=== PATIENT | female | born 1945 | race African-American/Black ===

== ENCOUNTER 2019-08-16 22:38 | Emergency (ER) | payer MEDICARE, OTHER, SELFPAY ==
--- NOTE | ~2019-08-16 | CT_ITS ---
EXAMINATION: CT brain wo con INDICATION: Head injury COMPARISON: None TECHNIQUE: Standard unenhanced head CT. The dose-length product (DLP) was 529.67 mGy-cm. The mA was a djusted according to patient size. Iterative reconstruction technique was employed. FINDINGS: There is a hematoma of the posterior scalp. There is no acute intraparenchymal hemorrhage. No evidence of acute infarction. A 1.6 x 1.3 cm hyperdense extra-axial mass is noted to the left of m idline near the vertex. There is mild periventricular and subcortical hypodensity probably related to small vessel ischemic disease. There is mild prominence of the sulci and ventricles related to cereb ral atrophy. Intracranial calcified cerebral atherosclerosis is noted. There are no extra-axial colle ctions. There is no mass effect or midline shift. The orbits and soft tissues are unremarkable. Ther e is mild mucosal thickening of the paranasal sinuses. IMPRESSION: 1. Posterior scalp hematoma without acute intracranial abnormality. 2. Age related findings. 3. Extra-axial mass near the vertex to the left of midline with imaging features consistent with a me ningioma. Reviewed, dictated and finalized at location A. DE ACCOUNT REPRESENTATIVE IMPRESSION: 1. Posterior scalp hematoma without acute intracranial abnormality. 2. Age related findings. 3. Extra-axial mass near the vertex to the left of midline with imaging feature s consistent with a meningioma.
--- NOTE | ~2019-08-16 | CT_ITS ---
EXAMINATION: CT abdomen pelvis wo con EXAM DATE: 08/17/2019 00:37 INDICATION: Right low back pain. Hematuria. Fall, right hip pain. TECHNIQUE: Spiral CT of the abdomen and pelvis was performed without contrast. Axial, coronal and sag ittal images were reviewed. The dose-length product (DLP) for this examination was 279.63 mGy-cm. T he exposure was tailored according to patient size (auto mA exposure control), and iterative reconstr uction (ASIR) was used as additional dose reduction technique. Comparison is made to prior examinatio n from 01/11/2016. FINDINGS: There is no nephrolithiasis or hydronephrosis. The uterus is not identified and has likel y been surgically resected. There is a cystic region left posterior aspect of the bladder, could be t he same cystic region seen in 2016 suspected to be left adnexal in origin, with interval decrease in size from 8.9 cm to 6.5 cm. Significant decrease in volume overall. The liver, spleen, adrenal glands and pancreas are unremarkable. Punctate cholelithiasis. Gallbladder is contracted and otherwise unr emarkable. There is no retroperitoneal or pelvic lymphadenopathy. There is moderate scattered virgil riosclerotic disease. The appendix is normal. The stomach and small bowel are unremarkable. There is expected amount of c olonic stool. No free intraperitoneal gas. The heart is normal in size. There are no pericardial or pleural effusions. Small patchy left basilar groundglass opacities appearance most consistent wi th acute infectious process, developing pneumonia. There are no osteoblastic or osteolytic lesions i dentified. Advanced disc disease L5-S1 with sclerosis, vacuum disc phenomenon. There are no acute fr actures identified. IMPRESSION: 1. Patchy left lower lobe airspace disease suspicious for developing pneumonia. 2. Left adnexal region cystic mass, more likely benign histology given decrease in size, volume comp ared to 2016. I discussed left lower lobe airspace disease with Dr. Alaniz at 08/17/2019 08:41 STATISTICAL CLERK ADVERTISING. Reviewed, dictated and finalized at location B. ISTICAL CLERK ADVERTISING IMPRESSION: 1. Patchy left lower lobe airspace disease suspicious for developing pneumonia . 2. Left adnexal region cystic mass, more likely benign histology given decreas e in size, volume compared to 2016. I discussed left lower lobe airspace disease with Dr. Alaniz at 08/17/2019 08:4 1 STATISTICAL CLERK ADVERTISING.
--- NOTE | ~2019-08-16 | XR_ITS ---
EXAMINATION: XR elbow LT 2V INDICATION: Left elbow pain TECHNIQUE: Two views of the left elbow were obtained. COMPARISON: None available FINDINGS: No fracture is identified. There is posterior soft tissue swelling. Mild osteoarthritis is noted. No joint effusion is seen. IMPRESSION: 1. No acute osseous abnormality. Reviewed, dictated and finalized at location A. CTOR INDUSTRIAL RELATIONS
--- NOTE | ~2019-08-16 | XR_ITS ---
EXAMINATION: XR lumbar spine 2-3V DATE: 08/16/2019 23:47 INDICATION: Low back pain after fall TECHNIQUE: Anteroposterior and lateral views of the lumbar spine, and cone-down lateral view of the l umbosacral junction were obtained. COMPARISON: CT, 01/11/2016 FINDINGS: No fracture is identified. There are 2 mm of chronic anterolisthesis of L4 on L5 and retrol isthesis of L5 on S1. The vertebral body heights are normal. Moderate loss of intervertebral disc spa ce height at L4-5 and L5-S1 is unchanged. There is severe facet osteoarthritis of the lower lumbar sp ine. Calcified atherosclerosis is noted. IMPRESSION: 1. Moderate lumbar spondylosis without acute findings or significant interval change. Reviewed, dictated and finalized at location A. ERMAN IMPRESSION: 1. Moderate lumbar spondylosis without acute findings or significant interval patricia bose
--- NOTE | ~2019-08-16 | CT_ITS ---
EXAMINATION: CT cervical spine wo con DATE: 08/16/2019 23:38 INDICATION: Neck pain after fall TECHNIQUE: Computed tomography (CT) of the cervical spine was performed without intravenous contrast. The dose-length product (DLP) was 176.76 mGy-cm. Automated exposure control and iterative reconstruc tion technique were employed. COMPARISON: 01/10/2016 FINDINGS: There are 2 mm of stable anterolisthesis of C4 on C5 and C7 on T1. There is 1 mm of stable retrolisthesis of C6 on C7. There is moderate loss of intervertebral disc space height at C5-6 and se ozzie loss of intervertebral disc space height at C6-7 and T1-2. Mild loss of intervertebral disc spac e height is present at C2-3 and C3-4. The vertebral body heights are normal. The odontoid is intact. There is no fracture. There is severe multilevel facet and uncovertebral joint osteoarthritis. The pr evertebral soft tissues are normal. Small degenerative osteophytes project from the anterior endplate s of multiple vertebral bodies. IMPRESSION: 1. Severe cervical spondylosis without acute findings or significant interval change. Reviewed, dictated and finalized at location A. TECH IMPRESSION: 1. Severe cervical spondylosis without acute findings or significant interval c tomasa.
--- NOTE | ~2019-08-16 | XR_ITS ---
EXAMINATION: XR hip RT 2V w AP pelvis INDICATION: Right hip pain after fall TECHNIQUE: AP view of the pelvis and two views of the right hip are obtained. COMPARISON: None available FINDINGS: Bone alignment is normal. There is no fracture. Mild bilateral hip osteoarthritis is noted. There is also mild osteitis pubis. Phleboliths are noted in the pelvis. The soft tissues are unremar kable. IMPRESSION: 1. No acute osseous abnormality. Reviewed, dictated and finalized at location A. EY STRIPPER
[2019-08-16 22:40] VITALS: BP 207/85; PULSE 91; RESP 16; TEMP 36.7; O2SAT 100
--- NOTE | 2019-08-16 23:03 | ED.HEATRA ---
HPI - Head Injury General Chief complaint: Head Injury Stated complaint: FALL Time Seen by Provider: 08/16/19 23:02 Source: patient and RN notes reviewed Mode of arrival: other Limitations: no limitations History of Present Illness HPI Narrative: Pt is a 74 y/o female who presents to the ED with c/o an occipital head injury that occurred an hour ago after a fall. Pt states that she missed the steps at home. She states that she fell backwards and hit her head posterior. She states that she tried to brace her head. Pt also reports right hip pain, left elbow pain, dark urine, hematuria, and back pain since (08/11/19), but denies syncope, vomiting, CP, neck pain, SOB, and ABD pain. Pt denies taking any anticoagulants. Pt's chief privacy officer is Dr. Waters. Complaint: head injury Onset (ago): hour(s) (1) Mechanism of Injury: fall Place: home Loss of Consciousness: no Location of injury: occipital Other Injuries: other (right hip, left elbow) Associated symptoms: other (right hip pain, left elbow pain, dark urine, hematuria, back pain since (08/11/19)) Related Data Home Medications Medication Instructions Recorded Confirmed losartan 25 mg tablet 25 mg PO DAILY 07/26/19 Allergies Allergy/AdvReac Type Severity Reaction Status Date / Time No Known Allergies Allergy Unverified 06/10/18 10:26 Review of Systems Review of Systems: All systems reviewed & are unremarkable except as noted in HPI and below Cardiovascular: Cardiovascular: Denies chest pain Respiratory: Respiratory: Denies dyspnea Gastrointestinal: Gastrointestinal: Denies abdominal pain and Denies vomiting Genitourinary: Genitourinary: Reports hematuria and Reports other (dark colored urine) Musculoskeletal: Musculoskeletal: Reports back pain and Reports other (right hip pain, left elbow pain) Neurologic: Denies syncope [facility] Past Medical History Medical History (Updated 08/17/19 @ 01:03 by Andreia Mckeon MD) Anemia Arthritis Benign reactive hypertension Cataracts, bilateral Chronic disease anemia CKD (chronic kidney disease) (Unknown) GERD (gastroesophageal reflux disease) HTN (hypertension) Hyperlipidemia PUD (peptic ulcer disease) Rectal polyp Seasonal allergies Ulcer Surgical History Surgical History (Updated 08/16/19 @ 23:14 by Charlene Mahmood) History of hysterectomy Family History Family History (Updated 07/26/19 @ 10:16 by Aundrea Saeed) Mother , 84 yrs old Dementia Sibling Brain aneurysm Other Diabetes mellitus Family history of congestive heart failure Hypertension Social History Social History (Updated 07/26/19 @ 10:12 by Aundrea Saeed) Smoking status: Former smoker Second hand tobacco smoke exposure: No Alcohol intake: current Drinks per week: 4 Substance use: never Substance use type: does not use Gender identity (if verbalized by the patient): Female Exam Const: General: no acute distress and well developed Orientation/consciousness: oriented to person, oriented to place, oriented to time and patient oriented x3 HENMT: Head: scalp tenderness (occipital) Ears: external ears normal General nose exam: Normal external nose present Eyes: General: appearance normal, both eyes and all related structures Conjunctivae: conjunctivae normal Neck: Neck: normal visual inspection and full ROM Chest: Chest palpation & inspection: normal inspection of the chest and no tenderness Resp: Effort & Inspection: normal respiratory effort Auscultation: clear to auscultation bilaterally Cardio: Rate: regular rate Rhythm: regular rhythm Back/Spine/Pelvis: Thoracic/Lumbar Spine: other (right lower back tenderness) Skin: General skin exam: normal color and turgor normal Neuro: General: oriented to person, oriented to place, oriented to time and patient oriented x3 Cognition (Neuro): normal cognition Extrem: General: normal to inspection, full ROM and no pe
[2019-08-16 23:33] LABS: Basophils Percent Auto 0.4 % (0.2-1.2); Eosinophils Absolute Auto 0.2 K/mm3 (0-0.3); Hematocrit 38.2 % (37.0-47.0); Hemoglobin 12.7 g/dL (12.0-15.0); Immature Granulocyte Percent A 1.8 % (0-0.5); Lymphocytes Absolute Auto 1.93 K/mm3 (0.9-3.2); Lymphocytes Percent Auto 34.1 % (18.3-44.2); Mean Corpuscular HGB Conc 33.2 g/dl (32-36); Mean Corpuscular Hemoglobin 29.6 pg (26-34); Mean Platelet Volume 10.1 fl (7.4-10.4); Monocytes Absolute Auto 0.5 K/mm3 (0.1-0.6); Monocytes Percent Auto 8.7 % (2.6-8.5); Platelet Count Result 187 k/mm3 (150-375); Red Blood Count 4.29 M/mm3 (4.2-5.4); Red Cell Distribution Width 12.7 % (11.5-14.5); White Blood Count 5.7 K/mm3 (4.5-10.0)
[2019-08-16 23:38] LABS: Add Urine Microscopic? YES; Appearance Urine Clear (Clear); Bacteria Urine Trace /hpf; Bilirubin Urine Negative (Negative); Blood Urine 3+ (Negative); Color Urine Straw (Yellow); Glucose Urine UA 1+ mg/dL (Negative); Ketones Urine Negative (Negative); Leukocyte Esterase Ur Negative LEU/UL (Negative); Mucus Urine Rare /lpf; Nitrate Urine Negative (Negative); Protein Urine 1+ mg/dL (Negative); RBC Urine 51-75 /hpf (0-2); Specific Grav Ur 1.009 (1.001-1.035); Squamous Epithelial Cell Urine Rare /hpf (Few); Urobilinogen Urine Negative mg/dL (<2.0); WBC Urine 0-3 /hpf
[2019-08-16 23:41] LABS: Blood Urea Nitrogen 19 mg/dL (7-17); Calcium 9.6 mg/dL (8.4-10.2); Carbon Dioxide 18 mmol/L (22-30); Chloride 87 mmol/L (98-107); Estimated CRCL calculation 26 ml/min; Estimated Glomerular Filt Rate 41; Glucose 114 mg/dL (65-105); Potassium 4.4 mmol/L (3.4-5.0); Sodium 126 mmol/L (137-145)
[2019-08-17 01:19] VITALS: BP 201/80; PULSE 88; RESP 16; O2SAT 100
== END 2019-08-17 01:20 | disposition home or self-care (01) ==
PROVIDERS: Emergency Provider Emergency Medicine; PCP Family Medicine
DX: S00.03XA Contusion of scalp, initial encounter (principal); S70.01XA Contusion of right hip, initial encounter; S50.02XA Contusion of left elbow, initial encounter; M19.90 Unspecified osteoarthritis, unspecified site; Z86.2 Personal history of diseases of the blood and blood-forming organs and certain disorders involving the immune mechanism; N18.9 Chronic kidney disease, unspecified; E78.5 Hyperlipidemia, unspecified; I12.9 Hypertensive chronic kidney disease with stage 1 through stage 4 chronic kidney disease, or unspecified chronic kidney disease; Z87.19 Personal history of other diseases of the digestive system; Z87.891 Personal history of nicotine dependence; M47.816 Spondylosis without myelopathy or radiculopathy, lumbar region; M47.812 Spondylosis without myelopathy or radiculopathy, cervical region; R93.0 Abnormal findings on diagnostic imaging of skull and head, not elsewhere classified; N94.89 Other specified conditions associated with female genital organs and menstrual cycle; R91.8 Other nonspecific abnormal finding of lung field; W10.9XXA Fall (on) (from) unspecified stairs and steps, initial encounter
CPT/HCPCS: 36415; 70450; 72100; 72125; 73070; 73502; 73521; 74176; 80048; 81001; 85025; 99284

== ENCOUNTER 2019-12-05 00:32 | Outpatient (CLI) | payer MEDICARE, OTHER, SELFPAY ==
[2019-12-05 16:41] LABS: SARS-CoV-2 RNA PCR Negative
== END 2019-12-05 00:33 | disposition home or self-care (01) ==
LOC: ANHCOVIDDT 00:32
PROVIDERS: PCP Family Medicine; Visit Provider Obstetrics & Gynecology
DX: Z01.812 Encounter for preprocedural laboratory examination (principal); Z20.828 Contact with and (suspected) exposure to other viral communicable diseases
CPT/HCPCS: 87635; 93005; C9803; U0003

== ENCOUNTER 2019-12-05 10:51 | Outpatient (CLI) | payer MEDICARE, OTHER, SELFPAY ==
--- NOTE | 2019-12-05 10:55 | ECG_ITS ---
Measurements Intervals [place] Rate: 86 P: 44 MT: 176 QRS: 46 QRSD: 90 T: 31 QT: 370 QTc: 444 Interpretive Statements SINUS RHYTHM POSSIBLE LEFT ATRIAL ENLARGEMENT POSSIBLE LEFT VENTRICULAR HYPERTROPHY MINIMAL Q WAVES- ANTEROLAT/INF LEADS ST ELEVATION IN DIFFUSE LEADS- PROBABLY EARLY REPOLARIZATION BASELINE ARTIFACT- II, III, AVR, AVL, AVF BORDERLINE ECG Electronically Signed On 12-05-2019 11:42:05 CDT by Oleksandr Hernandez D.O.
== END 2019-12-05 10:52 | disposition home or self-care (01) ==
LOC: ANHSURGERY 10:55
PROVIDERS: PCP Family Medicine; Visit Provider Obstetrics & Gynecology
DX: I10 Essential (primary) hypertension (principal); R94.31 Abnormal electrocardiogram [ECG] [EKG]
CPT/HCPCS: 93005

== ENCOUNTER 2019-12-07 02:06 | Day surgery (SDC) | payer MEDICARE, OTHER, SELFPAY ==
--- NOTE | 2019-12-06 15:31 | WPDANESEPPF ---
Anes - Initial Pre Proc Eval Procedure: Operation Date: 12/07/19 11:00 Proposed Procedures p Laparoscopic Left Ovarian Cystectomy - Christian Aguilar MD Date/Time: 12/06/19 15:31 Surgeon: Christian Aguilar MD Pre Op Diagnosis: Left Ovarian Cyst Patient Data Age: 74 Gender: F Height: Weight: Allergies Allergy/AdvReac Type Severity Reaction Status Date / Time No Known Allergies Allergy Unverified 12/01/19 16:03 Home Medications Medication Instructions Recorded Confirmed Type losartan 25 mg tablet 25 mg PO DAILY 07/26/19 12/01/19 History lanolin zcutrke-ec-n.pet-ceres 1 applic TOPICAL DAILY PRN 12/01/19 12/01/19 History [Eucerin] ECG: Date of Service: 12/05/19 Procedure(s): CA 12 lead EKG Accession Number(s): [id number] cc: ~ Measurements Intervals [place] Rate: 86 P: 44 MN: 176 QRS: 46 QRSD: 90 T: 31 QT: 370 QTc: 444 Interpretive Statements SINUS RHYTHM POSSIBLE LEFT ATRIAL ENLARGEMENT POSSIBLE LEFT VENTRICULAR HYPERTROPHY MINIMAL Q WAVES- ANTEROLAT/INF LEADS ST ELEVATION IN DIFFUSE LEADS- PROBABLY EARLY REPOLARIZATION BASELINE ARTIFACT- II, III, AVR, AVL, AVF BORDERLINE ECG Electronically Signed On 12-05-2019 11:42:05 CDT by Oleksandr Hernandez D.O. Dictated By: Oleksandr Hernandez DO 12/05/19 1127 Patient hx anesthesia problems: none Family hx anesthesia problems: none PMFSH Past Medical History Medical History (Updated 08/23/19 @ 11:53 by Dorothy Gupta MD) Alcohol abuse Anemia Arthritis Benign reactive hypertension Cataracts, bilateral Cholelithiasis Chronic disease anemia CKD (chronic kidney disease) (Unknown) GERD (gastroesophageal reflux disease) HTN (hypertension) Hyperlipidemia Ovarian cyst, left PUD (peptic ulcer disease) Rectal polyp Seasonal allergies Ulcer Surgical History Surgical History (Updated 08/16/19 @ 23:14 by Charlene Mahmood) History of hysterectomy Family History Family History (Updated 07/26/19 @ 10:16 by Aundrea Saeed) Mother , 84 yrs old Dementia Sibling Brain aneurysm Other Diabetes mellitus Family history of congestive heart failure Hypertension Social History Social History (Updated 08/23/19 @ 08:59 by Aundrea Saeed) Social History: Smoking status: Former smoker Second hand tobacco smoke exposure: No Alcohol intake: current Drinks per week: 6 Substance use: never Substance use type: does not use Gender identity (if verbalized by the patient): Female Anes - Eval Final PreProcedure Day of Procedure 12/06/19 15:31 Patient weight: normal Heart: regular rate and rhythm Lungs: clear to auscultation and normal air movement Airway: Mallampati scale class II Neurological: alert and oriented Last oral intake: >/= 8 hours ASA classification: III Emergent: no Anesthetic plan: proceed Anesthesia type and monitoring: general ETT Informed Consent: The patient's anesthetic plan and its attendant risks and benefits were discussed with the patient/family/POA. Questions were solicited and answers provided to the satisfaction of the patient/family/POA.
[2019-12-07] VITALS (8 sets, daily range): BP systolic 118–188; BP diastolic 63–86; PULSE 64–79; RESP 12–20; TEMP 36–36.3; O2SAT 98–100
[2019-12-07] MEDS: LACTATED RINGERS 1,000 ML 30 ML IV CONT ×2 (09:30→12:20)
--- NOTE | 2019-12-07 10:01 | WPDHPUPDATE1 ---
History and Physical Update Update Date/Time: 12/07/19 10:01 History and Physical has been reviewed, including an updated exam of the patient. There are NO changes in the patient's condition. Risks, benefits, and alternatives have been discussed and questions answered. Patient agrees to proceed with procedure.
--- NOTE | 2019-12-07 12:19 | P.OP_ITS ---
Procedure Note - Detailed Date of procedure: 12/07/19 Pre-op diagnosis: Left Ovarian Cyst Post-op diagnosis: other Procedure performed: Laparoscopic left ovarian cystectomy and adhesiolysis-1 hour of adhesiolysis Description of procedure: The patient was taken the operating room. She was prepped and draped in the dorsal lithotomy position after induction of general anesthesia. A 5 mm left upper quadrant incision was made in the abdominal skin with a scalpel. A 5 mm trocar was inserted the intra-abdominal cavity under direct visualization of the scope. A 5 mm left lower quadrant incision was made with the scalp on the abdominal skin and a 5 mm trocar was inserted the intra- abdominal cavity under direct visualization of the scope. A 5 mm infraumbilical incision was made with scalpel and a 5 mm trocar was inserted into the intra- abdominal cavity under direct visualization of the scope. Adhesiolysis was performed for 1 hour freeing up the ovary from the para ovarian tissue and left pelvic sidewall. The ureter was dissected out from the pelvic brim to the uterine artery. The ovary was densely adherent to the pelvic sidewall and the anterior pelvis near the bladder. Ultimately after prolonged dissection the ovary was removed through the left lateral pelvic sidewall. It was placed in an endobag was taken at the left lower quadrant trocar site. A small defect was made in the cyst and a small amount of fluid came out of the cyst before placing it in the bag. The ovaries taken of the left lower quadrant trocar site along with the bag. Interceed was placed over the dissected area to make it hemostatic. The pelvis was irrigated with copious amounts of normal saline. The pneumoperitoneum was reduced. The trocars were removed. The patient was taken recovery room stable condition. Sponge lap and needle counts were correct x2. Anesthesia: GETA Surgeon: Christian Aguilar MD Estimated blood loss (mL): 20 Drains: No Packing: No Complications: No immediate complications Condition: stable Disposition: PACU Findings: 7 cm ovarian cyst, the left ovary and adnexa were densely adherent to the left lateral pelvic sidewall and anterior pelvis and near the dome of the bladder. The remainder of the pelvis appeared normal.
--- NOTE | 2019-12-07 14:31 | SUR.PHASEII ---
1415; DR WEAVER NOTIFIED OF PT'S BP. SYSTOLIC 180'S THEN 160'S NOW BACK TO 188 SYSTOLIC. PT DID NOT TAKE HER LOSARTAN TODAY DUE TO HOLD FOR SURGERY INSTRUCTIONS. DR WEAVER STATES FOR PT TO GO HOME AND TAKE LOSARTAN TODAY. WRITTEN ON INSTRUCTIONS. PT'S DAUGHTER AND SPOUSE NOTIFIED TO TAKE LOSARTAN TODAY.
== END 2019-12-07 14:33 | disposition home or self-care (01) ==
PROVIDERS: PCP Family Medicine; Visit Provider Obstetrics & Gynecology
PROC: (CPT 49320; principal; 2019-12-07 11:00)
DX: D27.1 Benign neoplasm of left ovary (principal); N73.6 Female pelvic peritoneal adhesions (postinfective); I12.9 Hypertensive chronic kidney disease with stage 1 through stage 4 chronic kidney disease, or unspecified chronic kidney disease; N18.9 Chronic kidney disease, unspecified; E78.5 Hyperlipidemia, unspecified; K21.9 Gastro-esophageal reflux disease without esophagitis; D63.8 Anemia in other chronic diseases classified elsewhere; Z79.899 Other long term (current) drug therapy
CPT/HCPCS: 58661; 88104; 88108; 88305; 88307; J0131; J1100; J2370; J2405; J2704; J3010; J7120

== ENCOUNTER 2019-12-19 06:49 | Emergency (ER) | payer MEDICARE, OTHER, SELFPAY ==
[2019-12-19 06:56] VITALS: BP 166/90; PULSE 89; RESP 18; TEMP 36.8; O2SAT 100
--- NOTE | 2019-12-19 07:35 | ED.ALLEREA ---
HPI - Allergic Reaction General Chief complaint: Allergic Reaction Stated complaint: swollen ear, itching Time Seen by Provider: 12/19/19 07:26 History of Present Illness HPI narrative: Patient presents with weeks and months of eczema with severe irritation primarily around the right ear. She has had this for years and never seen a travel manager. She has an appointment with a travel manager for January 24. She had steroids 3 weeks ago which did not help. She continually scratches her scalp and her hands. She now has redness and swelling of the right pinna and preauricular skin, with weeping. She also complains of redness and itching underneath each breast. Also her hands have thickened skin that itches. She says the Benadryl does not help with the itching. She is retired. She knows to keep her fingernails short to avoid damage to her skin while scratching. She has no other medical concerns. Onset (ago): month(s) Exposure: unknown Symptoms: rash, itching and facial swelling Severity: moderate Treatment prior to arrival: none Related Data Home Medications Medication Instructions Recorded Confirmed losartan 25 mg tablet 25 mg PO DAILY 07/26/19 12/01/19 Eucerin 1 applic TOPICAL DAILY PRN 12/01/19 12/01/19 Allergies Allergy/AdvReac Type Severity Reaction Status Date / Time No Known Allergies Allergy Unverified 12/01/19 16:03 Review of Systems Review of Systems: Narrative: CONSTITUTIONAL: Denies fever, chills, or sweats. EYES: Denies visual changes, redness, or discharge. ENT: Denies rhinorrhea, congestion, sore throat, or otalgia. CARDIOVASCULAR: Denies chest pain, palpitations, or edema. RESPIRATORY: Denies cough or dyspnea. GASTROINTESTINAL: Denies abdominal pain, nausea, vomiting, or diarrhea. GENITOURINARY: Denies dysuria or hematuria. SKIN: She has rash and itching. MUSCULOSKELETAL: Denies back pain, joint pain, or myalgia. NEUROLOGIC: Denies headache, numbness, or weakness. PSYCHIATRIC: Denies anxiety or depression. [facility] Past Medical History Medical History Alcohol abuse Anemia Arthritis Benign reactive hypertension Cataracts, bilateral Cholelithiasis Chronic disease anemia CKD (chronic kidney disease) (Unknown) GERD (gastroesophageal reflux disease) HTN (hypertension) Hyperlipidemia Ovarian cyst, left PUD (peptic ulcer disease) Rectal polyp Seasonal allergies Ulcer Surgical History Surgical History History of hysterectomy Family History Family History (Updated 07/26/19 @ 10:16 by Aundrea Saeed) Mother , 84 yrs old Dementia Sibling Brain aneurysm Other Diabetes mellitus Family history of congestive heart failure Hypertension Social History Social History Social History: Smoking status: Former smoker Second hand tobacco smoke exposure: No Alcohol intake: current Drinks per week: 6 Substance use: never Substance use type: does not use Gender identity (if verbalized by the patient): Female Exam Narrative: Exam Narrative: GENERAL: Well-appearing, well-nourished, and in no acute distress. HEAD: Normocephalic, atraumatic. EYES: PERRLA and EOMI. ENT: Nares clear, no rhinorrhea or epistaxis. Mucous membranes moist. NECK: Supple. CHEST: Clear to auscultation. No respiratory distress. HEART: Regular rate and rhythm. No murmur heard. Normal peripheral pulses. ABDOMEN: Soft, nontender, nondistended, normal active bowel sounds. EXTREMITIES: Normal range of motion. No edema. SKIN: Warm, dry, dry thickened skin on her palms, redness beneath each breast, redness and swelling preauricular on the right, redness and swelling of the right pinna. NEURO: No focal deficits. Alert and oriented x3. PSYCH: Normal mood and affect. Course Vital Signs Vital signs: Vital Signs Temperature
[2019-12-19] MEDS: predniSONE 20 MG TABLET 60 MG PO (07:46)
== END 2019-12-19 07:50 | disposition home or self-care (01) ==
PROVIDERS: Emergency Provider Emergency Medicine; PCP Family Medicine
DX: L30.9 Dermatitis, unspecified (principal); H60.391 Other infective otitis externa, right ear; L03.211 Cellulitis of face; M19.90 Unspecified osteoarthritis, unspecified site; I13.10 Hypertensive heart and chronic kidney disease without heart failure, with stage 1 through stage 4 chronic kidney disease, or unspecified chronic kidney disease; N18.9 Chronic kidney disease, unspecified; K21.9 Gastro-esophageal reflux disease without esophagitis; E78.5 Hyperlipidemia, unspecified; Z87.11 Personal history of peptic ulcer disease; Z87.891 Personal history of nicotine dependence; H26.9 Unspecified cataract
CPT/HCPCS: 99283; J7512

== ENCOUNTER 2020-09-10 09:58 | Outpatient (CLI) | payer MEDICARE, OTHER, SELFPAY | END 2020-09-10 09:59 | disposition home or self-care (01) | LOC: ANHCOVIDVC 09:58 | PROVIDERS: PCP Family Medicine | DX: Z23 Encounter for immunization (principal) | CPT/HCPCS: 0001A; 91300 ==

== ENCOUNTER 2020-10-01 15:50 | Outpatient (CLI) | payer MEDICARE, OTHER, SELFPAY | END 2020-10-01 15:51 | disposition home or self-care (01) | LOC: ANHCOVIDVC 15:50 | PROVIDERS: PCP Family Medicine | DX: Z23 Encounter for immunization (principal) | CPT/HCPCS: 0002A; 91300 ==

== ENCOUNTER 2020-12-17 12:29 | Observation (INO) | payer MEDICARE, OTHER, SELFPAY ==
[2020-12-17] VITALS (13 sets, daily range): BP systolic 155–196; BP diastolic 62–86; PULSE 70–96; RESP 13–20; TEMP 35.9–36.6; O2SAT 99–100; BMI 26.8
--- NOTE | ~2020-12-17 | MR_ITS ---
EXAMINATION: MR brain/brain stem wo con EXAM DATE: 12/18/2020 12:31 INDICATION: Dizziness. TECHNIQUE: Magnetic resonance imaging (MRI) of the brain/brain stem obtained without contrast. Shaguftaitt al T1, axial diffusion, gradient echo (T2*), T1, T2, FLAIR sequences obtained. Correlation is made t o yesterday. FINDINGS: There are no areas of restricted diffusion to suggest acute infarction. There is no acute hemorrhage seen on the T2*, a hemosiderin sensitive sequence. No intraparenchymal brain mass lesion. There is extra-axial mass overlying the posterior aspect left frontal lobe, consistent with meningi glory, measuring 1.5 cm. There is mild to moderate periventricular and subcortical T2/FLAIR signal hyp erintensity, nonspecific but probably related to small vessel ischemic disease (microangiopathy). T here is prominence of the sulci and ventricles related to cerebral atrophy. There are no extra-axia l collections. Flow voids are seen in the cerebral arteries on the T2-weighted sequences consistent with their expected patency. The orbits are unremarkable. Soft tissue is unremarkable. IMPRESSION: 1. No acute intracranial findings. 2. Chronic age related findings. 3. Meningioma. Reviewed, dictated and finalized at location B.
--- NOTE | ~2020-12-17 | CT_ITS ---
EXAMINATION: CT brain wo con DATE: 12/17/2020 13:15 INDICATION: Dizziness. TECHNIQUE: Computed tomography (CT) of the head was performed without intravenous contrast. The dose- length product was 529.67 mGy-cm. The mA was adjusted according to patient size. Iterative reconstruc tion technique was employed. COMPARISON: CT dated 08/16/2019 FINDINGS: There is a hypodense 1.8 cm extra-axial mass at the left parietal vertex without significan t change, likely benign meningioma. Mild generalized atrophy. There are scattered mild periventricula r and subcortical white matter changes, most likely related to small vessel ischemic disease (microan giopathy). No acute intracranial hemorrhage, infarction, mass or mass effect. There is intracranial a therosclerosis. There is mild mucosal thickening of the maxillary and the ethmoid sinuses. Mastoids a re pneumatized. No depressed skull fractures. IMPRESSION: 1. No acute intracranial abnormality. 2: Stable hyperdense extra axial mass at the left parietal vertex measuring up to 1.8 cm, likely jan gn meningioma. 2: Chronic age-related findings. Reviewed, dictated and finalized at location A. IMPRESSION: 1. No acute intracranial abnormality. 2: Stable hyperdense extra axial mass at the left parietal vertex measuring up to 1.8 cm, likely benign meningioma. 2: Chronic age-related findings.
--- NOTE | ~2020-12-17 | US_ITS ---
EXAMINATION: US carotid duplex BI EXAM DATE: 12/17/2020 16:24 INDICATION: Dizziness. TECHNIQUE: Grayscale, color and pulsed Doppler images of the cervical carotid arteries were obtained . The degree of vessel stenosis is placed in one of the following categories: normal, <50% stenosis, 50-69% stenosis, >=70% stenosis but less than near-occlusion, near-occlusion, or occlusion. Note that percent stenosis relative to normal distal artery lumen diameter is indirectly measured from velocit y measurements as described by Freddy, et al. Radiology 2003; 229:340-346. There is no prior study fo r comparison. FINDINGS: RIGHT SIDE: Right common carotid artery peak systolic velocity (PSV in cm/s): 117 Right bulb/internal carotid artery peak systolic velocity (PSV in cm/s): 135 Right internal carotid artery end diastolic velocity (EDV in cm/s): 43 Right ICA/CCA peak systolic ratio: 1.15 Right external carotid artery peak systolic velocity (PSV in cm/s): 68 Right vertebral artery antegrade flow: yes There is no focal plaque identified. LEFT SIDE: Left common carotid artery peak systolic velocity (PSV in cm/s): 125 Left bulb/internal carotid artery peak systolic velocity (PSV in cm/s): 124 Left internal carotid artery end diastolic velocity (EDV in cm/s): 35 Left ICA/CCA peak systolic ratio: 1.0 Left external carotid artery peak systolic velocity (PSV in cm/s): 107 Left vertebral artery antegrade flow: yes There is no focal plaque identified. IMPRESSION: 1. Normal right internal carotid artery. 2. Normal left internal carotid artery. Reviewed, dictated and finalized at location B.
--- NOTE | 2020-12-17 12:36 | ECG_ITS ---
Measurements Intervals [place] Rate: 77 P: 54 VA: 177 QRS: 40 QRSD: 91 T: 42 QT: 390 QTc: 441 Interpretive Statements SINUS RHYTHM POSSIBLE LEFT ATRIAL ENLARGEMENT POSSIBLE LEFT VENTRICULAR HYPERTROPH MINIMAL Q WAVES- INF/LAT LEADS ST ELEVATION IN ANTEROLATERAL LEADS- PROBABLY EARLY REPOLARIZATION ABNORMALITY BASELINE ARTIFACT- II, III, AVR, AVF, V1-V6 BORDERLINE ECG Electronically Signed On 12-17-2020 12:51:10 CDT by Oleksandr Hernandez D.O.
--- NOTE | 2020-12-17 12:58 | ED.GENADULT ---
HPI - General Adult General Chief complaint: Dizziness Stated complaint: DIZZINESS, L KNEE PAIN Time Seen by Provider: 12/17/20 12:38 Related Data Home Medications Medication Instructions Recorded Confirmed Eucerin 1 applic TOPICAL DAILY PRN 12/01/19 08/31/20 cholecalciferol (vitamin D3) 25 25 mcg PO DAILY 12/23/19 08/31/20 mcg (1,000 unit) capsule clotrimazole-betamethasone 1 1 applic TOPICAL BID 02/17/20 08/31/20 %-0.05 % topical cream ferrous sulfate 325 mg (65 mg 325 mg PO .COMPLEX 02/17/20 08/31/20 iron) tablet Allergies Allergy/AdvReac Type Severity Reaction Status Date / Time No Known Allergies Allergy Verified 12/17/20 12:51 COUNT INCLUDES THE [facility] Past Medical History Medical History (Updated 09/08/20 @ 22:14 by Dorothy Gupta MD) Alcohol abuse Anemia Arthritis Benign reactive hypertension Cataracts, bilateral Cholelithiasis Chronic disease anemia CKD (chronic kidney disease) (Unknown) GERD (gastroesophageal reflux disease) HTN (hypertension) Hyperlipidemia Ovarian cyst, left PUD (peptic ulcer disease) Rectal polyp Seasonal allergies Ulcer Surgical History Surgical History History of hysterectomy Family History Family History Mother , 84 yrs old Dementia Sibling Brain aneurysm Other Diabetes mellitus Family history of congestive heart failure Hypertension Social History Social History (Updated 08/31/20 @ 09:37 by Aundrea Saeed) Social History: Smoking status: Former smoker Tobacco type: cigarettes Second hand tobacco smoke exposure: No Alcohol intake: current Drinks per week: 18 Substance use: never Substance use type: does not use Gender identity (if verbalized by the patient): Female Course Vital Signs Vital signs: Vital Signs Temperature 36.6 C 12/17/20 12:33 Pulse Rate 78 12/17/20 12:33 Respiratory Rate 18 12/17/20 12:33 Blood Pressure 157/62 H 12/17/20 12:33 Pulse Oximetry 100 12/17/20 12:33 Temperature 36.6 C 12/17/20 12:33 Pulse Rate 83 12/17/20 12:42 Respiratory Rate 19 12/17/20 12:42 Blood Pressure 179/86 H 12/17/20 12:42 Pulse Oximetry 99 12/17/20 12:42 Medical Decision Making Vital Signs Vital Signs: Vital Signs Temperature 36.6 C 12/17/20 12:33 Pulse Rate 78 12/17/20 12:33 Respiratory Rate 18 12/17/20 12:33 Blood Pressure 157/62 H 12/17/20 12:33 Pulse Oximetry 100 12/17/20 12:33 Temperature 36.6 C 12/17/20 12:33 Pulse Rate 83 12/17/20 12:42 Respiratory Rate 19 12/17/20 12:42 Blood Pressure 179/86 H 12/17/20 12:42 Pulse Oximetry 99 12/17/20 12:42 Lab Data Result diagrams: 12/17/20 12:54 12/17/20 12:54 Labs: Lab Results 12/17/20 12/17/20 12/17/20 Range/Units 12:54 12:54 12:54 WBC Pending RBC Pending Hgb Pending Hct Pending MCV Pending MCH Pending MCHC Pending RDW Pending Plt Count Pending MPV Pending Immature Gran % (Auto) Pending Neut % (Auto) Pending Lymph % (Auto) Pending Worth % (Auto) Pending Eos % (Auto) Pending Baso % (Auto) Pending Lymph # (Auto) Pending Worth # (Auto) Pending Eos # (Auto) Pending Baso # (Auto) Pending Abs Immat Gran (auto) Pending Absolute Neuts (auto) Pending Absolute Nucleated RBC Pending Nucleated RBC % Pending Sodium Pending Potassium Pending Chloride Pending Carbon Dioxide Pending Anion Gap Pending BUN Pending Creatinine Pending Estim Creat Clear Calc Pending Estimated GFR Pending Glucose Pending Calcium Pending Total Bilirubin Pending AST Pending ALT Pending Alkaline Phosphatase Pending Troponin I Total Protein Pending Albumin
[2020-12-17 13:01] LABS: Basophils Percent Auto 0.8 % (0.2-1.2); Eosinophils Absolute Auto 0.1 K/mm3 (0-0.3); Eosinophils Percent Auto 2.4 % (0-4.4); Hematocrit 36.2 % (37.0-47.0); Hemoglobin 11.7 g/dL (12.0-15.0); Immature Granulocyte Absolute 0.01 K/mm3 (0.00-0.031); Immature Granulocyte Percent A 0.3 % (0-0.5); Lymphocytes Absolute Auto 1.51 K/mm3 (0.9-3.2); Lymphocytes Percent Auto 39.8 % (18.3-44.2); Mean Corpuscular HGB Conc 32.3 g/dl (32-36); Mean Corpuscular Volume 89.6 fl (80-100); Mean Platelet Volume 11.3 fl (7.4-10.4); Monocytes Absolute Auto 0.5 K/mm3 (0.1-0.6); Monocytes Percent Auto 12.1 % (2.6-8.5); Neutrophils Absolute Auto 1.7 K/mm3 (1.3-6.7); Neutrophils Percent Auto 44.6 % (45.5-73.1); Platelet Count Result 160 k/mm3 (150-375); Red Blood Count 4.04 M/mm3 (4.2-5.4); Red Cell Distribution Width 13.2 % (11.5-14.5); White Blood Count 3.8 K/mm3 (4.5-10.0)
--- NOTE | 2020-12-17 13:04 | ED.GENADULT ---
HPI - General Adult General Chief complaint: Dizziness Stated complaint: DIZZINESS, L KNEE PAIN Time Seen by Provider: 12/17/20 12:38 Source: patient History of Present Illness HPI narrative: Patient is a 75 y/o female complaining of severe intermittent dizziness starting 6 months ago. She describes her dizziness as a room spinning sensation. There is no known alleviating or exacerbating factor. She has some blurred vision. She has no focal weakness or numbness. 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 She does not feel dizzy at this time. Her last episode of dizziness was this morning and it lasted approximately 30 minutes. Related Data Home Medications Medication Instructions Recorded Confirmed Eucerin 1 applic TOPICAL DAILY PRN 12/01/19 08/31/20 cholecalciferol (vitamin D3) 25 25 mcg PO DAILY 12/23/19 08/31/20 mcg (1,000 unit) capsule clotrimazole-betamethasone 1 1 applic TOPICAL BID 02/17/20 08/31/20 %-0.05 % topical cream ferrous sulfate 325 mg (65 mg 325 mg PO .COMPLEX 02/17/20 08/31/20 iron) tablet Allergies Allergy/AdvReac Type Severity Reaction Status Date / Time No Known Allergies Allergy Verified 12/17/20 12:51 Review of Systems Constitutional: Constitutional: Denies chills, Denies fever(s), Denies headache(s) and Denies weakness ENT: Denies headache(s) and Denies neck pain Cardiovascular: Cardiovascular: Denies chest pain and Denies dyspnea Respiratory: Respiratory: Denies cough and Denies dyspnea Gastrointestinal: Gastrointestinal: Denies abdominal pain, Denies diarrhea, Denies nausea and Denies vomiting Genitourinary: Genitourinary: Denies hematuria and Denies dysuria Musculoskeletal: Musculoskeletal: Denies back pain and Denies neck pain Neurologic: Reports dizziness, Denies headache(s), Denies focal weakness and Denies weakness [facility] Past Medical History Medical History (Updated 12/17/20 @ 14:20 by Andreia Mckeon MD) Alcohol abuse Anemia Arthritis Benign reactive hypertension Cataracts, bilateral Cholelithiasis Chronic disease anemia CKD (chronic kidney disease) (Unknown) GERD (gastroesophageal reflux disease) HTN (hypertension) Hyperlipidemia Ovarian cyst, left PUD (peptic ulcer disease) Rectal polyp Seasonal allergies Ulcer Surgical History Surgical History History of hysterectomy Family History Family History Mother , 84 yrs old Dementia Sibling Brain aneurysm Other Diabetes mellitus Family history of congestive heart failure Hypertension Social History Social History Social History: Smoking status: Former smoker Tobacco type: cigarettes Second hand tobacco smoke exposure: No Alcohol intake: current Drinks per week: 18 Substance use: never Substance use type: does not use Gender identity (if verbalized by the patient): Female Exam Const: General: no acute distress and well developed Orientation/consciousness: oriented to person, oriented to place, oriented to time and patient oriented x3 HENMT: Head: normocephalic Ears: external ears normal General nose exam: Normal external nose present Eyes: General: appearance normal, both eyes and all related structures Conjunctivae: conjunctivae normal Neck: Neck: normal visual inspection and full ROM Chest: Chest palpation & inspection: normal inspection of the chest and no tenderness Resp: Effort & Inspection: normal respiratory effort Auscultation: clear to auscultation bilaterally Cardio: Rate: regular rate Rhythm: regular rhythm GI: GI Palp: No abdominal tenderness and Yes Soft to palpation Skin: General skin exam: normal color and turgor normal Neuro: General: oriented to person, oriented to place, orient
[2020-12-17 13:19] LABS: Alanine Aminotransferase 26 U/L (4-35); Albumin Level 4.7 g/dL (3.5-5.1); Alkaline Phosphatase 73 U/L (38-126); Anion Gap 14 mmol/L (8-16); Aspartate Amino Transferase 52 U/L (14-36); Bilirubin,Total 1.1 mg/dL (0.2-1.3); Blood Urea Nitrogen 25 mg/dL (7-17); Calcium 9.5 mg/dL (8.4-10.2); Carbon Dioxide 18 mmol/L (22-30); Chloride 104 mmol/L (98-107); Estimated Glomerular Filt Rate 31; Glucose 138 mg/dL (65-105); Sodium 136 mmol/L (137-145)
[2020-12-17 13:22] LABS: Troponin I < 0.012 ng/mL (0.000-0.034)
[2020-12-17] MEDS: SODIUM CHLORIDE 0.9% IV 1,000 ML 999 ML IV CONT (13:39)
[2020-12-17 14:27] LABS: Add Urine Microscopic? YES; Appearance Urine Clear (Clear); Bacteria Urine Trace /hpf; Bilirubin Urine Negative (Negative); Blood Urine Negative (Negative); Color Urine Yellow (Yellow); Glucose Urine UA Negative (Negative); Ketones Urine Negative (Negative); Leukocyte Esterase Ur Trace LEU/UL (Negative); Mucus Urine Rare /lpf; Nitrate Urine Negative (Negative); Protein Urine Negative (Negative); RBC Urine 0-2 /hpf (0-2); Specific Grav Ur 1.016 (1.001-1.035); Squamous Epithelial Cell Urine Few /hpf (Few); Urobilinogen Urine Negative mg/dL (<2.0); WBC Urine 0-3 /hpf
--- NOTE | 2020-12-17 15:12 | ADMGEN ---
This patient, Tea Turner, was admitted to Medical Room 251-01. Patient/family oriented to hospital policies and general routines including ID bracelet, bed and alarms, visiting hours, pain management, procedures, bathroom and other care routines, personal items, smoking policy, room service/diet, and visiting hours. Information on how to activate the Rapid Response Team has been discussed. Patient/Family are encouraged to report perceived risks to care and to ask questions if they do not understand what they are told or what they should do.
--- NOTE | 2020-12-17 15:30 | PM.IMHP ---
H&P: HPI History of Present Illness Date/Time: 12/17/20 15:30 Chief Complaint: Dizziness. Narrative: This is a 75-year-old female with hypertension and daily alcohol use who presented to the emergency department earlier today via private vehicle from home accompanied by her granddaughter for evaluation of dizziness. The patient reports intermittent episodes of dizziness for quite some time, initially saying that it started 6 months ago however as we got to talking it sounds as though her symptoms started not long after she was put on carvedilol in August 2020. She has dizziness most days and her symptoms usually begin within about 30 minutes of taking her medications. It is difficult for her to qualify the dizziness and at time she tells me it feels as though she might pass out and that her vision is blurry and other times she reports feelings of the room spinning and being off balance. Her granddaughter encouraged her to come in today for evaluation due to ongoing symptoms. She has not been monitoring her blood pressures at home but and I suppose she could be having orthostatic hypotension however her blood pressures have been running quite high since arrival to the emergency department, as high as 196/86. Aside from occasional blurry vision she has no other symptoms associated with the dizziness, specifically denying focal weakness (aside from chronic right shoulder weakness which she believes is due to a rotator cuff tear), paresthesias (though she has chronic carpal tunnel in her left hand), facial droop, dysarthria, dysphagia, and palpitations. Nothing really makes the dizziness worse is however on occasion she does notice getting dizzy when looking up. Aside from the carvedilol she has not been started on any new prescription drugs however she has been using marijuana edibles occasionally to help her sleep since her of 60 years within the last couple of months. She does not believe the edibles are responsible for her sensations as she has not used them for several weeks and continues to have dizziness. Review of Systems Review of Systems: Narrative: Twelve systems were reviewed with pertinent positives and negatives as per HPI. Sometime in June she was lifting up a cooler filled with beverages and hurt her right shoulder, and she has had pain and difficulties lifting the arm past 90? since that time. She also reports numbness in her left hand that has been going on for quite some time and she was apparently diagnosed with carpal tunnel syndrome however has not had that fixed as of yet. No recent cold or flu symptoms. She denies sick contacts. No chest pain, pleuritic pain, or palpitations. She denies shortness of breath however her granddaughter thinks that she gets winded easier, though the patient blames that on having to wear a mask. No cough. She denies orthopnea, PND, and lower extremity edema. No history of venous thromboembolism. She drinks 8 to 9 beers a day and granddaughter notes that the patient had some confusion and hallucinations when hospitalized with a GI bleed in 2016. No history of alcohol withdrawal seizures. Except as documented, all other systems were reviewed and are negative. [facility] Past Medical History Medical History (Updated 12/17/20 @ 20:05 by Alexandra Chavez PA-C) Alcohol abuse Arthritis Cataracts, bilateral Cholelithiasis Chronic disease anemia Chronic kidney disease, stage 3 Patient reports recent creatinine level of 1.80. Colon polyps Gastroesophageal reflux disease Hyperlipidemia Hypertension Peptic ulcer disease Acute gastric ulcers on EGD on 01/10/2016. Seasonal allergies Upper GI bleed (01/2016) Secondary to acute gastric ulcers. Surgical History Surgical History (Updated 12/17/20 @ 19:58 by Alexandra Chavez PA-C) History of hysterectomy History of left oophorectomy Family History Family History Mother
[2020-12-17] MEDS: THIAMINE HCL 200 MG/2 ML VIAL 100 MG IV PUSH (21:16)
[2020-12-17] MEDS: amLODIPine BESYLATE 5 MG TABLET PO (21:16)
[2020-12-18] VITALS (7 sets, daily range): BP systolic 141–155; BP diastolic 67–69; PULSE 74–92; RESP 18; TEMP 36.1–36.4; O2SAT 100
--- NOTE | 2020-12-18 | ECHO_ITS ---
Patient Info Name: Tea Turner Age: 75 years : 1945 Gender: Female Ht: 59 in Wt: 134 lbs BSA: 1.61 m2 HR: 70 bpm BP: 155 / 69 mmHg Technical Quality: Fair Exam Date: 12/18/2020 2:05 PM Exam Location: [facility] Patient Status: Inpatient Admit Date: 12/17/2020 Staff Ordering Physician: Andreia Mckeon MD Histotechnologist Supervisor: Gaby Mcnally RDCS Attending Provider: Evan Lopez MD Referring Physician: Mike JOYCE; Exam Type: CA echo doppler color flow Study Info Indications R42 - Dizziness and giddiness Complete two-dimensional, color flow and Doppler transthoracic echocardiogram is performed. Summary 1. Complete two-dimensional, color flow and Doppler transthoracic echocardiogram is performed. 2. Left ventricular chamber dimension is normal. 3. Left ventricular systolic function is normal, estimated at 65-70%. 4. There is moderately increased left ventricular wall thickness. 5. The left ventricular diastolic function is grade I diastolic dysfunction. 6. E/e' 26 is elevated. 7. Left atrial chamber dimension is mildly enlarged. 8. There is mild aortic valve sclerosis. 9. There is mild to moderate aortic valve regurgitation. 10. The mitral valve has severely calcified annulus. 11. No pulmonary hypertension, estimated pulmonary arterial systolic pressure is 36 mmHg. Left Ventricle E/e' 26 is elevated. Left ventricular chamber dimension is normal. Left ventricular systolic function is normal, estimated at 65-70%. There is moderately increased left ventricular wall thickness. The left ventricular diastolic function is grade I diastolic dysfunction. Right Ventricle Right ventricular systolic function is normal and with normal TAPSE 2.0 cm. Right ventricular chamber dimension is normal. Left Atria Left atrial chamber dimension is mildly enlarged. Right Atria Right atrial chamber dimension is normal. Aortic Valve The aortic valve is trileaflet. There is mild aortic valve sclerosis. There is no aortic valve stenosis. There is mild to moderate aortic valve regurgitation. Pulmonic Valve There is no pulmonic regurgitation. Mitral Valve The mitral valve has severely calcified annulus. There is no mitral valve stenosis. There is no mitral valve regurgitation. Tricuspid Valve There is no tricuspid valve regurgitation. No pulmonary hypertension, estimated pulmonary arterial systolic pressure is 36 mmHg. Pericardium/Pleural There is no pericardial effusion. Inferior Vena Cava Normal inferior vena cava with >50% collapse upon inspiration consistent with normal right atrial pressure, 5 mmHg. Aorta The aortic root size at the sinus of Valsalva is normal. Left Ventricular Outflow Tract Name Value Normal LVOT 2D LVOT Diameter 1.9 cm LVOT Doppler LVOT Peak Gradient 6 mmHg LVOT Mean Gradient 3 mmHg LVOT VTI 24 cm LVOT VTI/AV VTI Ratio 0.8 LVOT Stroke Volume 67 ml LVOT CO 5.5 l/min
[2020-12-18 05:43] LABS: Hematocrit 33.3 % (37.0-47.0); Mean Corpuscular Volume 87.9 fl (80-100); Mean Platelet Volume 9.6 fl (7.4-10.4); Platelet Count Result 149 k/mm3 (150-375); Red Blood Count 3.79 M/mm3 (4.2-5.4); Red Cell Distribution Width 12.9 % (11.5-14.5); White Blood Count 3.4 K/mm3 (4.5-10.0)
[2020-12-18 06:19] LABS: Alanine Aminotransferase 21 U/L (4-35); Albumin Level 3.9 g/dL (3.5-5.1); Alkaline Phosphatase 68 U/L (38-126); Anion Gap 9 mmol/L (8-16); Aspartate Amino Transferase 38 U/L (14-36); Blood Urea Nitrogen 21 mg/dL (7-17); Calcium 9.3 mg/dL (8.4-10.2); Carbon Dioxide 21 mmol/L (22-30); Chloride 107 mmol/L (98-107); Estimated Glomerular Filt Rate 41; Glucose 103 mg/dL (65-105); Magnesium 1.7 mg/dL (1.6-2.3); Potassium 4.1 mmol/L (3.4-5.0); Sodium 137 mmol/L (137-145)
[2020-12-18 07:01] LABS: Folic Acid 14.3 ng/mL (2.76->20)
[2020-12-18] MEDS: THERAPEUTIC MULTIVITAMINS/MINERALS TAB (*BKC) 1 TABLET PO (09:06)
[2020-12-18] MEDS: CHOLECALCIFEROL 1,000 UNITS TABLET 1000 UNITS PO (09:06)
[2020-12-18] MEDS: THIAMINE HCL 100 MG TABLET PO (09:07)
[2020-12-18] MEDS: amLODIPine BESYLATE 5 MG TABLET PO (09:07)
[2020-12-18] MEDS: LOSARTAN POTASSIUM 25 MG TABLET PO (09:07)
[2020-12-18] MEDS: FOLIC ACID 1 MG TABLET PO (09:07)
--- NOTE | 2020-12-18 12:00 | PC.NURSE ---
To MRI via wheelchair.
--- NOTE | 2020-12-18 12:35 | PC.NURSE ---
Return from MRI via wheelchair.
--- NOTE | 2020-12-18 14:52 | PM.DS ---
DS: Admitting Diagnosis Admitting Diagnosis Admitting Diagnosis: Dizziness DS: Discharge Diagnosis Discharge Diagnosis (1) Dizziness: Code(s): R42 - Dizziness and giddiness Status: Acute (2) Hypertension: Qualifiers: Hypertension type: unspecified Qualified Code(s): I10 - Essential (primary) hypertension Code(s): I10 - Essential (primary) hypertension Status: Acute (3) Chronic kidney disease, stage 3: Code(s): N18.30 - Chronic kidney disease, stage 3 unspecified Status: Acute (4) Chronic disease anemia: Code(s): D63.8 - Anemia in other chronic diseases classified elsewhere Status: Acute (5) Alcohol abuse: Code(s): F10.10 - Alcohol abuse, uncomplicated Status: Acute DS: Summary Hospital Course Reason for hospitalization: 75yo female with CKD and HTN admitted for dizziness. Please see H&P for details. Hospital Course: The patient presented with intermittent dizziness over the past several months. Her timeline seems to correlate to when she was started on carvedilol. Head CT was unremarkable aside from a stable extra-axial mass at the left parietal vertex (probable benign meningioma) which is not likely playing a factor in her dizziness. Labs on admission showing a potassium of 5 the bicarb 18 and creatinine 1.9. White count was low at 3800. She has known CKD with baseline around 1.5. She was admitted overnight to evaluate for possible posterior vertebrobasilar insufficiency or even CVA. Carotid US normal and Brain MRI did not show anything acute. Her creatinine is 1.60 today and she does follow with Dr. Waters. Her hemoglobin was stable in the 11 range. Blood pressures was not ideally controlled and as she seems to be having issues with carvedilol, this was held. Amlodipine started. B12, Folate and TSH normal. AST slightly elevated felt related to her alcohol use. AST did trend down. Suspect her symptoms more likely related to her alcohol use. Given her history of alcohol withdrawal symptoms with a previous hospitalization, CIWA protocol was initiated. Librium was available p.r.n. Echo ordered and results pending. WBC down to 3400 on repeat. She was educated about the benefits of abstaining from alcohol use. She no longer takes marijuana. Consider alcohol vs viral etiology. [place] repeating as outpateint. She feels better. No further dizziness. She has been up ambulating t the bathroom. She feels ready for discharge. Status at Discharge Cognitive/behavioral status at discharge: Stable Time Spent with Patient Time attestation: Total time spent providing and/or coordinating discharge services:35 minutes Time spent: Greater than 30 minutes Specific discharge activities: Spoke with family with patient's permission. Discussed hospital course and follow up plan. Exam Narrative: Exam Narrative: AF 96.9 155/69 92 18 100% ra Gen - NARD Chest - CTA bilaterally, nml RR CV - RRR S1/S2; Tele showing no significnat dysrhythmias Abd - Soft, NT/ND, Positive BS Ext - No pedal edema Neuro - Alert and oriented. Nonfocal exam. Psych - Nml mood and affect Skin - Warm and dry DS: Data Data Completed and Pending Labs on day of discharge: Labs from last 24 hours 12/18/20 12/18/20 12/18/20 05:29 05:29 05:29 WBC 3.4 L RBC 3.79 L Hgb 11.0 L Hct 33.3 L MCV 87.9 MCH 29.0 MCHC 33.0 RDW 12.9 Plt Count 149 L MPV 9.6 Sodium 137 Potassium 4.1 Chloride 107 Carbon Dioxide 21 L Anion Gap 9 BUN 21 H Creatinine 1.50 H Estim Creat Clear Calc Not Reportable Estimated GFR 41 L Glucose 103 Calcium 9.3 Magnesium 1.7 Total Bilirubin 1.0 Direct Bilirubin 0.0 AST 38 H ALT 21 Alkaline Phosphatase 68 Total Protein 7.0 Albumin 3.9 Vitamin B12 424.0 Folate 14.3 TSH (Reflex) 1.870 Discharge Plan Discharge Attending physician on
--- NOTE | 2020-12-21 13:46 | PC.NURSE ---
Echo report faxed to Dr. De La Cruz, PCP.
== END 2020-12-18 16:25 | disposition home or self-care (01) ==
LOC: ANHED 14:21 → ANH2MED 14:34
PROVIDERS: Physician Assistant; Admitting Provider Internal Medicine; Emergency Provider Emergency Medicine; PCP Family Medicine; Visit Provider Internal Medicine
DX: R42 Dizziness and giddiness (principal); I12.9 Hypertensive chronic kidney disease with stage 1 through stage 4 chronic kidney disease, or unspecified chronic kidney disease; N18.30 Chronic kidney disease, stage 3 unspecified; D63.8 Anemia in other chronic diseases classified elsewhere; F10.10 Alcohol abuse, uncomplicated; Z87.891 Personal history of nicotine dependence
CPT/HCPCS: 36415; 70450; 70551; 80048; 80053; 80076; 81001; 82607; 82746; 83735; 84443; 84484; 85025; 85027; 93005; 93306; 93880; 96361; 96374; 97161; 99285; A9270; G0378; J3411; J7030

== ENCOUNTER 2021-11-17 00:07 | Emergency (ER) | payer MEDICARE, OTHER, SELFPAY ==
--- NOTE | ~2021-11-17 | CT_ITS ---
EXAMINATION: CT cervical spine wo con DATE: 11/17/2021 01:46 INDICATION: Fall. Head and neck injury TECHNIQUE: Computed tomography (CT) of the cervical spine was performed without intravenous contrast. Automated exposure control and iterative reconstruction technique were employed. Exam dose: 149.78 mGy-cm total exam DLP. COMPARISON: None FINDINGS: There is straightening of the cervical spine. C1 and C2 are normally aligned and the odontoid process is intact. No fracture or dislocation or lock ed facet or prevertebral soft tissue swelling. There is degenerative disc disease throughout the cervical spine, most dominant at C5-6 and C6-7. There is degenerative change at the apophyseal joints. Is minimal anterolisthesis at C4-5. There is u ncovertebral joint spurring particularly at C5-6 and C6-7.. IMPRESSION: Straightening, which may be due to muscle spasm; no fracture, dislocation or locked face t Cervical spondylosis Reviewed, dictated and finalized at Location [facility]. Reviewed, dictated and finalized at location A. IMPRESSION: Straightening, which may be due to muscle spasm; no fracture, disl ocation or locked facet Cervical spondylosis
--- NOTE | ~2021-11-17 | CT_ITS ---
EXAMINATION: CT brain wo con DATE: 11/17/2021 01:46 INDICATION: Patient fell and struck the back of the head TECHNIQUE: Computed tomography (CT) of the head was performed without intravenous contrast. The mA wa s adjusted according to patient size. Iterative reconstruction technique was employed. Exam dose: 60 5.33 mGy-cm total exam DLP. COMPARISON: 12/18/2020 MR brain 12/17/2020 CT brain FINDINGS: Stable meningioma in the high anterior parasagittal left frontoparietal area. No intracranial mass lesion or hemorrhage or cerebrovascular accident is evident. No midline shift or mass effect. There is nonspecific diminished attenuation of the cerebral white matter, likely due to chronic small vessel ischemic changes. Cerebral atherosclerotic calcification is noted. There is moderate cerebral and cerebellar volume loss. No subdural or epidural hematoma is evident. There is posterior parietal cephalohematoma high over the convexity; no skull fracture or intracrania l coup or contrecoup injury is identified. The orbital contents are unremarkable. Mastoid air cells and included paranasal sinuses are unremarka ble. IMPRESSION: High posterior parietal cephalohematoma; no skull fracture or acute intracranial finding Stable meningioma on the left Cerebral atherosclerosis and chronic small vessel ischemic changes of cerebral white matter No acute intracranial finding Reviewed, dictated and finalized at Location [facility]. Reviewed, dictated and finalized at location A. IMPRESSION: High posterior parietal cephalohematoma; no skull fracture or acut e intracranial finding Stable meningioma on the left Cerebral atherosclerosis and chronic small vessel ischemic changes of cerebral white matter No acute intracranial finding
[2021-11-17 00:21] VITALS: BP 188/69; PULSE 85; RESP 16; TEMP 36.4; O2SAT 100
--- NOTE | 2021-11-17 01:36 | PC.NURSE ---
Patient taken to CT when being brought to room.
[2021-11-17 03:10] VITALS: BP 160/83; PULSE 85; RESP 17; O2SAT 100
--- NOTE | 2021-11-17 03:42 | ED.HEATRA ---
HPI - Head Injury General Chief complaint: Fall Stated complaint: fall, head injury Time Seen by Provider: 11/17/21 01:31 History of Present Illness HPI Narrative: 76-year-old female had been drinking earlier, was on the back of her truck about 3 feet off the ground when she accidentally rolled off and hit the back of her head, she is endorsing some pain to the back of her head but no pain or injury anywhere else, no loss of conscious, no nausea vomiting. Related Data Home Medications Medication Instructions Recorded Confirmed Eucerin 1 applic TOPICAL DAILY PRN 12/01/19 01/08/21 cholecalciferol (vitamin D3) 25 25 mcg PO DAILY 12/23/19 01/08/21 mcg (1,000 unit) capsule ferrous sulfate 325 mg (65 mg 325 mg PO EVERY OTHER DAY 02/17/20 01/08/21 iron) tablet triamcinolone acetonide 1 applic TOPICAL BID PRN 12/17/20 01/08/21 Allergies Allergy/AdvReac Type Severity Reaction Status Date / Time No Known Allergies Allergy Verified 01/08/21 08:50 Review of Systems Review of Systems: CONST: No fever. HEENT: Head trauma NECK: No neck pain C/V: No chest pain RESP: No cough GI: No nausea BACK: No back pain M/S: No joint pain. SKIN: Bleeding cut back of head. NEURO: [No focal numbness or weakness] PSYCH: [No depression] [facility] Past Medical History Medical History Alcohol abuse Arthritis Cataracts, bilateral Cholelithiasis Chronic disease anemia Chronic kidney disease, stage 3 Patient reports recent creatinine level of 1.80. Colon polyps Gastroesophageal reflux disease Hyperlipidemia Hypertension Peptic ulcer disease Acute gastric ulcers on EGD on 01/10/2016. Seasonal allergies Upper GI bleed (01/2016) Secondary to acute gastric ulcers. Surgical History Surgical History History of hysterectomy History of left oophorectomy Family History Family History Mother , 84 yrs old Dementia Sibling Brain aneurysm Other Diabetes mellitus Family history of congestive heart failure Hypertension Social History Social History Social History: The patient is and lives alone in [place]. Her in spring 2020. She smoked a pack of cigarettes a day for about 20 years and quit 22 years ago. She drinks 1 glass of wine a night and typically 8 to 9 beers throughout the day however she tells me that she does not finish the entire bottle of beer. She uses marijuana edibles on occasion to help her sleep. Her daughter Leia Turner is her surrogate decision maker and she wishes to be a full code. Smoking status: Former smoker Tobacco type: cigarettes Second hand tobacco smoke exposure: No Alcohol intake: current Alcohol use details: Occasionally Substance use: never Substance use type: does not use Gender identity (if verbalized by the patient): Female Sexual Orientation (if Verbalized by the Patient): Straight or Heterosexual Exam Narrative: EXAMINATION OF ORGAN SYSTEMS/BODY AREAS: Constitutional: Vital signs per nursing GENERAL: Mildly intoxicated HEAD: Normal with no signs of head trauma. EYES: EOMI, conjunctiva normal ENT: Hearing grossly intact LUNGS: Nonlabored breathing. HEART: No chest tenderness ABD: [Soft], [nontender to palpation] EXT: Normal range of motion SKIN: Abrasion to back of head NEURO: Alert and oriented x 3. No gross focal sensory or strength deficits. PSYCH: Normal affect Course Course Emergency Course: 76-year-old female who was intoxicated, presents after fall with trauma to the back of her head, vital signs stable, exam shows well-appearing patient who is still somewhat intoxicated, no focal neurologic deficits, some abrasion to the back of her head. I will obtain CT head and C-spine given her age and int
== END 2021-11-17 03:58 | disposition home or self-care (01) ==
PROVIDERS: Emergency Provider Emergency Medicine; PCP Family Medicine
DX: S09.90XA Unspecified injury of head, initial encounter (principal); F10.120 Alcohol abuse with intoxication, uncomplicated; M19.90 Unspecified osteoarthritis, unspecified site; I12.9 Hypertensive chronic kidney disease with stage 1 through stage 4 chronic kidney disease, or unspecified chronic kidney disease; N18.30 Chronic kidney disease, stage 3 unspecified; D63.1 Anemia in chronic kidney disease; Z86.010 Personal history of colon polyps; Z87.11 Personal history of peptic ulcer disease; H26.9 Unspecified cataract; Z87.891 Personal history of nicotine dependence; Y90.9 Presence of alcohol in blood, level not specified; W17.89XA Other fall from one level to another, initial encounter
CPT/HCPCS: 70450; 72125; 99284

== ENCOUNTER 2022-04-02 11:05 | Outpatient (CLI) | payer MEDICARE, OTHER, SELFPAY ==
--- NOTE | ~2022-04-02 | XR_ITS ---
EXAMINATION: XR hand RT min 3V INDICATION: Numbness in the right third through fifth fingers TECHNIQUE: Three views of the right hand are obtained. COMPARISON: None available FINDINGS: Bone alignment is normal. There is no fracture. There is moderate osteoarthritis of the wri st, at the first metacarpophalangeal joint and in multiple interphalangeal joints. IMPRESSION: 1. Polyarticular osteoarthritis without acute osseous abnormality. Reviewed, dictated and finalized at location A.
--- NOTE | ~2022-04-02 | XR_ITS ---
XR shoulder RT min 2V 04/02/2022 11:37 Indication: Right shoulder pain Procedure: 4 views right shoulder Comparison: No prior studies Findings: Mild polyarticular osteoarthritis. No fracture or traumatic malalignment. No significant so ft tissue abnormality. No foreign bodies. Impression: 1: Mild polyarticular osteoarthritis. Reviewed, dictated and finalized at location B. Impression: 1: Mild polyarticular osteoarthritis.
== END 2022-04-02 11:06 | disposition home or self-care (01) ==
PROVIDERS: PCP Family Medicine; Visit Provider Physician Assistant
DX: M25.511 Pain in right shoulder (principal); M79.641 Pain in right hand; M19.041 Primary osteoarthritis, right hand; M19.011 Primary osteoarthritis, right shoulder
CPT/HCPCS: 73030; 73130

== ENCOUNTER 2022-07-09 11:00 | Outpatient (RCR) | payer MEDICARE, OTHER, SELFPAY ==
[2022-04-15 10:30] VITALS: BP_SYST 120; BP_SYST 170
--- NOTE | 2022-04-17 14:30 | PTOPEVAL1 ---
Assessment and note entered by Pratik Burrell PT Evaluation Information Assessment Status Evaluation Clinical Summary Tea is a 77 year old female coming into the clinic today with R shoulder and hand issues. She reports three different falls where she might have injured her R hand and shoulder. The R shoulder shows trouble with any overhead movement in flexion, abduction, or scaption, positive pain felt during resisted abduction and empty can test. The R hand is weaker than the L hand based on dynamometer readings and patient has trouble with the fine motor movement of the R hand. Recommend to have occupational therapy look at patient for R hand issues. Interventions Electrical stimulation, hot pack/cold pack, manual therapy, neuro Re-education, patient/caregiver education,therapeutic activities, therapeutic exercises, manual therapy, ultrasound. These treatments will address the objective and functional deficits as defined above. The patient will be advanced safely and appropriately in order for the patient to progress towards his/her prior level of function. Additional exercises will be introduced and as well as a comprehensive home exercise program upon discharge, if needed, ?to ensure carryover of functional gains achieved in the clinic. This treatment plan has been reviewed and agreement upon by the patient.
--- NOTE | 2022-05-14 14:32 | OTOPEVAL1 ---
Assessment and note entered by Rocio Marion OTR/Mo Evaluation Information Assessment Status Evaluation Diagnosis R hand weakness Subjective Information Patient presents to outpatient OT with complaint of dominant R hand weakness for the past 6 months. Patient reports had a fall about a year ago and hurt fingers of R hand. 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 Patient would like to be able to strengthen hand to complete daily and functional tasks. Per MD note there is no fracture of R UE, imaging showed OA of R hand. Reported Pain Level Pain Score 0: Self Report Assessment OT Clinical Summary Tea is a 77 year old R hand dominant female presenting to Outpatient OT with complaint of weakness and decreased coordination of R UE for the past 6 months. Patient reports difficulty gripping/grasping items such as car keys, handwriting tasks, and cooking tasks with R UE. Patient demonstrated decreased strength in R hand, decreased fine motor coordination measured through the nine hole peg test. Patient would benefit from skilled OT for UE progressive strengthening exercises, fine motor coordination tasks, HEP instruction in order to optimize functional use of R UE. Plan of Care Interventions Therapeutic Exercise,Therapeutic Activities,Self- Care/Home Management OT Services Indicated Yes These treatments will address the objective and functional deficits as defined above. The patient will be advanced safely and appropriately in order for the patient to progress towards his/her prior level of function. Additional exercises will be introduced and as well as a comprehensive home exercise program upon discharge, if needed, ?to ensure carryover of functional gains achieved in the clinic. This treatment plan has been reviewed and agreement upon by the patient.
--- NOTE | 2022-05-19 08:49 | PCPTNOTE ---
Patient called & cancelled scheduled appointment this date due to being sick.
[2022-05-20 10:04] VITALS: BP_SYST 170
--- NOTE | 2022-05-20 10:42 | PTOPDC ---
Assessment and note entered by Douglas Bourgeois, PT, DPT Evaluation Information Assessment Status Discharge Diagnosis R shoulder pain Subjective Information Pt states her shoulder is fine and she does not have any problems with it. She declines any shoulder pain, and declines any functional limitations. Reported Pain Level Pain Score 0,0: Self Report Assessment PT Clinical Summary Tea presents to therapy today for her progress report following 5 visits of therapy to treat her R shoulder pain. Today she reports no pain and no functional limitations. She demonstrates active ROM that is functional and near equal to her uninvolved side. She demonstrates good functional shoulder strength bilaterally. She has progressed well towards her physical therapy goals and would like to be discharged at this time. Pt was instructed to continue her HEP and to follow up with her referring provider if needed. Plan of Care Interventions Electrical Stimulation,Hot Pack/Cold Pack,Manual Therapy,Neuro Re-education,Patient/Caregiver Educati,Therapeutic Activities,Therapeutic Exercise,Ultrasound PT Services Indicated Yes Treatment Frequency and to be discharged Duration
--- NOTE | 2022-06-04 11:34 | PCOTNOTE ---
Patient did not show up for scheduled appointment this date. Called patient's daughter to let her know patient missed scheduled appointment and next appointment is on 06/09/2022 at 12:30.
--- NOTE | 2022-06-09 13:17 | OTOPPROG ---
Assessment and note entered by Rocio Marion OTR/Mo Evaluation Information Assessment Status Progress Diagnosis R hand weakness Subjective Information Patient presents to outpatient OT for re- evaluation with complaint of dominant R hand weakness for the past 6 months. Patient reports since beginning therapy, gripping/grasping has become easier, cooking tasks, opening jars is easier. Patient reports continues to complete HEP at home. Patient reports it is still difficult to open small items such as a safety pin. Assessment OT Clinical Summary Tea is a 77 year old R hand dominant female presenting to Outpatient OT for re-evaluation with complaint of weakness and decreased coordination of R UE for the past 6 months. Patient reports improvements gripping/grasping items such as opening jars and cooking tasks with R UE. Patient reports still has difficulty with manipulating small items. Patient demonstrated improved strength in R hand, minimally improved fine motor coordination measured through the nine hole peg test. Patient would benefit from continued skilled OT for UE progressive strengthening exercises, fine motor coordination tasks, HEP instruction in order to optimize functional use of R UE. Plan of Care Interventions Therapeutic Exercise,Therapeutic Activities,Self- Care/Home Management OT Services Indicated Yes Treatment Frequency and 1x/week for 4 weeks Duration These treatments will address the objective and functional deficits as defined above. The patient will be advanced safely and appropriately in order for the patient to progress towards his/her prior level of function. Additional exercises will be introduced and as well as a comprehensive home exercise program upon discharge, if needed, ?to ensure carryover of functional gains achieved in the clinic. This treatment plan has been reviewed and agreement upon by the patient.
--- NOTE | 2022-06-18 13:43 | PCOTNOTE ---
Patient came to scheduled appointment on this day 20 minutes early. While in the waiting room, patient tells medical secretary receptionist I am not feeling well and I think I need to go home . Patient left prior to being seen for scheduled appointment.
--- NOTE | 2022-07-09 11:41 | OTOPDC ---
Assessment and note entered by Rocio Marion OTR/Mo Evaluation Information Assessment Status Discharge Diagnosis R hand weakness Subjective Information Patient presents to outpatient OT for re- evaluation with complaint of dominant R hand weakness for the past 6 months. Patient reports R hand is better, is performing more hand writing tasks at home which is getting easier, it is easier to open bottle caps, and cooking tasks. Reported Pain Level Pain Score 0: Self Report Assessment OT Clinical Summary Tea is a 77 year old R hand dominant female presenting to Outpatient OT for re-evaluation with complaint of weakness and decreased coordination of R UE for the past 6 months. Patient reports improved gripping/grasping for daily tasks such as cooking, hand writing, opening bottles. Patient demonstrated improved gas reverser/pinch strength in R hand. Patient is to be discharged from skilled OT today with independence with HEP, patient agreeable to plan. Plan of Care OT Services Indicated No
== END 2022-07-09 16:03 | disposition home or self-care (01) ==
LOC: ANHGOSHOT 11:00
PROVIDERS: PCP Family Medicine; Visit Provider Physician Assistant
DX: M25.511 Pain in right shoulder (principal); R29.898 Other symptoms and signs involving the musculoskeletal system
CPT/HCPCS: 97110; 97112; 97140; 97161; 97165; 97530

== ENCOUNTER 2022-09-23 11:14 | Outpatient (CLI) | payer MEDICARE, OTHER, SELFPAY ==
--- NOTE | ~2022-09-23 | XR_ITS ---
Left Forearm AP and lateral views of the left forearm were performed. Clinical History: Injury Findings: No fracture or dislocation is seen. Osseous alignment in anatomic. Joint spaces are prese rved. Soft tissues are unremarkable. Impression: Unremarkable exam. Reviewed, dictated and finalized at location M. Impression: Unremarkable exam.
--- NOTE | ~2022-09-23 | XR_ITS ---
Left wrist Technique: PA and lateral views were obtained. Clinical History: Injury Findings: No acute fracture or dislocation is seen. Osseous alignment is anatomic. Joint spaces are p reserved. Soft tissues are unremarkable. Impression: Unremarkable left wrist radiographs. Reviewed, dictated and finalized at location M. Impression: Unremarkable left wrist radiographs.
--- NOTE | ~2022-09-23 | XR_ITS ---
Left elbow Technique: AP and lateral views were obtained. Clinical History: Pain Findings: No acute fracture or dislocation is seen. Osseous alignment is anatomic. Joint spaces are p reserved. There is no displacement of the fat pads, and soft tissues are unremarkable. Impression: Unremarkable radiographs. Reviewed, dictated and finalized at location . Impression: Unremarkable radiographs.
--- NOTE | ~2022-09-23 | XR_ITS ---
Left Humerus Technique: AP and lateral views were obtained. Clinical History: Injury Findings: No fracture or dislocation is seen. Osseous alignment is anatomic. Visualized joint spaces are grossly preserved. Soft tissues are unremarkable. Impression: Unremarkable examination. No fracture or dislocation. Reviewed, dictated and finalized at location . Impression: Unremarkable examination. No fracture or dislocation.
--- NOTE | ~2022-09-23 | XR_ITS ---
Left Shoulder Technique: AP and scapular Y views were obtained. Clinical History: Pain Findings: No fracture or dislocation is seen. Osseous alignment is anatomic. There is mild AC joint d egenerative change. Glenohumeral joint is intact. Soft tissues are unremarkable. Impression: Mild AC joint degenerative change. No fracture or dislocation. Reviewed, dictated and finalized at location . Impression: Mild AC joint degenerative change. No fracture or dislocation.
== END 2022-09-23 11:15 | disposition home or self-care (01) ==
PROVIDERS: PCP Family Medicine; Visit Provider Nurse Practitioner Gerontology
DX: M79.602 Pain in left arm (principal); M19.012 Primary osteoarthritis, left shoulder
CPT/HCPCS: 73030; 73060; 73070; 73090; 73100

== ENCOUNTER 2022-09-26 12:59 | Outpatient (CLI) | payer MEDICARE, OTHER, SELFPAY ==
--- NOTE | ~2022-09-26 | US_ITS ---
EXAMINATION: US venous doppler UE DATE: 09/26/2022 14:12 INDICATION: Respiratory abnormality, unspecified TECHNIQUE: Grayscale ultrasound images without and with compression and Doppler ultrasound images of the left upper extremity veins were obtained. COMPARISON: None. FINDINGS: The left internal jugular vein, subclavian vein, axillary vein, brachial veins, basilic vein, cephali c vein, radial vein, and ulnar vein are patent. IMPRESSION: 1. No evidence of deep venous thrombosis. Reviewed, dictated and finalized at location B.
== END 2022-09-26 13:00 | disposition home or self-care (01) ==
PROVIDERS: PCP Family Medicine; Visit Provider Nurse Practitioner Gerontology
DX: R06.02 Shortness of breath (principal); M79.602 Pain in left arm
CPT/HCPCS: 93971

== ENCOUNTER 2023-02-24 07:29 | Outpatient (CLI) | payer MEDICARE, OTHER, SELFPAY ==
--- NOTE | ~2023-02-24 | MR_ITS ---
EXAMINATION: MR brain/brain stem wo/w con DATE: 02/24/2023 08:21 INDICATION: Unspecified dementia, unspecified severity. Head injury one year ago. TECHNIQUE: Magnetic resonance imaging (MRI) of the brain and brainstem was performed without and with 12 mL MultiHance intravenous contrast. COMPARISON: Brain MRI 12/18/2020 FINDINGS: There is no acute ischemic infarct. There are punctate foci of old microhemorrhage in the l eft temporal and occipital lobes. There are scattered areas of nonspecific increased T2-weighted sign al intensity in the cerebral white matter. Overlying the left frontoparietal region, there is a 18 x 11 x 13 mm enhancing extra-axial mass, consistent with a meningioma. The ventricles are normal in siz e. The orbits are normal. The paranasal sinuses are clear. The mastoid air cells are normal. IMPRESSION: 1. Stable 18 mm meningioma overlying left frontoparietal region. 2. Worsened moderate nonspecific cerebral white matter disease, which likely represents chronic small vessel ischemic disease. 3. Foci of old microhemorrhage in the left temporal occipital lobes. This finding is most commonly se en with hypertension or amyloid angiopathy. Reviewed, dictated and finalized at location A. IMPRESSION: 1. Stable 18 mm meningioma overlying left frontoparietal region. 2. Worsened moderate nonspecific cerebral white matter disease, which likely re presents chronic small vessel ischemic disease. 3. Foci of old microhemorrhage in the left temporal occipital lobes. This findi ng is most commonly seen with hypertension or amyloid angiopathy.
== END 2023-02-24 07:30 | disposition home or self-care (01) ==
PROVIDERS: PCP Family Medicine; Visit Provider Physician Assistant
DX: F03.90 Unspecified dementia, unspecified severity, without behavioral disturbance, psychotic disturbance, mood disturbance, and anxiety (principal); R93.0 Abnormal findings on diagnostic imaging of skull and head, not elsewhere classified
CPT/HCPCS: 70553; A9577

== ENCOUNTER 2023-04-20 11:44 | Outpatient (CLI) | payer MEDICARE, OTHER, SELFPAY ==
[2023-04-20 12:24] LABS: Creatinine Urine 334.5 mg/dL; Total Protein Urine Random 7 mg/dL; Ur Ttl Prot Creatinine Ratio 0.02 mg/mg (0-0.20)
[2023-04-20 13:30] LABS: Albumin Level 4.5 g/dL (3.5-5.1); Anion Gap 10 mmol/L (8-16); Blood Urea Nitrogen 31 mg/dL (7-17); Calcium 9.5 mg/dL (8.4-10.2); Carbon Dioxide 24 mmol/L (22-30); Chloride 96 mmol/L (98-107); Estimated Glomerular Filt Rate 33; Glucose 105 mg/dL (65-110); Phosphorus 4.1 mg/dL (2.5-4.5); Potassium 4.8 mmol/L (3.4-5.0); Sodium 130 mmol/L (137-145)
== END 2023-04-20 11:45 | disposition home or self-care (01) ==
PROVIDERS: PCP Family Medicine; Visit Provider Internal Medicine Nephrology
DX: E87.1 Hypo-osmolality and hyponatremia (principal); I12.9 Hypertensive chronic kidney disease with stage 1 through stage 4 chronic kidney disease, or unspecified chronic kidney disease; N18.4 Chronic kidney disease, stage 4 (severe)
CPT/HCPCS: 36415; 80069; 82570; 84156

== ENCOUNTER 2023-08-07 10:02 | Outpatient (CLI) | payer MEDICARE, OTHER, SELFPAY ==
[2023-08-07 10:31] LABS: Basophils Percent Auto 0.8 % (0.2-1.2); Eosinophils Absolute Auto 0.1 K/mm3 (0-0.3); Eosinophils Percent Auto 1.8 % (0-4.4); Hematocrit 35.3 % (37.0-47.0); Hemoglobin 11.1 g/dL (12.0-15.0); Immature Granulocyte Absolute 0.01 K/mm3 (0.00-0.031); Immature Granulocyte Percent A 0.3 % (0-0.5); Mean Corpuscular HGB Conc 31.4 g/dl (32-36); Mean Corpuscular Hemoglobin 29.1 pg (26-34); Mean Corpuscular Volume 92.7 fl (80-100); Mean Platelet Volume 9.6 fl (7.4-10.4); Monocytes Absolute Auto 0.4 K/mm3 (0.1-0.6); Monocytes Percent Auto 9.5 % (2.6-8.5); Neutrophils Absolute Auto 2.3 K/mm3 (1.3-6.7); Neutrophils Percent Auto 57.6 % (45.5-73.1); Platelet Count Result 203 k/mm3 (150-375); Red Blood Count 3.81 M/mm3 (4.2-5.4); Red Cell Distribution Width 13.5 % (11.5-14.5)
[2023-08-07 10:56] LABS: Albumin Level 4.6 g/dL (3.5-5.1); Anion Gap 8 mmol/L (8-16); Blood Urea Nitrogen 32 mg/dL (7-17); Calcium 9.6 mg/dL (8.4-10.2); Carbon Dioxide 24 mmol/L (22-30); Chloride 104 mmol/L (98-107); Estimated Glomerular Filt Rate 38; Glucose 107 mg/dL (65-110); Phosphorus 3.8 mg/dL (2.5-4.5); Sodium 136 mmol/L (137-145)
[2023-08-07 11:14] LABS: Total Protein Urine Random 13 mg/dL; Ur Ttl Prot Creatinine Ratio 0.11 mg/mg (0-0.20)
[2023-08-07 11:17] LABS: Vitamin D 25 Hydroxy 75.7 ng/mL
== END 2023-08-07 10:03 | disposition home or self-care (01) ==
LOC: ANHLAB 10:10
PROVIDERS: PCP Internal Medicine Nephrology; Visit Provider Physician Assistant
DX: N25.81 Secondary hyperparathyroidism of renal origin (principal); E55.9 Vitamin D deficiency, unspecified; E87.1 Hypo-osmolality and hyponatremia; I12.9 Hypertensive chronic kidney disease with stage 1 through stage 4 chronic kidney disease, or unspecified chronic kidney disease; N18.32 Chronic kidney disease, stage 3b; F03.90 Unspecified dementia, unspecified severity, without behavioral disturbance, psychotic disturbance, mood disturbance, and anxiety
CPT/HCPCS: 36415; 80069; 82306; 82570; 83970; 84156; 84443; 85025

== ENCOUNTER 2023-12-04 10:34 | Emergency (ER) | payer MEDICARE, OTHER, SELFPAY ==
--- NOTE | ~2023-12-04 | XR_ITS ---
EXAMINATION: XR elbow RT min 3V DATE: 12/04/2023 11:32 INDICATION: Right elbow pain. Fall. TECHNIQUE: 4 views of right elbow were obtained. COMPARISON: None. FINDINGS: Bone alignment is normal. No fracture. Joint spaces are normal. There are enthesophytes at the medial and lateral humeral epicondyles. No elbow joint effusion. There is soft tissue swelling ov erlying the olecranon. IMPRESSION: 1. No fracture. Reviewed, dictated and finalized at location A. IMPRESSION: 1. No fracture.
--- NOTE | ~2023-12-04 | XR_ITS ---
EXAMINATION: XR ribs BI 3V w CXR 2V DATE: 12/04/2023 11:32 INDICATION: Chest pain. Fall. TECHNIQUE: Frontal and lateral views of the chest and 2 views of the left ribs and 2 views of the rig ht ribs were obtained. COMPARISON: Chest 2 views 01/10/2016 FINDINGS: CHEST TWO VIEWS: There is no pneumonia, pleural effusion, or pneumothorax. The heart size is normal. BILATERAL RIBS: There is no rib fracture. IMPRESSION: 1. No rib fracture. Reviewed, dictated and finalized at location A. IMPRESSION: 1. No rib fracture.
--- NOTE | ~2023-12-04 | XR_ITS ---
EXAMINATION: XR elbow LT min 3V DATE: 12/04/2023 11:32 INDICATION: Left elbow pain. Fall. TECHNIQUE: 4 views of left elbow were obtained. COMPARISON: Left elbow radiographs 09/23/2022 FINDINGS: Bone alignment is normal. No fracture. Joint spaces are normal. There are enthesophytes at the medial and lateral humeral epicondyles. No elbow joint effusion. IMPRESSION: 1. No fracture. Reviewed, dictated and finalized at location A. IMPRESSION: 1. No fracture.
[2023-12-04 10:55] VITALS: BP 147/68; PULSE 88; RESP 16; TEMP 36.4; O2SAT 100
--- NOTE | 2023-12-04 12:32 | ED.FALL ---
HPI - Fall General Chief Complaint: Fall Stated Complaint: fall rib pain Time Seen by Provider: 12/04/23 11:56 History of Present Illness HPI Narrative: 78-year-old female present to the emergency department for evaluation after having a ground level fall. Patient states that she tripped over her shoes causing her to fall to the ground. Patient did complain of left rib pain left elbow pain and dish in to worsening right elbow pain. Patient had a fall last week and injured her right elbow and then re-injured it with her fall last night. Patient denies striking head denies loss of conscious. Patient denies any neck or back pain. Patient is currently being followed waited by her primary care physician for underlying balance issues. Related Data Home Medications Medication Instructions Recorded Confirmed cholecalciferol (vitamin D3) 25 25 mcg PO DAILY 12/23/19 08/20/23 mcg (1,000 unit) capsule multivitamin (Daily Multi-Vitamin 1 tablet PO DAILY 08/21/22 08/20/23 tablet) Allergies Allergy/AdvReac Type Severity Reaction Status Date / Time No Known Allergies Allergy Verified 11/03/23 11:03 Review of Systems Review of Systems: All systems reviewed & are unremarkable except as noted in HPI and below PMFSH Past Medical History Medical History (Updated 12/04/23 @ 12:36 by Jamin Gutierrez MD) Alcohol abuse Arthritis Cataracts, bilateral Cerebrovascular disease Cholelithiasis Chronic disease anemia Chronic kidney disease, stage 3 Patient reports recent creatinine level of 1.80. Colon polyps Gastroesophageal reflux disease Hyperlipidemia Hypertension Peptic ulcer disease Acute gastric ulcers on EGD on 01/10/2016. Seasonal allergies Upper GI bleed (01/2016) Secondary to acute gastric ulcers. Surgical History Surgical History History of hysterectomy History of left oophorectomy Family History Family History Mother , 84 yrs old Dementia Sibling Brain aneurysm Other Diabetes mellitus Family history of congestive heart failure Hypertension Social History Social History Social History: The patient is and lives alone in [place]. Her in spring 2020. She smoked a pack of cigarettes a day for about 20 years and quit 22 years ago. She drinks 1 glass of wine a night and typically 8 to 9 beers throughout the day however she tells me that she does not finish the entire bottle of beer. She uses marijuana edibles on occasion to help her sleep. Her daughter Leia Turner is her surrogate decision maker and she wishes to be a full code. Smoking status: Former smoker Tobacco type: cigarettes Second hand tobacco smoke exposure: No Additional smoking assessment comments: Pt has smoked cigarettes in 25yrs. Alcohol intake: current Alcohol use details: Pt states she drink 4 bottles of beer daily. Thursday around 3. Substance use: never Substance use type: does not use Do You Feel Safe in your Home?: Yes Lack of Transportation: No Lack of Food: Never True Current Housing: I Have Housing Concerned About Future Housing: No Difficulty Paying Gas/Electric Bills: No Difficulty Paying for Meds: No Currently Unemployed: No Education: High School Diploma/GED Living arrangements: alone Occupation/Education: retired Gender identity (if verbalized by the patient): Female Sexual Orientation (if Verbalized by the Patient): Straight or Heterosexual Exam Narrative: APPEARANCE: Well appearing, no pain, no distress, well-nourished. HEAD: normocephalic, atraumatic. EYES: PERRLA/EOMI, conjunctivae clear. NOSE: Normal no drainage EARS:TMS clear with good light reflex. THROAT: Pharynx clear, no exudate. NECK: Supple. No adenopathy, no masses. RESPIRATORY: Air
== END 2023-12-04 12:44 | disposition home or self-care (01) ==
PROVIDERS: Emergency Provider Emergency Medicine; PCP Family Medicine
DX: M25.522 Pain in left elbow (principal); M25.521 Pain in right elbow; R07.81 Pleurodynia; W01.0XXA Fall on same level from slipping, tripping and stumbling without subsequent striking against object, initial encounter; Z91.81 History of falling; I12.9 Hypertensive chronic kidney disease with stage 1 through stage 4 chronic kidney disease, or unspecified chronic kidney disease; N18.30 Chronic kidney disease, stage 3 unspecified; D63.1 Anemia in chronic kidney disease; E78.5 Hyperlipidemia, unspecified; K21.9 Gastro-esophageal reflux disease without esophagitis; Z87.891 Personal history of nicotine dependence
CPT/HCPCS: 71046; 71110; 73080; 99284

== ENCOUNTER 2023-12-09 13:14 | Outpatient (CLI) | payer MEDICARE, OTHER, SELFPAY ==
[2023-12-09 14:23] LABS: Albumin Level 4.8 g/dL (3.5-5.1); Anion Gap 8 mmol/L (4-12); Blood Urea Nitrogen 28 mg/dL (7-17); Calcium 9.7 mg/dL (8.4-10.2); Carbon Dioxide 26 mmol/L (22-30); Chloride 101 mmol/L (98-107); Estimated Glomerular Filt Rate 31; Glucose 112 mg/dL (65-110); Phosphorus 3.7 mg/dL (2.5-4.5); Potassium 4.2 mmol/L (3.4-5.0); Sodium 135 mmol/L (137-145)
== END 2023-12-09 13:15 | disposition home or self-care (01) ==
PROVIDERS: PCP Family Medicine; Visit Provider Internal Medicine Nephrology
DX: E87.1 Hypo-osmolality and hyponatremia (principal); I12.9 Hypertensive chronic kidney disease with stage 1 through stage 4 chronic kidney disease, or unspecified chronic kidney disease; N18.32 Chronic kidney disease, stage 3b
CPT/HCPCS: 36415; 80069

== ENCOUNTER 2024-01-28 08:42 | Outpatient (CLI) | payer MEDICARE, OTHER, SELFPAY ==
--- NOTE | ~2024-01-28 | MR_ITS ---
EXAMINATION: MR cervical spine wo con DATE: 01/28/2024 09:38 INDICATION: Right arm pain and stiffness TECHNIQUE: Magnetic resonance imaging (MRI) of the cervical spine was performed without intravenous c ontrast. Sequences included sagittal T2-weighted FSE, sagittal T2-weighted FS FSE, sagittal T1-weight ed FSE, axial MERGE and axial T2-weighted FSE. COMPARISON: None FINDINGS: 2 mm anterolisthesis C4 on C5, 1-2 mm anterolisthesis C7 on T1 and T2 on T3. Vertebral body heights are normal. Bone marrow signal intensity is normal. Severe disc height loss at C3-C4, C5-C6, C6-C7 a nd T2-T3. Moderate disc height loss at C2-C3 and T1-T2 and mild disc height loss at the remaining cer vical and upper thoracic levels. Cord signal intensity is normal. The following disc levels are speci fically discussed: C2-C3: Disc is bulging. There is moderate bilateral uncovertebral joint osteoarthritis. There is mild left and severe right facet joint osteoarthritis. There is mild right neural foraminal stenosis. The re is mild central canal stenosis. C3-C4: Disc is bulging with annular fissure. There is severe bilateral uncovertebral joint osteoarthr itis. There is severe bilateral facet joint osteoarthritis. There is mild left and moderate right munira ral foraminal stenosis. There is mild central canal stenosis with flattening of the ventral surface o f the cord. C4-C5: Disc is bulging. There is mild bilateral uncovertebral joint osteoarthritis. There is severe b ilateral facet joint osteoarthritis. There is mild left and moderate right neural foraminal stenosis. There is mild central canal stenosis with mild flattening of the ventral surface of cord. C5-C6: Disc is mildly bulging. There is moderate left and severe right uncovertebral joint osteoarthr itis. There is moderate to severe bilateral facet joint osteoarthritis. There is mild left and modera te right neural foraminal stenosis. There is mild central canal stenosis. C6-C7: Disc is bulging. There is severe bilateral uncovertebral joint osteoarthritis. There is modera te to severe bilateral facet joint osteoarthritis. There is mild left and moderate right neural chetna inal stenosis. There is mild central canal stenosis. C7-T1: The disc does not extend beyond the more posterior T1 endplate margin. There is mild bilateral uncovertebral joint osteoarthritis. There is severe bilateral facet joint osteoarthritis. There is m ild bilateral neural foraminal stenosis. There is mild central canal stenosis. IMPRESSION: 1. Severe cervical spondylosis. Reviewed, dictated and finalized at location A.
== END 2024-01-28 08:43 | disposition home or self-care (01) ==
PROVIDERS: PCP Family Medicine; Visit Provider Psychiatry & Neurology Neurology
DX: M79.601 Pain in right arm (principal); M47.892 Other spondylosis, cervical region
CPT/HCPCS: 72141

== ENCOUNTER 2024-02-01 19:38 | Inpatient (IN) | payer MEDICARE, OTHER, SELFPAY ==
--- NOTE | ~2024-02-01 | XR_ITS ---
EXAMINATION: XR chest 1V portable DATE: 02/01/2024 20:42 INDICATION: Dizziness. Posterior head injury. TECHNIQUE: frontal view of the chest was obtained. COMPARISON: Chest radiograph dated 12/04/2023 FINDINGS: The lungs remain clear with no focal airspace opacities, pulmonary edema, pleural effusion or pneumot horax. The cardiomediastinal silhouette is normal. Visualized bones and soft tissues are unremarkable . IMPRESSION: 1. No acute cardiopulmonary disease. Reviewed, dictated and finalized at location A.
--- NOTE | ~2024-02-01 | CT_ITS ---
EXAMINATION: CT lumbar spine wo con DATE: 02/01/2024 20:57 INDICATION: Fall backwards down stairs TECHNIQUE: Computed tomography (CT) of the lumbar spine was performed without intravenous contrast. A utomated exposure control and iterative reconstruction technique were employed. The dose-length produ ct was 292.01 mGy-cm. COMPARISON: Lumbar spine radiographs dated 08/16/[address] abdomen and pelvis dated 08/17/2019 FINDINGS: Unchanged 3 mm anterolisthesis L4 on L5. Vertebral body heights are normal. No acute fracture. Chroni c Schmorl's nodes along the inferior endplates of L3 and L4. Severe disc height loss with chronic deg enerative endplate changes at L5-S1. Moderate disc height loss at L3-L4 and L4-L5. There are vertebra l soft tissues are unremarkable. The following disc levels are specifically discussed: T11-T12: There is moderate bilateral facet joint osteoarthritis. There is mild bilateral neural fora liliana stenosis. There is no central canal stenosis. T12-L1: There is mild to moderate bilateral facet joint osteoarthritis. There is no neural foraminal stenosis. There is no central canal stenosis. L1-L2: There is mild to moderate right and moderate left facet joint osteoarthritis. There is no neur al foraminal stenosis. There is no central canal stenosis. L2-L3: Disc is bulging. There is mild left and moderate right facet joint osteoarthritis. There is mi ld bilateral neural foraminal stenosis. There is mild central canal stenosis. L3-L4: Disc is bulging. There is moderate bilateral facet joint osteoarthritis. There is moderate marjorie ateral neural foraminal stenosis. There is mild central canal stenosis. L4-L5: Disc is bulging. There is severe bilateral facet joint osteoarthritis. There is moderate bilat eral neural foraminal stenosis. There is moderate central canal stenosis. L5-S1: Disc is bulging. There is moderate right and severe left facet joint osteoarthritis. There is moderate left and moderate to severe right neural foraminal stenosis. There is no central canal steno sis. IMPRESSION: 1. Moderate to severe lower lumbar predominant spondylosis. No acute osseous abnormality. Reviewed, dictated and finalized at location A. IMPRESSION: 1. Moderate to severe lower lumbar predominant spondylosis. No acute osseous ab normality.
--- NOTE | ~2024-02-01 | CT_ITS ---
EXAMINATION: CT cervical spine wo con DATE: 02/01/2024 20:13 INDICATION: Posterior head injury post fall TECHNIQUE: Computed tomography (CT) of the cervical spine was performed without intravenous contrast. Automated exposure control and iterative reconstruction technique were employed. The dose-length pro duct was 202.87 mGy-cm. COMPARISON: CT dated 11/17/2021 and MRI dated 01/28/2024 FINDINGS: No significant change in one-2 mm anterolisthesis C4 on C5 and 2 mm anterolisthesis C7 on T1. Vertebr al body heights are normal. No acute fracture. Severe osteoarthritis at the atlantoaxial articulation . No significant change in severe cervical and upper thoracic spondylosis which is described on a lev el by level basis on the recent prior MRI visualized portion of the upper lungs are clear. Cervical s oft tissues are unremarkable.. IMPRESSION: 1. Severe cervical spondylosis. No acute osseous abnormality. Reviewed, dictated and finalized at location A.
--- NOTE | ~2024-02-01 | CT_ITS ---
EXAMINATION: CT brain wo con DATE: 02/01/2024 20:08 INDICATION: Fall down stairs with head injury and occipital headache TECHNIQUE: Computed tomography (CT) of the head was performed without intravenous contrast. Sagittal and coronal reconstructions were performed. The mA was adjusted according to patient size. Iterative reconstruction technique was employed. The dose-length product was 605.33 mGy-cm. COMPARISON: head CT dated 11/17/2021 FINDINGS: Left parieto-occipital scalp hematoma and laceration. No fracture. No acute intracranial hemorrhage, acute infarction or abnormal extra axial fluid collection. There is mild scattered white matter hypoa ttenuation consistent with chronic small vessel ischemic disease. Unchanged 18 mm peripherally calci fied extra-axial hematoma along the left side of the posterior frontal sagittal sinus. Symmetric prom inence of the sulci and subarachnoid spaces overlying the convexities consistent with mild to moderat e age-appropriate diffuse cerebral volume loss. Ventricles are normal and symmetric. No mass/mass eff ect. Small amount of bubbly mucus in the dependent left sphenoid sinus. The orbits and mastoid air ce lls are normal. IMPRESSION: 1. Prominent left parieto-occipital scalp hematoma and laceration. No fracture or acute intracranial process. 2. Unchanged 18 mm left frontoparietal extra-axial meningioma 3. Age related changes including mild to moderate diffuse volume loss and mild scattered white matter hypoattenuation consistent with chronic small vessel ischemic disease. Reviewed, dictated and finalized at location A. IMPRESSION: 1. Prominent left parieto-occipital scalp hematoma and laceration. No fracture or acute intracranial process. 2. Unchanged 18 mm left frontoparietal extra-axial meningioma 3. Age related changes including mild to moderate diffuse volume loss and mild scattered white matter hypoattenuation consistent with chronic small vessel isc hemic disease.
[2024-02-01 19:37] VITALS: BP 163/88; PULSE 96; RESP 14; TEMP 36.4; O2SAT 99
[2024-02-01 19:46] VITALS: BP 167/81; PULSE 97; RESP 17; O2SAT 98
[2024-02-01 20:30] VITALS: BP 199/66; PULSE 92; RESP 18; TEMP 36.5; O2SAT 100
--- NOTE | 2024-02-01 20:30 | ECG_ITS ---
Test Date: 2024-02-01 21:01:30 Measurements Intervals [place] Rate: 80 P: 57 RI: 189 QRS: 43 QRSD: 93 T: 40 QT: 397 QTc: 458 Interpretive Statements SINUS RHYTHM POSSIBLE LEFT ATRIAL ENLARGEMENT VOLTAGE CRITERIA FOR LVH MINIMAL Q WAVS- ANTEROLAT/INF LEADS BASELINE ARTIFACT- I, II, III, AVR, AVL BORDERLINE ECG No previous ECG available for comparison Electronically Signed On 02-02-2024 06:24:36 CDT by Oleksandr Hernandez D.O.
--- NOTE | 2024-02-01 20:31 | ED.HEATRA ---
HPI - Head Injury General Chief complaint: Head Injury <ELIAS Schaefer Last Filed: 02/02/24 17:38> Stated complaint: fall backward onto concrete, head lac <ELIAS Schaefer Last Filed: 02/02/24 17:38> Time Seen by Provider: 02/01/24 19:45 <ELIAS Schaefer Last Filed: 02/02/24 17:38> History of Present Illness HPI Narrative: 78-year-old female with history of cerebrovascular disease, meningioma, hyperparathyroidism, CKD, hypertension presents to emergency department with her daughter and granddaughter at bedside for ground level fall that occurred prior to arrival. Patient arrives via EMS from home. States she was going up stairs and held onto the railing when she felt dizzy and fell backwards. She hit the back of her head on the ground but did not lose consciousness. She is reporting pain to her head in her low back And has a hematoma to the back of her head with a laceration. Bleeding is controlled. Last Tdap is up-to-date per family. She arrives in a C-collar in place by EMS. She is not anticoagulated. She denies LOC, vision changes, focal numbness or weakness, chest pain shortness breath, palpitations prior to the fall. Her daughter states that she has been having dizziness and unsteady gait recently has been evaluated by Neurology at [place]. She has been recently started on carbidopa levodopa is scheduled to see a neurosurgeon soon regarding her known meningioma. <ELIAS Schaefer Last Filed: 02/02/24 17:38> Related Data Home medications: Home Medications Medication Instructions Recorded Confirmed cholecalciferol (vitamin D3) 25 25 mcg PO DAILY 12/23/19 02/02/24 mcg (1,000 unit) capsule multivitamin (Daily Multi-Vitamin 1 tablet PO DAILY 08/21/22 02/02/24 tablet) losartan 50 mg tablet 50 mg PO DAILY 02/02/24 02/02/24 <ELIAS Schaefer Last Filed: 02/02/24 17:38> Allergies/Adverse reactions: Allergies Allergy/AdvReac Type Severity Reaction Status Date / Time No Known Allergies Allergy Verified 12/30/23 11:37 <Nesha Hassan PA-C - Last Filed: 02/02/24 17:38> Review of Systems Review of Systems: All systems reviewed & are unremarkable except as noted in HPI and below <Nesha Hassan PA-C - Last Filed: 02/02/24 17:38> [facility] Past Medical History Medical History: Medical History (Updated 02/04/24 @ 13:08 by Hue Tijerina MD) Accidental fall Alcohol abuse Arthritis Cataracts, bilateral Cerebrovascular disease Cholelithiasis Chronic disease anemia Chronic kidney disease, stage 3 Patient reports recent creatinine level of 1.80. Colon polyps Gastroesophageal reflux disease Hyperlipidemia Hypertension Peptic ulcer disease Acute gastric ulcers on EGD on 01/10/2016. Seasonal allergies Upper GI bleed (01/2016) Secondary to acute gastric ulcers. <Nesha Hassan PA-C - Last Filed: 02/02/24 17:38> Surgical History Surgical History: Surgical History History of hysterectomy History of left oophorectomy <Nesha Hassan PA-C - Last Filed: 02/02/24 17:38> Family History Family History: Family History Mother , 84 yrs old Dementia Sibling Brain aneurysm Other Diabetes mellitus Family history of congestive heart failure Hypertension <Nesha Hassan PA-C - Last Filed: 02/02/24 17:38> Social History Social History: Social History Social History: The patient is and lives alone in [place]. Her in spring 2020. She smoked a pack of cigarettes a day for about 20 years and quit 22 years ago. She drinks 1 glass of wine a night and typically 8 to 9 beers throughout the day however she tells me that she does not finish the entire bottle of beer. Sh
[2024-02-01] MEDS: ACETAMINOPHEN 325 MG TABLET 650 MG PO (20:43)
[2024-02-01] MEDS: SODIUM CHLORIDE 0.9% IV 1,000 ML 999 ML IV CONT (20:43)
[2024-02-01 20:48] LABS: Basophils Percent Auto 0.6 % (0.2-1.2); Eosinophils Percent Auto 0.8 % (0-4.4); Hematocrit 31.5 % (37.0-47.0); Hemoglobin 10.3 g/dL (12.0-15.0); Immature Granulocyte Absolute 0.04 K/mm3 (0.00-0.031); Immature Granulocyte Percent A 0.8 % (0-0.5); Lymphocytes Absolute Auto 1.34 K/mm3 (0.9-3.2); Lymphocytes Percent Auto 28.1 % (18.3-44.2); Mean Corpuscular HGB Conc 32.7 g/dl (32-36); Mean Corpuscular Hemoglobin 29.2 pg (26-34); Mean Corpuscular Volume 89.2 fl (80-100); Mean Platelet Volume 10.2 fl (7.4-10.4); Monocytes Absolute Auto 0.4 K/mm3 (0.1-0.6); Monocytes Percent Auto 8.6 % (2.6-8.5); Neutrophils Absolute Auto 2.9 K/mm3 (1.3-6.7); Neutrophils Percent Auto 61.1 % (45.5-73.1); Platelet Count Result 175 k/mm3 (150-375); Red Blood Count 3.53 M/mm3 (4.2-5.4); Red Cell Distribution Width 13.5 % (11.5-14.5); White Blood Count 4.8 K/mm3 (4.5-10.0)
[2024-02-01 21:00] LABS: Alanine Aminotransferase 15 U/L (6-35); Albumin Level 4.4 g/dL (3.5-5.1); Alkaline Phosphatase 78 U/L (38-126); Anion Gap 10 mmol/L (4-12); Aspartate Amino Transferase 39 U/L (14-36); Bilirubin,Total 0.5 mg/dL (0.2-1.3); Blood Urea Nitrogen 28 mg/dL (7-17); Calcium 9.3 mg/dL (8.4-10.2); Carbon Dioxide 22 mmol/L (22-30); Chloride 97 mmol/L (98-107); Estimated CRCL calculation 19 ml/min; Estimated Glomerular Filt Rate 38; Glucose 117 mg/dL (65-110); Potassium 4.2 mmol/L (3.4-5.0); Sodium 129 mmol/L (137-145)
[2024-02-01 21:12] LABS: Troponin I 0.014 ng/mL (0.000-0.034)
[2024-02-01 21:16] VITALS: BP 183/79; PULSE 87; RESP 16; O2SAT 100
[2024-02-01 21:17] VITALS: BP 187/89; PULSE 87; RESP 20; O2SAT 100
[2024-02-01 22:48] LABS: Appearance Urine Clear (Clear); Bilirubin Urine Negative (Negative); Blood Urine Negative (Negative); Color Urine Yellow (Yellow); Glucose Urine UA Negative (Negative); Ketones Urine Negative (Negative); Leukocyte Esterase Ur Negative LEU/UL (Negative); Nitrate Urine Negative (Negative); Protein Urine Negative (Negative); Specific Grav Ur 1.007 (1.001-1.035); Urobilinogen Urine 0.2 mg/dL (<2.0); pH Urine 5.5 (5.0-9.0)
[2024-02-01 22:53] LABS: Add Urine Microscopic? NO
--- NOTE | 2024-02-01 22:58 | PC.NURSE ---
per ELIAS schrader patient to not receive the 2nd liter bolus of NS. this rn used closed loop communication to confirm that patient was not to receive bolus. ELIAS Schrader verbalized understanding.
--- NOTE | 2024-02-01 23:36 | PM.IMHP ---
H&P: HPI History of Present Illness Date/Time: 02/01/24 23:36 Chief Complaint: fall Narrative: This is a 78-year-old female with past medical history significant for gait instability, dementia, hypertension, alcohol dependence, chronic kidney disease chronic anemia, gastroesophageal reflux disease. Patient was brought to the emergency room due to mechanical fall ground level patient denies any loss of consciousness, denies vision changes, denies focal weakness. Patient has a sporadic falls due to gait instability recently started on carbidopa levodopa is been follow-up in outpatient setting with Neurology. Patient denies any nausea, vomiting, diarrhea, fevers, chills, dizziness or lightheadedness, has been her usual state of health. Patient was found to have laceration wound to the scalp and hematoma of the scalp. Patient has been placed in observation for further evaluation management and treatment. EXAMINATION: CT brain wo con DATE: 02/01/2024 20:08 INDICATION: Fall down stairs with head injury and occipital headache TECHNIQUE: Computed tomography (CT) of the head was performed without intravenous contrast. Sagittal and coronal reconstructions were performed. The mA was adjusted according to patient size. Iterative reconstruction technique was employed. The dose-length product was 605.33 mGy-cm. COMPARISON: head CT dated 11/17/2021 FINDINGS: Left parieto-occipital scalp hematoma and laceration. No fracture. No acute intracranial hemorrhage, acute infarction or abnormal extra axial fluid collection. There is mild scattered white matter hypoattenuation consistent with chronic small vessel ischemic disease. Unchanged 18 mm peripherally calcified extra-axial hematoma along the left side of the posterior frontal sagittal sinus. Symmetric prominence of the sulci and subarachnoid spaces overlying the convexities consistent with mild to moderate age-appropriate diffuse cerebral volume loss. Ventricles are normal and symmetric. No mass/mass effect. Small amount of bubbly mucus in the dependent left sphenoid sinus. The orbits and mastoid air cells are normal. IMPRESSION: 1. Prominent left parieto-occipital scalp hematoma and laceration. No fracture or acute intracranial process. 2. Unchanged 18 mm left frontoparietal extra-axial meningioma 3. Age related changes including mild to moderate diffuse volume loss and mild scattered white matter hypoattenuation consistent with chronic small vessel ischemic disease. EXAMINATION: XR chest 1V portable DATE: 02/01/2024 20:42 INDICATION: Dizziness. Posterior head injury. TECHNIQUE: frontal view of the chest was obtained. COMPARISON: Chest radiograph dated 12/04/2023 FINDINGS: The lungs remain clear with no focal airspace opacities, pulmonary edema, pleural effusion or pneumothorax. The cardiomediastinal silhouette is normal. Visualized bones and soft tissues are unremarkable. IMPRESSION: 1. No acute cardiopulmonary disease. EXAMINATION: CT cervical spine wo con DATE: 02/01/2024 20:13 INDICATION: Posterior head injury post fall TECHNIQUE: Computed tomography (CT) of the cervical spine was performed without intravenous contrast. Automated exposure control and iterative reconstruction technique were employed. The dose-length product was 202.87 mGy-cm. COMPARISON: CT dated 11/17/2021 and MRI dated 01/28/2024 FINDINGS: No significant change in one-2 mm anterolisthesis C4 on C5 and 2 mm anterolisthesis C7 on T1. Vertebral body heights are normal. No acute fracture. Severe osteoarthritis at the atlantoaxial articulation. No significant change in severe cervical and upper thoracic spondylosis which is described on a level by level basis on the recent prior MRI visualized portion of the upper lungs are clear. Cervical soft tissues are unremarkable.. IMPRESSION: 1. Severe cervical spondylosis. No acute osseous abnormality. EXAMINATION: CT lumbar spine wo con DATE: 02/01/2024 20:57 GLADIS
[2024-02-02] VITALS (8 sets, daily range): BP systolic 155–190; BP diastolic 71–84; PULSE 74–95; RESP 16–18; TEMP 36.4–37.1; O2SAT 98–100; BMI 28.0
--- NOTE | 2024-02-02 00:47 | ADMGEN ---
This patient, Tea Turner, was admitted to 2 Medical Room 242-. Patient/family oriented to hospital policies and general routines including ID bracelet, bed and alarms, visiting hours, pain management, procedures, bathroom and other care routines, personal items, smoking policy, room service/diet, and visiting hours. Information on how to activate the Rapid Response Team has been discussed. Patient/Family are encouraged to report perceived risks to care and to ask questions if they do not understand what they are told or what they should do.
[2024-02-02 05:17] LABS: Anion Gap 9 mmol/L (4-12); Blood Urea Nitrogen 24 mg/dL (7-17); Calcium 9.2 mg/dL (8.4-10.2); Carbon Dioxide 23 mmol/L (22-30); Chloride 102 mmol/L (98-107); Estimated Glomerular Filt Rate 41; Glucose 112 mg/dL (65-110); Potassium 4.1 mmol/L (3.4-5.0); Sodium 134 mmol/L (137-145)
[2024-02-02] MEDS: CARBIDOPA/LEVODOPA 25/100 MG TABLET 2 TABLET PO ×3 (06:29→20:19)
[2024-02-02] MEDS: ACETAMINOPHEN 500 MG TABLET 1000 MG PO ×2 (06:30→20:19)
--- NOTE | 2024-02-02 07:34 | PM.IMPN ---
Progress Note: A&P Assessment and Plan (1) Adult failure to thrive: Code(s): R62.7 - Adult failure to thrive Status: Acute (2) Head injury: Qualifiers: Encounter type: initial encounter Qualified Code(s): S09.90XA - Unspecified injury of head, initial encounter Code(s): S09.90XA - Unspecified injury of head, initial encounter Status: Acute (3) Hematoma of scalp: Qualifiers: Encounter type: initial encounter Qualified Code(s): S00.03XA - Contusion of scalp, initial encounter Code(s): S00.03XA - Contusion of scalp, initial encounter Status: Acute (4) Skin tear: Status: Acute Plan This is a 78-year-old female with past medical history significant for gait instability, dementia, hypertension, alcohol dependence, chronic kidney disease chronic anemia, gastroesophageal reflux disease. Patient was brought to the emergency room due to mechanical fall ground level patient denies any loss of consciousness, denies vision changes, denies focal weakness. Patient has a sporadic falls due to gait instability recently started on carbidopa levodopa is been follow-up in outpatient setting with Neurology. (1) Adult failure to thrive: Code(s): R62.7 - Adult failure to thrive Status: Acute Assessment and Plan: Admit to regular medical floor PT OT consult Hyponatremia, dehydration Possible due to poor intake Start normal saline IV Progressive weakness and unstable gait Patient has history of meningioma and Parkinson disease Patient state that she has progress weakness of right arm and unstable gait Patient fell at home, likely related to neuro issues Patient follow-up with neurologist Consult neurologist for evaluation treatment (2) Head injury: Qualifiers: Encounter type: initial encounter Qualified Code(s): S09.90XA - Unspecified injury of head, initial encounter Code(s): S09.90XA - Unspecified injury of head, initial encounter Status: Acute Assessment and Plan: CT head reviewed Supportive care (3) Hematoma of scalp: Qualifiers: Encounter type: initial encounter Qualified Code(s): S00.03XA - Contusion of scalp, initial encounter Code(s): S00.03XA - Contusion of scalp, initial encounter Status: Acute Assessment and Plan: Supportive care No active bleeding (4) Skin tear: Status: Acute Assessment and Plan: Local care (5) Dementia: Code(s): F03.90 - Unspecified dementia, unspecified severity, without behavioral disturbance, psychotic disturbance, mood disturbance, and anxiety Status: Acute Assessment and Plan: Continue donepezil (6) Chronic kidney disease, stage IV (severe): Code(s): N18.4 - Chronic kidney disease, stage 4 (severe) Status: Acute Assessment and Plan: Continue to monitor BUN and creatinine currently at patient's baseline (7) Gastroesophageal reflux disease: Code(s): K21.9 - Gastro-esophageal reflux disease without esophagitis Status: Acute Assessment and Plan: PPI (8) Hypertension: Code(s): I10 - Essential (primary) hypertension Status: Acute Assessment and Plan: Continue Losartan (9) Hyponatremia: Code(s): E87.1 - Hypo-osmolality and hyponatremia Status: Acute Assessment and Plan: Resolved after NS 2 L Continue to monitor Subjective Date/time seen: 02/02/24 07:34 Interval history: I saw examined patient today in presents of patient's daughter. Patient history of Parkinson disease, meningioma. Patient states she has been having Progressively worsening weakness of right hand and unstable gait in past 1 year. Patient denied vision change. Patient also denies chest pain, palpitation, lightheadedness. Exam Narrative: GENERAL: Pleasant, in no acute distress. Well-nourished. - EYES: EOMI. Anicteric. - HENT: Kim
[2024-02-02] MEDS: LOSARTAN POTASSIUM 50 MG TABLET PO (08:36)
[2024-02-02] MEDS: SODIUM CHLORIDE 0.9% IV 1,000 ML 100 ML IV CONT (08:36)
--- NOTE | 2024-02-02 12:44 | PCPTNOTE ---
On 02/02/24, the student, [Tiffani Sheikh], provided care and completed [facility] documentation on this patient. I have reviewed the student's documentation and agree with the findings.
[2024-02-02] MEDS: DONEPEZIL HCL 5 MG TABLET 10 MG PO (20:19)
[2024-02-03 04:57] VITALS: BP 185/67; PULSE 76; RESP 18; TEMP 36.5; O2SAT 100
--- NOTE | 2024-02-03 07:46 | PM.IMPN ---
Progress Note: A&P Assessment and Plan (1) Adult failure to thrive: Code(s): R62.7 - Adult failure to thrive Status: Acute (2) Head injury: Qualifiers: Encounter type: initial encounter Qualified Code(s): S09.90XA - Unspecified injury of head, initial encounter Code(s): S09.90XA - Unspecified injury of head, initial encounter Status: Acute (3) Hematoma of scalp: Qualifiers: Encounter type: initial encounter Qualified Code(s): S00.03XA - Contusion of scalp, initial encounter Code(s): S00.03XA - Contusion of scalp, initial encounter Status: Acute (4) Skin tear: Status: Acute Plan This is a 78-year-old female with past medical history significant for gait instability, dementia, hypertension, alcohol dependence, chronic kidney disease chronic anemia, gastroesophageal reflux disease. Patient was brought to the emergency room due to mechanical fall ground level patient denies any loss of consciousness, denies vision changes, denies focal weakness. Patient has a sporadic falls due to gait instability recently started on carbidopa levodopa is been follow-up in outpatient setting with Neurology. (1) Adult failure to thrive: Code(s): R62.7 - Adult failure to thrive Status: Acute Assessment and Plan: Admit to regular medical floor PT OT consult Hyponatremia, dehydration Possible due to poor intake Received normal saline IV corrected Progressive weakness and unstable gait Patient has history of meningioma and Parkinson disease Patient state that she has progress weakness of right arm and unstable gait Patient fell at home, likely related to neuro issues Patient follow-up with neurologist Consult neurologist for evaluation treatment (2) Head injury: Qualifiers: Encounter type: initial encounter Qualified Code(s): S09.90XA - Unspecified injury of head, initial encounter Code(s): S09.90XA - Unspecified injury of head, initial encounter Status: Acute Assessment and Plan: CT head reviewed Supportive care Hematoma of scalp: Qualifiers: Encounter type: initial encounter Qualified Code(s): S00.03XA - Contusion of scalp, initial encounter Code(s): S00.03XA - Contusion of scalp, initial encounter Status: Acute Assessment and Plan: Supportive care No active bleeding Skin tear: Status: Acute Assessment and Plan: Local care Dementia: Code(s): F03.90 - Unspecified dementia, unspecified severity, without behavioral disturbance, psychotic disturbance, mood disturbance, and anxiety Status: Acute Assessment and Plan: Continue donepezil Chronic kidney disease, stage IV (severe): Code(s): N18.4 - Chronic kidney disease, stage 4 (severe) Status: Acute Assessment and Plan: Continue to monitor BUN and creatinine currently at patient's baseline Gastroesophageal reflux disease: Code(s): K21.9 - Gastro-esophageal reflux disease without esophagitis Status: Acute Assessment and Plan: PPI Hypertension: Code(s): I10 - Essential (primary) hypertension Status: Acute Assessment and Plan: Continue Losartan Consult PT OT home care associate for evaluation and assisting placement. 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 Patient denied new focal weakness, vision change, abdomen pain, nausea vomiting Exam Narrative: GENERAL: Pleasant, in no acute distress. Well-nourished. - EYES: EOMI. Anicteric. - HENT: Moist mucous membranes. - LUNGS: Clear to auscultation bilaterally, no wheezing, rhonchi, or rales. - CARDIO
[2024-02-03] MEDS: LOSARTAN POTASSIUM 50 MG TABLET PO (08:22)
[2024-02-03] MEDS: CARBIDOPA/LEVODOPA 25/100 MG TABLET 2 TABLET PO ×3 (08:22→16:29)
[2024-02-03 09:00] LABS: Basophils Percent Auto 0.7 % (0.2-1.2); Eosinophils Absolute Auto 0.2 K/mm3 (0-0.3); Eosinophils Percent Auto 4.3 % (0-4.4); Hematocrit 34.9 % (37.0-47.0); Hemoglobin 11.1 g/dL (12.0-15.0); Immature Granulocyte Absolute 0.01 K/mm3 (0.00-0.031); Immature Granulocyte Percent A 0.2 % (0-0.5); Lymphocytes Absolute Auto 1.54 K/mm3 (0.9-3.2); Lymphocytes Percent Auto 34.7 % (18.3-44.2); Mean Corpuscular HGB Conc 31.8 g/dl (32-36); Mean Corpuscular Hemoglobin 29.1 pg (26-34); Mean Corpuscular Volume 91.6 fl (80-100); Mean Platelet Volume 10.4 fl (7.4-10.4); Monocytes Absolute Auto 0.4 K/mm3 (0.1-0.6); Monocytes Percent Auto 9.5 % (2.6-8.5); Neutrophils Absolute Auto 2.3 K/mm3 (1.3-6.7); Neutrophils Percent Auto 50.6 % (45.5-73.1); Platelet Count Result 186 k/mm3 (150-375); Red Blood Count 3.81 M/mm3 (4.2-5.4); Red Cell Distribution Width 13.5 % (11.5-14.5); White Blood Count 4.4 K/mm3 (4.5-10.0)
[2024-02-03 09:15] LABS: Anion Gap 9 mmol/L (4-12); Blood Urea Nitrogen 17 mg/dL (7-17); Calcium 9.2 mg/dL (8.4-10.2); Carbon Dioxide 26 mmol/L (22-30); Chloride 100 mmol/L (98-107); Estimated Glomerular Filt Rate 53; Glucose 98 mg/dL (65-110); Potassium 4.2 mmol/L (3.4-5.0); Sodium 135 mmol/L (137-145)
--- NOTE | 2024-02-03 11:18 | WPDNEURCNPN ---
Assessment and Plan Assessment and plan (1) Head injury: Qualifiers: Encounter type: initial encounter Qualified Code(s): S09.90XA - Unspecified injury of head, initial encounter Code(s): S09.90XA - Unspecified injury of head, initial encounter Status: Acute (2) Hematoma of scalp: Qualifiers: Encounter type: initial encounter Qualified Code(s): S00.03XA - Contusion of scalp, initial encounter Code(s): S00.03XA - Contusion of scalp, initial encounter Status: Acute (3) History of unsteady gait: Code(s): Z87.898 - Personal history of other specified conditions Status: Acute (4) Meningioma: Code(s): D32.9 - Benign neoplasm of meninges, unspecified Status: Acute (5) Cervical spondylosis with radiculopathy: Code(s): M47.22 - Other spondylosis with radiculopathy, cervical region Status: Acute Plan 1. Orthostatic dizziness 2. Episode of confusion as per the family short lasting without any clinical jerking question partial seizure but no anticonvulsant at this particular time. 3. Head injury with superficial hematoma no intracranial extension 4. Chronic renal disease 5. 18mm left frontoparietal extra-axial meningioma. Long discussion with the family might need the EEG. Consult date: 02/03/24 HPI: Tea Turner is a 78 year old female Admitted to the hospital through the emergency room with history of fall backward onto the concrete floor and sustaining the laceration of the head in addition to the history of 1. Meningioma 2. Cerebrovascular accident 3. Hyperparathyroidism 4. Chronic kidney disease 5. Hypertension she was brought to the hospital by the EMS from her home and reportedly she was going up stairs holding onto the railing when she felt dizzy and fell backwards she did not become unconscious but was experiencing pain in her head and the lower back she was noted to hematoma the back of her head with laceration she arrived to the ER in C-collar which was placed by EMS and she was not anticoagulated he did not become unconscious had no focal symptomatology of weakness or numbness and no visual difficulties and unsteady gait and has been evaluated by the neurologist in the past. Her medications included carbidopa levodopa 25/102 tablets 3 times a day in addition to losartan 50mg daily. She is not allergic to any medication she does have ongoing history of anemia, chronic renal disease stage III, GERD, hypertension, and history of GI bleed secondary to acute gastric ulcer, she is a former smoker has smoked 25 years currently alcohol intake 72 drinks per week and routine labs were normal with blood pressure 163/88 CBC normal BMP with sodium 134 BUN 24 and routine lab including UA was normal, MRI of the cervical spine revealed severe cervical spondylosis at multiple levels but with mild central canal stenosis C5-C6 and C6 and 7 though no cord impingement, head CT scan documented prominent left parieto-occipital hematoma and laceration but no intracranial process there was unchanged 18mm left frontoparietal extra-axial meningioma. Review of Systems Review of Systems: All systems reviewed & are unremarkable except as noted in HPI and below PMFSH Past Medical History Medical History Alcohol abuse Arthritis Cataracts, bilateral Cerebrovascular disease Cholelithiasis Chronic disease anemia Chronic kidney disease, stage 3 Patient reports recent creatinine level of 1.80. Colon polyps Gastroesophageal reflux disease Hyperlipidemia Hypertension Peptic ulcer disease Acute gastric ulcers on EGD on 01/10/2016. Seasonal allergies Upper GI bleed (01/2016) Secondary to acute gastric ulcers. Surgical History Surgical History History of hysterectomy History of left oophorectomy Family History Family History (Reviewed 02/02/24 @ 00:25
[2024-02-03] MEDS: ACETAMINOPHEN 500 MG TABLET 1000 MG PO (11:33)
--- NOTE | 2024-02-03 13:54 | PCPTNOTE ---
Attempted to see patient for PT, however patient declined due to increase dizziness this date. Patient reported dizziness is worse today.
[2024-02-03 14:00] VITALS: BP 146/56; PULSE 91; RESP 18; TEMP 36.4; O2SAT 100
--- NOTE | 2024-02-03 14:30 | WPDNEURCNPN ---
Consult date: 02/03/24 HPI: [facility] Past Medical History Medical History Alcohol abuse Arthritis Cataracts, bilateral Cerebrovascular disease Cholelithiasis Chronic disease anemia Chronic kidney disease, stage 3 Patient reports recent creatinine level of 1.80. Colon polyps Gastroesophageal reflux disease Hyperlipidemia Hypertension Peptic ulcer disease Acute gastric ulcers on EGD on 01/10/2016. Seasonal allergies Upper GI bleed (01/2016) Secondary to acute gastric ulcers. Surgical History Surgical History History of hysterectomy History of left oophorectomy Family History Family History Mother , 84 yrs old Dementia Sibling Brain aneurysm Other Diabetes mellitus Family history of congestive heart failure Hypertension Social History Social History Social History: The patient is and lives alone in [place]. Her in spring 2020. She smoked a pack of cigarettes a day for about 20 years and quit 22 years ago. She drinks 1 glass of wine a night and typically 8 to 9 beers throughout the day however she tells me that she does not finish the entire bottle of beer. She uses marijuana edibles on occasion to help her sleep. Her daughter Leia Turner is her surrogate decision maker and she wishes to be a full code. Smoking status: Former smoker Tobacco type: cigarettes Second hand tobacco smoke exposure: No Additional smoking assessment comments: Pt has smoked cigarettes in 25yrs. Alcohol intake: current Drinks per week: 72 Alcohol use details: Pt states she drink 4 bottles of beer daily. Thursday around 3. Substance use: former Substance use type: does not use Do You Feel Safe in your Home?: Yes Lack of Transportation: No Lack of Food: Never True Current Housing: I Have Housing Concerned About Future Housing: No Difficulty Paying Gas/Electric Bills: No Difficulty Paying for Meds: No Currently Unemployed: No Education: Associate Degree Difficulty w/ Childcare or Family Care: No Living arrangements: alone Occupation/Education: retired Gender identity (if verbalized by the patient): Female Sexual Orientation (if Verbalized by the Patient): Straight or Heterosexual Spiritual care concerns: No Meds Home Medications and Allergies Home Medications Medication Instructions Recorded Confirmed Type cholecalciferol (vitamin D3) 25 25 mcg PO DAILY 12/23/19 02/02/24 History mcg (1,000 unit) capsule multivitamin (Daily Multi-Vitamin 1 tablet PO DAILY 08/21/22 02/02/24 History tablet) donepezil 5 mg tablet 10 mg PO QHS #90 tabs 11/03/23 02/02/24 Rx carbidopa 25 mg-levodopa 100 mg 2 tablet PO TID 02/02/24 02/02/24 History tablet losartan 50 mg tablet 50 mg PO DAILY 02/02/24 02/02/24 History Allergies Allergy/AdvReac Type Severity Reaction Status Date / Time No Known Allergies Allergy Verified 12/30/23 11:37 Vital Signs Vital Signs - 24 hr 02/02/24 19:52 02/02/24 20:00 02/02/24 22:04 Temperature 36.5 C 36.5 C Pulse Rate 91 74 Respiratory Rate 18 18 Blood Pressure 190/74 H 187/80 H Pulse Oximetry 100 99 Oxygen Delivery Room Air 02/03/24 04:57 02/03/24 08:20 Temperature 36.5 C Pulse Rate 76 Respiratory Rate 18 Blood Pressure 185/67 H Pulse Oximetry 100 Oxygen Delivery Room Air Results Labs 02/03/24 08:45 02/03/24 08:45 Labs: Short CBC 02/03/24 Range/Units 08:45 WBC 4.4 L (4.5-10.0) K/mm3 Hgb 11.1 L (12.0-15.0) g/dL Hct 34.9 L (37.0-47.0) % Plt Count 186 (150-375) k/mm3 BMP 02/03/24 08:45 Sodium 135 L Potassium 4.2 Chloride 100 Carbon Dioxide 26 BUN 17 Creatinine 1.
[2024-02-03] MEDS: PROMETHAZINE HCL 25 MG/ML AMPUL 12.5 MG IV PUSH (15:27)
[2024-02-03 20:00] VITALS: PULSE 89; RESP 18; O2SAT 99
[2024-02-03] MEDS: DONEPEZIL HCL 5 MG TABLET 10 MG PO (20:31)
[2024-02-03 21:49] VITALS: BP 136/61; PULSE 83; RESP 18; TEMP 36.8; O2SAT 100
[2024-02-03 23:10] VITALS: O2SAT 99
[2024-02-04 05:47] LABS: Basophils Percent Auto 0.9 % (0.2-1.2); Eosinophils Absolute Auto 0.2 K/mm3 (0-0.3); Eosinophils Percent Auto 3.3 % (0-4.4); Hematocrit 29.9 % (37.0-47.0); Hemoglobin 9.7 g/dL (12.0-15.0); Immature Granulocyte Absolute 0.03 K/mm3 (0.00-0.031); Immature Granulocyte Percent A 0.7 % (0-0.5); Lymphocytes Absolute Auto 1.58 K/mm3 (0.9-3.2); Lymphocytes Percent Auto 34.3 % (18.3-44.2); Mean Corpuscular HGB Conc 32.4 g/dl (32-36); Mean Corpuscular Hemoglobin 29.1 pg (26-34); Mean Corpuscular Volume 89.8 fl (80-100); Mean Platelet Volume 10.3 fl (7.4-10.4); Monocytes Absolute Auto 0.5 K/mm3 (0.1-0.6); Monocytes Percent Auto 10.2 % (2.6-8.5); Neutrophils Absolute Auto 2.3 K/mm3 (1.3-6.7); Neutrophils Percent Auto 50.6 % (45.5-73.1); Platelet Count Result 175 k/mm3 (150-375); Red Blood Count 3.33 M/mm3 (4.2-5.4); Red Cell Distribution Width 13.4 % (11.5-14.5); White Blood Count 4.6 K/mm3 (4.5-10.0)
[2024-02-04 05:56] LABS: Anion Gap 11 mmol/L (4-12); Blood Urea Nitrogen 18 mg/dL (7-17); Calcium 8.9 mg/dL (8.4-10.2); Carbon Dioxide 23 mmol/L (22-30); Chloride 101 mmol/L (98-107); Estimated Glomerular Filt Rate 41; Glucose 100 mg/dL (65-110); Sodium 135 mmol/L (137-145)
[2024-02-04 06:00] VITALS: BP 157/68; PULSE 75; RESP 18; TEMP 36.4; O2SAT 99
[2024-02-04] MEDS: CARBIDOPA/LEVODOPA 25/100 MG TABLET 2 TABLET PO ×3 (08:45→17:30)
[2024-02-04] MEDS: MULTIVITAMINS THERAPEUTIC TAB (*BKC) 1 TABLET PO (08:45)
[2024-02-04] MEDS: ACETAMINOPHEN 500 MG TABLET 1000 MG PO (08:46)
[2024-02-04] MEDS: CHOLECALCIFEROL 1,000 UNITS TABLET 1000 UNITS PO (08:46)
[2024-02-04] MEDS: LOSARTAN POTASSIUM 50 MG TABLET PO (08:46)
--- NOTE | 2024-02-04 13:04 | WPDNEUROPN ---
Progress Note: A&P Assessment and Plan (1) Head injury: Qualifiers: Encounter type: initial encounter Qualified Code(s): S09.90XA - Unspecified injury of head, initial encounter Code(s): S09.90XA - Unspecified injury of head, initial encounter Status: Acute (2) Hematoma of scalp: Qualifiers: Encounter type: initial encounter Qualified Code(s): S00.03XA - Contusion of scalp, initial encounter Code(s): S00.03XA - Contusion of scalp, initial encounter Status: Acute (3) Meningioma: Code(s): D32.9 - Benign neoplasm of meninges, unspecified Status: Acute (4) Dementia: Code(s): F03.90 - Unspecified dementia, unspecified severity, without behavioral disturbance, psychotic disturbance, mood disturbance, and anxiety Status: Acute (5) Stage 3b chronic kidney disease: Code(s): N18.32 - Chronic kidney disease, stage 3b Status: Acute (6) Right hand weakness: Code(s): R29.898 - Other symptoms and signs involving the musculoskeletal system Status: Acute (7) Neck pain: Code(s): M54.2 - Cervicalgia Status: Acute (8) Accidental fall: Code(s): W19.XXXA - Unspecified fall, initial encounter Status: Acute Plan The patient remains a challenge with regard to the right upper limb spasticity and loss of rapid alternating movement where the findings are more suggestive upper neuron type finding. I have empirically given her a trial of Sinemet and she is up to 2 tablets 3 times a day and her and her family members think that it has helped to some extent although she still come has difficulty with walking. I had her walk around in the room and she did fair but you have to moisture. I agree that she needs to be seen by the neurosurgeon as previously mentioned to see if they feel that the spasticity in the right arm could be explained by the meningioma on the left side since there does not appear to be any cerebrovascular disease to account for it nor there is any other significant finding to explain that. MRI of cervical spine also did not show evidence of myelopathy. There is however degenerative a disease of the cervical spine which is not unexpected given age. In the meanwhile safety precautions with regard to fall prevention should be implemented and she should continue the Sinemet 25/102 tablets 3 times a day as this has helped her to some extent even though I do not feel that there is any conclusive evidence for Parkinson's disease at this time. thank you very much Subjective Date/time seen: 02/04/24 13:04 Interval history: The patient is 78-year-old Afro-Cub[place] female with a spasticity of the right upper limb and 18 mm size meningioma in the left cerebral hemisphere. She was admitted with a having had a fall. According to the family she was standing on the stair and she fell down. She has had a few falls on and off and she tends to fall backward although they feel that this is most likely an accidental fall. They did not describe any passing out spell. Patient has a pending appointment to see neurosurgeon next week on February 10 with regard to the meningioma. MRI of the cervical spine was performed which shows significant arthritic changes but there was no spinal cord compression. Also the stiffness in the right has not improved his empirically given a course of treatment with the Sinemet which the patient and the family feels has helped to some extent. she has a scalp hematoma on the left side from the fall. Please refer to the initial consultation by Dr. William. Review of Systems Review of Systems: All systems reviewed & are unremarkable except as noted in HPI and below Exam Narrative: fully conscious alert oriented to self place and person. No aphasia or dysarthria. Cranial senior test intact. Motor system spasticity and loss of rapid alternating movement of the right upper limb compared to the left side. No s
--- NOTE | 2024-02-04 13:09 | PM.IMPN ---
Progress Note: A&P Assessment and Plan (1) Head injury: Qualifiers: Encounter type: initial encounter Qualified Code(s): S09.90XA - Unspecified injury of head, initial encounter Code(s): S09.90XA - Unspecified injury of head, initial encounter Status: Acute Assessment and Plan: 02/04/24: Patient sustained a fall backwards hitting the back of her head. Head CT showed a prominent left parieto-occipital scalp hematoma and laceration, no fracture or acute intracranial process, unchanged 18 mm left frontoparietal extra axial meningioma, age-related changes. Continue neuro checks q.4 hour Laceration is well approximated and open to air Neurology following Continue Sinemet Continue PT and OT (2) Hematoma of scalp: Qualifiers: Encounter type: initial encounter Qualified Code(s): S00.03XA - Contusion of scalp, initial encounter Code(s): S00.03XA - Contusion of scalp, initial encounter Status: Acute Assessment and Plan: See above (3) Skin tear: Status: Acute Assessment and Plan: See above (4) Adult failure to thrive: Code(s): R62.7 - Adult failure to thrive Status: Acute Assessment and Plan: 02/04/24: Continue PT and OT Time Spent With Patient Time with patient: 25 - 35 minutes Subjective Date/time seen: 02/04/24 13:09 Interval history: Patient denies any new complaints today. She denies any lightheadedness, dizziness, headache, vision changes, nausea, vomiting. She is alert oriented x3. Vital signs are stable. Review of Systems Review of Systems: All systems reviewed & are unremarkable except as noted in HPI and below Constitutional: Constitutional: Reports as per HPI and Reports no additional constitutional complaints Eyes: Eyes: Reports as per HPI and Reports no additional eye complaints ENT: Reports system reviewed and no additional complaints, except as documented and Reports as per HPI Cardiovascular: Cardiovascular: Reports as per HPI and Reports no additional cardiovascular complaints Respiratory: Respiratory: Reports as per HPI and Reports no additional respiratory complaints Gastrointestinal: Gastrointestinal: Reports as per HPI and Reports no additional gastrointestinal complaints Genitourinary: Genitourinary: Reports no additional female genitourinary complaints and Reports as per HPI Musculoskeletal: Musculoskeletal: Reports no additional musculoskeletal complaints and Reports as per HPI Integumentary/Breasts: Skin/Breast: Reports system reviewed and no additional complaints, except as docu and Reports as per HPI Neurologic: Reports system reviewed and no additional complaints, except as documented and Reports as per HPI Psychiatric: Psychiatric: Reports no additional psychiatric complaints and Reports as per HPI Exam Narrative: General: In no acute distress, well nourished Head: atraumatic, no encephalopathy Eyes: EOMI, PERRLA, sclera clear ENT: moist mucous membranes, nasal passages clear Neck: supple, no JVD, no adenopathy, trachea midline Cardiac: Normal S1 and S2. Murmur positive. No gallops or friction rubs, peripheral pulses intact. Respiratory: Lungs clear to auscultation, no adventitious lung sounds for, currently on room air Gastrointestinal: soft, non-distended, non-tender, normoactive bowel sounds. : voiding without difficulty. Extremities: moves all extremities well, no edema, good ROM, strength 4/5 bilateral upper extremity, 5/5 bilateral lower extremity Skin: clean, dry, intact. No wounds or lesions. Neuro: Alert and oriented x4, cranial nerves intact, no neuro deficits. Slurred speech. Psych: normal mood, normal affect, interactive Objective Data Vital Signs Vital Signs: Vital Signs - 24 hr 02/03/24 14:00 02/03/24 20:00 02/03/24 21:49 Temperature 97.6 F 98.2 F Pulse Rate 91 89 83 Respiratory Rate 18 18 18 Blood Pressure 146/56 H 136/61 Pulse Oximetry 100 99 100
--- NOTE | 2024-02-04 16:49 | PM.DS ---
DS: Admitting Diagnosis Discharge Date 02/04/24 Admitting Diagnosis Adult failure thrive Head injury Hematoma of the scalp Skin tear Dementia Chronic kidney disease stage 4 GERD Hypertension Hyponatremia DS: Summary Hospital Course Reason for hospitalization: Adult failure thrive Head injury Hematoma of the scalp Skin tear Dementia Chronic kidney disease stage 4 GERD Hypertension Hyponatremia Hospital Course: This is a 78-year-old female who presented to the hospital on 02/01/2024 for evaluation after a fall. Workup in the hospital included a head CT which shown a prominent left parieto-occipital scalp hematoma and laceration, no acute fracture or intracranial process, 18 mm left fronto parietal extra axial meningioma, age-related changes. Chest x-ray was negative. Cervical spine CT showed severe cervical spondylosis. Lumbar spine CT showed moderate to severe lower lumbar predominance spondylosis. Initial labs showed a hemoglobin of 10.3, sodium 129, chloride 97, creatinine 1.6, EGFR 38, troponin negative. UA was negative. Neurology seen patient and recommends continuing this sentiment and to follow-up with neurosurgeon regarding her meningioma. Patient is stable for discharge at this time. She will follow-up with the neurosurgery team as previously scheduled. Final diagnosis: Hematoma of the scalp, fall, hyponatremia Status at Discharge Cognitive/behavioral status at discharge: Alert oriented x4 Functional status at discharge: uses cane/walker Overall status at discharge: patient is progressing back to baseline Time Spent with Patient Time attestation: Total time spent providing and/or coordinating discharge services: Time spent: Greater than 30 minutes Exam Narrative: General: In no acute distress, well nourished Head: atraumatic, no encephalopathy Eyes: EOMI, PERRLA, sclera clear ENT: moist mucous membranes, nasal passages clear Neck: supple, no JVD, no adenopathy, trachea midline Cardiac: Normal S1 and S2. No murmur, gallops or friction rubs, peripheral pulses intact. Respiratory: Lungs clear to auscultation, no adventitious lung sounds, currently on room air Gastrointestinal: soft, non-distended, non-tender, normoactive bowel sounds. : voiding without difficulty. Extremities: moves all extremities well, no edema, good ROM, strength 4/5 bilateral upper extremity, weakness noted to right arm, 5/5 strength bilateral lower extremity Skin: clean, dry, intact. No wounds or lesions. Neuro: Alert and oriented x4, cranial nerves intact, no neuro deficits. Slow speech, slurred, facial features are symmetrical, coordination intact Psych: normal mood, normal affect, interactive DS: Data Data Completed and Pending Completed studies during hospitalization: Head CT Chest x-ray Cervical spine CT Lumbar spine CT Pending studies at discharge: None Labs on day of discharge: Labs from last 24 hours 02/04/24 05:22 WBC 4.6 RBC 3.33 L Hgb 9.7 L Hct 29.9 L MCV 89.8 MCH 29.1 MCHC 32.4 RDW 13.4 Plt Count 175 MPV 10.3 Immature Gran % (Auto) 0.7 H Neut % (Auto) 50.6 Lymph % (Auto) 34.3 Hemphill % (Auto) 10.2 H Eos % (Auto) 3.3 Baso % (Auto) 0.9 Lymph # (Auto) 1.58 Hemphill # (Auto) 0.5 Eos # (Auto) 0.2 Baso # (Auto) 0.0 Abs Immat Gran (auto) 0.03 Absolute Neuts (auto) 2.3 Absolute Nucleated RBC 0.000 Nucleated RBC % 0.0 Sodium 135 L Potassium 4.0 Chloride 101 Carbon Dioxide 23 Anion Gap 11 BUN 18 H Creatinine 1.50 H Estim Creat Clear Calc Not Reportable Estimated GFR 41 L Glucose 100 Calcium 8.9 Procedures/Treatments: none Discharge Plan Discharge Attending physician on discharge: Kimberley Garcia Consulting providers: Feliciano William; Juan Dunn; Oleksandr Hernandez; Hue Tijerina; Deloris Townsend Discharging Clinician: Mackenzie Cardenas Anticipated Discharge Date/Time: 02/04/24 16:53 Patient Disposition: Home, Self-Care Activity: as tolerated
== END 2024-02-04 17:45 | disposition home or self-care (01) | DRG 605 ==
LOC: ANHED 23:55 → ANH2MED 02-02 00:23
PROVIDERS: Hospitalist; Admitting Provider Internal Medicine; Emergency Provider Physician Assistant; PCP Family Medicine; Visit Provider Nurse Practitioner Acute Care
DX: S00.03XA Contusion of scalp, initial encounter (principal); E87.1 Hypo-osmolality and hyponatremia; N18.32 Chronic kidney disease, stage 3b; W18.30XA Fall on same level, unspecified, initial encounter; D63.1 Anemia in chronic kidney disease; I12.9 Hypertensive chronic kidney disease with stage 1 through stage 4 chronic kidney disease, or unspecified chronic kidney disease; K21.9 Gastro-esophageal reflux disease without esophagitis; E78.5 Hyperlipidemia, unspecified; F10.20 Alcohol dependence, uncomplicated; R26.9 Unspecified abnormalities of gait and mobility; F03.90 Unspecified dementia, unspecified severity, without behavioral disturbance, psychotic disturbance, mood disturbance, and anxiety; R62.7 Adult failure to thrive; Z86.73 Personal history of transient ischemic attack (TIA), and cerebral infarction without residual deficits; Z87.891 Personal history of nicotine dependence
CPT/HCPCS: 36415; 70450; 71045; 72125; 72131; 80048; 80053; 81003; 84484; 85025; 93005; 96360; 97110; 97161; 97166; 97530; 97535; 99285; A9270; G0378; J2550; J7030

== ENCOUNTER 2024-03-21 09:32 | Outpatient (CLI) | payer MEDICARE, OTHER, SELFPAY ==
--- NOTE | 2024-03-21 11:00 | NEURO_ITS ---
EMG and Nerve Conduction Studies Clinical note: Patient is 79-year-old Afro-S[place]an female with complaints of weakness of right arm. She also has recently developed some difficulty speech. She had MRI of the brain that shows left parasagittal meningioma. She is being evaluated by Neurosurgery. She denies any symptoms the left upper limb or lower limbs. on a brief examination patient was noted to have mild increased tone and weakness in the right upper limb. No focal muscle wasting or fasciculations were observed. EMG nerve can study performed on both upper limbs the results are given below. There is no history of diabetes mellitus. Summary of findings 1. Right median motor distal latency is moderately prolonged with amplitude conduction velocity normal. Left median motor amplitude was markedly decreased and conduction velocity across the carpal tunnel was moderately decreased. In proximal stimulation at elbow no identifiable CMAP was noted 2. Left and right ulnar motor distal latency amplitude and conduction velocity within normal limits however mild focal slowing was seen across the elbow the left side. 3. Left median palmar sensory was absent but right median palmar sensory distal latency was moderately prolonged. Left and right ulnar palmar sensory distal latencies and amplitudes were within normal limits. Left and right radial sensory distal latencies were within normal limits however amplitudes with mildly decreased on the left but normal on the right side. 4. EMG examination was performed using a monopolar needle electrode and various muscles very examined in both upper limbs in the distribution of C5 to T1 distribution. No denervation changes were seen. Left abductor pollicis brevis shows no motor units with moderate decreased recruitment was noted in the right abductor pollicis brevis. Impression: 1. Severe left and moderate right carpal tunnel syndrome. No motor unit recruitment was noted in the left abductor pollicis brevis where his moderate decreased recruitment was noted in the right APB. 2. Mild left ulnar neuropathy at elbow . No denervation changes were seen in ulnar nerve distribution the left forearm or hand. There is no supportive evidence for C5-T1 radiculopathy or brachial plexopathy on either side hence the weakness in the right upper limb could be an upper motor neuron finding. EMG findings did not show evidence for motor neuron disease at this time however a negative evaluation of upper limbs would not rule this out and further study should be considered if clinically relevant. Hue Bailey MD, FAAN, FAANEM, Neurology, clinical neurophysiology, Electrodiagnostic Medicine Motor Nerve Results Latency Amplitude F-Lat Segment Distance CV Comment Site (ms) (mV) (ms) (cm) (m/s) Left Median (APB) Motor Wrist 3.6 0.14 Elbow NR NR Elbow-Wrist 195 NR Palm 1.48 1.96 Axilla-Elbow 70 33- Right Median (APB) Motor Wrist 5.5 9.1 Elbow 9.1 8.5 Elbow-Wrist 200 56 Left Ulnar (ADM) Motor Wrist 2.7 7.8 Bel Elbow 6.2 7.4 Bel Elbow-Wrist 185 53 Abv Elbow 7.8 7.2 Abv Elbow-Bel Elbow 70 44 Right Ulnar (ADM) Motor Wrist 3.2 7.5 Bel Elbow 6.6 7.3 Bel Elbow-Wrist 170 50 Abv Elbow 7.9 7.2 Abv Elbow-Bel Elbow 70 54 Sensory Nerve Results Latency (Peak) Amplitude (P-P) Segment Distance CV Comment Site (ms) (?V) (cm) (m/s) Left Median-Ulnar Palmar Sensory Median Palm-Wrist NR NR Palm-Wrist 80 NR Ulnar Palm-Wrist 2.2 15 Palm-Wrist 80 36 Right Median-Ulnar Palmar Sensory Median Palm-Wrist 3.2 13 Palm-Wrist 80 25
== END 2024-03-21 09:33 | disposition home or self-care (01) ==
LOC: ANHNEURO 09:34
PROVIDERS: PCP Family Medicine; Visit Provider Psychiatry & Neurology Neurology
DX: G56.03 Carpal tunnel syndrome, bilateral upper limbs (principal); G56.22 Lesion of ulnar nerve, left upper limb
CPT/HCPCS: 95886; 95910

== ENCOUNTER 2024-04-01 09:50 | Emergency (ER) | payer MEDICARE, OTHER, SELFPAY ==
--- NOTE | ~2024-04-01 | XR_ITS ---
EXAMINATION: XR chest 2V Exam Date/Time: 04/01/2024 14:50 CDT HISTORY: new heart murmur Comparison: 02/01/2024. RESULT: Lines, tubes, and devices: None. Lungs and pleura: Senescent changes, otherwise clear. Cardiomediastinal silhouette: Stable. Other: No acute osseous or upper abdominal finding. IMPRESSION: No acute cardiopulmonary process. Reviewed, dictated and finalized at location K.
--- NOTE | ~2024-04-01 | XR_ITS ---
EXAMINATION: XR knee RT min 4V DATE: 04/01/2024 12:50 INDICATION: Right knee pain and swelling TECHNIQUE: AP, 2 oblique and crosstable lateral views of the right knee were obtained. COMPARISON: None. FINDINGS: Bone alignment is normal. No fracture. Chondrocalcinosis at the medial and lateral compartments of th e knee. Joint spaces appear relatively preserved on nonweightbearing imaging. Soft tissues are unrema rkable with no right knee joint effusion. IMPRESSION: 1. No right knee joint effusion or acute osseous abnormality. Reviewed, dictated and finalized at location A.
--- NOTE | ~2024-04-01 | US_ITS ---
EXAMINATION:US venous doppler LE RT INDICATION:Right leg swelling and pain TECHNIQUE: Multiple grayscale, color flow and Doppler images of the right lower extremity deep venous systems were obtained and reviewed. COMPARISON:No prior studies for comparison. FINDINGS: The common femoral, superficial femoral and popliteal veins demonstrate normal respiratory variation, augmentation and compressibility. Color flow is also seen within the posterior tibial, pe roneal, greater saphenous and profunda veins. IMPRESSION: 1: No lower extremity deep venous thrombosis. Reviewed, dictated and finalized at location B.
--- NOTE | ~2024-04-01 | XR_ITS ---
EXAMINATION: XR ankle RT min 3V, XR foot RT min 3V DATE: 04/01/2024 12:51 INDICATION: Right foot and ankle pain post injury TECHNIQUE: 1. Anteroposterior, mortise, additional oblique and lateral view of the right ankle were obtained. 2. Dorsoplantar, two oblique and lateral views of the right foot were obtained. COMPARISON: None. FINDINGS: Mild hallux valgus with mild hypertrophic change and overlying soft tissue swelling at the medial hea d of the first metatarsal consistent with secondary bunion. Alignment of the right foot and ankle is otherwise normal. No fracture. Minimal to mild polyarticular osteoarthritis at a few of the tarsal me tatarsal, metatarsophalangeal and interphalangeal joints. Small Achilles and plantar calcaneal spurs. No ankle joint effusion. IMPRESSION: 1. Mild degenerative changes detailed above. No acute osseous abnormality. Reviewed, dictated and finalized at location A. IMPRESSION: 1. Mild degenerative changes detailed above. No acute osseous abnormality.
[2024-04-01 10:17] VITALS: BP 172/75; PULSE 93; RESP 18; TEMP 36.8; O2SAT 100
[2024-04-01 10:18] VITALS: BP 172/75; PULSE 80; RESP 18; O2SAT 100
[2024-04-01 10:46] VITALS: BP 140/58; PULSE 83; RESP 20; O2SAT 100
[2024-04-01 11:31] VITALS: BP 159/70; PULSE 78; RESP 20; O2SAT 99
[2024-04-01 12:01] VITALS: BP 164/71; PULSE 82; RESP 18; O2SAT 99
--- NOTE | 2024-04-01 12:15 | ED.LOWEXIN ---
HPI - Extremity Injury (Lower) General Chief Complaint: Extremity Injury, Lower Stated Complaint: right foot injury Time Seen by Provider: 04/01/24 10:24 Source: patient and family Mode of arrival: wheelchair History of Present Illness HPI Narrative: Patient is 79-year-old Naur[place] female presents to the ER with right lower extremity pain, redness and swelling. She and her family reports she slammed in a car door 3 weeks ago. Then patient slipped on his urine in the bathroom on Thursday and reinjured her foot. She reports her right lower extremity is swollen, red, and painful. Patient has a history of high blood pressure, varicose veins, alcoholism, CVA, but is not on blood thinners. She also sees neurology for some neurological deficits. Patient denies any shortness of breath, chest, one-sided weakness/tingling/ numbness. Related Data Home Medications Medication Instructions Recorded Confirmed cholecalciferol (vitamin D3) 25 25 mcg PO DAILY 12/23/19 03/15/24 mcg (1,000 unit) capsule multivitamin (Daily Multi-Vitamin 1 tablet PO DAILY 08/21/22 03/15/24 tablet) Allergies Allergy/AdvReac Type Severity Reaction Status Date / Time No Known Allergies Allergy Verified 04/01/24 11:04 Review of Systems Review of Systems: All systems reviewed & are unremarkable except as noted in HPI and below PMFSH Past Medical History Medical History Accidental fall Alcohol abuse Allergies Anemia Arthritis Cataracts, bilateral Cerebrovascular disease Cholelithiasis Chronic disease anemia CKD (chronic kidney disease) (Unknown) Colon polyps Gastroesophageal reflux disease Head trauma Hyperlipidemia Hypertension Kidney disease Peptic ulcer disease Acute gastric ulcers on EGD on 01/10/2016. Seasonal allergies Stage 3b chronic kidney disease Stroke Upper GI bleed (01/2016) Secondary to acute gastric ulcers. Surgical History Surgical History History of hysterectomy History of left oophorectomy Family History Family History Mother , 84 yrs old Dementia Sibling Brain aneurysm Other Diabetes mellitus Family history of congestive heart failure Hypertension Social History Social History (Reviewed 04/01/24 @ 15:31 by IRIS Pace Social History: The patient is and lives alone in [place]. Her in spring 2020. She smoked a pack of cigarettes a day for about 20 years and quit 22 years ago. She drinks 1 glass of wine a night and typically 8 to 9 beers throughout the day however she tells me that she does not finish the entire bottle of beer. She uses marijuana edibles on occasion to help her sleep. Her daughter Leia Turner is her surrogate decision maker and she wishes to be a full code. Smoking status: Former smoker Tobacco type: cigarettes Second hand tobacco smoke exposure: No Additional smoking assessment comments: Pt has smoked cigarettes in 25yrs. Alcohol intake: current Drinks per week: 72 Alcohol use details: Pt states she drink 4 bottles of beer daily. Thursday around 3. Substance use: former Substance use type: does not use Do You Feel Safe in your Home?: Yes Lack of Transportation: No Lack of Food: Never True Current Housing: I Have Housing Concerned About Future Housing: No Difficulty Paying Gas/Electric Bills: No Difficulty Paying for Meds: No Currently Unemployed: No Education: Associate Degree Difficulty w/ Childcare or Family Care: No Living arrangements: alone Occupation/Education: retired Gender identity (if verbalized by the patient): Female Sexual Orientation (if Verbalized by the Patient): Straight or Heterosexual Spiritual care concerns: No Exam Narrative: GENERAL: Well appearing, well-nou
[2024-04-01 12:40] LABS: Basophils Percent Auto 0.7 % (0.2-1.2); Eosinophils Absolute Auto 0.1 K/mm3 (0-0.3); Eosinophils Percent Auto 1.4 % (0-4.4); Hematocrit 30.7 % (37.0-47.0); Hemoglobin 9.7 g/dL (12.0-15.0); Immature Granulocyte Absolute 0.01 K/mm3 (0.00-0.031); Immature Granulocyte Percent A 0.2 % (0-0.5); Lymphocytes Percent Auto 25.9 % (18.3-44.2); Mean Corpuscular HGB Conc 31.6 g/dl (32-36); Mean Corpuscular Volume 88.7 fl (80-100); Monocytes Absolute Auto 0.8 K/mm3 (0.1-0.6); Monocytes Percent Auto 13.1 % (2.6-8.5); Neutrophils Absolute Auto 3.4 K/mm3 (1.3-6.7); Neutrophils Percent Auto 58.7 % (45.5-73.1); Platelet Count Result 281 k/mm3 (150-375); Red Blood Count 3.46 M/mm3 (4.2-5.4); White Blood Count 5.8 K/mm3 (4.5-10.0)
[2024-04-01 12:51] LABS: Lactic Acid Reflex 0.9 mmol/L (0.7-2.0)
[2024-04-01 12:52] LABS: Alanine Aminotransferase 6 U/L (6-35); Albumin Level 4.2 g/dL (3.5-5.1); Alkaline Phosphatase 76 U/L (38-126); Anion Gap 9 mmol/L (4-12); Aspartate Amino Transferase 27 U/L (14-36); Bilirubin,Total 0.7 mg/dL (0.2-1.3); Blood Urea Nitrogen 17 mg/dL (7-17); Calcium 9.2 mg/dL (8.4-10.2); Carbon Dioxide 25 mmol/L (22-30); Chloride 99 mmol/L (98-107); Estimated Glomerular Filt Rate 44; Glucose 103 mg/dL (65-110); Partial Thromboplastin Time 28.2 Seconds (22.3-36.8); Potassium 4.2 mmol/L (3.4-5.0); Sodium 133 mmol/L (137-145)
[2024-04-01 12:53] LABS: Prothrombin Time 13.4 Seconds (11.1-14.7)
[2024-04-01 12:58] LABS: D Dimer 0.49 ug/mL (<0.48)
[2024-04-01 13:03] LABS: NT Pro B Type Natriuretic Pept 732 pg/mL (19.9-100); Troponin I 0.014 ng/mL (0.000-0.034)
[2024-04-01 14:00] LABS: Uric Acid 5.4 mg/dL (2.5-7.5)
[2024-04-01 16:00] VITALS: BP 136/57; PULSE 79; RESP 18; TEMP 37.1; O2SAT 99
== END 2024-04-01 16:02 | disposition home or self-care (01) ==
PROVIDERS: Emergency Provider Registered Nurse; PCP Family Medicine
DX: S99.921A Unspecified injury of right foot, initial encounter (principal); W23.0XXA Caught, crushed, jammed, or pinched between moving objects, initial encounter; K21.9 Gastro-esophageal reflux disease without esophagitis; I12.9 Hypertensive chronic kidney disease with stage 1 through stage 4 chronic kidney disease, or unspecified chronic kidney disease; E78.5 Hyperlipidemia, unspecified; N18.32 Chronic kidney disease, stage 3b; Z87.891 Personal history of nicotine dependence
CPT/HCPCS: 36415; 71046; 73564; 73610; 73630; 80053; 83605; 83880; 84484; 84550; 85025; 85380; 85610; 85730; 93971; 99284

== ENCOUNTER 2024-04-02 10:25 | Inpatient (IN) | payer MEDICARE, OTHER, SELFPAY ==
[2024-04-02] VITALS (10 sets, daily range): BP systolic 133–155; BP diastolic 57–69; PULSE 79–96; RESP 16–24; TEMP 36.4–36.8; O2SAT 97–100; BMI 25.8
--- NOTE | ~2024-04-02 | CT_ITS ---
CT abdomen pelvis w con Ordering provider: Jamin Gutierrez MD History: 79 years Female with . flank pain . Comparison: August 17, 2022 Technique: CT abdomen and pelvis with IV and without oral contrast. Automated exposure control and it erative reconstruction technique were employed. The dose-length product was 539.11 mGy-cm. 100 mL Omn ipaque 350 was given IV. Findings: VISUALIZED LOWER CHEST: Dependent atelectatic changes. UPPER ABDOMINAL ORGANS: Liver: Normal. Gallbladder: Small tiny calcifications in the fundus area suggestive of Cholelithiasis. Spleen: Normal. Stomach/duodenum: Slightly thickened wall of the stomach. Pancreas: Normal. Adrenals: Normal. Kidneys: Minimal fullness of the renal pelvis bilaterally. No definite stones in the ureters. PELVIC ORGANS: The bladder is underfilled. BOWEL AND MESENTERY: Colon: No evidence of diverticulitis. Appendix is not demonstrated with no inflammatory changes in th e right lower quadrant. Small Bowel: Normal. No obstruction. Peritoneum/mesentery: No free air or free fluid. No mesenteric lymphadenopathy. RETROPERITONEUM: Mild atheromatous disease of the abdominal aorta. Minimal dilatation the distal aor ta. No retroperitoneal lymphadenopathy. MUSCULOSKELETAL: Superficial soft tissues: The superficial soft tissues are normal. Bones: Age appropriate degenerative changes of the spine. IMPRESSION: 1. Highly suggestive cholelithiasis. 2. Slight fullness of the renal pelvis bilaterally with no definite stones seen. Follow-up advised. 3. Thickened wall of the urinary bladder. Evaluation for cystitis advised. Reviewed, dictated and finalized at location A. IMPRESSION: 1. Highly suggestive cholelithiasis. 2. Slight fullness of the renal pelvis bilaterally with no definite stones see n. Follow-up advised. 3. Thickened wall of the urinary bladder. Evaluation for cystitis advised.
--- NOTE | ~2024-04-02 | XR_ITS ---
EXAMINATION: XR chest 1V portable 04/02/2024 11:59 INDICATION: Syncope. History of stroke. PROCEDURE: AP portable chest COMPARISON: Comparison to multiple prior studies sequentially, with oldest reviewed study dated 01/2016. FINDINGS: The lungs are clear. The cardiomediastinal silhouette is within normal limits. There are no pleural effusions. There is no pneumothorax suspected. IMPRESSION: 1: NO ACUTE CARDIOPULMONARY DISEASE. Reviewed, dictated and finalized at location B.
--- NOTE | ~2024-04-02 | XR_ITS ---
EXAMINATION: XR barium swallow modified DATE: 04/04/2024 10:19 INDICATION: Dysphagia. TECHNIQUE: The patient was given barium-containing material of multiple consistencies to swallow by t he speech pathologist while I performed fluoroscopy. Fluoroscopy exposure time was 0.7 minutes. The n umber of fluoroscopy images saved to the PACS was 1. Dose-area product was 0.4 Gy-cm^2. FINDINGS: The oral stage, pharyngeal stage, and cervical/esophageal stage of the swallow are normal. IMPRESSION: 1. Normal modified barium swallow. 2. Please refer to the speech therapy report for recommendations. Reviewed, dictated and finalized at location A.
--- NOTE | ~2024-04-02 | US_ITS ---
EXAMINATION: US carotid duplex BI DATE: 04/03/2024 10:06 INDICATION: Syncope TECHNIQUE: Grayscale, color Doppler, and pulsed Doppler images of the cervical carotid arteries were obtained. The degree of vessel stenosis is placed in one of the following categories: normal, <50%, 5 0-69%, >=70% but less than near-occlusion, near-occlusion, or total occlusion. Note that percent sten osis relative to normal distal artery lumen diameter is indirectly measured from velocity measurement s as described by Freddy, et al. Radiology 2003; 229:340-346. Notes: Normal: Peak systolic velocity <125 centimeters/sec and no plaque <50%. Peak systolic velocity <125 ( EDV <40; ICA/CCA PSV ratio <2.0; used these factors only a tandem lesions or low cardiac output or co ntralateral disease) 50-69 %: PSV 125-230 (EDV 40-100; ratio 2-4) >= 70% but less than near occlusion: PSV greater than 230 (EDV > 100; ratio> 4.0) Near Occlusion: PSV that is variable; markedly narrowed lumen Occlusion: Absent flow on color/spectral Doppler and no lumen on lima scale. COMPARISON: None. FINDINGS: RIGHT: The right common carotid artery (CCA) peak systolic velocity (PSV) is 85 cm/s. The right internal car otid artery (ICA) PSV is 96 cm/s. The right ICA end-diastolic velocity (EDV) is 26 cm/s. The right IC A/CCA PSV ratio is 1.1. The external carotid artery (ECA) PSV is 81 cm/s. There is antegrade flow in the right vertebral artery. LEFT: The left CCA PSV is 94 cm/s. The left ICA PSV is 92 cm/s. The left ICA EDV is 27 cm/s. The left ICA/C CA PSV ratio is 1.0. The ECA PSV is 109 cm/s. There is antegrade flow in the left vertebral artery. IMPRESSION: 1. Less than 50% stenosis in the right internal carotid artery by sonographic criteria. 2. Less than 50% stenosis in the left internal carotid artery by sonographic criteria. Reviewed, dictated and finalized at location B. IMPRESSION: 1. Less than 50% stenosis in the right internal carotid artery by sonographic patricia vera. 2. Less than 50% stenosis in the left internal carotid artery by sonographic pam kwok.
--- NOTE | ~2024-04-02 | CT_ITS ---
EXAMINATION: CT brain wo con DATE: 04/02/2024 12:09 INDICATION: Syncope TECHNIQUE: Computed tomography (CT) of the head was performed without intravenous contrast. The dose- length product was 529.67 mGy-cm. Automated exposure control and iterative reconstruction technique w ere employed. COMPARISON: CT dated 02/01/2024 FINDINGS: Mild generalized atrophy. There are scattered mild periventricular and subcortical white ma tter changes, most likely related to small vessel ischemic disease (microangiopathy). There is intrac ranial atherosclerosis. Stable 18 x 13 x 13 mm partially calcified extra-axial mass in the left front oparietal location, consistent with meningioma. Paranasal sinuses and mastoids are pneumatized. No de pressed skull fractures. No acute infarction, hemorrhage, mass or mass effect. IMPRESSION: 1. No acute intracranial abnormality. Reviewed, dictated and finalized at location B.
--- NOTE | 2024-04-02 11:51 | ECG_ITS ---
Test Date: 2024-04-02 12:19:48 Measurements Intervals [place] Rate: 80 P: 59 WI: 169 QRS: 49 QRSD: 90 T: -4 QT: 399 QTc: 461 Interpretive Statements SINUS RHYTHM VOLTAGE CRITERIA FOR LVH MINIMAL Q WAVES- ANTEROLAT/INF LEADS CONSIDER ANTERIOR INFARCT, AGE INDETERMINATE T WAVE ABNORMALITY IN INFERIOR LEADS- CONSIDER ISCHEMIA BASELINE ARTIFACT- I, III, AVR, AVL, AVF, V1-V6 ABNORMAL ECG Compared to ECG 02/01/2024 21:01:30 T-wave abnormality now present Electronically Signed On 04-02-2024 17:12:42 CDT by Oleksandr Hernandez D.O.
[2024-04-02 12:16] LABS: Glucose Point of Care 136 mg/dl (65-105)
--- NOTE | 2024-04-02 12:48 | ED.DIZZY ---
HPI - Dizziness General Chief Complaint: Syncope Stated Complaint: syncopal episode Time Seen by Provider: 04/02/24 11:45 History of Present Illness HPI Narrative: 79-year-old female presenting to the emergency department for evaluation of a syncopal episode. Patient was sitting at the breakfast table had just taken her morning medications when she had some onset of dizziness. Family states that the patient leaned her head back for a few seconds and was not responding, patient then made a statement about the food not tasting well and then was unresponsive again. Family states that in the patient with back to her baseline. Family was concerned set up calling EMS. Upon arrival emergency department patient is back to her baseline. Patient states she is having some left flank pain but denies any headache chest pain or shortness of breath. Family states the patient is being worked up by Neurology and Neurosurgery for possible focal seizures, balance issues and contracture of the right hand, family states the patient has had neuro imaging including outpatient MRI. Patient was evaluated emergency department yesterday for swollen foot, upon arrival emergency department family states that the foot swelling has since improved. Patient did have a MRI on 02/24/2023 that did show a been GI home a on the left frontoparietal lobe along with nonspecific cerebral white matter disease and old microhemorrhage in the left temporal occipital lobes. Related Data Home Medications Medication Instructions Recorded Confirmed cholecalciferol (vitamin D3) 25 25 mcg PO DAILY 12/23/19 04/02/24 mcg (1,000 unit) capsule multivitamin (Daily Multi-Vitamin 1 tablet PO DAILY 08/21/22 04/02/24 tablet) carbidopa 25 mg-levodopa 100 mg 2 tablet PO BID 04/02/24 04/02/24 tablet clonidine HCl 0.1 mg tablet 0.1 mg PO HS 04/02/24 04/02/24 Allergies Allergy/AdvReac Type Severity Reaction Status Date / Time aspirin AdvReac Unknown Verified 04/02/24 12:17 ibuprofen AdvReac Unknown Verified 04/02/24 12:18 Review of Systems Review of Systems: All systems reviewed & are unremarkable except as noted in HPI and below PMFSH Past Medical History Medical History (Updated 04/02/24 @ 20:22 by Alexandra Chavez PA-C) Anemia Arthritis Cerebrovascular disease Cholelithiasis Chronic disease anemia Chronic kidney disease Colon polyps Gastroesophageal reflux disease Hyperlipidemia Hypertension Meningioma Small left frontoparietal meningioma which has been unchanged for many years, followed by Neurosurgery. Peptic ulcer disease Acute gastric ulcers on EGD on 01/10/2016. Seasonal allergies Upper GI bleed (01/2016) Secondary to acute gastric ulcers. Surgical History Surgical History History of hysterectomy History of left oophorectomy Family History Family History Mother , 84 yrs old Dementia Sibling Brain aneurysm Other Diabetes mellitus Family history of congestive heart failure Hypertension Social History Social History (Updated 04/02/24 @ 20:20 by Alexandra Chavez PA-C) Social History: Healthcare power of divorce attorney: Dorothea Kaiser, daughter. Code status: Full code. Smoking status: Former smoker Second hand tobacco smoke exposure: No Additional smoking assessment comments: Pt has smoked cigarettes in 25yrs. Alcohol intake: former Drinks per week: 28 Alcohol use details: No alcohol since summer 2023, now drinks nonalcoholic beer. Substance use: former Substance use type: does not use Do You Feel Safe in your Home?: Yes Lack of Transportation: No Lack of Food: Never True Current Housing: I Have Housing Concerned About Future Housing: No Difficulty Paying Gas/Electric Bills: No Difficulty Paying for Meds: No Currently Unemployed: No Education: Associate Degree Difficulty
[2024-04-02 12:53] LABS: Basophils Percent Auto 0.4 % (0.2-1.2); Eosinophils Percent Auto 0.1 % (0-4.4); Hematocrit 31.4 % (37.0-47.0); Hemoglobin 10.1 g/dL (12.0-15.0); Immature Granulocyte Absolute 0.02 K/mm3 (0.00-0.031); Immature Granulocyte Percent A 0.3 % (0-0.5); Lymphocytes Absolute Auto 0.89 K/mm3 (0.9-3.2); Lymphocytes Percent Auto 11.7 % (18.3-44.2); Mean Corpuscular HGB Conc 32.2 g/dl (32-36); Mean Corpuscular Hemoglobin 28.6 pg (26-34); Mean Platelet Volume 9.9 fl (7.4-10.4); Monocytes Absolute Auto 0.6 K/mm3 (0.1-0.6); Monocytes Percent Auto 7.6 % (2.6-8.5); Neutrophils Absolute Auto 6.1 K/mm3 (1.3-6.7); Neutrophils Percent Auto 79.9 % (45.5-73.1); Platelet Count Result 271 k/mm3 (150-375); Red Blood Count 3.53 M/mm3 (4.2-5.4); Red Cell Distribution Width 13.2 % (11.5-14.5); White Blood Count 7.6 K/mm3 (4.5-10.0)
[2024-04-02 13:03] LABS: Prothrombin Time 13.6 Seconds (11.1-14.7)
[2024-04-02 13:04] LABS: Albumin Level 4.4 g/dL (3.5-5.1); Alkaline Phosphatase 79 U/L (38-126); Anion Gap 10 mmol/L (4-12); Aspartate Amino Transferase 29 U/L (14-36); Bilirubin,Total 0.8 mg/dL (0.2-1.3); Blood Urea Nitrogen 19 mg/dL (7-17); Calcium 9.4 mg/dL (8.4-10.2); Carbon Dioxide 25 mmol/L (22-30); Chloride 100 mmol/L (98-107); Estimated CRCL calculation 22 ml/min; Estimated Glomerular Filt Rate 41; Glucose 120 mg/dL (65-110); Magnesium 1.9 mg/dL (1.6-2.3); Potassium 4.4 mmol/L (3.4-5.0); Sodium 135 mmol/L (137-145)
[2024-04-02 13:34] LABS: Add Urine Microscopic? YES; Appearance Urine Clear (Clear); Bacteria Urine None Seen /hpf; Bilirubin Urine Negative (Negative); Blood Urine Negative (Negative); Color Urine Yellow (Yellow); Glucose Urine UA Negative (Negative); Ketones Urine Trace mg/dL (Negative); Leukocyte Esterase Ur 1+ LEU/UL (Negative); Need Manual Microscopic Reviewed; Nitrate Urine Negative (Negative); Protein Urine 1+ mg/dL (Negative); RBC Urine 0-2 /hpf (0-2); Specific Grav Ur 1.018 (1.001-1.035); Squamous Epithelial Cell Urine Occasional /hpf (Few); Urobilinogen Urine 0.2 mg/dL (<2.0); WBC Urine 0-5 /hpf (0-3)
[2024-04-02 13:39] LABS: Alanine Aminotransferase < 6 U/L (6-35)
[2024-04-02 13:46] LABS: Influenza A QL RT-PCR Negative (Negative); Influenza B QL RT-PCR Negative (Negative); RSV RNA, RT-PCR Negative (Negative); SARS-CoV-2 RNA PCR Negative (Negative)
--- NOTE | 2024-04-02 18:24 | ADMGEN ---
This patient, Tea Turner, was admitted to 3 [facility] Surg Room 306-01. Patient/family oriented to hospital policies and general routines including ID bracelet, bed and alarms, visiting hours, pain management, procedures, bathroom and other care routines, personal items, smoking policy, room service/diet, and visiting hours. Information on how to activate the Rapid Response Team has been discussed. Patient/Family are encouraged to report perceived risks to care and to ask questions if they do not understand what they are told or what they should do.
--- NOTE | 2024-04-02 18:30 | PM.IMHP ---
H&P: HPI History of Present Illness Date/Time: 04/02/24 18:30 Chief Complaint: Syncope. Narrative: This is a very pleasant 79-year-old female with hypertension, chronic anemia, chronic kidney disease stage 4, and mild dementia who presented to the emergency department earlier today for evaluation after a syncopal episode. The patient provides the following history. Daughter provides additional information with the patient's permission. The patient reports being in her usual state of health when she got up this morning. She took her morning medications and sat down to eat some breakfast. She tells me that food just does not taste good anymore after being started on carbidopa levodopa and today was no different. While sitting at the table she began to feel weak, lightheaded, and dizzy with pretty significant nausea and sweats. Daughter reports that the patient then went unresponsive and her head fell back chair. She came to quite quickly but had a another brief episode thereafter. EMS was summoned and according to the patient her blood pressure was in the 120s systolic on their arrival. At the time my evaluation she has no new complaints. She does mention that she thinks she is taking too many medications and believes the carbidopa levodopa has caused her to lose her sense of taste. She denies headache, vertigo, visual changes, facial droop, difficulty swallowing, and acute changes and focal weakness and paresthesias. She also denies chest pain, pleuritic pain, palpitations, shortness of breath, and calf pain. Of note, several years ago the patient began having issues with her right hand and it is since the, most contracted and is to the point where she can no longer use it. Speech is dysarthric on exam which has been a finding for well over a year. She has not had any recent issues with dysphagia but has noted that in the past. She is having some issues with her balance. She was recently seen by neurosurgery for a small meningioma and at that time she was referred to Neurology for further workup to rule out stroke, neuro degenerative disease, versus other. In the ED: She was afebrile on arrival. Blood pressures have been ranging between the 140s to low 170s systolic. The remainder of her vital signs are stable. Labs were significant for WBC count of 7.6, hemoglobin 10.1, sodium 135, BUN 19, creatinine 1.50, glucose 136. Urinalysis was positive for 1+ protein, trace ketones, 1+ leukocyte esterase, 3 to 5 casts. She tested negative for influenza, RSV, and COVID. Brain CT showed no acute intracranial abnormality. She is being admitted in this setting for syncope workup. Review of Systems Review of Systems: 12 systems were reviewed and are negative except for as per HPI. [facility] Past Medical History Medical History (Updated 04/02/24 @ 20:22 by Alexandra Chavez PA-C) Anemia Arthritis Cerebrovascular disease Cholelithiasis Chronic disease anemia Chronic kidney disease Colon polyps Gastroesophageal reflux disease Hyperlipidemia Hypertension Meningioma Small left frontoparietal meningioma which has been unchanged for many years, followed by Neurosurgery. Peptic ulcer disease Acute gastric ulcers on EGD on 01/10/2016. Seasonal allergies Upper GI bleed (01/2016) Secondary to acute gastric ulcers. Surgical History Surgical History History of hysterectomy History of left oophorectomy Family History Family History Mother , 84 yrs old Dementia Sibling Brain aneurysm Other Diabetes mellitus Family history of congestive heart failure Hypertension Social History Social History (Updated 04/02/24 @ 20:20 by Alexandra Chavez PA-C) Social History: Healthcare power of regulatory attorney: Dorothea Kaiser, daughter. Code status: Full code. Smoking status: Former smoker Second hand tobacco smoke exposure: No A
[2024-04-02] MEDS: DONEPEZIL HCL 10 MG TABLET PO (23:04)
[2024-04-02] MEDS: cloNIDine HCL 0.1 MG TABLET PO (23:04)
[2024-04-02] MEDS: hydrALAZINE HCL 50 MG TABLET PO (23:04)
[2024-04-02] MEDS: SODIUM CHLORIDE 0.9% IV 1,000 ML 100 ML IV CONT (23:05)
[2024-04-03] VITALS (10 sets, daily range): BP systolic 127–162; BP diastolic 49–68; PULSE 71–90; RESP 14–18; TEMP 36–36.9; O2SAT 96–100
[2024-04-03] MEDS: [UNRECOGNIZED DRUG - REMARK] XX (05:37)
[2024-04-03] MEDS: hydrALAZINE HCL 50 MG TABLET PO ×3 (06:22→20:58)
[2024-04-03 06:55] LABS: Hematocrit 29.8 % (37.0-47.0); Hemoglobin 9.3 g/dL (12.0-15.0); Mean Corpuscular HGB Conc 31.2 g/dl (32-36); Mean Corpuscular Hemoglobin 28.3 pg (26-34); Mean Corpuscular Volume 90.6 fl (80-100); Mean Platelet Volume 10.2 fl (7.4-10.4); Platelet Count Result 269 k/mm3 (150-375); Red Blood Count 3.29 M/mm3 (4.2-5.4); Red Cell Distribution Width 12.9 % (11.5-14.5); White Blood Count 3.9 K/mm3 (4.5-10.0)
[2024-04-03 07:11] LABS: Anion Gap 8 mmol/L (4-12); Blood Urea Nitrogen 17 mg/dL (7-17); Calcium 9.1 mg/dL (8.4-10.2); Carbon Dioxide 24 mmol/L (22-30); Chloride 101 mmol/L (98-107); Estimated CRCL calculation 24 ml/min; Estimated Glomerular Filt Rate 44; Glucose 93 mg/dL (65-110); Sodium 133 mmol/L (137-145)
[2024-04-03] MEDS: THIAMINE HCL 100 MG TABLET 500 MG PO (08:49)
[2024-04-03] MEDS: CHOLECALCIFEROL 1,000 UNITS TABLET 1000 UNITS PO (08:50)
[2024-04-03] MEDS: MULTIVITAMINS THERAPEUTIC TAB (*BKC) 1 TABLET PO (08:50)
[2024-04-03] MEDS: CARBIDOPA/LEVODOPA 25/100 MG TABLET 2 TABLET PO ×3 (08:50→17:20)
[2024-04-03] MEDS: LOSARTAN POTASSIUM 50 MG TABLET PO (08:50)
--- NOTE | 2024-04-03 14:05 | PM.IMPN ---
Progress Note: A&P Assessment and Plan (1) Syncope: Code(s): R55 - Syncope and collapse Status: Acute Assessment and Plan: - Echocardiogram ordered - Carotid dopplers today showed: IMPRESSION: 1. Less than 50% stenosis in the right internal carotid artery by sonographic criteria. 2. Less than 50% stenosis in the left internal carotid artery by sonographic criteria. - Telemetry SR 86. - She has not had good oral intake recently due to change in taste after starting carbidopa levodopa and she received 1 L normal saline overnight. - Referred to Neurology for further workup to rule out stroke (no old stroke evident on brain CT), myasthenia gravis, neuro degenerative disorder, versus other. - Orthostatic vital signs: supine BP 138/57 with HR 87, sitting BP 139/66, and standing BP 131/56. - Urine culture pending. (2) Hypertension: Qualifiers: Hypertension type: unspecified Qualified Code(s): I10 - Essential (primary) hypertension Code(s): I10 - Essential (primary) hypertension Status: Acute Assessment and Plan: - Orthostatic vital signs: supine BP 138/57 with HR 87, sitting BP 139/66, and standing BP 131/56. - Continue Clonidine, Hydralazine, and Losartan. (3) Neurological symptoms: Code(s): R29.90 - Unspecified symptoms and signs involving the nervous system Status: Acute Assessment and Plan: - Regarding her neurologic symptoms (dysarthria, balance issues, occasional dysphagia, right arm and hand weakness), these have been present for many months and some of them even longer. - Referred to Neurology for further workup to rule out stroke (no old stroke evident on brain CT), myasthenia gravis, neuro degenerative disorder, versus other. - Swallow study ordered. (4) Meningioma: Code(s): D32.9 - Benign neoplasm of meninges, unspecified Status: Acute Assessment and Plan: -She was evaluated by Neurosurgery due to a small meningioma however that does not seem to be the cause of her symptoms. (5) Chronic kidney disease: Qualifiers: Chronic kidney disease stage 3 subtype: stage 3b (GFR 30-44) Code(s): N18.9 - Chronic kidney disease, unspecified Status: Chronic Assessment and Plan: 04/02/24: BUN 19, Creatinine 1.50, & GFR 41. 04/03/24: BUN 17, Creatinine 1.40, & GFR 44. (6) Chronic disease anemia: Code(s): D63.8 - Anemia in other chronic diseases classified elsewhere Status: Chronic Assessment and Plan: 04/02/24: H&H 10.1/31.4 04/03/24: H&H 9.3/29.8 - Monitor labs. Subjective Date/time seen: 04/03/24 14:05 Interval history: Patient reports dizziness at times. Patient denies chest pain, palpitations, shortness of breath, headache, nausea, or vomiting. Patient sitting up in chair eating her breakfast. Patient reports that her last bowel movement was 04/01/24. Review of Systems Review of Systems: All systems reviewed & are unremarkable except as noted in HPI and below Exam Const: General: comfortable and no acute distress Neck: Neck: supple Resp: Auscultation: clear to auscultation bilaterally Cardio: Rate: regular rate Rhythm: regular rhythm GI: GI Palp: Yes Soft to palpation Auscultation: normal bowel sounds Skin: General skin exam: no rashes or lesions noted Neuro: Other: Speech is a bit slow and slightly occasionally slurred. Extrem: Other: Mild swelling over the dorsum of the right medial foot. She reports having pain in her great toe which she attributes to her bunion but then she reports that she got her foot caught in the door last week and she was actually seen in the ED last night for evaluation of that which was unremarkable. Psych: Mental Status: mental status grossly normal Affect: normal affect Objective Data Vital Signs Vital Signs: Vital Signs - 24 hr 04/02/24 15:25 04/02/24 20:42 04/02/24 20:00 Temperature 98.0 F Pulse Rate 96 85 91 Res
--- NOTE | 2024-04-03 18:59 | PC.NURSE ---
I have personally reviewed all documentation and med administration performed by Aundrea Arrieta LPN
[2024-04-03] MEDS: cloNIDine HCL 0.1 MG TABLET PO (20:58)
[2024-04-03] MEDS: DONEPEZIL HCL 10 MG TABLET PO (20:58)
[2024-04-04] VITALS (14 sets, daily range): BP systolic 155–190; BP diastolic 64–94; PULSE 69–84; RESP 18–20; TEMP 36.3–36.9; O2SAT 99–100
--- NOTE | 2024-04-04 | ECHO_ITS ---
Patient Info Name: Tea Turner Age: 79 years : 1945 Gender: Female Ht: 60 in Wt: 132 lbs BSA: 1.61 m2 HR: 69 bpm BP: 174 / 68 mmHg Technical Quality: Fair Exam Date: 04/04/2024 10:56 AM Exam Location: Echo Lab Patient Status: Inpatient Admit Date: 04/03/2024 Staff Ordering Physician: Alexandra Chavez PA-C Pony Ride Operator: Kasey Anna RDCS Attending Provider: Augusto Malone MD Referring Physician: Scott GRIER; Exam Type: CA echo doppler w bubble study Study Info Indications R55 - Syncope and collapse Complete two-dimensional, color flow and Doppler transthoracic echocardiogram is performed with agitated saline. Contrast/Agitated Saline Contrast/Ag. Saline: Agitated Saline Amount: 14.00 ml Existing IV Access: Yes IV Access Condition: patent with no signs of infiltration Summary 1. Left ventricular chamber dimension is normal. 2. Left ventricular systolic function is hyperdynamic, estimated at >70%. 3. The left ventricular diastolic function is grade I diastolic dysfunction. 4. E/e' 26 is elevated. 5. Left atrial chamber dimension is moderately enlarged. 6. There is mild aortic valve sclerosis. 7. The mitral valve has moderately calcified annulus. 8. There is mild mitral valve regurgitation. 9. There is mild tricuspid valve regurgitation. 10. Moderate pulmonary hypertension, estimated pulmonary arterial systolic pressure is 52 mmHg. Left Ventricle E/e' 26 is elevated. Left ventricular chamber dimension is normal. Left ventricular systolic function is hyperdynamic, estimated at >70%. The left ventricular diastolic function is grade I diastolic dysfunction. Right Ventricle Right ventricular systolic function is normal and with normal TAPSE 2.3 cm. Right ventricular chamber dimension is normal. Left Atria Left atrial chamber dimension is moderately enlarged. Right Atria Right atrial chamber dimension is normal. Atrial Septum Agitated saline injection with and without valsalva maneuver opacified right side cardiac chambers without shunt to left side cardiac chambers. Intact interatrial septum visualized by 2D and agitated saline imaging. Aortic Valve The aortic valve is trileaflet. There is mild aortic valve sclerosis. There is no aortic valve stenosis. There is trace aortic valve regurgitation. Pulmonic Valve There is no pulmonic regurgitation. Mitral Valve The mitral valve has moderately calcified annulus. There is no mitral valve stenosis. There is mild mitral valve regurgitation. Tricuspid Valve There is mild tricuspid valve regurgitation. Moderate pulmonary hypertension, estimated pulmonary arterial systolic pressure is 52 mmHg. Pericardium/Pleural There is no pericardial effusion. Inferior Vena Cava Normal inferior vena cava with >50% collapse upon inspiration consistent with normal right atrial pressure, 5 mmHg. Aorta The aortic root size at the sinus of Valsalva is normal. Left Ventricular Outflow Tract Name Value Normal LVOT 2D LVOT Diameter 1.9 cm LVOT Doppler LVOT Peak Gradient 9 mmHg LVOT Mean Gradient 5 mmHg LVOT VTI
[2024-04-04] MEDS: hydrALAZINE HCL 50 MG TABLET PO ×3 (05:51→20:26)
[2024-04-04 06:13] LABS: Basophils Percent Auto 0.8 % (0.2-1.2); Eosinophils Absolute Auto 0.1 K/mm3 (0-0.3); Eosinophils Percent Auto 3.2 % (0-4.4); Hematocrit 30.2 % (37.0-47.0); Hemoglobin 9.5 g/dL (12.0-15.0); Lymphocytes Absolute Auto 1.27 K/mm3 (0.9-3.2); Lymphocytes Percent Auto 34.2 % (18.3-44.2); Mean Corpuscular HGB Conc 31.5 g/dl (32-36); Mean Corpuscular Hemoglobin 27.9 pg (26-34); Mean Corpuscular Volume 88.6 fl (80-100); Mean Platelet Volume 9.8 fl (7.4-10.4); Monocytes Absolute Auto 0.4 K/mm3 (0.1-0.6); Monocytes Percent Auto 11.3 % (2.6-8.5); Neutrophils Absolute Auto 1.9 K/mm3 (1.3-6.7); Neutrophils Percent Auto 50.5 % (45.5-73.1); Platelet Count Result 267 k/mm3 (150-375); Red Blood Count 3.41 M/mm3 (4.2-5.4); Red Cell Distribution Width 12.8 % (11.5-14.5); White Blood Count 3.7 K/mm3 (4.5-10.0)
[2024-04-04 07:53] LABS: Alanine Aminotransferase 9 U/L (6-35); Albumin Level 3.9 g/dL (3.5-5.1); Alkaline Phosphatase 70 U/L (38-126); Anion Gap 5 mmol/L (4-12); Aspartate Amino Transferase 34 U/L (14-36); Bilirubin,Total 0.7 mg/dL (0.2-1.3); Blood Urea Nitrogen 19 mg/dL (7-17); Calcium 9.3 mg/dL (8.4-10.2); Carbon Dioxide 27 mmol/L (22-30); Chloride 100 mmol/L (98-107); Estimated CRCL calculation 24 ml/min; Estimated Glomerular Filt Rate 44; Glucose 100 mg/dL (65-110); Potassium 4.2 mmol/L (3.4-5.0); Sodium 132 mmol/L (137-145)
[2024-04-04] MEDS: THIAMINE HCL 100 MG TABLET 500 MG PO (08:31)
[2024-04-04] MEDS: CARBIDOPA/LEVODOPA 25/100 MG TABLET 2 TABLET PO ×3 (08:31→16:18)
[2024-04-04] MEDS: MULTIVITAMINS THERAPEUTIC TAB (*BKC) 1 TABLET PO (08:31)
[2024-04-04] MEDS: LOSARTAN POTASSIUM 50 MG TABLET PO ×2 (08:31→20:26)
[2024-04-04] MEDS: CHOLECALCIFEROL 1,000 UNITS TABLET 1000 UNITS PO (08:31)
--- NOTE | 2024-04-04 10:58 | PCSTNOTE ---
Please refer to the Bedside Swallow Evaluation in the EMR. Please note, silent aspiration cannot be ruled out at bedside.
[2024-04-04] MEDS: hydrALAZINE HCL 25 MG TABLET PO (12:51)
[2024-04-04] MEDS: BISACODYL 5 MG TABLET EC PO (16:18)
[2024-04-04] MEDS: ACETAMINOPHEN 325 MG TABLET 650 MG PO (16:52)
--- NOTE | 2024-04-04 17:06 | PM.IMPN ---
Progress Note: A&P Assessment and Plan (1) Syncope: Code(s): R55 - Syncope and collapse Status: Acute Assessment and Plan: - Echocardiogram ordered - Carotid dopplers today showed: IMPRESSION: 1. Less than 50% stenosis in the right internal carotid artery by sonographic criteria. 2. Less than 50% stenosis in the left internal carotid artery by sonographic criteria. - Telemetry SR 99. - She has not had good oral intake recently due to change in taste after starting carbidopa levodopa and she received 1 L normal saline overnight. - Referred to Neurology for further workup to rule out stroke (no old stroke evident on brain CT), myasthenia gravis, neuro degenerative disorder, versus other. - Urine culture negative. - Echo today showed: Summary 1. Left ventricular chamber dimension is normal. 2. Left ventricular systolic function is hyperdynamic, estimated at >70%. 3. The left ventricular diastolic function is grade I diastolic dysfunction. 4. E/e' 26 is elevated. 5. Left atrial chamber dimension is moderately enlarged. 6. There is mild aortic valve sclerosis. 7. The mitral valve has moderately calcified annulus. 8. There is mild mitral valve regurgitation. 9. There is mild tricuspid valve regurgitation. 10. Moderate pulmonary hypertension, estimated pulmonary arterial systolic pressure is 52 mmHg. (2) Hypertension: Qualifiers: Hypertension type: unspecified Qualified Code(s): I10 - Essential (primary) hypertension Code(s): I10 - Essential (primary) hypertension Status: Acute Assessment and Plan: - Monitor blood pressures. - Continue Clonidine, Hydralazine, and Losartan. (3) Neurological symptoms: Code(s): R29.90 - Unspecified symptoms and signs involving the nervous system Status: Acute Assessment and Plan: - Regarding her neurologic symptoms (dysarthria, balance issues, occasional dysphagia, right arm and hand weakness), these have been present for many months and some of them even longer. - Referred to Neurology for further workup to rule out stroke (no old stroke evident on brain CT), myasthenia gravis, neuro degenerative disorder, versus other. - Swallow study today showed: IMPRESSION: 1. Normal modified barium swallow. 2. Please refer to the speech therapy report for recommendations. (4) Meningioma: Code(s): D32.9 - Benign neoplasm of meninges, unspecified Status: Acute Assessment and Plan: -She was evaluated by Neurosurgery due to a small meningioma however that does not seem to be the cause of her symptoms. (5) Chronic kidney disease: Qualifiers: Chronic kidney disease stage 3 subtype: stage 3b (GFR 30-44) Code(s): N18.9 - Chronic kidney disease, unspecified Status: Chronic Assessment and Plan: 04/02/24: BUN 19, Creatinine 1.50, & GFR 41. 04/03/24: BUN 17, Creatinine 1.40, & GFR 44. 04/04/24: BUN 19, Creatinine 1.40, & GFR 44. (6) Chronic disease anemia: Code(s): D63.8 - Anemia in other chronic diseases classified elsewhere Status: Chronic Assessment and Plan: 04/02/24: H&H 10.1/31.4 04/03/24: H&H 9.3/29.8 04/04/24: H&H 9.5/30.2 - Monitor labs. Subjective Date/time seen: 04/04/24 17:06 Interval history: Patient denies chest pain, palpitations, headache, dizziness, nausea, or vomiting. Daughters and family at bedside. Review of Systems Review of Systems: All systems reviewed & are unremarkable except as noted in HPI and below Exam Const: General: comfortable and no acute distress Neck: Neck: supple Resp: Effort & Inspection: normal respiratory effort Auscultation: clear to auscultation bilaterally Cardio: Rate: regular rate Rhythm: regular rhythm GI: GI Palp: Yes Soft to palpation Auscultation: normal bowel sounds Skin: General skin exam: no rashes or lesions noted Neuro: Other: Speech is a bit slow and slightly occasionally slurre
--- NOTE | 2024-04-04 17:08 | PM.CNCAR ---
Assessment and Plan Assessment and plan (1) Syncope: Code(s): R55 - Syncope and collapse Status: Acute Assessment and Plan: Probably due to orthostasis. Telemetry has been without arrhythmias or pauses. Advise to increase water intake to at least 40 ounces. (2) Hypertension: Qualifiers: Hypertension type: primary hypertension Qualified Code(s): I10 - Essential (primary) hypertension Code(s): I10 - Essential (primary) hypertension Status: Acute Assessment and Plan: High. Increase Losartan 50 mg BID and Clonidine 0.1 mg BID. Monitor BP. History of Present Illness History of Present Illness Consult date/time: 04/04/24 17:08 Reason For Visit: syncope Narrative: 79 yr old woman admitted to hospital on 04/02/24 for passing out. She has a history of hypertension, dementia. Daughter is at bedside. Reports she was sitting at a table and felt weak, lightheaded and passed out briefly. She regained consciousness and passed out again. She does not drink much water, about 20 ounces a day. States she has dizziness every day for years while sitting or standing. Her BP has always been high and hard to get controlled. She can walk 3 blocks without any problems. Denies chest pain, sob, orthopnea, PND, edema, palpitations. Review of Systems Review of Systems: All systems reviewed & are unremarkable except as noted in HPI and below Constitutional: Constitutional: Reports as per HPI, Denies chills and Denies fever(s) Cardiovascular: Cardiovascular: Reports as per HPI, Denies chest pain and Denies irregular heart rhythm Respiratory: Respiratory: Reports as per HPI and Denies dyspnea Gastrointestinal: Gastrointestinal: Reports as per HPI and Denies abdominal pain Genitourinary: Genitourinary: Reports as per HPI and Denies dysuria Musculoskeletal: Musculoskeletal: Reports as per HPI Neurologic: Reports as per HPI, Reports dizziness and Reports syncope [facility] Past Medical History Medical History (Updated 04/03/24 @ 14:33 by Pau Bunn, YESICA) Anemia Arthritis Cerebrovascular disease Cholelithiasis Chronic disease anemia Chronic kidney disease Colon polyps Gastroesophageal reflux disease Hyperlipidemia Hypertension Meningioma Small left frontoparietal meningioma which has been unchanged for many years, followed by Neurosurgery. Peptic ulcer disease Acute gastric ulcers on EGD on 01/10/2016. Seasonal allergies Upper GI bleed (01/2016) Secondary to acute gastric ulcers. Surgical History Surgical History History of hysterectomy History of left oophorectomy Family History Family History Mother , 84 yrs old Dementia Sibling Brain aneurysm Other Diabetes mellitus Family history of congestive heart failure Hypertension Social History Social History (Updated 04/02/24 @ 20:20 by Alexandra Chavez PA-C) Social History: Healthcare power of traffic law attorney: Dorothea Kaiser, daughter. Code status: Full code. Smoking status: Former smoker Second hand tobacco smoke exposure: No Additional smoking assessment comments: Pt has smoked cigarettes in 25yrs. Alcohol intake: former Drinks per week: 28 Alcohol use details: No alcohol since summer 2023, now drinks nonalcoholic beer. Substance use: former Substance use type: does not use Do You Feel Safe in your Home?: Yes Lack of Transportation: No Lack of Food: Never True Current Housing: I Have Housing Concerned About Future Housing: No Difficulty Paying Gas/Electric Bills: No Difficulty Paying for Meds: No Currently Unemployed: No Education: Associate Degree Difficulty w/ Childcare or Family Care: No Living arrangements: alone Additional living arrangements comments: Lives alone in [place]. She is almost never alone as family members take turns staying w
[2024-04-04 19:21] LABS: Alanine Aminotransferase 8 U/L (6-35); Alkaline Phosphatase 68 U/L (38-126); Anion Gap 11 mmol/L (4-12); Aspartate Amino Transferase 33 U/L (14-36); Bilirubin,Total 0.4 mg/dL (0.2-1.3); Blood Urea Nitrogen 20 mg/dL (7-17); Calcium 9.1 mg/dL (8.4-10.2); Carbon Dioxide 23 mmol/L (22-30); Chloride 97 mmol/L (98-107); Estimated CRCL calculation 23 ml/min; Estimated Glomerular Filt Rate 41; Glucose 173 mg/dL (65-110); Potassium 4.4 mmol/L (3.4-5.0); Sodium 131 mmol/L (137-145)
[2024-04-04] MEDS: DONEPEZIL HCL 10 MG TABLET PO (20:26)
[2024-04-04] MEDS: cloNIDine HCL 0.1 MG TABLET PO (20:26)
[2024-04-05] VITALS (11 sets, daily range): BP systolic 128–164; BP diastolic 62–75; PULSE 73–91; RESP 16; TEMP 35.9–37.1; O2SAT 97–100
[2024-04-05] MEDS: hydrALAZINE HCL 50 MG TABLET PO ×3 (05:14→21:06)
[2024-04-05 07:25] LABS: Basophils Percent Auto 0.9 % (0.2-1.2); Eosinophils Absolute Auto 0.1 K/mm3 (0-0.3); Eosinophils Percent Auto 3.5 % (0-4.4); Hematocrit 30.8 % (37.0-47.0); Hemoglobin 9.8 g/dL (12.0-15.0); Immature Granulocyte Absolute 0.01 K/mm3 (0.00-0.031); Immature Granulocyte Percent A 0.3 % (0-0.5); Lymphocytes Absolute Auto 1.26 K/mm3 (0.9-3.2); Mean Corpuscular HGB Conc 31.8 g/dl (32-36); Mean Corpuscular Hemoglobin 28.1 pg (26-34); Mean Corpuscular Volume 88.3 fl (80-100); Mean Platelet Volume 10.2 fl (7.4-10.4); Monocytes Absolute Auto 0.4 K/mm3 (0.1-0.6); Monocytes Percent Auto 12.9 % (2.6-8.5); Neutrophils Absolute Auto 1.6 K/mm3 (1.3-6.7); Neutrophils Percent Auto 45.4 % (45.5-73.1); Platelet Count Result 280 k/mm3 (150-375); Red Blood Count 3.49 M/mm3 (4.2-5.4); Red Cell Distribution Width 12.8 % (11.5-14.5); White Blood Count 3.4 K/mm3 (4.5-10.0)
--- NOTE | 2024-04-05 08:06 | PM.PNCARD ---
Progress Note: A&P Assessment and Plan (1) Syncope: Code(s): R55 - Syncope and collapse Status: Acute Assessment and Plan: Probably due to orthostasis. Telemetry has been without arrhythmias or pauses. Advise to increase water intake to at least 40 ounces. (2) Hypertension: Qualifiers: Hypertension type: primary hypertension Qualified Code(s): I10 - Essential (primary) hypertension Code(s): I10 - Essential (primary) hypertension Status: Acute Assessment and Plan: High. Increase Losartan 50 mg BID and Clonidine 0.1 mg BID and start Amlodipine 5 mg daily. Monitor BP later today. If BP is OK, may d/c home from cardiology standpoint and f/u with me in 1 week. Subjective Date/time seen: 04/05/24 08:06 Interval history: Denies dizziness or chest pain or sob. Exam Const: General: cooperative, healthy appearing and comfortable Orientation/consciousness: oriented to person, oriented to place and oriented to time Resp: Auscultation: clear to auscultation bilaterally, no crackles, no rales, no rhonchi and no wheezes Cardio: Rate: regular rate Rhythm: regular rhythm Heart sounds: no murmurs Peripheral pulses: dorsalis pedis present Neuro: General: oriented to person, oriented to place and oriented to time Extrem: Right lower extremity: no edema Left lower extremity: no edema Objective Data Vital Signs Vital Signs: Vital Signs - 24 hr 04/04/24 08:23 04/04/24 08:23 04/04/24 11:45 Temperature Pulse Rate Respiratory Rate Blood Pressure 157/94 H 190/84 H 186/90 H Pulse Oximetry Oxygen Delivery 04/04/24 12:00 04/04/24 14:00 04/04/24 16:00 Temperature 97.7 F Pulse Rate 74 82 84 Respiratory Rate 18 Blood Pressure 160/68 H Pulse Oximetry 100 Oxygen Delivery 04/04/24 20:00 04/04/24 20:00 04/04/24 20:40 Temperature 98.5 F Pulse Rate 77 81 Respiratory Rate 20 Blood Pressure 155/65 H Pulse Oximetry 100 Oxygen Delivery Room Air 04/05/24 00:00 04/05/24 04:00 04/05/24 05:30 Temperature 98.7 F Pulse Rate 87 78 91 Respiratory Rate 16 Blood Pressure 154/66 H Pulse Oximetry 99 Oxygen Delivery Intake/Output Intake/Output: Intake & Output 04/02/24 04/03/24 04/04/24 04/05/24 23:59 23:59 23:59 23:59 Intake Total 360 1320 700 450 Output Total 200 Balance 160 1320 700 450 Meds/Results Medications: Active Medications Generic Name Dose Route Start Last Admin Trade Name Freq PRN Reason Stop Dose Admin Acetaminophen 650 mg 04/02/24 20:02 04/04/24 16:52 Acetaminophen 325 Mg Tablet PO 650 mg Q6H PRN Administration Mild Pain (1-3) or Fever Amlodipine Besylate 5 mg 04/05/24 09:00 Amlodipine Besylate 5 Mg Tablet PO DAILY NATHAN Bisacodyl 5 mg 04/04/24 09:00 04/04/24 16:18 Bisacodyl 5 Mg Tablet Ec PO 5 mg QAM PRN Administration Constipation Carbidopa/Levodopa 2 tablet 04/03/24 09:00 04/04/24 16:18 Carbidopa/Levodopa 25/100 Mg Tablet PO 2 tablet TID NATHAN Administration Clonidine HCl 0.1 mg 04/04/24 21:00 04/04/24 20:26 Clonidine Hcl 0.1 Mg Tablet PO 0.1 mg Q12HR NATHAN Administration Donepezil HCl 10 mg 04/02/24 21:00 04/04/24 20:26 Donepezil Hcl 10 Mg Tablet PO 10 mg QHS NATHAN Administration Hydralazine HCl 50 mg 04/02/24 22:00 04/05/24 05:14 Hydralazine Hcl 50 Mg Tablet PO 50 mg Q8HR NATHAN Administration Losartan Potassium 50 mg 04/04/24 21:00 04/04/24 20:26 Losartan Potassium 50 Mg Tablet PO 50 mg Q12HR NATHAN Administration Multivitamins Therapeutic 1 tablet 04/03/24 09:00 04/04/24 08:31 Multivitamins Therapeutic Tab (*Bkc) PO 1 tablet DAILY NATHAN Administration Perflutren Lipid Microsphere 0 ml 04/02/24 20:02 Perflutren Lipid Microspheres 1.5 Ml Vial Diluted To 10 Ml Total Volume IV PUSH 04/05/24 20:02 ONCE PRN adequate visualization Protocol Thiamine HCl 500 mg 04/03/24
[2024-04-05] MEDS: CHOLECALCIFEROL 1,000 UNITS TABLET 1000 UNITS PO (09:05)
[2024-04-05] MEDS: CARBIDOPA/LEVODOPA 25/100 MG TABLET 2 TABLET PO ×3 (09:05→16:46)
[2024-04-05] MEDS: amLODIPine BESYLATE 5 MG TABLET PO (09:05)
[2024-04-05] MEDS: LOSARTAN POTASSIUM 50 MG TABLET PO ×2 (09:05→21:06)
[2024-04-05] MEDS: MULTIVITAMINS THERAPEUTIC TAB (*BKC) 1 TABLET PO (09:05)
[2024-04-05] MEDS: cloNIDine HCL 0.1 MG TABLET PO ×2 (09:05→21:06)
[2024-04-05] MEDS: THIAMINE HCL 100 MG TABLET 500 MG PO (09:05)
--- NOTE | 2024-04-05 15:12 | PM.IMPN ---
Progress Note: A&P Assessment and Plan (1) Syncope: Code(s): R55 - Syncope and collapse Status: Acute Assessment and Plan: - Echocardiogram ordered - Carotid dopplers today showed: IMPRESSION: 1. Less than 50% stenosis in the right internal carotid artery by sonographic criteria. 2. Less than 50% stenosis in the left internal carotid artery by sonographic criteria. - Telemetry SR 75. - She has not had good oral intake recently due to change in taste after starting carbidopa levodopa and she received 1 L normal saline overnight. - Referred to Neurology for further workup to rule out stroke (no old stroke evident on brain CT), myasthenia gravis, neuro degenerative disorder, versus other. - Urine culture negative. - Echo 04/04/24 showed: Summary 1. Left ventricular chamber dimension is normal. 2. Left ventricular systolic function is hyperdynamic, estimated at >70%. 3. The left ventricular diastolic function is grade I diastolic dysfunction. 4. E/e' 26 is elevated. 5. Left atrial chamber dimension is moderately enlarged. 6. There is mild aortic valve sclerosis. 7. The mitral valve has moderately calcified annulus. 8. There is mild mitral valve regurgitation. 9. There is mild tricuspid valve regurgitation. 10. Moderate pulmonary hypertension, estimated pulmonary arterial systolic pressure is 52 mmHg. - Patient had a Cardiology consult with the following medication changes: Increase Losartan 50 mg PO BID and Clonidine 0.1 mg PO BID. Continue Amlodipine 5 mg PO daily and Hydralazine 50 mg PO TID. Drink at least 40 ounces of water a day. (2) Hypertension: Code(s): I10 - Essential (primary) hypertension Status: Acute Assessment and Plan: - Monitor blood pressures, BP 142/70. - Patient had a Cardiology consult with the following medication changes: Increase Losartan 50 mg PO BID and Clonidine 0.1 mg PO BID. Continue Amlodipine 5 mg PO daily and Hydralazine 50 mg PO TID. Drink at least 40 ounces of water a day. (3) Neurological symptoms: Code(s): R29.90 - Unspecified symptoms and signs involving the nervous system Status: Acute Assessment and Plan: - Regarding her neurologic symptoms (dysarthria, balance issues, occasional dysphagia, right arm and hand weakness), these have been present for many months and some of them even longer. - Referred to Neurology for further workup to rule out stroke (no old stroke evident on brain CT), myasthenia gravis, neuro degenerative disorder, versus other. - Swallow study today showed: IMPRESSION: 1. Normal modified barium swallow. 2. Please refer to the speech therapy report for recommendations. (4) Meningioma: Code(s): D32.9 - Benign neoplasm of meninges, unspecified Status: Acute Assessment and Plan: -She was evaluated by Neurosurgery due to a small meningioma however that does not seem to be the cause of her symptoms. (5) Chronic kidney disease: Qualifiers: Chronic kidney disease stage 3 subtype: stage 3b (GFR 30-44) Code(s): N18.9 - Chronic kidney disease, unspecified Status: Chronic Assessment and Plan: 04/02/24: BUN 19, Creatinine 1.50, & GFR 41. 04/03/24: BUN 17, Creatinine 1.40, & GFR 44. 04/04/24: BUN 19, Creatinine 1.40, & GFR 44. 04/05/24: BUN (6) Chronic disease anemia: Code(s): D63.8 - Anemia in other chronic diseases classified elsewhere Status: Chronic Assessment and Plan: 04/02/24: H&H 10.1/31.4 04/03/24: H&H 9.3/29.8 04/04/24: H&H 9.5/30.2 04/05/24: H&H 9.8/30/8. - Monitor labs. Subjective Date/time seen: 04/05/24 15:12 Interval history: Patient sitting up in a chair. Patient denies chest pain, palpitations, headache, dizziness, nausea, or vomiting. Daughters are at the bedside. Last bowel movement today. Review of Systems Review of Systems: All systems reviewed & are unremarkable except as noted in HPI and below Exam Const: Ge
[2024-04-05 16:42] LABS: Alanine Aminotransferase 6 U/L (6-35); Albumin Level 4.4 g/dL (3.5-5.1); Alkaline Phosphatase 85 U/L (38-126); Anion Gap 11 mmol/L (4-12); Aspartate Amino Transferase 34 U/L (14-36); Bilirubin,Total 0.5 mg/dL (0.2-1.3); Blood Urea Nitrogen 20 mg/dL (7-17); Calcium 9.1 mg/dL (8.4-10.2); Carbon Dioxide 25 mmol/L (22-30); Chloride 96 mmol/L (98-107); Estimated CRCL calculation 21 ml/min; Estimated Glomerular Filt Rate 38; Glucose 111 mg/dL (65-110); Potassium 4.6 mmol/L (3.4-5.0); Sodium 132 mmol/L (137-145)
[2024-04-05 20:34] LABS: Alanine Aminotransferase 7 U/L (6-35); Albumin Level 4.4 g/dL (3.5-5.1); Alkaline Phosphatase 65 U/L (38-126); Anion Gap 11 mmol/L (4-12); Aspartate Amino Transferase 33 U/L (14-36); Bilirubin,Total 0.5 mg/dL (0.2-1.3); Blood Urea Nitrogen 22 mg/dL (7-17); Calcium 8.9 mg/dL (8.4-10.2); Carbon Dioxide 24 mmol/L (22-30); Chloride 94 mmol/L (98-107); Estimated CRCL calculation 23 ml/min; Estimated Glomerular Filt Rate 41; Glucose 145 mg/dL (65-110); Potassium 4.2 mmol/L (3.4-5.0); Sodium 129 mmol/L (137-145)
[2024-04-05] MEDS: DONEPEZIL HCL 10 MG TABLET PO (21:06)
[2024-04-06] VITALS (16 sets, daily range): BP systolic 103–146; BP diastolic 44–70; PULSE 74–91; RESP 12–16; TEMP 36.1–37.3; O2SAT 95–100
[2024-04-06] MEDS: hydrALAZINE HCL 50 MG TABLET PO (06:03)
[2024-04-06 06:42] LABS: Basophils Percent Auto 0.9 % (0.2-1.2); Eosinophils Absolute Auto 0.1 K/mm3 (0-0.3); Hematocrit 30.2 % (37.0-47.0); Hemoglobin 10.2 g/dL (12.0-15.0); Lymphocytes Percent Auto 32.8 % (18.3-44.2); Mean Corpuscular HGB Conc 33.8 g/dl (32-36); Mean Corpuscular Hemoglobin 29.7 pg (26-34); Mean Corpuscular Volume 87.8 fl (80-100); Mean Platelet Volume 10.1 fl (7.4-10.4); Monocytes Absolute Auto 0.5 K/mm3 (0.1-0.6); Monocytes Percent Auto 13.4 % (2.6-8.5); Neutrophils Absolute Auto 1.7 K/mm3 (1.3-6.7); Neutrophils Percent Auto 49.9 % (45.5-73.1); Platelet Count Result 278 k/mm3 (150-375); Red Blood Count 3.44 M/mm3 (4.2-5.4); Red Cell Distribution Width 12.9 % (11.5-14.5); White Blood Count 3.4 K/mm3 (4.5-10.0)
--- NOTE | 2024-04-06 08:06 | PM.PNCARD ---
Progress Note: A&P Assessment and Plan (1) Syncope: Code(s): R55 - Syncope and collapse Status: Acute Assessment and Plan: Probably due to orthostasis. Telemetry has been without arrhythmias or pauses. Advise to increase water intake to at least 40 ounces. (2) Hypertension: Qualifiers: Hypertension type: primary hypertension Qualified Code(s): I10 - Essential (primary) hypertension Code(s): I10 - Essential (primary) hypertension Status: Acute Assessment and Plan: Stable. On Losartan 50 mg BID and Clonidine 0.1 mg BID and on Amlodipine 5 mg daily. May d/c home from cardiology standpoint and f/u with me in 2 weeks. Subjective Date/time seen: 04/06/24 08:06 Interval history: Denies dizziness or chest pain or sob. Exam Const: General: cooperative, healthy appearing and comfortable Orientation/consciousness: oriented to person, oriented to place and oriented to time Resp: Auscultation: clear to auscultation bilaterally, no crackles, no rales, no rhonchi and no wheezes Cardio: Rate: regular rate Rhythm: regular rhythm Heart sounds: no murmurs Peripheral pulses: dorsalis pedis present Neuro: General: oriented to person, oriented to place and oriented to time Extrem: Right lower extremity: no edema Left lower extremity: no edema Objective Data Vital Signs Vital Signs: Vital Signs - 24 hr 04/05/24 08:46 04/05/24 08:46 04/05/24 12:00 Temperature 97.0 F L 96.9 F L Pulse Rate 78 85 76 Respiratory Rate 16 16 Blood Pressure 153/75 H 142/70 H Pulse Oximetry 99 99 04/05/24 14:00 04/05/24 16:00 04/05/24 20:00 Temperature 97.7 F 98.0 F Pulse Rate 73 73 84 Respiratory Rate 16 16 Blood Pressure 134/62 150/67 H Pulse Oximetry 100 100 04/05/24 20:22 04/05/24 20:21 04/05/24 20:22 Temperature 98.0 F 98.0 F 98.0 F Pulse Rate 78 78 85 Respiratory Rate 16 16 16 Blood Pressure 128/66 128/66 142/67 H Pulse Oximetry 100 100 99 04/05/24 20:00 04/06/24 00:00 04/06/24 04:00 Temperature Pulse Rate 83 88 75 Respiratory Rate Blood Pressure Pulse Oximetry 04/06/24 05:39 Temperature 99.1 F Pulse Rate 79 Respiratory Rate 16 Blood Pressure 132/63 Pulse Oximetry 100 Intake/Output Intake/Output: Intake & Output 04/03/24 04/04/24 04/05/24 04/06/24 23:59 23:59 23:59 23:59 Intake Total 5272 055 1894 Balance 8099 442 4105 Meds/Results Medications: Active Medications Generic Name Dose Route Start Last Admin Trade Name Freq PRN Reason Stop Dose Admin Acetaminophen 650 mg 04/02/24 20:02 04/04/24 16:52 Acetaminophen 325 Mg Tablet PO 650 mg Q6H PRN Administration Mild Pain (1-3) or Fever Amlodipine Besylate 5 mg 04/05/24 09:00 04/05/24 09:05 Amlodipine Besylate 5 Mg Tablet PO 5 mg DAILY NATHAN Administration Bisacodyl 5 mg 04/04/24 09:00 04/04/24 16:18 Bisacodyl 5 Mg Tablet Ec PO 5 mg QAM PRN Administration Constipation Carbidopa/Levodopa 2 tablet 04/03/24 09:00 04/05/24 16:46 Carbidopa/Levodopa 25/100 Mg Tablet PO 2 tablet TID NATHAN Administration Clonidine HCl 0.1 mg 04/04/24 21:00 04/05/24 21:06 Clonidine Hcl 0.1 Mg Tablet PO 0.1 mg Q12HR NATHAN Administration Donepezil HCl 10 mg 04/02/24 21:00 04/05/24 21:06 Donepezil Hcl 10 Mg Tablet PO 10 mg QHS NATHAN Administration Hydralazine HCl 50 mg 04/02/24 22:00 04/06/24 06:03 Hydralazine Hcl 50 Mg Tablet PO 50 mg Q8HR NATHAN Administration Losartan Potassium 50 mg 04/04/24 21:00 04/05/24 21:06 Losartan Potassium 50 Mg Tablet PO 50 mg Q12HR NATHAN Administration Multivitamins Therapeutic 1 tablet 04/03/24 09:00 04/05/24 09:05 Multivitamins Therapeutic Tab (*Bkc) PO 1 tablet DAILY NATHAN Administration Thiamine HCl 500 mg 04/03/24 09:00 04/05/24 09:05 Thiamine Hcl 100 Mg Tablet PO 500 mg QAM NATHAN Administration Vitamin D 1,000 units 04/03/24 09:00 04/05/24 09:05 C
[2024-04-06] MEDS: amLODIPine BESYLATE 5 MG TABLET PO (08:35)
[2024-04-06] MEDS: CHOLECALCIFEROL 1,000 UNITS TABLET 1000 UNITS PO (08:36)
[2024-04-06] MEDS: MULTIVITAMINS THERAPEUTIC TAB (*BKC) 1 TABLET PO (08:36)
[2024-04-06] MEDS: CARBIDOPA/LEVODOPA 25/100 MG TABLET 2 TABLET PO ×3 (08:36→17:14)
[2024-04-06] MEDS: cloNIDine HCL 0.1 MG TABLET PO ×2 (08:36→21:12)
[2024-04-06] MEDS: LOSARTAN POTASSIUM 50 MG TABLET PO ×2 (08:36→21:11)
[2024-04-06] MEDS: THIAMINE HCL 100 MG TABLET 500 MG PO (08:36)
--- NOTE | 2024-04-06 14:06 | PC.NURSE ---
[facility]J CAMARENA BENCH CARPENTER NOTIFIED OF BP 115/56 AND HOLDING 1400 HYDRALAZINE.
--- NOTE | 2024-04-06 14:28 | P.PNIM_ITS ---
Progress Note: A&P Assessment and Plan (1) Syncope: Code(s): R55 - Syncope and collapse Status: Acute Assessment and Plan: - Echocardiogram ordered - Carotid dopplers today showed: IMPRESSION: 1. Less than 50% stenosis in the right internal carotid artery by sonographic criteria. 2. Less than 50% stenosis in the left internal carotid artery by sonographic criteria. - Telemetry SR 75. - She has not had good oral intake recently due to change in taste after starting carbidopa levodopa and she received 1 L normal saline overnight. -Neurology consulted for further workup to rule out stroke (no old stroke evident on brain CT), myasthenia gravis, neuro degenerative disorder, versus other. - Urine culture negative. - Echo 04/04/24 showed: Summary 1. Left ventricular chamber dimension is normal. 2. Left ventricular systolic function is hyperdynamic, estimated at >70%. 3. The left ventricular diastolic function is grade I diastolic dysfunction. 4. E/e' 26 is elevated. 5. Left atrial chamber dimension is moderately enlarged. 6. There is mild aortic valve sclerosis. 7. The mitral valve has moderately calcified annulus. 8. There is mild mitral valve regurgitation. 9. There is mild tricuspid valve regurgitation. 10. Moderate pulmonary hypertension, estimated pulmonary arterial systolic pressure is 52 mmHg. - Patient had a Cardiology consult with the following medication changes: Increase Losartan 50 mg PO BID and Clonidine 0.1 mg PO BID. Continue Amlodipine 5 mg PO daily and Hydralazine 50 mg PO TID. Drink at least 40 ounces of water a day. (2) Hypertension: Qualifiers: Hypertension type: unspecified Qualified Code(s): I10 - Essential (primary) hypertension Code(s): I10 - Essential (primary) hypertension Status: Acute Assessment and Plan: - Monitor blood pressures, BP 142/70. - Patient had a Cardiology consult with the following medication changes: Increa se Losartan 50 mg PO BID and Clonidine 0.1 mg PO BID. Drink at least 40 ounces of water a day. --She reports feeling lethargic after hydralazine doses. Consider weaning off or lower dose if blood pressure controlled --Continue Amlodipine 5 mg PO daily and Hydralazine 50 mg PO TID>10 TID, losartan 50 BID. (3) Neurological symptoms: Code(s): R29.90 - Unspecified symptoms and signs involving the nervous system Status: Acute Assessment and Plan: - Regarding her neurologic symptoms (dysarthria, balance issues, occasional dysphagia, right arm and hand weakness), these have been present for many months and some of them even longer. - Referred to Neurology for further workup to rule out stroke (no old stroke evident on brain CT), myasthenia gravis, neuro degenerative disorder, versus other. - Swallow study today showed: IMPRESSION: 1. Normal modified barium swallow. 2. Please refer to the speech therapy report for recommendations. (4) Meningioma: Code(s): D32.9 - Benign neoplasm of meninges, unspecified Status: Acute Assessment and Plan: -She was evaluated by Neurosurgery due to a small meningioma however that does not seem to be the cause of her symptoms. (5) Chronic kidney disease: Qualifiers: Chronic kidney disease stage 3 subtype: stage 3b (GFR 30-44) Code(s): N18.9 - Chronic kidney disease, unspecified Status: Chronic Assessment and Plan: Baseline creatinine 1.5-1.9 Creatinine has been 1.4-1.6 during admission --Avoid nephrotoxins (6) Chronic disease anemia: Code(s): D63.8 - Anemia in other chronic
[2024-04-06] MEDS: hydrALAZINE HCL 25 MG TABLET PO (17:14)
[2024-04-06 17:19] LABS: Alanine Aminotransferase 6 U/L (6-35); Albumin Level 4.3 g/dL (3.5-5.1); Alkaline Phosphatase 73 U/L (38-126); Anion Gap 9 mmol/L (4-12); Aspartate Amino Transferase 30 U/L (14-36); Bilirubin,Total 0.3 mg/dL (0.2-1.3); Blood Urea Nitrogen 20 mg/dL (7-17); Calcium 9.1 mg/dL (8.4-10.2); Carbon Dioxide 26 mmol/L (22-30); Chloride 95 mmol/L (98-107); Estimated CRCL calculation 21 ml/min; Estimated Glomerular Filt Rate 38; Glucose 127 mg/dL (65-110); Potassium 4.6 mmol/L (3.4-5.0); Sodium 130 mmol/L (137-145)
[2024-04-06] MEDS: DONEPEZIL HCL 10 MG TABLET PO (21:11)
[2024-04-07] VITALS: BP 133/61; PULSE 74; RESP 16; TEMP 36.2; O2SAT 100
[2024-04-07 04:00] VITALS: BP 145/70; PULSE 70; PULSE 71; RESP 14; TEMP 36.8; O2SAT 100
[2024-04-07] MEDS: hydrALAZINE 10 MG TABLET PO ×2 (05:33→12:21)
[2024-04-07 08:00] VITALS: BP 164/66; PULSE 72; PULSE 77; RESP 18; TEMP 36.3; O2SAT 100
[2024-04-07 08:42] VITALS: BP 138/55; BP 154/61
[2024-04-07] MEDS: THIAMINE HCL 100 MG TABLET 500 MG PO (08:49)
[2024-04-07] MEDS: amLODIPine BESYLATE 5 MG TABLET PO (08:50)
[2024-04-07] MEDS: cloNIDine HCL 0.1 MG TABLET PO (08:50)
[2024-04-07] MEDS: MULTIVITAMINS THERAPEUTIC TAB (*BKC) 1 TABLET PO (08:50)
[2024-04-07] MEDS: CARBIDOPA/LEVODOPA 25/100 MG TABLET 2 TABLET PO ×2 (08:51→12:21)
[2024-04-07] MEDS: CHOLECALCIFEROL 1,000 UNITS TABLET 1000 UNITS PO (08:51)
[2024-04-07] MEDS: LOSARTAN POTASSIUM 50 MG TABLET PO (08:51)
[2024-04-07 09:08] VITALS: O2SAT 95
--- NOTE | 2024-04-07 09:59 | PM.IMPN ---
Progress Note: A&P Assessment and Plan (1) Syncope: Code(s): R55 - Syncope and collapse Status: Acute Assessment and Plan: - Echocardiogram ordered - Carotid dopplers today showed: IMPRESSION: 1. Less than 50% stenosis in the right internal carotid artery by sonographic criteria. 2. Less than 50% stenosis in the left internal carotid artery by sonographic criteria. - Telemetry SR 75. - She has not had good oral intake recently due to change in taste after starting carbidopa levodopa and she received 1 L normal saline overnight. -Neurology consulted for further workup to rule out stroke (no old stroke evident on brain CT), myasthenia gravis, neuro degenerative disorder, versus other. - Urine culture negative. - Echo 04/04/24 showed: Summary 1. Left ventricular chamber dimension is normal. 2. Left ventricular systolic function is hyperdynamic, estimated at >70%. 3. The left ventricular diastolic function is grade I diastolic dysfunction. 4. E/e' 26 is elevated. 5. Left atrial chamber dimension is moderately enlarged. 6. There is mild aortic valve sclerosis. 7. The mitral valve has moderately calcified annulus. 8. There is mild mitral valve regurgitation. 9. There is mild tricuspid valve regurgitation. 10. Moderate pulmonary hypertension, estimated pulmonary arterial systolic pressure is 52 mmHg. - Patient had a Cardiology consult with the following medication changes: Increase Losartan 50 mg PO BID and Clonidine 0.1 mg PO BID. Continue Amlodipine 5 mg PO daily and Hydralazine 50 mg PO TID. Drink at least 40 ounces of water a day. (2) Hypertension: Qualifiers: Hypertension type: unspecified Qualified Code(s): I10 - Essential (primary) hypertension Code(s): I10 - Essential (primary) hypertension Status: Acute Assessment and Plan: - Monitor blood pressures, BP 142/70. - Patient had a Cardiology consult with the following medication changes: Increase Losartan 50 mg PO BID and Clonidine 0.1 mg PO BID. Drink at least 40 ounces of water a day. --She reports feeling lethargic after hydralazine doses. Consider weaning off or lower dose if blood pressure controlled --Continue Amlodipine 5 mg PO daily and Hydralazine 50 mg PO TID>10 TID, losartan 50 BID. (3) Neurological symptoms: Code(s): R29.90 - Unspecified symptoms and signs involving the nervous system Status: Acute Assessment and Plan: - Regarding her neurologic symptoms (dysarthria, balance issues, occasional dysphagia, right arm and hand weakness), these have been present for many months and some of them even longer. - Referred to Neurology for further workup to rule out stroke (no old stroke evident on brain CT), myasthenia gravis, neuro degenerative disorder, versus other. - Swallow study today showed: IMPRESSION: 1. Normal modified barium swallow. 2. Please refer to the speech therapy report for recommendations. (4) Meningioma: Code(s): D32.9 - Benign neoplasm of meninges, unspecified Status: Acute Assessment and Plan: -She was evaluated by Neurosurgery due to a small meningioma however that does not seem to be the cause of her symptoms. (5) Chronic kidney disease: Qualifiers: Chronic kidney disease stage 3 subtype: stage 3b (GFR 30-44) Code(s): N18.9 - Chronic kidney disease, unspecified Status: Chronic Assessment and Plan: Baseline creatinine 1.5-1.9 Creatinine has been 1.4-1.6 during admission --Avoid nephrotoxins (6) Chronic disease anemia: Code(s): D63.8 - Anemia in other chronic diseases classified elsewhere Status: Chronic Assessment and Plan: 04/02/24: H&H 10.1/31.4 04/03/24: H&H 9.3/29.8 04/04/24: H&H 9.5/30.2 04/05/24: H&H 9.8/30/8. - Monitor labs. Time Spent With Patient Time with patient: Greater than 35 minutes Subjective Date/time seen: 04/07/24 09:59 Interval history: assuming care for today. N
[2024-04-07 12:00] VITALS: BP 141/55; PULSE 63; PULSE 73; RESP 16; TEMP 36.3; O2SAT 100
--- NOTE | 2024-04-07 12:45 | PM.DS ---
DS: Admitting Diagnosis Discharge Date 04/07 Admitting Diagnosis syncope DS: Discharge Diagnosis Discharge Diagnosis (1) Syncope: Code(s): R55 - Syncope and collapse Status: Acute Assessment and Plan: - Echocardiogram ordered - Carotid dopplers today showed: IMPRESSION: 1. Less than 50% stenosis in the right internal carotid artery by sonographic criteria. 2. Less than 50% stenosis in the left internal carotid artery by sonographic criteria. - Telemetry SR 75. - She has not had good oral intake recently due to change in taste after starting carbidopa levodopa and she received 1 L normal saline overnight. -Neurology consulted for further workup to rule out stroke (no old stroke evident on brain CT), myasthenia gravis, neuro degenerative disorder, versus other. - Urine culture negative. - Echo 04/04/24 showed: Summary 1. Left ventricular chamber dimension is normal. 2. Left ventricular systolic function is hyperdynamic, estimated at >70%. 3. The left ventricular diastolic function is grade I diastolic dysfunction. 4. E/e' 26 is elevated. 5. Left atrial chamber dimension is moderately enlarged. 6. There is mild aortic valve sclerosis. 7. The mitral valve has moderately calcified annulus. 8. There is mild mitral valve regurgitation. 9. There is mild tricuspid valve regurgitation. 10. Moderate pulmonary hypertension, estimated pulmonary arterial systolic pressure is 52 mmHg. - Patient had a Cardiology consult with the following medication changes: Increase Losartan 50 mg PO BID and Clonidine 0.1 mg PO BID. Continue Amlodipine 5 mg PO daily and Hydralazine 10 mg PO TID. Drink at least 40 ounces of water a day. (2) Hypertension: Qualifiers: Hypertension type: unspecified Qualified Code(s): I10 - Essential (primary) hypertension Code(s): I10 - Essential (primary) hypertension Status: Acute Assessment and Plan: - Monitor blood pressures, BP 142/70. - Patient had a Cardiology consult with the following medication changes: Increase Losartan 50 mg PO BID and Clonidine 0.1 mg PO BID. Drink at least 40 ounces of water a day. --She reports feeling lethargic after hydralazine doses. Consider weaning off or lower dose if blood pressure controlled --Continue Amlodipine 5 mg PO daily and Hydralazine 50 mg PO TID>10 TID, losartan 50 BID. (3) Neurological symptoms: Code(s): R29.90 - Unspecified symptoms and signs involving the nervous system Status: Acute Assessment and Plan: - Regarding her neurologic symptoms (dysarthria, balance issues, occasional dysphagia, right arm and hand weakness), these have been present for many months and some of them even longer. - Referred to Neurology for further workup to rule out stroke (no old stroke evident on brain CT), myasthenia gravis, neuro degenerative disorder, versus other. - Swallow study today showed: IMPRESSION: 1. Normal modified barium swallow. 2. Please refer to the speech therapy report for recommendations. (4) Meningioma: Code(s): D32.9 - Benign neoplasm of meninges, unspecified Status: Acute Assessment and Plan: -She was evaluated by Neurosurgery due to a small meningioma however that does not seem to be the cause of her symptoms. (5) Chronic kidney disease: Qualifiers: Chronic kidney disease stage 3 subtype: stage 3b (GFR 30-44) Code(s): N18.9 - Chronic kidney disease, unspecified Status: Chronic Assessment and Plan: Baseline creatinine 1.5-1.9 Creatinine has been 1.4-1.6 during admission --Avoid nephrotoxins (6) Chronic disease anemia: Code(s): D63.8 - Anemia in other chronic diseases classified elsewhere Status: Chronic Assessment and Plan: 04/02/24: H&H 10.1/31.4 04/03/24: H&H 9.3/29.8 04/04/24: H&H 9.5/30.2 04/05/24: H&H 9.8/30/8. - Monitor labs. DS: Summary Hospital Course Hospital Course: This is a very pleasant 79-year-
--- NOTE | 2024-04-07 12:46 | WPDNEURCNPN ---
Assessment and Plan Assessment and plan (1) Syncope: Code(s): R55 - Syncope and collapse Status: Acute Assessment and Plan: This appears to be the main reason for her admission. She has been evaluated by clerical investigator who also felt that she had vasovagal syncope. I also do not feel convinced this indeed was a seizure. Of course having meningioma and with the right arm weakness , possibility of seizure disorder of focal cortical origin would be a differential diagnosis. At this time will best to follow up and see if she has any further spells. (2) Meningioma: Code(s): D32.9 - Benign neoplasm of meninges, unspecified Status: Acute Assessment and Plan: This has been evaluated by Dr. Gray who felt that she did not require any surgical intervention. (3) Right hand weakness: Code(s): R29.898 - Other symptoms and signs involving the musculoskeletal system Status: Acute Assessment and Plan: We do not have a good reason for the right hand weakness with spasticity. I would suggest an opinion from neuromuscular clinic at [facility] to see if they have any opinion regarding possibility of supranuclear or pseudo bulbar ALS presenting in this way although it would be very unusual is there does not appear to be any significant finding on examination of her tongue. The speech problems her also not well defined. Her swallowing test was also negative. (4) Dizziness: Code(s): R42 - Dizziness and giddiness Status: Acute Assessment and Plan: This is a longstanding symptom and probably may require vestibular therapy at some point (5) MCI (mild cognitive impairment): Code(s): G31.84 - Mild cognitive impairment of uncertain or unknown etiology Status: Acute Assessment and Plan: the patient is on Aricept 10 mg a day which should continue. She only has problems with recent memory otherwise he is functioning fairly well according to daughter. Plan As mentioned above we shall she can outpatient opinion from a neuromuscular clinic regarding the right arm weakness with spasticity other than that we can hold off any empiric therapy for the syncopal episode. Consult date: 04/07/24 HPI: Tea Turner is a 79 year old female with history of weakness in the right arm and a few other neurological problems for which I have seen her in my office presented to the hospital with the episode of loss of consciousness. The patient today appeared headed brief spell where she lost her consciousness. She did not have any tongue biting or incontinence of urine. She also suffers from frequent dizziness however the dizziness has been ongoing problem for a long time. She has some difficulty with recent memory and was started on Aricept. Due to some motor difficulties she was given a trial of Sinemet but it appears the skin continue on Sinemet 25/10o, 2 tablets 3 times a day. She continues to have weakness of the right upper limb. She was seen by me and thought that she had some spasticity and was referred to Dr. Gray for an opinion regarding the a meningioma noted in the left hemisphere since that appear to be the only correlate for the stiffness or spasticity in the right arm along with weakness but she felt that this was more suggestive of peripheral problem such as a motor neuron disease. She underwent EMG nerve can study which did not show any evidence for that. However EMG study can escape detection in a supranuclear involvement although often 1 would expect to see a few other things with it. She has some difficulty speech however according to the daughter at times he has difficulty with finding words or saying what she wants to say but other than that she is able to swallow and talk fairly well. She did have a swallowing test done here which was Reported within normal limits. Patient denies any headache. There is no history of seizure disorder however she has had a
== END 2024-04-07 13:35 | disposition home or self-care (01) | DRG 312 ==
LOC: ANHED 11:55 → ANH3MEDSUR 15:54
PROVIDERS: Nurse Practitioner Family; Physician Assistant; Admitting Provider General Practice; Emergency Provider Emergency Medicine; PCP Family Medicine; Visit Provider Nurse Practitioner
DX: R55 Syncope and collapse (principal); N18.4 Chronic kidney disease, stage 4 (severe); I12.9 Hypertensive chronic kidney disease with stage 1 through stage 4 chronic kidney disease, or unspecified chronic kidney disease; R47.1 Dysarthria and anarthria; R26.89 Other abnormalities of gait and mobility; R13.10 Dysphagia, unspecified; R42 Dizziness and giddiness; G83.21 Monoplegia of upper limb affecting right dominant side; D63.8 Anemia in other chronic diseases classified elsewhere; M19.90 Unspecified osteoarthritis, unspecified site; F03.90 Unspecified dementia, unspecified severity, without behavioral disturbance, psychotic disturbance, mood disturbance, and anxiety; K21.9 Gastro-esophageal reflux disease without esophagitis; E78.5 Hyperlipidemia, unspecified; D32.9 Benign neoplasm of meninges, unspecified; Z87.11 Personal history of peptic ulcer disease; Z86.73 Personal history of transient ischemic attack (TIA), and cerebral infarction without residual deficits; Z20.822 Contact with and (suspected) exposure to COVID-19; Z90.710 Acquired absence of both cervix and uterus; Z90.721 Acquired absence of ovaries, unilateral; Z87.891 Personal history of nicotine dependence
CPT/HCPCS: 36415; 70450; 71045; 74177; 80048; 80053; 81001; 82607; 82948; 83735; 85025; 85027; 85610; 85730; 87086; 87637; 92611; 93005; 93306; 93880; 96375; 99285; A9270; J7030; Q9967

== ENCOUNTER 2024-04-15 11:13 | Outpatient (CLI) | payer MEDICARE, SELFPAY ==
[2024-04-15 12:27] LABS: Albumin Level 4.5 g/dL (3.5-5.1); Anion Gap 9 mmol/L (4-12); Blood Urea Nitrogen 35 mg/dL (7-17); Calcium 9.4 mg/dL (8.4-10.2); Carbon Dioxide 29 mmol/L (22-30); Chloride 96 mmol/L (98-107); Estimated Glomerular Filt Rate 33; Glucose 116 mg/dL (65-110); Phosphorus 3.7 mg/dL (2.5-4.5); Potassium 4.6 mmol/L (3.4-5.0); Sodium 134 mmol/L (137-145)
[2024-04-15 12:28] LABS: Creatinine Urine 134.3 mg/dL; Total Protein Urine Random 7 mg/dL; Ur Ttl Prot Creatinine Ratio 0.05 mg/mg (0-0.20)
[2024-04-15 12:49] LABS: Vitamin D 25 Hydroxy 82.3 ng/mL
== END 2024-04-15 11:14 | disposition home or self-care (01) ==
PROVIDERS: PCP Family Medicine; Visit Provider Internal Medicine Nephrology
DX: E87.1 Hypo-osmolality and hyponatremia (principal); I12.9 Hypertensive chronic kidney disease with stage 1 through stage 4 chronic kidney disease, or unspecified chronic kidney disease; N18.32 Chronic kidney disease, stage 3b; N25.81 Secondary hyperparathyroidism of renal origin; E55.9 Vitamin D deficiency, unspecified
CPT/HCPCS: 36415; 80069; 82306; 82570; 83970; 84156

== ENCOUNTER 2024-09-01 11:18 | Outpatient (CLI) | payer MEDICARE, OTHER, SELFPAY ==
[2024-09-01 12:52] LABS: Anion Gap 12 mmol/L (4-12); Blood Urea Nitrogen 24 mg/dL (7-17); Calcium 9.8 mg/dL (8.4-10.2); Carbon Dioxide 26 mmol/L (22-30); Chloride 95 mmol/L (98-107); Estimated Glomerular Filt Rate 39; Glucose 99 mg/dL (65-110); Phosphorus 4.6 mg/dL (2.5-4.5); Potassium 4.7 mmol/L (3.4-5.0); Sodium 133 mmol/L (137-145)
[2024-09-01 12:56] LABS: Creatinine Urine 293.5 mg/dL; Total Protein Urine Random 6 mg/dL; Ur Ttl Prot Creatinine Ratio 0.02 mg/mg (0-0.20)
== END 2024-09-01 11:19 | disposition home or self-care (01) ==
PROVIDERS: PCP Family Medicine; Visit Provider Internal Medicine Nephrology
DX: E87.1 Hypo-osmolality and hyponatremia (principal); I12.9 Hypertensive chronic kidney disease with stage 1 through stage 4 chronic kidney disease, or unspecified chronic kidney disease; N18.32 Chronic kidney disease, stage 3b
CPT/HCPCS: 36415; 80069; 82570; 84156

== ENCOUNTER 2024-11-17 13:55 | Outpatient (CLI) | payer MEDICARE, OTHER, SELFPAY ==
--- NOTE | ~2024-11-17 | XR_ITS ---
MODIFIED ESOPHAGRAM HISTORY: Dysphagia. TECHNIQUE: Modified barium esophagram was performed on 11/17/2024. I administered fluoroscopy and perf ormed the exam with speech pathologist. Patient was seated for lateral fluoroscopic imaging for ludwin stion of thin liquids, pudding, solids and quantified amounts, followed by thin liquids in uncontroll ed amounts. This was recorded on tape. A single fluoroscopic spot image was also recorded. The DAP fo r this procedure was 1.124 Gycm2. The amount of fluoroscopy time used during this procedure was 1.9 m inutes. FINDINGS: Postoperative changes with multiple surgical clips projecting over the anterior neck. Oral stage: Reduced labial seal/lip tension and reduced lingual movement.. Pharyngeal stage: Distant base retraction and residue on the backside of the epiglottis. No laryngeal penetration or aspiration. Cervical/esophageal stage: Adequate function. IMPRESSION: No laryngeal penetration or aspiration. Please correlate with speech pathologist finding s and specific feeding recommendations. Reviewed, dictated and finalized at location A. IMPRESSION: No laryngeal penetration or aspiration. Please correlate with marisela tang pathologist findings and specific feeding recommendations.
--- OUTSIDE RECORDS SUMMARY | 2024-11-17 14:01 | XMS_ITS | Clinical Summary ---
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 amLODIPine (NORVASC) 10 mg tabletIndicatio ns:hypertension Administer per tube 1 tablet (10 mg total) every morning 30 tablet 1 5 Active docusate (COLACE) liquid 50 mg/5 mLIndications:c onstipation Administer per tube 10 mL (100 mg total) 2 (two) times a day as needed for constipation (1st Line) for up to 14 days 280 mL 5 Active gabapentin (NEURONTIN) solution 250 mg/5 mLIndications:P ain Administer per tube 2 mL (100 mg total) every 8 (eight) hours 180 mL 1 5 Active polyvinyl alcohol-povidon e (REFRESH CLASSIC) 1.4-0.6 % dropperette Administer 1 drop into both eyes 4 (four) times a day 10 each 5 Active cholecalciferol 25 mcg (1,000 unit) tabletIndicatio ns:Osteoporosis ,Vitamin D Deficiency Administer per tube 1 tablet (1,000 Units total) every morning 5 Active multivitamin tabletIndicatio ns:Vitamin Deficiency Prevention Administer per tube 1 tablet every morning 5 Active thiamine (VITAMIN B-1) 50 mg tabletIndicatio ns:Supplement Take 1 tablet (50 mg total) by mouth every morning 5 Active carbidopa-levod opa (SINEMET) 25-100 mg per tabletIndicatio ns:Parkinsonism Administer per tube 2 tablets 3 (three) times a day 5 Active cloNIDine (CATAPRES) 0.1 mg tabletIndicatio ns:hypertension Administer per tube 1 tablet (0.1 mg total) 3 (three) times a day 5 Active donepeziL (ARICEPT) 10 mg tabletIndicatio ns:Mild to Moderate Alzheimer's Type Dementia Administer per tube 1 tablet (10 mg total) nightly 5 Active hydrALAZINE (APRESOLINE) 10 mg tabletIndicatio ns:hypertension Administer per tube 1 tablet (10 mg total) 3 (three) times a day 5 Active al & mag hydroxide with simethicone-dip henhydramine-li docaine (MAGIC MOUTHWASH) suspension [id number] s:Cancer of alveolus of maxilla (HCC) Swish and swallow 15 mL every 4 (four) hours as needed (Use 15minutes prior to meals, and at bedtime) 900 mL 3 5 Active naloxone (NARCAN) 4 mg/actuation spray,non-aeros olIndications:C ancer of alveolus of maxilla (HCC) Administer 1 spray into affected nostril(s) as needed for opioid reversal Call 911. Administer a single spray in one nostril. Repeat every 3 minutes as needed if no or minimal response. 1 each 5 Active fentaNYL (DURAGESIC) 12 mcg/hrIndicatio ns:Cancer of alveolus of maxilla (HCC) Place 1 patch on the skin every third day for 72 hours 5 patch 5 Active HYDROcodone-rush taminophen (HYCET) solution 7.5-325 mg/15 mLIndications:P ain Take 15 mL by mouth every 4 (four) hours as needed for pain 473 mL 5 Active fentaNYL (DURAGESIC) 12 mcg/hr Place 1 patch on the skin every third day for 72 hours for 15 days 5 patch 5 Active lidocaine viscous (XYLOCAINE) 2 % solutionIndicat ions:Cancer of alveolus of maxilla (HCC) Take 5 mL by mouth 4 (four) times a day as needed (Mix 5mL of lidocaine with 5mL of Benadryl and 5mL of Maalox, 15 minutes prior to meals and at bedtime) 100 mL 3 5 Active carboxymethylce llulose-glycern 0.5-0.9 % drops Administer 1-2 drops into affected eye(s) 4 (four) times a day 15 mL 5 Active amoxicillin-cla vulanate (AUGMENTIN) 875-125 mg per tablet Take 1 tablet by mouth every 12 (twelve) hours 14 tablet 5 Active moxifloxacin (VIGAMOX) 0.5 % ophthalmic solution ADMINISTER 1 DROP INTO THE LEFT EYE 4 TIMES A DAY FOR 7 DAYS. 5 Active moxifloxacin (VIGAMOX) 0.5 % ophthalmic solution Administer 1 drop into the left eye 4 (four) times a day for 7 days 3 mL 5 025 Active Problems Problem Noted Date Diagnosed Date Punctate epithelial keratopathy of both eyes Assessment & Plan (10/29/2024 3:27 PM CDT): --Initially seen 10/12/24 at outside ED and noted to have discharge, injection and corneal abrasion OS. There was also concern for possible preseptal cellulitis for which she was started on 7 day course of Augmentin in addition to topical moxi and lubricating ointment. 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 She denies pain. Exam notable for 4mm lag OS and bilateral PEE, no corneal abrasion noted. No evidence of preseptal cellulitis. PLAN --Okay to stop moxi --PFAT PRN --Lubricating ointment nightly / PRN --Patient and family to follow locally with 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 Cr up to 5.9 on 07/10 - Pt has CKD3b despite near normal Cr value and is predisposed to holding on to any excess K in po intake or due to decreased clearance of K from kidneys from medications - agree with discontinuing losartan on 07/10. - agree with changing from jevity to nepro for tube feeds. Would recommend changing pureed diet to low K pureed diet -monitor K daily; give lokelma 10 g TID X 1 day to help decrease K given Cr increasing today. Stage 3b chronic kidney disease 07/12/2024 Assessment & Plan (07/13/2024 9:18 AM CASHIER WRAPPER): Cr fluctuating between 1-1.3 this hospital stay. Her baseline Cr prior to admission was recorded at 1.2 - Cr of 1.3 most likely represents fluctuating within baseline and not true AMMY despite misleading red abnormal alerts in epic - Cr increase to 1.4 today. Could represent developing AMMY. No recent contrast; only possible nephrotoxins would be augmentin or PPI AIN. Check urinalysis, urine sodium, urine osm. Pt appears fairly euvolemic; certainly no evidence of volume overload. Trial 500 cc of normal saline today. Hyperglycemia 07/12/2024 Assessment & Plan (07/12/2024 1:50 PM CASHIER WRAPPER): A1c of 5.7. On SSI. Subq insulin discontinued yesterday. Blood sugars normal. Hypertension 07/12/2024 Assessment & Plan (07/13/2024 9:18 AM CASHIER WRAPPER): Blood pressures normal. 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) 10/27/2024 Telephone [facility] [address] [place] [phone] Felicia Bishop, regional sales consultant Treatment End Check In 10/21/2024 2:00 PM CDT Office Visit [facility] Ophthalmology [address] [place] [phone] Nano Mancilla MD 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) 10/17/2024 Telephone [facility] Gastroenterology at [place] [address] [facility] [address] [place] [phone] Fannie Silva LPN 10/12/2024 7:28 PM CDT - 10/13/2024 12:11 AM CDT Emergency [facility] Emergency Department [address] [place] [address] Abrasion of left cornea, initial encounter (Primary Dx) Discharge Disposition: Discharge to home or self care 10/12/2024 3:15 PM CDT Office Visit [facility] Con[facility]ient [facility] at [address] [phone] Mary Mora PA Left eye pain (Primary Dx); Facial pain 10/12/2024 Telephone [facility] Ophthalmology [address] [place] [phone] Anthony Toscano MD FYI 10/12/2024 Telephone [facility] [address] [place] [address] Deandre Duarte, KELSEA 10/05/2024 1:00 PM CDT Infusion [facility] Infusion [place] [address] [facility] [address] [place] [address] Dehydration (Primary Dx) 10/04/2024 Telephone [facility] [address] [facility] [address] [place] [phone] Marly Viera RN 10/04/2024 Documentation [facility] Nutrition and Diabetic Education 1 [facility] [address] [place] [address] Radha Pemberton, SELENE 10/03/2024 8:41 PM CDT - 10/04/2024 1:22 AM CDT Emergency [facility] Emergency Department [address] [place] [address] Lena Prabhakar MD Dehydration (Primary Dx); Oral pain Discharge Disposition: Discharge to home or self care 10/03/2024 Telephone [facility] [address] [place] [phone] Deandre Duarte, KELSEA 09/29/2024 9:45 AM CDT Treatment [facility] [address] [place] [address] 09/29/2024 Orders Only RAD ONC TREATMENTS Miscellaneous, Not In File 09/28/2024 9:45 AM CDT Treatment [facility] [address] [place] [address] 09/28/2024 Orders Only RAD ONC TREATMENTS Miscellaneous, Not In File 09/27/2024 9:45 AM CDT Treatment [facility] [address] [place] [address] 09/27/2024 Telephone [facility] Nutrition [facility] Diabetic Education 1 [facility] [address] [place] [address] Jessica Cano, SELENE 09/27/2024 OTV [facility] [address] [place] [address] Oneil Montero MD 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) 09/27/2024 Orders Only RAD ONC TREATMENTS Miscellaneous, Not In File 09/26/2024 9:45 AM CDT Treatment [facility] [address] [place] [address] 09/26/2024 Telephone [facility] Otolaryngology [address] [place] [address] [address] [place] [phone] Thompson Vera, 09/26/2024 Orders Only RAD ONC TREATMENTS Miscellaneous, Not In File 09/23/2024 9:45 AM CDT Treatment [facility] [address] [place] [address] 09/23/2024 Orders Only RAD ONC TREATMENTS Miscellaneous, Not In File 09/22/2024 9:45 AM CDT Treatment [facility] [address] [place] [address] 09/22/2024 Orders Only RAD ONC TREATMENTS Miscellaneous, Not In File 09/21/2024 9:45 AM CDT Treatment [facility] [address] [place] [address] 09/21/2024 Orders Only RAD ONC TREATMENTS Miscellaneous, Not In File 09/20/2024 9:45 AM CDT Treatment [facility] [address] [place] [address] 09/20/2024 OTV [facility] [address] [place] [phone] Orlando Smith MD 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) 09/20/2024 Orders Only RAD ONC TREATMENTS Miscellaneous, Not In File 09/19/2024 9:45 AM CDT Treatment [facility] [address] [place] [address] 09/19/2024 Orders Only RAD ONC TREATMENTS Miscellaneous, Not In File 09/16/2024 9:45 AM CDT Treatment [facility] [address] [place] [address] 09/16/2024 Orders Only RAD ONC TREATMENTS Miscellaneous, Not In File 09/15/2024 9:45 AM CDT Treatment [facility] [address] [place] [address] 09/15/2024 Orders Only RAD ONC TREATMENTS Miscellaneous, Not In File 09/14/2024 9:45 AM CDT Treatment [facility] [address] [place] [address] 09/14/2024 Orders Only RAD ONC TREATMENTS Miscellaneous, Not In File 09/13/2024 9:45 AM CDT Treatment [facility] [address] [place] [address] 09/13/2024 OTV [facility] [address] [place] [address] Oneil Montero MD 09/13/2024 Orders Only RAD ONC TREATMENTS Miscellaneous, Not In File 09/12/2024 2:00 PM CDT Home Care Visit [address] [place] [address] Shakila Agustin, PT PT OASIS DISCHARGE 09/12/2024 9:45 AM CDT Treatment [facility] [address] [place] [address] 09/12/2024 Orders Only RAD ONC TREATMENTS Miscellaneous, Not In File 09/09/2024 9:45 AM CASHIER WRAPPER Treatment [facility] [address] [place] [address] 09/09/2024 Orders Only RAD ONC TREATMENTS Miscellaneous, Not In File 09/08/2024 9:45 AM CASHIER WRAPPER Treatment [facility] [address] [place] [address] 09/08/2024 Orders Only RAD ONC TREATMENTS Miscellaneous, Not In File 09/07/2024 12:15 PM CASHIER WRAPPER Home Care Visit [address] [place] [address] Liss Ocasio, POOL TABLE OPERATOR PT HOME VISIT 09/07/2024 9:45 AM CASHIER WRAPPER Treatment [facility] [address] [place] [address] 09/07/2024 Orders Only RAD ONC TREATMENTS Miscellaneous, Not In File 09/06/2024 9:45 AM CASHIER WRAPPER Treatment [facility] [address] [place] [address] 09/06/2024 Documentation [facility] Nutrition and Diabetic Education 1 [facility] [address] [place] [address] 09/06/2024 OTV [facility] [address] [place] [address] Oneil Montero MD 09/06/2024 Orders Only RAD ONC TREATMENTS Miscellaneous, Not In File 09/05/2024 9:45 AM CASHIER WRAPPER Treatment [facility] [address] [place] [address] 09/05/2024 Orders Only RAD ONC TREATMENTS Miscellaneous, Not In File 09/03/2024 1:30 PM CASHIER WRAPPER Home Care Visit [address] [place] [address] Gerard Schreiber RN SN DISCIPLINE DISCHARGE 09/02/2024 9:45 AM CASHIER WRAPPER Treatment [facility] [address] [place] [address] 09/02/2024 Orders Only RAD ONC TREATMENTS Miscellaneous, Not In File 09/01/2024 3:00 PM CASHIER WRAPPER Home Care Visit [address] [place] [address] Liss Ocasio, RAJ PT HOME VISIT 09/01/2024 9:45 AM CASHIER WRAPPER Treatment [facility] [address] [place] [address] 09/01/2024 Home Care Visit [address] [place] [address] Antonella Hong, RN MICROFILMER DISCIPLINE DISCHARGE 09/01/2024 Home Care Visit [address] [place] [address] Antonella Hong, RN TELEPHONE ENCOUNTER 09/01/2024 Orders Only RAD ONC TREATMENTS Miscellaneous, Not In File 08/31/2024 9:45 AM CASHIER WRAPPER Treatment [facility] [address] [place] [address] 08/31/2024 Home Care Visit [address] [place] [address] Shani Mott LCSW LICENSED WEIGHER DISCIPLINE DISCHARGE 08/31/2024 Home Care Visit [address] [place] [address] Antonella Hong, RN TELEPHONE ENCOUNTER 08/31/2024 Home Care Visit [address] [place] [address] Shani Mott LCSW CASE COMMUNICATION 08/31/2024 Telephone [facility] Otolaryngology [address] [phone] Vera Thompson, 08/31/2024 Telephone [facility] Nutrition and Diabetic Education 1 [facility] [address] [place] [phone] Jessica Cano, SELENE 08/31/2024 Orders Only RAD ONC TREATMENTS Miscellaneous, Not In File 08/30/2024 9:45 AM CASHIER WRAPPER Treatment [facility] [address] [place] [address] 08/30/2024 Telephone [facility] [address] [place] [address] Deandre Duarte RN 08/30/2024 OTV [facility] [address] [place] [address] Oneil Montero MD 08/30/2024 Orders Only RAD ONC TREATMENTS Miscellaneous, Not In File 08/30/2024 Home Care Visit [address] [place] [address] Franca Crow, OT OT DISCIPLINE DISCHARGE 08/29/2024 2:30 PM CASHIER WRAPPER Home Care Visit [place] [address] [address] [place] [address] Franca Crow, OT OT REASSESSMENT 08/29/2024 9:45 AM CASHIER WRAPPER Treatment [facility] Radiation [facility]cology [address] [place] [address] 08/29/2024 Orders Only RAD ONC TREATMENTS Miscellaneous, Not In File 08/27/2024 11:00 AM CASHIER WRAPPER Home Care Visit [place] [address] [address] [place] [address] Tara Ogden, MICROFILMER MICROFILMER HOME VISIT 08/26/2024 9:45 AM CASHIER WRAPPER Treatment [facility] Radiation Oncology [address] [place] [phone] 08/26/2024 Telephone [facility] Scheduling [address] [place] [phone] Resource, Homecare Scheduling 08/26/2024 Orders Only RAD ONC TREATMENTS Miscellaneous, Not In File 08/25/2024 1:30 PM CASHIER WRAPPER Home Care Visit [place] [address] [address] [place] [address] Gerard Schreiber, KELSEA SN HOME VISIT 08/25/2024 11:45 AM CASHIER WRAPPER Home Care Visit [place] [address] [address] [place] [address] Genny Moe COTA OT HOME VISIT 08/25/2024 9:45 AM CASHIER WRAPPER Treatment [facility] Radiation [facility] [address] [place] [phone] 08/25/2024 Orders Only RAD ONC TREATMENTS Miscellaneous, Not In File 08/24/2024 9:45 AM CASHIER WRAPPER Treatment [facility] [address] [place] [address] 08/24/2024 Orders Only RAD ONC TREATMENTS Miscellaneous, Not In File 08/23/2024 3:30 PM CASHIER WRAPPER Home Care Visit [address] [place] [address] Liss Ocasio PTA PT HOME VISIT 08/23/2024 11:45 AM CASHIER WRAPPER Home Care Visit [address] [place] [address] Genny Moe COTA OT HOME VISIT 08/23/2024 9:45 AM CASHIER WRAPPER Treatment [facility] [address] [place] [address] 08/23/2024 OTV [facility] [address] [place] [address] Oneil Montero MD 08/23/2024 Orders Only RAD ONC TREATMENTS Miscellaneous, Not In File 08/22/2024 9:45 AM CASHIER WRAPPER Treatment [facility] [address] [place] [address] 08/22/2024 Orders Only RAD ONC TREATMENTS Miscellaneous, Not In File from Last 3 Months Surgical History Surgery Date Site/Laterality Comments OVARIAN CYST REMOVAL TUBAL LIGATION 1970s COLONOSCOPY UPPER GASTROINTESTINAL ENDOSCOPY 07/06/2015 - 07/05/2016 Medical History Medical History Date Comments CKD (chronic kidney disease) Hypertension CVA (cerebral vascular accident) (HCC) GERD (gastroesophageal reflux disease) 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 Anemia History of blood transfusion 2016 Seizure (HCC) GIB (gastrointestinal bleeding) 2016 per record review due to acute gastric ulcers Family History Medical History Relation Name Comments Heart disease Brother Arthritis Mother Relation Name Status Comments Brother Mother Social History Tobacco Use Types Packs/Day Years Used Date Smoking Tobacco: Former Cigarettes 0.5 41 1 960 - 2000 Passive Smoke Exposure: Never Smokeless Tobacco: Never Tobacco Cessation:Counseling Given: Not Answered OASIS D0700: Social Isolation Answer Da te Recorded Frequency of experiencing loneliness or isolatio n Never 09/12/2024 OASIS A1250: Transportation Answer Date Recorded Lack of Transportation (Medical) No 09/12/2024 Lack of Transportation (Non-Medical) No 09/12/2024 Patient Unable or Declines to Respond No 09/12/2024 OASIS B1300: Health Literacy Answer Julian e Recorded Frequency of needing help to read materials from doctor or pharmacy Sometimes 09/12/2024 [facility] Utilities Answer Date Recorded In the past 12 months has th e electric, gas, oil, or water company threatened to shut off services in your home? No 05/27/2024 Social Connection and Isolat ion Panel [NHANES] Answer Date Recorded In a typical week, how many times do you talk on the phone with family, friends, or neighbors? More than three times a week 05/27/2024 How often do you get togethe r with friends or relatives? More than three times a week 05/27/2024 How often do you attend chur ch or mandaeism services? Never 05/27/2024 Do you belong to any clubs o r organizations such as roman catholic groups, unions, fraternal or athletic groups, or school groups? No 05/27/2024 How often do you attend meet ings of the clubs or organizations you belong to? Never 05/27/2024 Are you , , di vorced, , never , or living with a partner? 05/27/2024 AUDIT-C Answer Date Recorded Q1: How often do you have a drink containing alcohol? Never 06/21/2024 Q2: How many drinks containi ng alcohol do you have on a typical day when you are drinking? Patient does not drink Q3: How often do you have si x or more drinks on one occasion? Never 06/21/2024 Overall Financial Resource Strain (CARDIA) Answe r Date Recorded How hard is it for you to pa y for the very basics like food, housing, medical care, and heating? Not hard at all 05/27/2024 PHQ-2 Answer Date Recorded PHQ-2 Total Score 0 05/27/2024 Hunger Vital Sign Answer Date Recorded Within the past 12 months, y ou worried that your food would run out before you got the money to buy more. Never true 05/27/20 24 Within the past 12 months, t he food you bought just didn't last and you didn't have money to get more. Never true 05/27/2024 PRAPARE - Transportation Answer Date Re corded In the past 12 months, has l ack of transportation kept you from medical appointments or from getting medications? No 05/07 In the past 12 months, has l ack of transportation kept you from meetings, work, or from getting things needed for daily living? No 05/27/2024 Housing Stability Vital Sign Answer Julian e Recorded In the last 12 months, was t here a time when you were not able to pay the mortgage or rent on time? No 05/27/2024 In the past 12 months, how m any times have you moved where you were living? 0 05/27/2024 At any time in the past 12 m [facility], were you homeless or living in a care home (including now)? No 05/27/2024 Personal Safety Answer Date Recorded Have you ever been in or are you currently in a harmful physical or emotional relationship or is someone making you feel afraid or unsafe? Denies 10/12/2024 Comments No Sex and Gender Information Value Date Recorded Sex Assigned at Not on file Legal Sex Female 1:42 PM CASHIER WRAPPER Gender Identity Not on file Sexual Orientation Not on file Obstetrics History Last Filed Vital Signs Vital Sign Reading Time Taken Comments Blood Pressure 140/64 11/08/2024 10:34 AM CDT Pulse 73 11/08/2024 10:34 AM CDT Temperature 36.4 C (97.5 F) 11/08/2024 10:34 AM CDT Respiratory Rate 18 11/08/2024 10:34 AM CDT Oxygen Saturation 100% 11/08/2024 10:34 AM CDT Inhaled Oxygen Concentration - - Weight 54.2 kg (119 lb 6.4 oz) 11/08/2024 10:34 AM CDT Height 152.4 cm (5') 10/12/2024 4:09 PM CDT Body Mass Index 23.32 10/12/2024 4:09 PM CDT Plan of Treatment Health Maintenance Due Date Last Done Comments Osteoporosis Screening-Bone Density Scan 1945 DTaP/Tdap/Td Vaccine (1 - Tdap) 02/08/1956 Hepatitis B Screening 1963 Pneumococcal vaccine 65+ (1 of 2 - PCV) 02/08/1964 Well Visit 65+ 2010 Zoster Vaccine (1 of 2) 03/28/2016 02/01/2016 Covid-19 Vaccine ( season) 2024 06/18/2021, 10/01/2020, 09/10/2020 Influenza Vaccine (Season Ended) 2025 05/04/20 16, 02/01/2016 Depression Screening 05/27/2025 05/27/2024 Fall Risk Assessment 07/16/2025 07/16/2024, 06/07/20 Hepatitis C Screening Completed 06/21/2024 Medical Devices Implanted Type Area 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 Device Identifier Shelf Expiration Date Model / Serial / Lot [employer] Justice Systemss doubleTwist Allian Airplane Coverer Anastomotic Microvascular Mcclain Stainless Steel Baxley Airplane Coverer 4.0mm [id number] - S0 - [id number] Implanted:Qty: 1 on 06/21/2024 by Onel Jensen MD at [facility] Other - see comments Left: Neck YesGraph Allian [id number] 10/12/2028 [id number] / 0 / [id number] Procedures Procedure Name Priority Date/Time Associated Diagnosis Comments CT FACIAL BONES W CONTRAST ED 10/12/2024 8:27 PM CDT EGFR STAT 10/12/2024 4:17 PM CDT DIFFERENTIAL AUTO STAT 10/12/2024 4:1 7 PM CDT COMPREHENSIVE METABOLIC PANEL STAT 10/12/2024 4:17 PM CDT CBC WITH AUTO DIFFERENTIAL STAT 10/12/2024 4:[address] SOFT TISSUE NECK WO CONTRAST ED 10/03/2024 9:10 PM CDT EGFR STAT 10/03/2024 3:38 PM CDT DIFFERENTIAL AUTO STAT 10/03/2024 3:3 8 PM CDT CBC WITH AUTO DIFFERENTIAL STAT 10/03/2024 3:38 PM CDT COMPREHENSIVE METABOLIC PANEL STAT 10/03/2024 3:38 PM CDT RAD ONC ARIA SESSION SUMMARY 09/29/2024 9:53 AM CDT RAD ONC ARIA SESSION SUMMARY 09/28/2024 9:53 AM CDT RAD ONC ARIA SESSION SUMMARY 09/27/2024 9:51 AM CDT RAD ONC ARIA SESSION SUMMARY 09/26/2024 9:51 AM CDT RAD ONC ARIA SESSION SUMMARY 09/23/2024 9:54 AM CDT RAD ONC ARIA SESSION SUMMARY 09/22/2024 9:54 AM CDT RAD ONC ARIA SESSION SUMMARY 09/21/2024 9:56 AM CDT RAD ONC ARIA SESSION SUMMARY 09/20/2024 9:52 AM CDT RAD ONC ARIA SESSION SUMMARY 09/19/2024 9:52 AM CDT RAD ONC ARIA SESSION SUMMARY 09/16/2024 9:52 AM CDT RAD ONC ARIA SESSION SUMMARY 09/15/2024 9:51 AM CDT RAD ONC ARIA SESSION SUMMARY 09/14/2024 9:58 AM CDT RAD ONC [place] [id number]|2024-11-17 14:01:00|2024-11-17 14:01:00|XMS_ITS|BKG DAZAYON|External Medical Summaries|[id number]|" Oncology Summary Created on: November 17, 2024 Tea Turner : 1945 Sex: Female Author Organization [facility] Address [facility] [place] [address] Care Team Providers Care Set Up Mechanic Crown Assembly Machine Name Role Phone Felicia Bishop RN Unavailable UnavailBecki Meza LCSW Unavailable Unavaila Onel Choudhury MD Unavailable [phone] Rafael Correia MD Primary Care Provider Active Problems * This document contains information received from the source organization and may not represent a complete record from that organization. Problem Noted Date Diagnosed Date Punctate epithelial keratopathy of both eyes Assessment & Plan (10/29/2024 3:27 PM CDT): --Initially seen 10/12/24 at outside ED and noted to have discharge, injection and corneal abrasion OS. There was also concern for possible preseptal cellulitis for which she was started on 7 day course of Augmentin in addition to topical moxi and lubricating ointment. 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 She denies pain. Exam notable for 4mm lag OS and bilateral PEE, no corneal abrasion noted. No evidence of preseptal cellulitis. PLAN --Okay to stop moxi --PFAT PRN --Lubricating ointment nightly / PRN --Patient and family to follow locally with 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 Cr up to 5.9 on 07/10 - Pt has CKD3b despite near normal Cr value and is predisposed to holding on to any excess K in po intake or due to decreased clearance of K from kidneys from medications - agree with discontinuing losartan on 07/10. - agree with changing from jevity to nepro for tube feeds. Would recommend changing pureed diet to low K pureed diet -monitor K daily; give lokelma 10 g TID X 1 day to help decrease K given Cr increasing today. Stage 3b chronic kidney disease 07/12/2024 Assessment & Plan (07/13/2024 9:18 AM CASHIER WRAPPER): Cr fluctuating between 1-1.3 this hospital stay. Her baseline Cr prior to admission was recorded at 1.2 - Cr of 1.3 most likely represents fluctuating within baseline and not true AMMY despite misleading red abnormal alerts in epic - Cr increase to 1.4 today. Could represent developing AMMY. No recent contrast; only possible nephrotoxins would be augmentin or PPI AIN. Check urinalysis, urine sodium, urine osm. Pt appears fairly euvolemic; certainly no evidence of volume overload. Trial 500 cc of normal saline today. Hyperglycemia 07/12/2024 Assessment & Plan (07/12/2024 1:50 PM CASHIER WRAPPER): A1c of 5.7. On SSI. Subq insulin discontinued yesterday. Blood sugars normal. Hypertension 07/12/2024 Assessment & Plan (07/13/2024 9:18 AM CASHIER WRAPPER): Blood pressures normal. 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 Past Treatment and Therapy Plans Radiation Treatments * Course [id number] 08/16/2024 - 09/29/2024 Treatment Period Energy Fraction Dose Fractions Total Dose Plans Planned H&N 08/16/2024 - 09/29/2024 200 33 / 6,600 Reference Points Delivered [id number] 08/16/2024 - 09/29/2024 6,600 Lifetime Dose Tracking * Chemical Lifetime Dose Automatic Entry Manual Entr y Fluoro Time 1.9 minutes 1.9 minutes 0 minutes Air kerma at the reference point (Ka,r) 13.2 mGy 1 3.2 mGy 0 mGy DLP 569 mGycm 569 mGycm 0 mGycm "
--- OUTSIDE RECORDS SUMMARY | 2024-11-17 14:01 | XMS_ITS | Clinical Summary ---
Author Organization [facility] Address [address], [place] [address] Phone Care Team Providers Care Porcelain Slusher Name Role Phone Dorothy Gupta MD Primary Care Provider [phone] Allergies Active Allergy Reactions Criticality Noted Date Comments Cedric Inhibitors Cough 01/11/2019 Medications pantoprazole (PROTONIX) 40 MG EC tablet 1 tab/cap bid 0 6 Active magnesium oxide (MAG-OX) 400 MG tablet 1 tab/cap qday 0 6 Active gemfibrozil (LOPID) 600 MG tablet Take 600 mg by mouth daily Active tacrolimus (PROTOPIC) 0.1 % ointment APPLY TO RASH ON FACE TWICE DAILY NEEDED 0 Active carvedilol (COREG) 3.125 MG tablet TAKE 1 TABLET BY MOUTH EVERY 12 HOURS WITH A MEAL/FOOD 1 Active amLODIPine (NORVASC) 5 MG tablet Take 5 mg by mouth 1 (one) time each day in the morning 1 Active tiZANidine (ZANAFLEX) 2 MG tablet TAKE 1 TABLET BY MOUTH THREE TIMES DAILY NEEDED FOR MUSCLE SPASTICITY 1 Active losartan (COZAAR) 25 MG tablet Take 1 tablet (25 mg total) by mouth 1 (one) time each day for 90 doses 90 tablet 3 2 Active meclizine (ANTIVERT) 12.5 MG tablet TAKE 1 TABLET BY MOUTH THREE TIMES DAILY NEEDED FOR DIZZINESS 2 Active Active Problems Problem Noted Date Diagnosed Date History of iron deficiency 07/08/2021 Leukopenia 06/08/2018 Hypo-osmolality and hyponatremia 12/08/2017 Hypertensive chronic kidney disease with stage 1 through stage 4 chronic kidney disease, or unspecified chronic kidney disease 12/08/2017 Meningioma 10/06/2017 Iron deficiency 05/19/2016 Cirrhosis of liver 03/14/2016 Chronic kidney disease, stage 3 (moderate) 01/19 Essential (primary) hypertension 01/20/2016 Other hyperlipidemia 01/20/2016 Overview (09/18/2018): Converted unresolved ICD9, potential mismatch. Immunizations Immunization Administration Dates Next Due Influenza Split High Dose Preservative Free IM 1 Family History Medical History Relation Comments Hypertensive disorder Father Hypertensive disorder Mother Hypertensive disorder Sibling Kidney disease Sibling Kidney stone Neg Hx Relation Status Comments Father Mother Sibling Social History Tobacco Use Types Packs/Day Years Used Date Smoking Tobacco: Former Smokeless Tobacco: Never Comments:Smoking History Pac ks/day: quit - in 2000 Alcohol Use Standard Drinks/Week Comments Yes 0 (1 standard drink = 0.6 oz pure alcohol) Alcoholic Drinks/day: 4 - 6 beers/day Comments Unknown Sex and Gender Information Value Date Recorded Sex Assigned at Not on file Legal Sex Female 7:38 AM [facility] Gender Identity Not on file Sexual Orientation Not on file Last Filed Vital Signs Vital Sign Reading Time Taken Comments Blood Pressure 136/70 01/01/2022 9:17 AM CDT Pulse - - Temperature 36.4 C (97.5 F) 01/01/2022 9:17 AM CDT Respiratory Rate 18 01/01/2022 9:17 AM CDT Oxygen Saturation - - Inhaled Oxygen Concentration - - Weight 58.5 kg (129 lb) 01/01/2022 9:17 AM CDT Height 149.9 cm (4' 11 ) 01/01/2022 9:17 AM CDT Body Mass Index 26.05 01/01/2022 9:17 AM CDT Plan of Treatment Health Maintenance Due Date Last Done Comments Pneumococcal PPSV23/PCV13 65 + Years / Low and Medium Risk (1 of 4 - PCV) 1995 COVID-19 Vaccine ( - season) 2024, 09/10/2020 Influenza Vaccine (Season Ended) 2025 Insurance MEDICARE [facility] Care Teams Porcelain Slusher Relationship Specialty Start Date End Date Dorothy Gupta MD [address] [facility] [address] [facility] [place] [address] PCP - General Internal Medicine 02/16/20
--- OUTSIDE RECORDS SUMMARY | 2024-11-17 14:01 | XMS_ITS | Clinical Summary ---
Author Organization [facility] Address [address] [place] [address] Care Team Providers Care Airplane First Officer Name Role Phone Unavailable Primary Care Provider Unavailabl e Source Comments [facility],non-owned Affiliates and Associated Physician Practices is amultiple site organization consisting of ambulatory clinics and hospital sitesin [place], [place], [place] and [place]. This disclosure is being madepursuant to the Care Everywhere program and may not contain all information available regarding this patient. Last updated 18.[facility] [employer] Social History Tobacco Use Types Packs/Day Years Used Date Smoking Tobacco: Never Assessed Comments Unknown Sex and Gender Information Value Date Recorded Sex Assigned at Not on file Legal Sex Female 11:20 AM CDT Gender Identity Not on file Sexual Orientation Not on file Plan of Treatment Health Maintenance Due Date Last Done Comments BONE DENSITY TESTING 1945 MEDICARE AWV 12 MONTHS 1945 DTAP/TDAP/TD VACCINES (1 - Tdap) 02/08/1964 PNEUMOCOCCAL VACCINE 50+ (1 of 1 - PCV) 1995 ZOSTER VACCINE (1 of 2) 1995 Respiratory Syncytial Virus (RSV) Vaccine Pt: or over 60 yrs (1 - 1-dose 75+ series) 02/08/2020 COVID-19 VACCINE ( - 2023-2 5 season) 2024 DEPRESSION SCREENING 07/06/2024 INFLUENZA VACCINE (Season Ended) 2025 HEPATITIS B VACCINE Aged Out No longe r eligible based on patient's age to complete this topic HIB VACCINE Aged Out No longer eligi ble based on patient's age to complete this topic HPV VACCINE Aged Out No longer eligi ble based on patient's age to complete this topic MENINGOCOCCAL (Group B) VACC INE SHARED DECISION-MAKING Aged Out No longer eligibl e based on patient's age to complete this topic MENINGOCOCCAL GROUPS A/C/Y/W VACCINE Aged Out No longer eligible b ased on patient's age to complete this topic Insurance MEDICARE [facility]
--- OUTSIDE RECORDS SUMMARY | 2024-11-17 14:01 | XMS_ITS | Encounter Summary ---
Author Organization [facility] Address [address] [place] [address] Phone Care Team Providers Care Human Resources Records Clerk Name Role Phone Victor Hugo Dudley Unavailable [phone] Dorothy Gupta MD Primary Care Provider [phone] Simon William MD Unavailable [phone] Encounter Details Date Type Department Care Team (Late st Contact Info) Description 09/29/2024 Results Follow-Up [facility] [address] [place] [id number] Conchita Huizar Claribel, PAC [address] [place] [address] VITAMIN B12, FERRITIN, CMP (COMPREHENSIVE METABOLIC PANEL), Additional followed-up results: 2 Social History Tobacco Use Types Packs/Day Years Used Date Smoking Tobacco: Former Cigarettes 1 50 1 955 - 2005 Smokeless Tobacco: Never Alcohol Use Standard Drinks/Week Comments Yes 28 (1 standard drink = 0.6 oz pu re alcohol) Sexually Active Control Partners Comments Not Currently Comments No Sex and Gender Information Value Date Recorded Sex Assigned at Not on file Legal Sex Female 12:04 AM CDT Gender Identity Not on file Sexual Orientation Not on file documented as of this encounter Plan of Treatment Upcoming Encounters Date Type Department Care Team (Late st Contact Info) Description 03/30/2025 11:00 AM CDT Lab [facility] [address] [place] [address] 04/06/2025 10:40 AM CDT Office Visit [facility] [address] [place] [address] Conchita Huizar Claribel, PAC [address] [place] [address] documented as of this encounter Visit Diagnoses Not on filedocumented in this encounter Care Teams Human Resources Records Clerk Relationship Specialty Start Date End Date Dorothy Gupta MD [address] [facility] [address] [place] [address] PCP - General Family Medicine 09/02/19 Victor Hugo Dudley DO Gastroenterology 04/23/16 Simon William MD [address] [place] [address] Consulting Physician Gastroenterology 10/17/21 documented as of this encounter
--- OUTSIDE RECORDS SUMMARY | 2024-11-17 14:02 | XMS_ITS | Continuity of Care Document ---
Author Name [facility] Organization [facility] Care Team Providers Care Guide Visitor Name Role Phone [facility] Unavailable Unavailable Procedures Combined list of: 1) Procedures from Department of Veterans Affairs facilities going back up to thelast 18 months, not all [place] non-surgical procedures are included; 2) All procedures from the Department of Defense facilities. Procedure Procedure Type Code Date Perfomer Comments Sourc e No data available for this section Ambulatory P harmacy Social History Combined list of available smoking, tobacco, and other social history from Department of Defense and Veterans Affairs facilities. Social History Type Response Date Comment Sourc e This section is an empty social history section. [facility] Assessment and Plan Combined list of future care activities from Department of Defense and Veterans Affairs facilities (e.g., assessment and plan notes, appointments, orders, and referrals). Additional future care activities may be listed in the Plan of Care section. Result Assessment and Plan Date Source Assessment and Plan No data available for this section 11/17/2024 Ambulatory Pharmacy Functional Status Combined list of recent functional and cognitive assessments recorded at [facility] Functional Hardy Measurement (FIM) Scale: 1 = Total Assistance (Subject = 0% +), 2 = Maximal Assistance (Subject = 25% +), 3 = Moderate Assistance (Subject = 50% +), 4 = Minimal Assistance (Subject = 75% +), 5 = Supervision, 6 = Modified Hardy (Device), 7 = Complete Hardy (Timely, Safely). Assessment Date/Time Source Assessment Type Assessment Skill Assessment Score Assessment Details No data available for this section
--- OUTSIDE RECORDS SUMMARY | 2024-11-17 14:02 | XMS_ITS | Clinical Summary ---
Author Organization [facility] Address [address] [place] [address] Care Team Providers Care Brass Wind Instrument Maker Name Role Phone Dorothy Gupta MD Primary Care Provider [phone] Social History Tobacco Use Types Packs/Day Years Used Date Smoking Tobacco: Never Assessed Comments Unknown Sex and Gender Information Value Date Recorded Sex Assigned at Not on file Legal Sex Female 2:41 PM CDT Gender Identity Not on file Sexual Orientation Not on file Plan of Treatment Health Maintenance Due Date Last Done Comments Hepatitis C 1963 DTaP, Tdap and Td Vaccines ( 1 - Tdap) 02/08/1964 Pneumococcal Vaccine: 50+ Years (1 of 1 - PCV) 1995 Zoster Vaccines (1 of 2) 1995 Annual Medicare Wellness Visit 2010 Dexa Scan (General) 2010 RSV Immunization or 60+ Years (1 - 1-dose 75+ series) 02/08/2020 COVID-19 Vaccine (4 - 2023-2 5 season) 2024 06/18/2021, 10/01/2020, 09/10/2020 PHQ-2 (Physician [place]) 07/06/2024 Meningococcal B Vaccine Aged Out No l onger eligible based on patient's age to complete this topic Meningococcal Vaccine Aged Out No mary barrera eligible based on patient's age to complete this topic RSV Immunizations Under 20 Months Aged Out No longer eligible b ased on patient's age to complete this topic Insurance MEDICARE Care Teams Brass Wind Instrument Maker Relationship Specialty Start Date End Date Dorothy Gupta MD [address] [facility] [address] [place] [address] PCP - General FAMILY PRACTICE 05/11/24
--- OUTSIDE RECORDS SUMMARY | 2024-11-17 14:02 | XMS_ITS | Referral Summary ---
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) 10/27/2024 Telephone [facility] [address] [place] [address] [address] [place] [address] Felicia Bishop RN Navigator Treatment End Check In 10/21/2024 2:00 PM CDT Office Visit [facility] Ophthalmology [address] [place] [phone] Nano Mancilla MD 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) 10/17/2024 Telephone [facility] Gastroenterology at [address] [place] [address] Fannie Silva LPN 10/12/2024 7:28 PM CDT - 10/13/2024 12:11 AM CDT Emergency [facility] Emergency Department [address] [place] [address] Abrasion of left cornea, initial encounter (Primary Dx) Discharge Disposition: Discharge to home or self care 10/12/2024 Telephone [facility] Ophthalmology [address] [place] [phone] Anthony Toscano MD FYI 10/12/2024 3:15 PM CDT Office Visit [facility] Medical Group [facility] Care at [address] [address] Mary Mora PA Left eye pain (Primary Dx); Facial pain 10/12/2024 Telephone [facility] Radiation Oncology [address] [place] [address] Deandre Duarte, KELSEA 10/05/2024 1:00 PM CDT Infusion [facility] Infusion [place] [address] [facility] [address] [place] [address] Dehydration (Primary Dx) 10/04/[address] [place] [address] Marly Viera, KELSEA 10/04/2024 Documentation [facility] Nutrition and Diabetic Education 1 [facility] [address] [place] [address] 10/03/2024 8:41 PM CDT - 10/04/2024 1:22 AM CDT Emergency [facility] Emergency Department [address] [place] [address] Lena Prabhakar MD Dehydration (Primary Dx); Oral pain Discharge Disposition: Discharge to home or self care 10/03/2024 Telephone [facility] Radiation Oncology [address] [place] [address] Deandre Duarte, KELSEA 09/29/2024 Orders Only RAD ONC TREATMENTS Miscellaneous, Not In File 09/29/2024 9:45 AM CDT Treatment [facility] [address] [place] [address] 09/28/2024 Orders Only RAD ONC TREATMENTS Miscellaneous, Not In File 09/28/2024 9:45 AM CDT Treatment [facility] [address] [place] [address] 09/27/2024 Telephone [facility] Nutrition [facility] Diabetic Education 1 [facility] [address] [place] [address] Jessica Cano, SELENE 09/27/2024 OTV [facility] Radiation Oncology [address] [place] [address] Oneil Montero MD 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 Otolaryngology [address] [place] [address] [place] [phone] Vera Thompson, 09/26/2024 Orders Only RAD ONC TREATMENTS Miscellaneous, Not In File 09/26/2024 9:45 AM CDT Treatment [facility] [address] [place] [address] 09/23/2024 Orders Only RAD ONC TREATMENTS Miscellaneous, Not In File 09/23/2024 9:45 AM CDT Treatment [facility] [address] [place] [address] 09/22/2024 Orders Only RAD ONC TREATMENTS Miscellaneous, Not In File 09/22/2024 9:45 AM CDT Treatment [facility]iation [facility]cology [address] [place] [address] 09/21/2024 Orders Only RAD ONC TREATMENTS Miscellaneous, Not In File 09/21/2024 9:45 AM CDT Treatment [facility] [address] [place] [address] 09/20/2024 OTV [facility] Radiation Oncology [address] [place] [address] Orlando Smith MD 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) 09/20/2024 Orders Only RAD ONC TREATMENTS Miscellaneous, Not In File 09/20/2024 9:45 AM CDT Treatment [facility]iation [facility]cology [address] [place] [address] 09/19/2024 Orders Only RAD ONC TREATMENTS Miscellaneous, Not In File 09/19/2024 9:45 AM CDT Treatment [facility]iation [facility]cology [address] [place] [address] 09/16/2024 Orders Only RAD ONC TREATMENTS Miscellaneous, Not In File 09/16/2024 9:45 AM CDT Treatment [facility]iation [facility]cology [address] [place] [address] 09/15/2024 Orders Only RAD ONC TREATMENTS Miscellaneous, Not In File 09/15/2024 9:45 AM CDT Treatment [facility] [address] [place] [phone] 09/14/2024 Orders Only RAD ONC TREATMENTS Miscellaneous, Not In File 09/14/2024 9:45 AM CDT Treatment [facility] [address] [place] [address] 09/13/2024 OTV [facility] Radiation Oncology [address] [place] [address] Oneil Montero MD 09/13/2024 Orders Only RAD ONC TREATMENTS Miscellaneous, Not In File 09/13/2024 9:45 AM CDT Treatment [facility] [address] [place] [address] 09/12/2024 Orders Only RAD ONC TREATMENTS Miscellaneous, Not In File 09/12/2024 2:00 PM CDT Home Care Visit [facility] [address] [place] [address] Shakila Agustin, PT PT OASIS DISCHARGE 09/12/2024 9:45 AM CDT Treatment [facility] [address] [place] [address] 09/09/2024 Orders Only RAD ONC TREATMENTS Miscellaneous, Not In File 09/09/2024 9:45 AM MARKETING STRATEGY MANAGER Treatment [facility] [address] [place] [address] 09/08/2024 Orders Only RAD ONC TREATMENTS Miscellaneous, Not In File 09/08/2024 9:45 AM MARKETING STRATEGY MANAGER Treatment [facility] [address] [place] [address] 16[address] 09/07/2024 Orders Only RAD ONC TREATMENTS Miscellaneous, Not In File 09/07/2024 12:15 PM MARKETING STRATEGY MANAGER Home Care Visit [address] [place] [address] Liss Ocasio PTA PT HOME VISIT 09/07/2024 9:45 AM MARKETING STRATEGY MANAGER Treatment [facility] [address] [place] [address] 09/06/2024 Documentation [facility] Nutrition and Diabetic Education 1 [facility] [address] [place] [address] 09/06/2024 OTV [facility]iation [facility]cology [address] [place] [address] Oneil Montero MD 09/06/2024 Orders Only RAD ONC TREATMENTS Miscellaneous, Not In File 09/06/2024 9:45 AM MARKETING STRATEGY MANAGER Treatment [facility] [address] [place] [address] 09/05/2024 Orders Only RAD ONC TREATMENTS Miscellaneous, Not In File 09/05/2024 9:45 AM MARKETING STRATEGY MANAGER Treatment [facility]cology [address] [place] [address] 09/03/2024 1:30 PM MARKETING STRATEGY MANAGER Home Care Visit [address] [place] [address] Gerard Schreiber, KELSEA SN DISCIPLINE DISCHARGE 09/02/2024 Orders Only RAD ONC TREATMENTS Miscellaneous, Not In File 09/02/2024 9:45 AM MARKETING STRATEGY MANAGER Treatment [facility] [address] [place] [address] 09/01/2024 Home Care Visit [address] [place] [address] Antonella Hong, RN PRECISION DANCER DISCIPLINE DISCHARGE 09/01/2024 Home Care Visit [address] [place] [address] Antonella Hong, RN TELEPHONE ENCOUNTER 09/01/2024 Orders Only RAD ONC TREATMENTS Miscellaneous, Not In File 09/01/2024 3:00 PM MARKETING STRATEGY MANAGER Home Care Visit [address] [place] [address] Liss Ocasio PTA PT HOME VISIT 09/01/2024 9:45 AM MARKETING STRATEGY MANAGER Treatment [facility] [address] [place] [address] 08/31/2024 Home Care Visit [address] [place] [address] Shani Mott LCSW MAXILLOFACIAL PROSTHETICS DENTIST DISCIPLINE DISCHARGE 08/31/2024 Home Care Visit [address] [place] [address] Antonella Hong, RN TELEPHONE ENCOUNTER 08/31/2024 Home Care Visit [address] [place] [address] Shani Mott LCSW CASE COMMUNICATION 08/31/2024 Telephone [facility] Otolaryngology [address] [address] Vera Thompson, MS 08/31/2024 Telephone [facility] Nutrition and Diabetic Education 1 [facility] [address] [place] [address] Jessica Cano, SELENE 08/31/2024 Orders Only RAD ONC TREATMENTS Miscellaneous, Not In File 08/31/2024 9:45 AM MARKETING STRATEGY MANAGER Treatment [facility] [address] [place] [address] 08/30/2024 Telephone [facility] [address] [place] [address] Deandre Duarte RN 08/30/2024 OTV [facility]iation [facility]cology [address] [place] [address] Oneil Montero MD 08/30/2024 Orders Only RAD ONC TREATMENTS Miscellaneous, Not In File 08/30/2024 Home Care Visit [address] [place] [address] Franca Crow OT OT DISCIPLINE DISCHARGE 08/30/2024 9:45 AM MARKETING STRATEGY MANAGER Treatment [facility] [address] [place] [address] 08/29/2024 Orders Only RAD ONC TREATMENTS Miscellaneous, Not In File 08/29/2024 2:30 PM MARKETING STRATEGY MANAGER Home Care Visit [address] [place] [address] Franca Crow, KRISTA OT REASSESSMENT 08/29/2024 9:45 AM MARKETING STRATEGY MANAGER Treatment [facility]cology [address] [place] [address] 08/27/2024 11:00 AM MARKETING STRATEGY MANAGER Home Care Visit [address] [place] [address] Tara Ogden, PRECISION DANCER PRECISION DANCER HOME VISIT 08/26/2024 Telephone [facility] Scheduling [facility] [place] [address] Resource, Homecare Scheduling 08/26/2024 Orders Only RAD ONC TREATMENTS Miscellaneous, Not In File 08/26/2024 9:45 AM MARKETING STRATEGY MANAGER Treatment [facility]cology [address] [place] [address] 08/25/2024 Orders Only RAD ONC TREATMENTS Miscellaneous, Not In File 08/25/2024 11:45 AM MARKETING STRATEGY MANAGER Home Care Visit [address] [place] [address] Genny Moe COTA OT HOME VISIT 08/25/2024 1:30 PM MARKETING STRATEGY MANAGER Home Care Visit [address] [place] [address] Gerard Schreiber RN SN HOME VISIT 08/25/2024 9:45 AM MARKETING STRATEGY MANAGER Treatment [facility] Radiation [facility]cology [address] [place] [address] 08/24/2024 Orders Only RAD ONC TREATMENTS Miscellaneous, Not In File 08/24/2024 9:45 AM MARKETING STRATEGY MANAGER Treatment [facility] Radiation Oncology [address] [place] [address] 08/23/2024 11:45 AM MARKETING STRATEGY MANAGER Home Care Visit [address] [place] [address] Genny Moe COTA OT HOME VISIT 08/23/2024 OTV [facility] Radiation Oncology [address] [place] [address] Oneil Montero MD 08/23/2024 Orders Only RAD ONC TREATMENTS Miscellaneous, Not In File 08/23/2024 9:45 AM MARKETING STRATEGY MANAGER Treatment [facility]iation [facility]cology [address] [place] [address] 08/23/2024 3:30 PM MARKETING STRATEGY MANAGER Home Care Visit [address] [place] [address] Liss Ocasio PTA PT HOME VISIT 08/22/2024 Orders Only RAD ONC TREATMENTS Miscellaneous, Not In File 08/22/2024 9:45 AM MARKETING STRATEGY MANAGER Treatment [facility] Radiation [facility]cology [address] [place] [address] from Last 3 Months Allergies Active Allergy Reactions Criticality Noted Date [...] with simethicone-dip henhydramine-li docaine (MAGIC MOUTHWASH) suspension [id number] s:Cancer of alveolus of maxilla (HCC) Swish [...] --Patient and family to follow locally with [facility], recommend dilated eye exam at next visit (deferred today per pt / family request) Dehydration 10/04/2024 Hyponatremia 07/12/2024 Assessment & Plan (07/13/2024 9:15 AM MARKETING STRATEGY MANAGER): present on labs since 06/30 and mild/stable between 130-125 -volume status is euvolemic; likely due to CKD -TSH normal; urine sodium and 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 [...] 07/12/2024 Assessment & Plan (07/12/2024 1:50 PM MARKETING STRATEGY MANAGER): A1c of 5.7. On SSI. Subq insulin discontinued yesterday. Blood sugars normal. Hypertension 07/12/2024 Assessment & Plan (07/13/2024 9:18 AM MARKETING STRATEGY MANAGER): Blood pressures normal. 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 Never 05/27/2024 Do you belong to any clubs o r organizations such as druze groups, unions, fraternal or athletic groups, or [...] any time in the past 12 m [facility], were you homeless or living in a skilled nursing (including now)? No 05/27/2024 Personal Safety Answer Date Recorded Have you ever been in or are you currently in a harmful physical or emotional relationship or is someone making you feel afraid or unsafe? Denies 10/12/2024 Comments No Sex and Gender Information Value Date Recorded Sex Assigned at Not on file Legal Sex Female 1:42 PM MARKETING STRATEGY MANAGER Gender Identity Not on file Sexual Orientation [...] 10/12/2024 4:09 PM CDT Plan of Treatment Not on file Medical Devices Implanted Type Area School Inspector Device Identifier Shelf Expiration Date Model / Serial / Lot [employer] Allian Still Photographer Anastomotic Microvascular Sabine [employer]ain[employer] Attala Still Photographer 4.0mm [id number] - S0 - [id number] Implanted:Qty: 1 on 06/21/2024 by Onel Jensen MD at [facility] Other - see comments Left: Neck [employer] Allian [id number] 10/12/2028 [id number] / 0 / [id number] Procedures Procedure Name Priority Date/Time Associated Diagnosis [...] SUMMARY 09/14/2024 9:58 AM CDT RAD ONC ARIA SESSION SUMMARY 09/13/2024 9:49 AM CDT RAD ONC ARIA SESSION SUMMARY 09/12/2024 9:55 AM CDT RAD ONC ARIA SESSION SUMMARY 09/09/2024 9:53 AM MARKETING STRATEGY MANAGER RAD ONC ARIA SESSION SUMMARY 09/08/2024 9:52 AM MARKETING STRATEGY MANAGER RAD ONC ARIA SESSION SUMMARY 09/07/2024 9:53 AM MARKETING STRATEGY MANAGER RAD ONC ARIA SESSION SUMMARY 09/06/2024 9:51 AM MARKETING STRATEGY MANAGER RAD ONC ARIA SESSION SUMMARY 09/05/2024 9:44 AM MARKETING STRATEGY MANAGER RAD ONC ARIA SESSION SUMMARY 09/02/2024 9:55 AM MARKETING STRATEGY MANAGER RAD ONC ARIA SESSION SUMMARY 09/01/2024 9:54 AM MARKETING STRATEGY MANAGER RAD ONC ARIA SESSION SUMMARY 08/31/2024 9:53 AM MARKETING STRATEGY MANAGER RAD ONC ARIA SESSION SUMMARY 08/30/2024 9:43 AM MARKETING STRATEGY MANAGER RAD ONC ARIA SESSION SUMMARY 08/29/2024 9:58 AM MARKETING STRATEGY MANAGER [id number]|2024-11-17 14:02:00|2024-11-17 14:01:00|XMS_ITS|BKG DAEMON|External Medical Summaries|[id number]|" Clinical Summary Created on: November 17, 2024 Tea Turner : 1945 Sex: Female Author Organization [facility] Address [address] [place] [address] Phone Care Team Providers Care Cardiothoracic Surgeon Name Role Phone Victor Hugo Dudley DO Unavailable [phone] Dorothy Gupta MD Primary Care Provider [phone] Simon William MD Unavailable [phone] Allergies Active Allergy Reactions Criticality Noted Date Comments Ibuprofen Other (see Comments) Low 06/14/2024 Due to stomach lining, taking too much of it Medications losartan (COZAAR) 25 MG Tablet Take 25 mg by mouth every morning. Active Cholecalciferol (VITAMIN D3) 2000 UNIT Capsule Take 1 Cap by mouth daily. Active Loratadine 10 MG Capsule Take 1 Cap by mouth daily. Active ferrous sulfate 325 (65 Fe) MG TabletIndicatio ns:Iron deficiency Take one tab by mouth every other day on an empty stomach with a source of vitamin C 90 Tablet 1 3 Active Additional Information Patient not taking.Reported on 10/04/2024 amLODIPine (NORVASC) 10 MG Tablet 10 mg by Enteral route daily. 5 Active carbidopa-levod opa (SINEMET) 25-100 MG Tablet 2 Tablets by Enteral route. 5 Active hydrALAZINE 10 MG Tablet 10 mg by Enteral route. 5 Active gabapentin (NEURONTIN) 250 MG/5ML Solution 100 mg by Enteral route. 5 Active cloNIDine (CATAPRES) 0.1 MG Tablet 0.1 mg by Enteral route. 5 Active donepezil (ARICEPT) 10 MG Tablet 10 mg by Enteral route. 5 Active fentaNYL (DURAGESIC) 12 MCG/HR PATCH 72 HR 1 Patch by Transdermal route. 5 Active Active Problems Problem Noted Date Diagnosed Date History of iron deficiency 07/08/2021 Screening breast examination 11/25/2020 Leukopenia 06/08/2018 Meningioma 10/06/2017 Iron deficiency 05/19/2016 Liver cirrhosis 03/14/2016 Anemia due to stage 4 chronic kidney disease Encounters Date Type Department Care Team Description 10/04/2024 11:45 AM CDT Office Visit [facility] Oncology Services [address] [place] [address] Joy Carrera, SEAFOOD FARMER, [place] Anemia due to stage 4 chronic kidney disease (HCC) (Primary Dx); Iron deficiency Discharge Disposition: Discharged to home or Selfcare 10/04/2024 Travel 09/29/2024 Results Follow-Up [facility] Oncology Services [address] [place] [address] Conchita Huizar Claribel, PAC VITAMIN B12, FERRITIN, CMP (COMPREHENSIVE METABOLIC PANEL), Additional followed-up results: 2 09/28/2024 Travel from Last 3 Months Immunizations Immunization Administration Dates Next Due Covid-19, Mrna, Lnp-s, Pf, 30 Mcg/0.3 Ml Dose (P fizer) 10/01/2020,09/10/2020 Influenza, high-dose, trivalent, PF 05/04/2016 Family History Medical History Relation Name Comments Hypertension Brother Relation Name Status Comments Brother Father Mother Social History Tobacco Use Types Packs/Day Years Used Date Smoking Tobacco: Former Cigarettes 1 50 1 955 - 2005 Smokeless Tobacco: Never Tobacco Cessation:Counseling Given: Not Answered Alcohol Use Standard Drinks/Week Comments Yes 28 [...] Sign Reading Time Taken Comments Blood Pressure 130/72 10/04/2024 11:51 AM CDT Pulse 93 10/04/2024 11:51 AM CDT Temperature 36.6 C (97.9 F) 10/04/2024 11:51 AM CDT Respiratory Rate 18 10/04/2024 11:5 1 AM CDT Oxygen Saturation 100% 10/04/2024 11: 51 AM CDT Inhaled Oxygen Concentration - - Weight 60.2 kg (132 lb 12.8 oz) 09/29/2023 9:10 AM CDT Height 152.4 cm (5') 09/29/2023 9:10 AM CDT Body Mass Index 25.94 09/29/2023 9:10 AM CDT Plan of Treatment Upcoming Encounters Date Type Department Care Team (Late st Contact Info) Description 03/30/2025 11:00 AM CDT [facility] [address] [place] [address] 04/06/2025 10:40 AM CDT Office [facility] [address] [place] [address] Conchita Huizar December, PAC [address] [place] [address] Health Maintenance Due Date Last Done Comments DEXA Bone Density 1945 Hepatitis C Virus (HCV) Screening 1945 TdaP Immunization 1945 Pneumococcal Immunization (5 0+ years) (1 of 2 - PCV) 02/08/1964 Cologuard 1995 Immunochemical Fecal Occult Blood 1995 Zoster Immunization (1 of 2) 1995 Hepatitis B Immunization (1 of 3 - Risk 3-dose series) 2005 Respiratory Syncytial Virus (RSV) Immunization (Adult) (1 - 1-dose 75+ series) 02/08/2020 SARS-COV-2 Immunization ( season) 2024 06/18/2021, 10/01/2020, 09/10/2020 Influenza Immunization (Seas on Ended) 2025 05/04/2016 Colonoscopy High Risk 09/04/2027 09/03/2022 , 04/21/2016 Colorectal Cancer Screening 09/04/2027 Colonoscopy 09/03/2032 09/03/2022, 04/21/2016 Meningococcal Immunization (ACWY) Aged Out No longer eligible b ased on patient's age to complete this topic Rotavirus Immunization Aged Out No lo nger eligible based on patient's age to complete this topic Procedures Procedure Name Priority Date/Time Associated Diagnosis Comments CBC WITH AUTO DIFFERENTIAL Routine 09/28/2024 10:51 AM CDT Anemia due to stage 4 chronic kidney disease (HCC) IRON,TRANSFERN,CALC.T IBC,%SAT Routine 09/28/2024 10:51 AM CDT Anemia due to stage 4 chronic kidney disease (HCC) CMP (COMPREHENSIVE METABOLIC PANEL) Routine 09/28/2024 10:51 AM CDT Anemia due to stage 4 chronic kidney disease (HCC) FERRITIN Routine 09/28/2024 10:51 AM CDT Anemia due to stage 4 chronic kidney disease (HCC) VITAMIN B12 Routine 09/28/2024 10:51 AM CDT Anemia due to stage 4 chronic kidney disease (HCC) COMPLETE BLOOD COUNT (CBC) WITH DIFF Routine 09/28/2024 10:51 AM CDT Anemia due to stage 4 chronic kidney disease (HCC) HM COLONOSCOPY Routine 04/21/2016 from Last 3 Months or Most Recently Relevant to Health Maintenance Results * IRON,TRANSFERN,CALC.TIBC,%SAT (09/28/2024 10:51 AM CDT) IRON 43 25 - 156 mcg/dL 09/28/2024 11:41 AM CDT [facility] TRANSFERRIN 215 173 - 360 mg/dL 09/28/2024 11:41 AM CDT [facility] TIBC, CALCULATED 269 265 - 497 mcg/dL 09/28/2024 11:41 AM CDT [facility] % SATURATION * 16 15 - 62 % 09/28/2024 11:41 AM CDT [facility] Blood Venipuncture / Unknown 09/28/2024 10:51 AM CDT 09/28/2024 11:15 AM CDT Conchita Huizar PAC CHEMISTRY ORDERABLES Heidi l Result [facility] [address] [place] [address] * (ABNORMAL) CBC WITH AUTO DIFFERENTIAL (09/28/2024 10:51 AM CDT) WBC 4.64 4.00 - 12.00 10(3)/mcL 09/28/2024 11:20 AM CDT [facility] RBC 3.81 3.80 - 5.30 10(6)/mcL 09/28/2024 11:20 AM CDT [facility] HEMOGLOBIN (HGB) 10.7(L) 12.0 - 15.8 g/dL 09/28/2024 11:20 AM CDT [facility] HEMATOCRIT (HCT) 35.2(L) 36.0 - 47.0 % 09/28/2024 11:20 AM CDT [facility] MCV 92.4 82.0 - 96.0 fL 09/28/2024 11:20 AM CDT [facility] MCH 28.1 26.0 - 34.0 pg 09/28/2024 11:20 AM CDT [facility] MCHC 30.4(L) 31.0 - 36.0 g/dL 09/28/2024 11:20 AM CDT [facility] PLATELET COUNT 264 140 - 440 10(3)/mcL 09/28/2024 11:20 AM CDT [facility] RDW 13.0 11.8 - 15.5 % 09/28/2024 11:20 AM CDT [facility] MPV 10.1 9.7 - 12.4 fL 09/28/2024 11:20 AM CDT [facility] NEUTROPHILS 77.4(H) 47.0 - 73.0 % 09/28/2024 11:20 AM CDT [facility] LYMPHOCYTES 8.2(L) 18.0 - 42.0 % 09/28/2024 11:20 AM CDT [facility] MONOCYTES 12.5(H) 4.0 - 12.0 % 09/28/2024 11:20 AM CDT [facility] EOSINOPHILS 1.5 0.0 - 5.0 % 09/28/2024 11:20 AM CDT [facility] BASOPHILS 0.4 0.0 - 1.0 % 09/28/2024 11:20 AM CDT [facility] ABSOLUTE NEUTROPHILS 3.59 1.60 - 7.70 10(3)/[facility] 09/28/2024 11:20 AM CDT [facility] ABSOLUTE LYMPHOCYTES 0.38(L) 1.30 - 3.20 10(3)/[facility] 09/28/2024 11:20 AM CDT [facility] ABSOLUTE MONOCYTES 0.58 0.20 - 1.00 10(3)/[facility] 09/28/2024 11:20 AM CDT [facility] ABSOLUTE EOSINOPHIL 0.07 0.00 - 0.40 10(3)/[facility] 09/28/2024 11:20 AM CDT [facility] ABSOLUTE BASOPHILS 0.02 0.00 - 0.10 10(3)/[facility] 09/28/2024 11:20 AM CDT [facility] NRBC PER 100 WBC 0 09/29/19 11:20 AM CDT [facility] Blood Venipuncture / Unknown 09/28/2024 10:51 AM CDT 09/28/2024 11:15 AM CDT [facility] PAC HEMATOLOGY ORDERABLES Fin al Result Performing Organization Address City/[facility]/ZIP Co de Phone Number [facility] [address] [place] [address] * (ABNORMAL) VITAMIN B12 (09/28/2024 10:51 AM CDT) VITAMIN B12 1,430(H) 213 - 816 pg/mL 09/28/2024 12:04 PM CDT [facility] Blood Venipuncture / Unknown 09/28/2024 10:51 AM CDT 09/28/2024 11:14 AM CDT [facility] CHEMISTRY ORDERABLES Heidi l Result Performing Organization Address [facility] Co de Phone Number [facility] [address] [place] [address] * (ABNORMAL) FERRITIN (09/28/2024 10:51 AM CDT) FERRITIN 520(H) 5 - 204 ng/mL 09/28/2024 11:55 AM CDT [facility] Blood Venipuncture / Unknown 09/28/2024 10:51 AM CDT 09/28/2024 11:15 AM CDT [facility] CHEMISTRY ORDERABLES Heidi l Result Performing Organization Address City/[facility]/ZIP Co de Phone Number [facility] [address] [place] [address] * (ABNORMAL) CMP (COMPREHENSIVE METABOLIC PANEL) (09/28/2024 10:51 AM CDT) SODIUM 137 136 - 145 mmol/L 09/28/2024 11:41 AM CDT [facility] POTASSIUM 4.6 3.5 - 5.1 mmol/L 09/28/2024 11:41 AM CDT [facility] CHLORIDE 99 98 - 107 mmol/L 09/28/2024 11:41 AM T [facility] CO2, VENOUS 26 22 - 30 mmol/L 09/28/2024 11:41 AM T [facility] ANION GAP 16.6 <18.0 mmol/L 09/28/2024 11:41 AM T [facility] GLUCOSE 102(H) 70 - 99 mg/dL 09/28/2024 11:41 AM T [facility] BUN 26(H) 10 - 20 mg/dL 09/28/2024 11:41 AM [facility] CREATININE, BLOOD 1.66(H) 0.60 - 1.00 mg/dL 09/28/2024 11:41 AM T [facility] BUN/CREATININE RATIO 16 12 - 20 ratio 09/28/2024 11:41 AM [facility] TOTAL PROTEIN 7.9 6.0 - 8.0 g/dL 09/28/2024 11:41 AM T [facility] ALBUMIN 4.0 3.5 - 5.0 g/dL 09/28/2024 11:41 AM [facility] A/G RATIO 1.0 1.0 - 2.2 09/28/2024 11:41 AM [facility] CALCIUM 10.1 8.7 - 10.5 mg/dL 09/28/2024 11:41 AM T [facility] T BILI 0.5 0.2 - 1.2 mg/dL 09/28/2024 11:41 AM T [facility] SGOT (AST) 50(H) <43 U/L 09/28/2024 11:41 AM T [facility] SGPT (ALT) <6 <56 U/L 09/28/2024 11:41 AM [facility] ALKALINE PHOSPHATASE 81 40 - 150 U/L 09/28/2024 11:41 AM T [facility] IS THE PATIENT REQUIRED TO BE FASTING? No 09/28/2024 11:41 AM CDT [facility] GFR, ESTIMATED 31(L) >=60 09/28/2024 11:41 AM CDT [facility] Comment: Creatinine Clearance is the preferred criteria for selecting drug dose adjustments in renally impaired patients. The GFR is provided as additional pertinent clinical information. GFR is reported in mL/min/1.73 sq m. Calculation based on the Chronic Kidney Disease Epidemiology Collaboration (CKD- EPI) equation refit without adjustment for race. GFR, EST. 36(L) >=60 025 11:41 AM CDT [facility] GFR, EST. NONAFRICAN 30(L) >=60 09/28/2024 11:41 AM CDT [facility] Blood Venipuncture / Unknown 09/28/2024 10:51 AM CDT 09/28/2024 11:15 AM CDT us Conchita Huizar PAC CHEMISTRY ORDERABLES Heidi l Result [facility] [address] [place] [address] * COLONOSCOPY (04/21/2016) us Isidro Garcia MD PROCEDURE/MINOR SURGICAL OR DERABLES Final Result from Last 3 Months or Most Recently Relevant to Health Maintenance Insurance MEDICARE [facility] Care Teams Cardiothoracic Surgeon Relationship Specialty Start Date End Date Dorothy Gupta MD [address] [place] [address] PCP - General Family Medicine 09/02/19 Victor Hugo Dudley DO Gastroenterology 04/23/16 Simon William MD [address] [place] [address] Consulting Physician Gastroenterology 10/17/21 "
--- NOTE | 2024-11-17 15:42 | REHSTMBS ---
Assessment and note entered by Kanchan Gee, BALE COVERER Modified Barium Swallow Evaluation Feeding Type Recommended Oral Food Consistency Pureed, Level 4 Liquid Consistency Thin (0) Treatment Recommendations Bolus Control Exercise,Lip ROM Exercise,Tongue Base Exercise,Tongue ROM Exercise ST Clinical Summary Patient seen this date for completion of an MBS study to evaluate swallow function and r/o aspiration risk. 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 Radiation therapy received August 2024 to September 2024. Since completion of radiation patient has experienced decrease nutritional intake with a 17 lb. weight loss. Outpatient speech therapy services have been initiated to address lingual/labial ROM for speech and swallowing. MBS completed this date noted premature spillage for all consistencies with trace residual noted in the vallecula and pyriform sinus due to decreased laryngeal elevation. However, patient clears residual with the completion of the swallow. Trace laryngeal penetration was viewed with mildly thick consistency with straw presentation due to decreased laryngeal elevation and bolus control. However material was ejected and cleared. Oral control of the bolus is impacted by lingual and labial movement and coordination but did not impact overall swallow function.
== END 2024-11-17 13:56 | disposition home or self-care (01) ==
PROVIDERS: PCP Family Medicine; Visit Provider Family Medicine
DX: R13.10 Dysphagia, unspecified (principal)
CPT/HCPCS: 92611

== ENCOUNTER 2024-12-13 14:15 | Outpatient (RCR) | payer MEDICARE, OTHER, SELFPAY ==
--- NOTE | 2024-11-14 14:23 | STOPEVAL1 ---
Assessment and note entered by Kanchan Gee, GAME DEV[employer]OPER Evaluation Information Assessment Status Evaluation Assessment Status Evaluation Diagnosis R13.0 ICD-10 Condition Codes (ST) Dysphagia, oropharyngeal phase R13.12 Onset September 29 2024 Subjective Information Patient referred by primary care physician for dysphagia evaluation due to concerns for adequate intake, oral preparation, decreased intelligibility, and swallow function post cancer surgery and radiation. Patient and family report since radiation that intake has declined greatly to approximately 3 1/2 cups puree daily, 1-2 ensure, and 20 ounces of water. Patient reports extra effort required for oral preparation and fatigues easily when taking po nutrition. Some oral residual is reported with puree intake and family reports patient alternates liquids with solids every 4 bites. Family reports ongoing nasal drip is present through out the day. Patient has hospitalized twice since radiation completion due to dehydration. Family reports 17 lb weight loss since August and radiation completion. Family has noted general decline in functional abilities for self feeding, mobility, and daily activities. Reported Pain Level Pain Score 6: FLACC Pain Score 0: Self Report Additional Pain Score Comments pt. reports pain with passive ROM in R UE and some resistance testing for strength in L UE, due to difficulty with verbal communication, pt. unable to give specific numerical value and describe. Plan of Care Interventions Treatment of Swallowing Dysfunction ST Services Indicated Yes Treatment Frequency and 1-2x week x 10 visits Duration These treatments will address the objective and functional deficits as defined above. The patient will be advanced safely and appropriately in order for the patient to progress towards his/her prior level of function. Additional exercises will be introduced and as well as a comprehensive home exercise program upon discharge, if needed, ?to ensure carryover of functional gains achieved in the clinic. This treatment plan has been reviewed and agreement upon by the patient.
--- NOTE | 2024-11-14 14:24 | OPREHPOC ---
Outpatient Therapy Plan of Care This is a Multidisciplinary Plan of Care that may contain components documented by all disciplines (PT, OT, and ST.) ST Problem 1 ST Problem #[address] Goal 1 Goal / Goal Update Patient will participate in home programming to improve carry over/generalization of skills to home environment. ST Problem 2 ST Problem #[address] Goal 1 Goal / Goal Update Dysphagia/Bedside Swallow: 1. Patient will complete lingual ROM exercises for bolus formation and speech intelligibility 70% accuracy min-mod cues 2. Patient will complete labial exercises for bolus formation/control/ and speech intelligibility 70% accuracy min-mod cues 3. Patient will demonstrate safe oral feeding for puree diet and thin liquid 85% of time with compensatory techniques based on MBS results and recommendations. (Pending MBS completion) 4. Patient will complete tongue base retraction exercises with 75% accuracy min cues.
--- NOTE | 2024-11-14 14:58 | OTOPEVAL1 ---
Assessment and note entered by Ceci Steven OT Evaluation Information Assessment Status Evaluation Assessment Status Evaluation ICD-10 Condition Codes (OT) Generalized muscle weakness M62.81 Subjective Information Pt. present with daughters, but due to speech difficulties, pt. in agreement to allow daughters to give prior level of function. Per family, pt. had a couple of falls in starting in January of 2024, pt. remained independent until March 2024 including driving, then falling again and shortly after developed oral cancer for which pt. received radiation treatment. Pt. went to day time therapy, 3 times per week, treatment at [facility] prior to radiation treatment, but due to increasing weakness with treatment pt. discontinued therapy services, until now. Pt. and family reports pt. transfers from bed to her sofa recliner where she stays during the day, to toilet/ walk in shower, pt. getting assistance for all mobilization without use of mobility device, but using gait belt. According to family, pt. has has flaccid R UE ( without effect on R LE) for about 2 years with unclear etiology, family reporting that she may have hurt it in accident bringing out her trash can. Family reports L UE is too weak and requires assist in all activities. Reported Pain Level Pain Score 6: FLACC Pain Score 0: Self Report Additional Pain Score Comments pt. reports pain with passive ROM in R UE and some resistance testing for strength in L UE, due to difficulty with verbal communication, pt. unable to give specific numerical value and describe. Assessment OT Clinical Summary Pt. is 79 year old F, presenting with generalized weakness, specifically in L UE at hand and wrist, due to deconditioning with recent radiation therapy for oral cancer, as well as dementia, and possible Parkinson's disease. Pt. has history of R UE functional loss, without clear etiology, displaying flexor tone and position, without functional use. Pt. and family reports pt. was previously independent in activities prior to later part of 2023, during which pt. repeatedly fell and then underwent cancer treatment, and is now mostly dependent in most ADLs and activities, and CGA for functional mobility and transfers. Pt. will benefit from skilled OT services including therapeutic exercises and activities to reduce R UE tone and pain, and to increase strength, ROM, and functional use of L UE to increase pt. particpation in functional activities and decreased caregiver burden. Plan of Care Interventions Therapeutic Exercise,Manual Therapy,Neuro Re- education,Therapeutic Activities,Self-Care/Home Management,Other Other Interventions caregiver education OT Services Indicated Yes These treatments will address the objective and functional deficits as defined above. The patient will be advanced safely and appropriately in order for the patient to progress towards his/her prior level of function. Additional exercises will be introduced and as well as a comprehensive home exercise program upon discharge, if needed, ?to ensure carryover of functional gains achieved in the clinic. This treatment plan has been reviewed and agreement upon by the patient.
--- NOTE | 2024-11-14 14:58 | OPREHPOC ---
Outpatient Therapy Plan of Care This is a Multidisciplinary Plan of Care that may contain components documented by all disciplines (PT, OT, and ST.) OT Problem 1 OT Problem #1 Knowledge Deficit OT Goal 1 Goal / Goal Update Pt. and caregivers with demonstrate independence in HEP Target Visit 20 OT Problem 2 OT Problem #2 Pain OT Goal 1 Goal / Goal Update Pt. and caregivers will report decreased pain in bilateral UE, as demonstrated by decreased report of pain and increased participation in passive and active ROM exercises, and functional activities Target Visit 20 OT Problem 3 OT Problem #3 Impaired Strength OT Goal 1 Goal / Goal Update Pt. will demonstrate increased strength, as demonstrated by increased repetition of resistance and weight bearing exercises, with report of increased use of L UE for 4 consistent functional activities at home OT Problem 4 OT Problem #4 Impaired Range of Motion OT Goal 1 Goal / Goal Update Pt. will demonstrate increased ROM, as demonstrated by increased functional reach and use of all joints of L UE with consistent participation in [address] home [address] Problem 1 ST Problem #[address] Goal 1 Goal / Goal Update Patient will participate in home programming to improve carry over/generalization of skills to home environment. ST Problem 2 ST Problem #[address] Goal 1 Goal / Goal Update Dysphagia/Bedside Swallow: 1. Patient will complete lingual ROM exercises for bolus formation and speech intelligibility 70% accuracy min-mod cues 2. Patient will complete labial exercises for bolus formation/control/ and speech intelligibility 70% accuracy min-mod cues 3. Patient will demonstrate safe oral feeding for puree diet and thin liquid 85% of time with compensatory techniques based on MBS results and recommendations. (Pending MBS completion) 4. Patient will complete tongue base retraction exercises with 75% accuracy min cues.
--- NOTE | 2024-11-16 16:48 | OPREHPOC ---
Outpatient Therapy Plan of Care This is a Multidisciplinary Plan of Care that may contain components documented by all disciplines (PT, OT, and ST.) PT Problem 1 PT Problem #1 Knowledge Deficit PT Goal 1 Goal / Goal Update *education to pt and family on HEP and how to assist pt with mobility Target Visit 10 PT Problem 2 PT Problem #2 Impaired Strength PT Goal 1 Goal / Goal Update *increase strength of LE's to improve standing and gait skills: 1* R LE gross 4-/5 2* L LE gross 4/5 3* pt transfer sit to stand with CGA one, with use of her L UE Target Visit 10 PT Problem 3 PT Problem #3 Impaired Functional Mobility PT Goal 1 Goal / Goal Update 1* pt transfer supine/sit with CGA one 2* pt sit at edge of bed without UE support and upright trunk x 2 minutes 3* pt transfer bed/w-c with minimal assist one Target Visit 10 PT Problem 4 PT Problem #4 Impaired Gait PT Goal 1 Goal / Goal Update * pt ambulate with assistive device and minimal assist x1 40' Target Visit 10 OT Problem 1 OT Problem #1 Knowledge Deficit OT Goal 1 Goal / Goal Update Pt. and caregivers with demonstrate independence in HEP Target Visit 20 OT Problem 2 OT Problem #2 Pain OT Goal 1 Goal / Goal Update Pt. and caregivers will report decreased pain in bilateral UE, as demonstrated by decreased report of pain and increased participation in passive and active ROM exercises, and functional activities Target Visit 20 OT Problem 3 OT Problem #3 Impaired Strength OT Goal 1 Goal / Goal Update Pt. will demonstrate increased strength, as demonstrated by increased repetition of resistance and weight bearing exercises, with report of increased use of L UE for 4 consistent functional activities at home OT Problem 4 OT Problem #4 Impaired Range of Motion OT Goal 1 Goal / Goal Update Pt. will demonstrate increased ROM, as demonstrated by increased functional reach and use of all joints of L UE with consistent participation in [address] at home [address] Problem 1 ST Problem #[address] Goal 1 Goal / Goal Update Patient will participate in home programming to improve carry over/generalization of skills to home environment. ST Problem 2 ST Problem #[address] Goal 1 Goal / Goal Update Dysphagia/Bedside Swallow: 1. Patient will complete lingual ROM exercises for bolus formation and speech intelligibility 70% accuracy min-mod cues 2. Patient will complete labial exercises for bolus formation/control/ and speech intelligibility 70% accuracy min-mod cues 3. Patient will demonstrate safe oral feeding for puree diet and thin liquid 85% of time with compensatory techniques based on MBS results and recommendations. (Pending MBS completion) 4. Patient will complete tongue base retraction exercises with 75% accuracy min cues.
--- NOTE | 2024-11-16 16:48 | PTOPEVAL1 ---
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 at home with family, walk with gait belt and holding onto 2 family members ~ 20' from room/room in house; have manual w/c for distances in community; have rollator at home- not using due to arm weakness; had HH therapy prior to radiation treatment, then getting more weakness and stopped therapy had day therapy in [place] 3x/wk, for 3-4 months- prior to cancer and treatment pt had oral cancer and surgery and declined since then- with hospitalization and surgery had blood clots in both legs, trach tube and medical issues. Goal: to be able to walk Reported Pain Level Pain Score Self Report Additional Pain Score Comments back hurts when walking; neck pain from surgery 10/13 Assessment PT Clinical Summary Tea has the diagnosis of weakness, decreased mobility, s/p CVA, cancer surgery on her mouth and radiation treatment. Her daughter Dorothea and Leia were present during eval and assisted with history, and activity at home. She is requiring 24 hour/day care and assist with all mobility from her family. With the evaluation: she requires minimal to moderate assist with w/c<> mat transfer, supine/ sit transfer and standing; she tends to lean posterior and to the L with sitting and standing. Weakness over both legs, R more weakness than L. Family is very supportive to pt. She has decreased communication skills and UE weakness-- is also receiving OT and Speech Therapy services. Skilled PT services are indicated to increase LE strength, bed mobility, transfer, sit and standing balance and gait skills, with education to pt and her family for HEP and how to best assist pt. Plan of Care Interventions Gait Training,Neuro Re-education,Patient/Caregiver Education,Therapeutic Activities,Therapeutic Exercise PT Services Indicated Yes Treatment Frequency and 2x/wk for 10 visits Duration These treatments will address the objective and functional deficits as defined above. The patient will be advanced safely and appropriately in order for the patient to progress towards his/her prior level of function. Additional exercises will be introduced and as well as a comprehensive home exercise program upon discharge, if needed, ?to ensure carryover of functional gains achieved in the clinic. This treatment plan has been reviewed and agreement upon by the patient.
--- NOTE | 2024-12-16 08:50 | PCPTNOTE ---
Daughter called and canceled all PT appointments, due to pt going to get a feeding tube.
--- NOTE | 2025-01-18 14:19 | OPREHPOC ---
Outpatient Therapy Plan of Care This is a Multidisciplinary Plan of Care that may contain components documented by all disciplines (PT, OT, and ST.) PT Problem 1 PT Problem #1 Knowledge Deficit PT Goal 1 Goal / Goal Update *education to pt and family on HEP and how to assist pt with mobility 01-18-25 d/c goals were not addressed pt canceled remaining appointments. Target Visit 10 PT Problem 2 PT Problem #2 Impaired Strength PT Goal 1 Goal / Goal Update *increase strength of LE's to improve standing and gait skills: 1* R LE gross 4-/5 2* L LE gross 4/5 3* pt transfer sit to stand with CGA one, with use of her L UE 01-18-25 d/c goals were not addressed pt canceled remaining appointments. Target Visit 10 PT Problem 3 PT Problem #3 Impaired Functional Mobility PT Goal 1 Goal / Goal Update 1* pt transfer supine/sit with CGA one 2* pt sit at edge of bed without UE support and upright trunk x 2 minutes 3* pt transfer bed/w-c with minimal assist one 01-18-25 d/c goals were not addressed pt canceled remaining appointments. Target Visit 10 PT Problem 4 PT Problem #4 Impaired Gait PT Goal 1 Goal / Goal Update * pt ambulate with assistive device and minimal assist x1 40' 01-18-25 d/c goals were not addressed pt canceled remaining appointments. Target Visit 10 OT Problem 1 OT Problem #1 Knowledge Deficit OT Goal 1 Goal / Goal Update Pt. and caregivers with demonstrate independence in HEP Target Visit 20 OT Problem 2 OT Problem #2 Pain OT Goal 1 Goal / Goal Update Pt. and caregivers will report decreased pain in bilateral UE, as demonstrated by decreased report of pain and increased participation in passive and active ROM exercises, and functional activities Target Visit 20 OT Problem 3 OT Problem #3 Impaired Strength OT Goal 1 Goal / Goal Update Pt. will demonstrate increased strength, as demonstrated by increased repetition of resistance and weight bearing exercises, with report of increased use of L UE for 4 consistent functional activities at home OT Problem 4 OT Problem #4 Impaired Range of Motion OT Goal 1 Goal / Goal Update Pt. will demonstrate increased ROM, as demonstrated by increased functional reach and use of all joints of L UE with consistent participation in [address] functional activities at home ST Problem 1 ST Problem #[address] Goal 1 Goal / Goal Update Patient will participate in home programming to improve carry over/generalization of skills to home environment. Progress Met ST Problem 2 ST Problem #[address] Goal 1 Goal / Goal Update Dysphagia/Bedside Swallow: 1. Patient will complete lingual ROM exercises for bolus formation and speech intelligibility 70% accuracy min-mod cues (goal not met dcd for medical status change) 2. Patient will complete labial exercises for bolus formation/control/ and speech intelligibility 70% accuracy min-mod cues(Goal not met dcd due to medical status change) 3. Patient will demonstrate safe oral feeding for puree diet and thin liquid 85% of time with compensatory techniques based on MBS results and recommendations. (Met completed) 4. Patient will complete tongue base retraction exercises with 75% accuracy min cues. (Goal not met dcd due to medical status change)
--- NOTE | 2025-01-18 14:20 | PTOPDC ---
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 Assessment PT Clinical Summary Tea has received a total of PT sessions, from November 16 to December 13. Her family then called and canceled remaining appointments due to medical issues. The goals were not addressed. Discharge PT. Plan of Care PT Services Indicated No
== END 2025-01-18 16:35 | disposition home or self-care (01) ==
LOC: ANHPT 14:15
PROVIDERS: PCP Family Medicine; Visit Provider Family Medicine
DX: C03.0 Malignant neoplasm of upper gum (principal); R13.10 Dysphagia, unspecified
CPT/HCPCS: 92507; 92526; 92610; 97110; 97116; 97161; 97162; 97166; 97530

== ENCOUNTER 2025-01-05 16:14 | Outpatient (CLI) | payer MEDICARE, OTHER, SELFPAY ==
--- OUTSIDE RECORDS SUMMARY | 2025-01-05 16:17 | XMS_ITS | Clinical Summary ---
Author Organization [facility] Address [address] [place] [id number] Care Team Providers Care Station Superintendent Name Role Phone Felicia Bishop RN Unavailable UnavailBecki Meza LCSW Unavailable Unavaila Onel Choudhury MD Unavailable [phone] Rafael Correia MD Primary Care Provider Allergies Active Allergy Reactions Criticality Noted Date Comments Ibuprofen Other (See comments) Low 06/14/2024 Due to stomach lining, taking too much of it Medications * This document contains information received from the source organization and may not represent a complete record from that organization. polyvinyl alcohol-povido ne (REFRESH CLASSIC) 1.4-0.6 % dropperette Administer 1 drop into both eyes 4 (four) times a day 10 each 07/16/19 25 Active carbidopa-levo dopa (SINEMET) 25-100 mg per tabletIndicati ons:Parkinsoni sm Administer per tube 2 tablets 3 (three) times a day 07/16/19 25 Active cloNIDine (CATAPRES) 0.1 mg tabletIndicati ons:hypertensi on Administer per tube 1 tablet (0.1 mg total) 3 (three) times a day 07/16/19 25 Active donepeziL (ARICEPT) 10 mg tabletIndicati ons:Mild to Moderate Alzheimer's Type Dementia Administer per tube 1 tablet (10 mg total) nightly 07/16/19 25 Active hydrALAZINE (APRESOLINE) 10 mg tabletIndicati ons:hypertensi on Administer per tube 1 tablet (10 mg total) 3 (three) times a day 07/16/19 25 Active naloxone (NARCAN) 4 mg/actuation spray,non-aero solIndications :Cancer of alveolus of maxilla (HCC) Administer 1 spray into affected nostril(s) as needed for opioid reversal Call 911. Administer a single spray in one nostril. Repeat every 3 minutes as needed if no or minimal response. 1 each 09/21/19 25 Active HYDROcodone-ac etaminophen (HYCET) solution 7.5-325 mg/15 mLIndications: Pain Take 15 mL by mouth every 4 (four) hours as needed for pain 473 mL 09/30/19 25 Active amLODIPine (NORVASC) 10 mg tabletIndicati ons:hypertensi on Administer per tube 1 tablet (10 mg total) every morning 30 tablet 12/23/19 25 2024 Active gabapentin (NEURONTIN) solution 250 mg/5 mLIndications: Pain Take 2 mL (100 mg total) by mouth every 8 (eight) hours as needed (neuropathic pain) 100 mL 12/23/19 25 2024 Active al & mag hydroxide simethicone-di phenhydramine- lidocaine-nyst atin (MAGIC MOUTHWASH) suspension Swish and swallow 15 mL every 4 (four) hours as needed (throat discomfort) 100 mL 12/23/19 25 2024 Active amLODIPine (NORVASC) 10 mg tabletIndicati ons:hypertensi on Administer per tube 1 tablet (10 mg total) every morning 30 tablet 1 07/17/19 25 2024 Discontinued docusate (COLACE) liquid 50 mg/5 mLIndications: constipation Administer per tube 10 mL (100 mg total) 2 (two) times a day as needed for constipation (1st Line) for up to 14 days 280 mL 07/16/19 25 2024 Discontinued(T herapy completed) gabapentin (NEURONTIN) solution 250 mg/5 mLIndications: Pain Administer per tube 2 mL (100 mg total) every 8 (eight) hours 180 mL 1 07/16/19 25 2024 Discontinued(R eorder) cholecalcifero l 25 mcg (1,000 unit) tabletIndicati ons:Osteoporos is,Vitamin D Deficiency Administer per tube 1 tablet (1,000 Units total) every morning 07/16/19 25 2024 Discontinued(T herapy completed) multivitamin tabletIndicati ons:Vitamin Deficiency Prevention Administer per tube 1 tablet every morning 07/16/19 25 2024 Discontinued(T herapy completed) thiamine (VITAMIN B-1) 50 mg tabletIndicati ons:Supplement Take 1 tablet (50 mg total) by mouth every morning 07/16/19 25 2024 Discontinued(T herapy completed) al & mag hydroxide with simethicone-di phenhydramine- lidocaine (MAGIC MOUTHWASH) suspension [id number] ns:Cancer of alveolus of maxilla (HCC) Swish and swallow 15 mL every 4 (four) hours as needed (Use 15minutes prior to meals, and at bedtime) 900 mL 3 08/16/19 25 2024 Discontinued(T herapy completed) fentaNYL (DURAGESIC) 12 mcg/hrIndicati ons:Cancer of alveolus of maxilla (HCC) Place 1 patch on the skin every third day for 72 hours 5 patch 09/23/19 25 2024 Discontinued(T herapy completed) fentaNYL (DURAGESIC) 12 mcg/hr Place 1 patch on the skin every third day for 72 hours for 15 days 5 patch 10/05/19 25 2024 Discontinued(T herapy completed) lidocaine viscous (XYLOCAINE) 2 % solutionIndica tions:Cancer of alveolus of maxilla (HCC) Take 5 mL by mouth 4 (four) times a day as needed (Mix 5mL of lidocaine with 5mL of Benadryl and 5mL of Maalox, 15 minutes prior to meals and at bedtime) 100 mL 3 10/06/19 25 2024 Discontinued(T herapy completed) carboxymethylc ellulose-glyce rn 0.5-0.9 % drops Administer 1-2 drops into affected eye(s) 4 (four) times a day 15 mL 10/13/19 25 2024 Discontinued(T herapy completed) amoxicillin-cl avulanate (AUGMENTIN) 875-125 mg per tablet Take 1 tablet by mouth every 12 (twelve) hours 14 tablet 10/13/19 25 2024 Discontinued(T herapy completed) moxifloxacin (VIGAMOX) 0.5 % ophthalmic solution ADMINISTER 1 DROP INTO THE LEFT EYE 4 TIMES A DAY FOR 7 DAYS. 10/14/19 25 2024 Discontinued(T herapy completed) gabapentin (NEURONTIN) solution 250 mg/5 mLIndications: Pain Administer per tube 2 mL (100 mg total) every 8 (eight) hours 180 mL 1 12/13/19 25 2024 Discontinued(S top Taking at Discharge) Active Problems Problem Noted Date Diagnosed Date Severe protein-calorie malnutrition 12/18/2024 Assessment & Plan (12/22/2024 2:38 PM CDT): Pt with history head/neck cancer s/p resection and radiation. Since then patient has known discomfort to solid foods, though not strictly odynophagia it significantly limits her ability to eat. Additionally has residual foul taste in mouth, likely due to retained food from slow eating due to head/neck cancer. Patient's BLEACH ANALYST evaluation did not test solid food per patient's request though patient has known discomfort (almost globus like sensation). Patient's current weight loss is secondary to insufficient caloric intake by PO alone, with patient now requiring tube feeding for goal. S/p PEG by IR 12/19, began advancing TF 12/20 to goal ~12/21 - dispo 12/22 with TF (home health). - RD c/s, BLEACH ANALYST eval - Return to pureed diet, crushed meds when able - Ordered daily BMP/Mg/Phos Assessment & Plan (12/21/2024 4:14 PM CDT): Pt with history head/neck cancer s/p resection and radiation. Since then patient has known discomfort to solid foods, though not strictly odynophagia it significantly limits her ability to eat. Additionally has residual foul taste in mouth, likely due to retained food from slow eating due to head/neck cancer. Patient's BLEACH ANALYST evaluation did not test solid food per patient's request though patient has known discomfort (almost globus like sensation). Patient's current weight loss is secondary to insufficient caloric intake by PO alone, with patient now requiring tube feeding for goal. S/p PEG by IR 12/19, began advancing TF 12/20 to goal ~12/21 - dispo 12/22 with TF (home health). - RD c/s, BLEACH ANALYST eval - Return to pureed diet, crushed meds when able - Ordered daily BMP/Mg/Phos Assessment & Plan (12/20/2024 4:06 PM CDT): Pt with history head/neck cancer s/p resection and radiation, now with ongoing weight loss and poor PO (dysphagia + residual foul taste in mouth likely due to retained food from hx head/neck cancer now requiring PEG tube to meet caloric goal. S/p PEG by IR 12/19, began advancing TF 12/20 to goal ~12/21 - RD c/s, BLEACH ANALYST eval - Return to pureed diet, crushed meds when able - Ordered daily BMP/Mg/Phos - Anticipate 2-3 days of TF advancement and refeeding monitoring Assessment & Plan (12/19/2024 4:28 PM CDT): Pt with history head/neck cancer s/p resection and radiation with ongoing weight loss and poor PO presenting for G-tube placement and TF initiation - IR c/s - G-tube to be placed today, then NPO w/ sips with meds until clearance by IR 12/20 - RD c/s, BLEACH ANALYST eval - Return to pureed diet, crushed meds when able - RD pended TF orders - Ordered daily BMP/Mg/Phos - Anticipate 2-3 days of TF advancement and refeeding monitoring Assessment & Plan (12/18/2024 9:12 PM CDT): - Pt with history head/neck cancer s/p resection and radiation with ongoing weight loss and poor PO presenting for G-tube placement and TF initiation - IR cs. RD cs. BLEACH ANALYST eval - For now continue pureed diet, crushed meds, NPO after mdn. - Check electrolytes, renal function, blood counts, coags with adm labs. 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 S/p resection, LND, L ALT flap 06/2024. Completed radiation therapy 09/2024. Last CT 11/2024 with post surgical changes and no evidence of local recurrence. 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 S/p resection, LND, L ALT flap 06/2024. Completed radiation therapy 09/2024. Last CT 11/2024 with post surgical changes and no evidence of local recurrence. 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 S/p resection, LND, L ALT flap 06/2024. Completed radiation therapy 09/2024. Last CT 11/2024 with post surgical changes and no evidence of local recurrence. 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 S/p resection, LND, L ALT flap 06/2024. Completed radiation therapy 09/2024. Last CT 11/2024 with post surgical changes and no evidence of local recurrence. 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 S/p resection, LND, L ALT flap 06/2024. Completed radiation therapy 09/2024 - Last CT 11/2024 with post surgical changes and no evidence of local recurrence - Continue home gabapentin (takes PRN) and PRN hydrocodone-APAP - Continue outpatient follow-up. Mild neurocognitive disorder possibly due to Parkinson's disease, without behavioral disturbance 12/18/2024 Assessment & Plan (12/22/2024 2:38 PM CDT): On chart hx, with poss hx CVA. Family interested with neurology f/u but on hold given cancer. - Has remained on donepezil and sinemet. Continue - PT/OT evals Assessment & Plan (12/21/2024 4:14 PM CDT): On chart hx, with poss hx CVA. Family interested with neurology f/u but on hold given cancer. - Has remained on donepezil and sinemet. Continue - PT/OT evals Assessment & Plan (12/20/2024 2:43 PM CDT): On chart hx, with poss hx CVA. Family interested with neurology f/u but on hold given cancer. - Has remained on donepezil and sinemet. Continue - PT/OT evals Assessment & Plan (12/19/2024 4:28 PM CDT): Chart history of same. Family reports possibly had CVA at some point and had been planning to see a neurologist but had been on hold with her cancer treatment and acute issues. - Has remained on donepezil and sinemet. Continue - PT/OT evals Assessment & Plan (12/18/2024 9:12 PM CDT): - Chart history of same. Family reports possibly had CVA at some point and had been planning to see a neurologist but had been on hold with her cancer treatment and acute issues. - Has remained on donepezil and sinemet. Continue - PT/OT evals. Open thigh wound, left, sequela 12/18/2024 Assessment & Plan (12/22/2024 2:38 PM CDT): Pt/family report slow to heal wound to L thigh (flap donor site). Have been doing a collagen dressing at home. Does not appear acutely infected - Wound RN c/s optimize nutrition Assessment & Plan (12/21/2024 4:14 PM CDT): Pt/family report slow to heal wound to L thigh (flap donor site). Have been doing a collagen dressing at home. Does not appear acutely infected - Wound RN c/s optimize nutrition Assessment & Plan (12/20/2024 2:43 PM CDT): Pt/family report slow to heal wound to L thigh (flap donor site). Have been doing a collagen dressing at home. Does not appear acutely infected - Wound RN c/s optimize nutrition Assessment & Plan (12/19/2024 4:28 PM CDT): Pt/family report slow to heal wound to L thigh (flap donor site). Have been doing a collagen dressing at home. Does not appear acutely infected - Wound RN c/s optimize nutrition Assessment & Plan (12/18/2024 9:12 PM CDT): - Pt/family report slow to heal wound to L thigh (flap donor site). Have been doing a collagen dressing at home - Does not appear acutely infected - Wound RN cs. 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, if sodium worsens could consider fluid restriction Hyperkalemia 07/12/2024 Assessment & Plan (07/13/2024 9:16 AM TERRAZZO INSTALLER): K >5 early in admission and since [...] chronic kidney disease 07/12/2024 Assessment & Plan (12/22/2024 2:38 PM CDT): Cr 1.16 initially, at baseline - CTM renal function Assessment & Plan (12/21/2024 4:14 PM CDT): Cr 1.16 initially, at baseline - CTM renal function Assessment & Plan (12/20/2024 2:43 PM CDT): Cr 1.16 initially, at baseline - CTM renal function Assessment & Plan (12/19/2024 4:28 PM CDT): Cr 1.16 initially, at baseline - CTM renal function Assessment & Plan (12/18/2024 9:12 PM CDT): - F/u Adm labs and monitor renal function Assessment & Plan (07/13/2024 9:18 AM TERRAZZO INSTALLER): Cr fluctuating between 1-1.3 this hospital stay. [...] 07/12/2024 Assessment & Plan (07/12/2024 1:50 PM TERRAZZO INSTALLER): A1c of 5.7. On SSI. Subq insulin discontinued yesterday. Blood sugars normal. Hypertension 07/12/2024 Assessment & Plan (12/22/2024 2:38 PM CDT): - Continue home amlodipine, clonidine, hydralazine Assessment & Plan (12/21/2024 4:14 PM CDT): - Continue home amlodipine, clonidine, hydralazine Assessment & Plan (12/20/2024 2:43 PM CDT): - Continue home amlodipine, clonidine, hydralazine Assessment & Plan (12/19/2024 7:40 AM CDT): - Continue home amlodipine, clonidine, hydralazine Assessment & Plan (12/18/2024 9:12 PM CDT): - Continue home amlodipine, clonidine, hydralazine Assessment & Plan (07/13/2024 9:18 AM TERRAZZO INSTALLER): Blood pressures normal. 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 S/p resection, LND, L ALT flap 06/2024. Completed radiation therapy 09/2024. Last CT 11/2024 with post surgical changes and no evidence of local recurrence. 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 S/p resection, LND, L ALT flap 06/2024. Completed radiation therapy 09/2024. Last CT 11/2024 with post surgical changes and no evidence of local recurrence. 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 S/p resection, LND, L ALT flap 06/2024. Completed radiation therapy 09/2024. Last CT 11/2024 with post surgical changes and no evidence of local recurrence. 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 S/p resection, LND, L ALT flap 06/2024. Completed radiation therapy 09/2024. Last CT 11/2024 with post surgical changes and no evidence of local recurrence. 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 S/p resection, LND, L ALT flap 06/2024. Completed radiation therapy 09/2024 - Last CT 11/2024 with post surgical changes and no evidence of local recurrence - Continue home gabapentin (takes PRN) and PRN hydrocodone-APAP - Continue outpatient follow-up. Encounters Date Type Department Care Team Description 01/02/2025 Orders Only [facility] Radiology [address] [place] [address] Mary Castorena RN 12/23/2024 SHOP/CHAP Initial Eligibility Review [facility] [address] [place] [address] Lucila Curiel LCSW 12/18/2024 7:50 PM CDT - 12/22/2024 3:12 PM CDT Hospital Encounter [facility] [address] [place] [address] Jarett Jones MD Neilson, Nathan Andrew, MD Fong, Jerry, MD PhD Master, Victor Hugo Patel MD 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); Severe protein-calorie malnutrition; Cancer of oral cavity (HCC) Discharge Disposition: Discharge to home, home health skilled care 12/12/2024 Orders Only [facility] Department of Otolaryngology Head-Neck Division [address] [facility] [address] [facility] Floor [address] [place] [phone] Onel Jensen MD 11/25/2024 Telephone [facility] [address] 4th [place] [address] Felicia Bishop RN Navigator Follow Up 11/22/2024 2:00 PM CDT Infusion [facility] [address] [place] [address] Dehydration (Primary Dx) 11/22/2024 Orders Only [facility] Radiation Oncology [address] [place] [address] Oneil Montero MD 11/21/2024 10:20 AM CDT Office Visit [facility] Department of Otolaryngology Head-Neck Division [address] [facility] [address] [facility] Floor [address] [place] [address] Onel Jensen MD Cancer of oral cavity (HCC) (Primary Dx) 11/21/2024 8:42 AM CDT - 11/21/2024 11:59 PM CDT Hospital Encounter [facility] - [place] [address] [facility] Floor 8 [place] [address] Head and neck cancer (HCC) Discharge Disposition: Discharge to home or self care 11/08/2024 10:00 AM CDT Office Visit [facility] Radiation Oncology [address] [place] [address] Oneil Montero MD 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) 10/27/2024 Telephone [facility] [address] [place] [address] 4th [place] [address] Felicia Bishop, magazine filler Treatment End Check In 10/21/2024 2:00 PM CDT Office Visit [facility] Ophthalmology [address] [place] [phone] Nano Mancilla MD 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) 10/17/2024 Telephone [facility] [place] [address] [place] [phone] Fannie Silva LPN 10/12/2024 7:28 PM CDT - 10/13/2024 12:11 AM CDT Emergency [facility] Emergency Department [address] [place] [address] Abrasion of left cornea, initial encounter (Primary Dx) Discharge Disposition: Discharge to home or self care 10/12/2024 3:15 PM CDT Office Visit [facility] at [address] [phone] Mary Mora PA Left eye pain (Primary Dx); Facial pain 10/12/2024 Telephone [facility] Ophthalmology [address] [place] [phone] Anthony Toscano MD FYI 10/12/2024 Telephone [facility] Radiation Oncology [address] [place] [address] Deandre Duarte RN from Last 3 Months Surgical History Surgery Date Site/Laterality Comments OVARIAN CYST REMOVAL TUBAL LIGATION 1970s COLONOSCOPY UPPER GASTROINTESTINAL ENDOSCOPY 07/06/2015 - 07/05/2016 IR G TUBE PLACEMENT PERCUTANEOUS 12/19/2024 N/A Medical History Medical History Date Comments CKD [...] materials from doctor or pharmacy Sometimes 09/12/2024 [facility] Utilities Answer Date Recorded In the past 12 months has e [employer], oil, or water [employer] threatened to shut off services in your [...] week 05/27/2024 How often do you attend [facility] or religion services? Never 05/27/2024 Do you belong to any clubs o r organizations such as episcopalian groups, unions, fraternal or athletic groups, or school groups? No 05/27/2024 How often do you attend meet ings of the clubs or organizations you belong to? Never 05/27/2024 Are you , , di vorced, , never , or living with a partner? 05/27/2024 AUDIT-C Answer Date Recorded Q1: How often do you have a drink containing alcohol? Never 12/19/2024 Q2: How many drinks containi ng alcohol do you have on a typical day when you are drinking? Patient does not drink Q3: How often do you have si x or more drinks on one occasion? Never 12/19/2024 Overall Financial Resource Strain (CARDIA) Answe r [...] were you homeless or living in a correction (including now)? No 05/27/2024 Personal Safety Answer Date Recorded Have you ever been in or are you currently in a harmful physical or emotional relationship or is someone making you feel afraid or unsafe? Denies 12/19/2024 Comments No Sex and Gender Information Value Date Recorded Sex Assigned at Not on file Legal Sex Female 1:42 PM TERRAZZO INSTALLER Gender Identity Not on file Sexual Orientation Not on file Obstetrics History Last Filed Vital Signs Vital Sign Reading Time Taken Comments Blood Pressure 125/55 12/22/2024 8:00 AM CDT Pulse 68 12/22/2024 8:00 AM CDT Temperature 36.9 C (98.4 F) 12/22/2024 6:00 AM CDT Respiratory Rate 18 12/22/2024 8:00 AM CDT Oxygen Saturation 100% 12/22/2024 6:00 AM CDT Inhaled Oxygen Concentration - - Weight 51 kg (112 lb 7 oz) 12/21/2024 5:51 AM CD T Height 152.4 cm (5') 12/19/2024 8:38 AM CDT Body Mass Index 21.96 12/19/2024 8:38 AM CDT Plan of Treatment Health Maintenance Due Date Last Done Comments Osteoporosis Screening-Bone Density Scan 1945 DTaP/Tdap/Td Vaccine (1 - Tdap) 02/08/1956 Hepatitis B Screening 1963 Pneumococcal vaccine 65+ (1 of 2 - PCV) 02/08/1964 Well Visit 65+ 2010 Zoster Vaccine (1 of 2) 03/28/2016 02/01/2016 Covid-19 Vaccine ( season) 2024 06/18/2021, 10/01/2020, 09/10/2020 Influenza Vaccine (#1) 2025 05/04/2016, 2015 Depression Screening 05/27/2025 05/27/2024 Fall Risk Assessment 12/22/2025 12/22/2024, 06/07/20 Hepatitis C Screening Completed 06/21/2024 Medical Devices Implanted Type Area Nursing Officer Device Identifier Shelf Expiration Date Model / Serial / Lot [employer] Allian Silverware Etcher Anastomotic Microvascular [employer] Euless Silverware Etcher 4.0mm [id number] - [id number] Implanted:Qty: 1 on 06/21/2024 by Onel Jensen MD at [facility] Other - see comments Left: Neck [employer] Ashleigh [id number] 10/12/2028 [id number] / 0 / [id number] Procedures Procedure Name Priority Date/Time Associated Diagnosis Comments EGFR Routine 12/21/2024 9:50 PM CDT PHOSPHORUS Routine 12/21/2024 9:50 PM CDT BASIC METABOLIC PANEL Routine 12/21/2024 9:50 PM CDT MAGNESIUM Routine 12/21/2024 9:50 PM CDT EGFR Routine 12/20/2024 11:10 PM CDT PHOSPHORUS Routine 12/20/2024 11:10 PM CDT BASIC METABOLIC PANEL Routine 12/20/2024 11:10 PM CDT MAGNESIUM Routine 12/20/2024 11:10 PM CDT BLEACH ANALYST EVALUATE AND TREAT Routine 12/20/2024 3:54 PM CDT EGFR Routine 12/19/2024 10:47 PM CDT DIFFERENTIAL AUTO Routine 12/19/2024 10: 47 PM CDT CBC WITH AUTO DIFFERENTIAL Routine 12/19/2024 10:47 PM CDT PHOSPHORUS Routine 12/19/2024 10:47 PM CDT MAGNESIUM Routine 12/19/2024 10:47 PM CDT BASIC METABOLIC PANEL Routine 12/19/2024 10:47 PM CDT IR G TUBE PLACEMENT PERCUTANEOUS IP Routine 12/19/2024 2:59 PM CDT HEMOGLOBIN A1C STAT 12/18/2024 9:36 PM CDT LIPID PANEL STAT 12/18/2024 9:36 PM CDT EGFR STAT 12/18/2024 9:36 PM CDT DIFFERENTIAL AUTO STAT 12/18/2024 9:3 6 PM CDT PROTIME-INR STAT 12/18/2024 9:36 PM CDT TYPE AND SCREEN STAT 12/18/2024 9:36 PM CDT CBC WITH AUTO DIFFERENTIAL STAT 12/18/2024 9:36 PM CDT HEPATIC FUNCTION PANEL STAT 12/18/2024 9:36 PM CDT PHOSPHORUS STAT 12/18/2024 9:36 PM CDT MAGNESIUM STAT 12/18/2024 9:36 PM CDT APTT STAT 12/18/2024 9:36 PM CDT BASIC METABOLIC PANEL STAT 12/18/2024 9:[address] SOFT TISSUE NECK W CONTRAST Schedule Routine, Read Routine (OP Routine) 11/21/2024 9:11 AM CDT Head and neck cancer (HCC) POCT CREATININE - DEVICE Routine 11/21/2024 8:[address] FACIAL BONES W CONTRAST ED 10/12/2024 8:27 PM CDT EGFR STAT 10/12/2024 4:17 PM CDT DIFFERENTIAL AUTO STAT 10/12/2024 4:1 7 PM CDT COMPREHENSIVE METABOLIC PANEL STAT 10/12/2024 4:17 PM CDT CBC WITH AUTO DIFFERENTIAL STAT 10/12/2024 4:17 PM CDT HEPATITIS C ANTIBODY STAT 06/21/2024 10:25 AM TERRAZZO INSTALLER General medical exam from Last 3 Months or Most Recently Relevant to Health Maintenance Results * eGFR (12/21/2024 9:50 PM CDT) eGFR 76 >=60 mL/min/1. 73 m2 Comment: Interpretive Data Reference Interval Normal >/= 90 mL/min/1.73m2 Mildly decreased* 60 - 89 mL/min/1.73m2 Mildly to moderately decreased 45 - 59 mL/min/1.73m2 Moderately to severely decreased 30 - 44 mL/min/1.73m2 Severely decreased 15 - 29 mL/min/1.73m2 Kidney Failure < 15 mL/min/1.73m2 *Relative to young adult level Estimated glomerular filtration rate is determined by the 2020 CKD-EPI equation recommended by the National Kidney Foundation (A Unifying Approach to GFR Estimation: Recommendations of the NKF-ASK Task Force on Reassessing the Inclusion of Race in Diagnosing Kidney Disease, JASN 2020). The CKD-EPI equation should not be used for patients with unstable renal function and has not been validated in children and those over 70. Current interpretive data was last reviewed 2021. Blood 12/21/2024 9:50 PM CDT 12/21/2024 11:11 PM CDT us Patrick Govea MD PhD LAB BLOOD ORDERABLES Final Res ult [facility] Department [place] [address] * Phosphorus (12/21/2024 9:50 PM CDT) Phosphorus, pl 3.4 2.3 - 4.5 mg/dL Blood 12/21/2024 9:50 PM CDT 12/21/2024 11:11 PM CDT us Patrick Govea MD PhD LAB BLOOD ORDERABLES Final Res ult [facility] [place] [address] * Magnesium (12/21/2024 9:50 PM CDT) [facility] Magnesium 2.0 1.4 - 2.5 mg/dL Blood 12/21/2024 9:50 PM CDT 12/21/2024 11:11 PM CDT Patrick Govea MD PhD LAB BLOOD ORDERABLES Final Res t Performing Organization Address [facility] Co de Phone Number [facility] [place] [address] * (ABNORMAL) Basic metabolic panel (12/21/2024 9:50 PM CDT) [facility] Sodium 131(L) 135 - 145 mmol/L Potassium, pl 4.2 3.3 - 4.9 mmol/L [facility] Chloride 93(L) 97 - 110 mmol/L [facility] CO2 30 22 - 32 mmol/L [facility] Anion gap 8 2 - 15 mmol/L [facility] BUN 15 6 - 25 mg/dL [facility] Creatinine 0.79 0.60 - 1.10 mg/dL [facility] Glucose 141 70 - 199 mg/dL [facility] Comment: Interpretive Data Fasting glucose >/= 126 mg/dl is diagnostic for diabetes. Fasting is defined as no caloric intake for at least 8 hours. Fasting glucose between 100 mg/dl to 125 mg/dl is diagnostic of prediabetes. In a patient with classic symptoms of hyperglycemia or hyperglycemic crisis, a random glucose >/= 200 mg/dl is diagnostic for diabetes. In the absence of unequivocal hyperglycemia, results should be confirmed by repeat testing. The classification and Diagnosis of Diabetes Diabetes Care 202; 46: S19-S40. Current interpretive data was last revised 2022. Calcium 9.7 8.5 - 10.3 mg/dL [facility] Blood 12/21/2024 9:50 PM CDT 12/21/2024 11:11 PM CDT Patrick Govea MD PhD LAB BLOOD ORDERABLES Final Res ult Performing Organization Address [facility] Co de Phone Number [facility] [place] [address] * (ABNORMAL) eGFR (12/20/2024 11:10 PM CDT) eGFR 55(L) >=60 mL/min/1. 73 m2 Comment: Interpretive Data Reference Interval Normal >/= 90 mL/min/1.73m2 Mildly decreased* 60 - 89 mL/min/1.73m2 Mildly to moderately decreased 45 - 59 mL/min/1.73m2 Moderately to severely decreased 30 - 44 mL/min/1.73m2 Severely decreased 15 - 29 mL/min/1.73m2 Kidney Failure < 15 mL/min/1.73m2 *Relative to young adult level Estimated glomerular filtration rate is determined by the 2020 CKD-EPI equation recommended by the National Kidney Foundation (A Unifying Approach to GFR Estimation: Recommendations of the NKF-ASK Task Force on Reassessing the Inclusion of Race in Diagnosing Kidney Disease, JASN 2020). The CKD-EPI equation should not be used for patients with unstable renal function and has not been validated in children and those over 70. Current interpretive data was last reviewed 2021. Blood 12/20/2024 11:1 0 PM CDT 12/21/2024 12:18 AM CDT Patrick Govea MD PhD LAB BLOOD ORDERABLES Final Res ult Performing Organization Address [facility]/ZIP Co de Phone Number [facility] Department [place] [address] * Phosphorus (12/20/2024 11:10 PM CDT) Phosphorus, pl 3.5 2.3 - 4.5 mg/dL Blood 12/20/2024 11:1 0 PM CDT 12/21/2024 12:18 AM CDT us Patrick Govea MD PhD LAB BLOOD ORDERABLES Final Res ult [facility] Department [place] [address] * Magnesium (12/20/2024 11:10 PM CDT) Pathologist [facility] Magnesium 2.0 1.4 - 2.5 mg/dL Blood 12/20/2024 11:1 0 PM CDT 12/21/2024 12:18 AM CDT us Patrick Govea MD PhD LAB BLOOD ORDERABLES Final Res ult Performing Organization Address [facility] de Phone Number [facility] Department [place] [address] * (ABNORMAL) Basic metabolic panel (12/20/2024 11:10 PM CDT) Pathologist [facility] Sodium 134(L) 135 - 145 mmol/L Potassium, pl 4.1 3.3 - 4.9 mmol/L [facility] Chloride 96(L) 97 - 110 mmol/L [facility] CO2 27 22 - 32 mmol/L [facility] Anion gap 11 2 - 15 mmol/L [facility] BUN 14 6 - 25 mg/dL [facility] Creatinine 1.03 0.60 - 1.10 mg/dL [facility] Glucose 96 70 - 199 mg/dL [facility] Comment: Interpretive Data Fasting glucose >/= 126 mg/dl is diagnostic for diabetes. Fasting is defined as no caloric intake for at least 8 hours. Fasting glucose between 100 mg/dl to 125 mg/dl is diagnostic of prediabetes. In a patient with classic symptoms of hyperglycemia or hyperglycemic crisis, a random glucose >/= 200 mg/dl is diagnostic for diabetes. In the absence of unequivocal hyperglycemia, results should be confirmed by repeat testing. The classification and Diagnosis of Diabetes Diabetes Care 2021; 46: S19-S40. Current interpretive data was last revised 2022. Calcium 9.5 8.5 - 10.3 mg/dL [facility] Blood 12/20/2024 11:1 0 PM CDT 12/21/2024 12:18 AM CDT us Patrick Govea MD PhD LAB BLOOD ORDERABLES Final Res ult [facility] Department [place] [address] * BLEACH ANALYST Evaluation and Treatment (12/20/2024 3:54 PM CDT) Narrative Manuel Torres, BLEACH ANALYST - 12/20/2024 3:54 PM CDT Manuel Torres SLP 12/20/2024 4:04 PM Speech-Language Pathology: Clinical Bedside Swallow HPI/PMH 9 y.o. 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 PMH: History of CVA, possible Parkinson disease, Stage 4 chronic kidney disease, HTN, GERD, anemia, prior smoker and prior history of alcoholism, seizures Pt with difficult to understand speech. History with assistance of family at bedside and chart review. Pt underwent resection 06/2024 and completed radiation 09/2024. Pt follows with Uday Jensen and Kylah. Pt family reports ongoing difficulty with PO intake and weight loss. Note weight remained largely stable until radiation was completed in september. Note her weight was 130s last fall and is currently 115. Weight 120s-115 in the last months. She had been recommended for a g-tube but wanted to hold off. They report currently doing pureed diet and all meds crushed in applesauce or pudding.. Seems to do ok with water/liquids. They report she doesn't like the taste of most things and seems to hold food in her mouth for a prolonged period of time which will trigger choking/coughing. Not intermittent pain with swallowing and sometimes feels fearful to swallow. Note chronic mouth/neck pain. No nausea/vomiting or SOB. Speech has remained stable and note continued frustration. Walks with assistance as has difficulty with balance/coordination with walker. .PDICTATION From notes appears she was ordered for G tube on 12/15 with IR and arranged for direct admission for tube placement and initiation. Pt and family agreeable to plan. Respiratory/Intubation Status:RA Imaging: Neck CT 11/21-Postsurgical change of left mastoidectomy, resection of the infratemporal fossa, left buccal space, and the left neck dissection as well as free flap reconstruction. No evidence of local recurrence. No cervical lymphadenopathy. Unchanged opacification of the left mastoid air cells and left middle ear cavity. Precautions: none PLOF: Extensive ST hx CSE at OSH 07/29/24-NGT removed. Continue with PO intake of IDDSI 0-4 and oral supplements as needed for adequate nutrition and hydration.Continue with ST to improve articulation/speech intelligibility as well as continue to improve swallowing efficiency and implement oral and pharyngeal exercises. She will follow up after d/c from for continued therapy. MBSS 07/08/24: Recommended PO puree and thin/regular. Moderate oral; mild pharyngeal swallow dysfunction with motor and sensory deficits characterized by the following: -Oral Phase Deficits: poor oral control, anterior spillage, poor oral clearance -Pharyngeal Phase Deficits: delayed swallow initiation, incomplete epiglottic inversion, reduced base of tongue retraction Pre-Op FEES 06/07/24 - Mild oral dysphagia (difficulty with mastication) r/t pain and difficulty tolerating dentures. Normal baseline pharyngeal swallow. Recommend continue solids as tolerated, continue thin liquids. Drink via straw. Current Diet Order: NPO Baseline Diet: puree and thin liquids per previous swallow testing and Pt and her daugther's report General Information Tea Turner 12/20/24 General Observations: Pain Score: 0 - No pain If pain >4, was RN notified? No Patient Stated Goal/Comments: Pt did not state any ST related goals. Clinical Impression & Professional Recommendations Diet Solids Recommendation: Pureed Diet Liquids Recommendations: Thin/regular Recommended Form of Medications: As tolerated (or via FT) Compensatory Strategies/Modifications: Alternate solids and liquids Postural Recommendations: Upright Assistance with feeding/swallowing: Assist with aggressive oral hygiene prior to po, Frequent supervision Specialty Instructions: good oral care Dysphagia Diagnosis: (at baseline swallow function) Overall Clinical Impression/Additional Information: Pt awake and following simple commands, she and her daughter report her swallowing has been going well but has very low appetite and experiences fullness quickly resulting in difficulty meeting nutrition/hydration needs. Oral mechanism exam remarkable for known free flap reconstruction on the left and reduced labial ROM on the left. Oral cavity is very dry. Proceeded with ice chips, sips of thin liquids via straw and tsps of puree. Demonstrated adequate oral manipulation and no s/s of aspiration. Pt reports she does not wish to advance her solids, often is difficult for her to swallow per her report. Enjoys pureed chicken pot pie, ice cream and water. Swallow function appears at baseline, no further BLEACH ANALYST indicated. Assessment Details & Results Consistencies Administered: Ice chips, Thin liquids, Purees MASA: [place] Assessment of Swallowing Ability (MASA) Alertness: Alert Cooperation: Cooperative Auditory Comprehension: No abnormality detected Respiration: Chest clear Respiratory Rate (for swallow): Able to control breath rate for swallow Aphasia: No abnormality detected Apraxia: No abnormality detected Dysarthria: Speech intelligible but obviously defective Saliva: No abnormality detected Lip Seal: Unilaterally weak/poor maintenance Tongue Movement: Mild impairment in range Tongue Strength: Minimal weakness Tongue Coordination: Mild incoordination Gag: No gag (did not assess) Palate: Unilaterally weak Cough Reflex: No deficit noted Voluntary Cough: No abnormality detected Voice: No abnormality detected Trach: No trach Oral Preparation: No deficits noted Bolus Clearance: Fully cleared Oral Transit: No deficits noted Pharyngeal Phase: Immediate laryngeal elevation Pharyngeal Response: No deficits noted MASA Score: 182 Dysphagia: No dysphagia detected (178-200) Aspiration Risk: No aspiration risk (170-200) Plan BLEACH ANALYST Frequency of Services during current admission: Discharge from this Service BLEACH ANALYST Recommendation (Add'l Services): No further BLEACH ANALYST indicated Next Visit Plan:No further ST warranted Additional Referrals: n/a Please reference care plan for treatment goals, if indicated. Discharge Summary Statement If this is the last swallow therapy visit, this serves as the discharge summary. us Victor Hugo Thao MD BLEACH ANALYST ORDERABLES Final Res ult * (ABNORMAL) eGFR (12/19/2024 10:47 PM CDT) eGFR 56(L) >=60 mL/min/1. 73 m2 Comment: Interpretive Data Reference Interval Normal >/= 90 mL/min/1.73m2 Mildly decreased* 60 - 89 mL/min/1.73m2 Mildly to moderately decreased 45 - 59 mL/min/1.73m2 Moderately to severely decreased 30 - 44 mL/min/1.73m2 Severely decreased 15 - 29 mL/min/1.73m2 Kidney Failure < 15 mL/min/1.73m2 *Relative to young adult level Estimated glomerular filtration rate is determined by the 2020 CKD-EPI equation recommended by the National Kidney Foundation (A Unifying Approach to GFR Estimation: Recommendations of the NKF-ASK Task Force on Reassessing the Inclusion of Race in Diagnosing Kidney Disease, JASN 2020). The CKD-EPI equation should not be used for patients with unstable renal function and has not been validated in children and those over 70. Current interpretive data was last reviewed 2021. Blood 12/19/2024 10:4 7 PM CDT 12/19/2024 11:11 PM CDT us Ariel Glez MD LAB BLOOD ORDERABLES Fi nal Result [facility] Department [place] [address] * (ABNORMAL) Differential, auto (12/19/2024 10:47 PM CDT) Neutrophil abs 3.37 1.50 - 6.50 K/cumm Imm gran abs 0.02 0.00 - 0.10 K/cumm [facility] Lymphocyte abs 0.40(L) 0.80 - 3.30 K/cumm [facility] Monocyte abs 0.46 0.20 - 0.80 K/cumm [facility] Eosinophil abs 0.07 0.00 - 0.50 K/cumm [facility] Basophil abs 0.02 0.00 - 0.10 K/cumm [facility] Neutrophil pct 77.6 % [facility] Comment: Interpretive Data Percent cell count reference ranges are not reported, since discordance with absolute values may lead to misinterpretation of CBC data. Current Interpretive Data was last revised on 2017. Imm gran pct 0.5 % [facility] Comment: Interpretive Data Percent cell count reference ranges are not reported, since discordance with absolute values may lead to misinterpretation of CBC data. Current Interpretive Data was last revised on 2017. Lymphocyte pct 9.2 % [facility] Comment: Interpretive Data Percent cell count reference ranges are not reported, since discordance with absolute values may lead to misinterpretation of CBC data. Current Interpretive Data was last revised on 2017. Monocyte pct 10.6 % [facility] Comment: Interpretive Data Percent cell count reference ranges are not reported, since discordance with absolute values may lead to misinterpretation of CBC data. Current Interpretive Data was last revised on 2017. Eosinophil pct 1.6 % [facility] Comment: Interpretive Data Percent cell count reference ranges are not reported, since discordance with absolute values may lead to misinterpretation of CBC data. Current Interpretive Data was last revised on 2017. Basophil pct 0.5 % [facility] Comment: Interpretive Data Percent cell count reference ranges are not reported, since discordance with absolute values may lead to misinterpretation of CBC data. Current Interpretive Data was last revised on 2017. Blood 12/19/2024 10:4 7 PM CDT 12/19/2024 11:11 PM CDT us Ariel Glez MD LAB BLOOD ORDERABLES Fi nal Result [facility] Department [place] [address] * (ABNORMAL) CBC with auto differential (12/19/2024 10:47 PM CDT) WBC 4.34 3.80 - 9.90 K/cumm Hgb 9.5(L) 11.9 - 15.5 g/dL [facility] Hct 29.0(L) 35.6 - 45.5 % [facility] Plt 245 150 - 400 K/cumm [facility] MPV 10.0 9.1 - 12.3 fL [facility] RBC 3.45(L) 3.90 - 5.20 M/cumm [facility] MCV 84.1 81.3 - 96.4 fL [facility] MCH 27.5 27.1 - 33.3 pg [facility] MCHC 32.8 32.3 - 35.7 g/dL [facility] RDW CV 13.6 11.1 - 14.9 % [facility] RDW SD 42.1 35.7 - 48.1 fL [facility] NRBC abs 0.00 0.00 - 0.01 K/cumm [facility] Blood 12/19/2024 10:4 7 PM CDT 12/19/2024 11:11 PM CDT Ariel Glez MD LAB BLOOD ORDERABLES Fi nal Result Performing Organization Address [facility] de Phone Number [facility] Department [place] [address] * Phosphorus (12/19/2024 10:47 PM CDT) Phosphorus, pl 3.7 2.3 - 4.5 mg/dL Blood 12/19/2024 10:4 7 PM CDT 12/19/2024 11:11 PM CDT Ariel Glez MD LAB BLOOD ORDERABLES Fi nal Result Performing Organization Address [facility] de Phone Number [facility] Department [place] [address] * Magnesium (12/19/2024 10:47 PM CDT) Magnesium 2.0 1.4 - 2.5 mg/dL Blood 12/19/2024 10:4 7 PM CDT 12/19/2024 11:11 PM CDT Ariel Glez MD LAB BLOOD ORDERABLES Fi nal Result Performing Organization Address [facility] Co de Phone Number [facility] Department [place] [address] * Basic metabolic panel (12/19/2024 10:47 PM CDT) Sodium 136 135 - 145 mmol/L Potassium, pl 4.2 3.3 - 4.9 mmol/L [facility] Chloride 100 97 - 110 mmol/L [facility] CO2 27 22 - 32 mmol/L [facility] Anion gap 9 2 - 15 mmol/L [facility] BUN 19 6 - 25 mg/dL [facility] Creatinine 1.02 0.60 - 1.10 mg/dL [facility] Glucose 87 70 - 199 mg/dL [facility] Comment: Interpretive Data Fasting glucose >/= 126 mg/dl is diagnostic for diabetes. Fasting is defined as no caloric intake for at least 8 hours. Fasting glucose between 100 mg/dl to 125 mg/dl is diagnostic of prediabetes. In a patient with classic symptoms of hyperglycemia or hyperglycemic crisis, a random glucose >/= 200 mg/dl is diagnostic for diabetes. In the absence of unequivocal hyperglycemia, results should be confirmed by repeat testing. The classification and Diagnosis of Diabetes Diabetes Care 2021; 46: S19-S40. Current interpretive data was last revised 2022. Calcium 9.6 8.5 - 10.3 mg/dL [facility] Blood 12/19/2024 10:4 7 PM CDT 12/19/2024 11:11 PM CDT us Ariel Glez MD LAB BLOOD ORDERABLES Fi nal Result [facility] Department [place] [address] * IR G Tube Placement Percutaneous (12/19/2024 2:59 PM CDT) Anatomical Region Laterality Modality Body N/A X-Ray Angiograph y 12/19/2024 3:46 PM CDT Impressions 12/22/2024 7:10 AM CDT Successful placement of a 16 Singaporean gastrostomy catheter with gastropexy. PLAN: The gastrostomy catheter will remain to gravity drainage overnight. It may be used for administration of liquid medications. The tube should be capped after administration of the medication for an hour and then reconnected to gravity drainage. The output should be recorded every shift. The patient will be examined in the morning prior to clearing the catheter for usage for tube feeds. Feedings will likely start in a day and be advanced to goal before discharge The gastropexy sutures are resorbable and do not need to be removed. Dictated by: Harshal Davis M.D. The radiology attending physician has personally reviewed this study, and had reviewed and/or edited this written report and agrees with it. Electronically signed by: Harshal Gomes MD Narrative 12/22/2024 7:10 AM CDT EXAMINATION: PERCUTANEOUS GASTROSTOMY CATHETER PLACEMENT INDICATION: 79-year-old female with history of left maxillary and buccal squamous cell carcinoma presenting with dysphagia and weight loss. ATTENDING PRESENCE: Harshal Gomes MD, the attending radiologist was present from the beginning to the end of the procedure. SEDATION: Procedural sedation was administered under the attending physician's direction and continuous monitoring by a trained nurse specialist who was independent from those actually performing the procedure. Total monitored sedation time was 25 minutes. TECHNIQUE: The risks, benefits and alternatives were discussed and informed consent was obtained. Prior to beginning the procedure, [place] Protocol was performed to confirm the patient's identity and the planned procedure. The fluoroscopy time has been recorded in the electronic medical record. Maximum sterile barriers including cap, mask, hand hygiene, sterile gloves, sterile gown, large sterile drape and 2% chlorhexidine for cutaneous antisepsis were used. The skin over the stomach was sterilely prepped, draped and infiltrated with 1% lidocaine and 1 mg of intravenous glucagon was administered. An NG tube was advanced into the stomach under fluoroscopic control and was then used to inject air to distend the stomach and fluoroscopy was used to determine a safe tract to the stomach. The stomach was then accessed under fluoroscopic guidance and 2 T-tacs were placed, which were anchored to the skin. The stomach was then accessed with an 18 gauge needle. The tract was dilated over a guidewire to 18 Singaporean. Next, an 20 Singaporean peel-away sheath was placed in the stomach and the guidewire and the inner dilator were removed. Subsequently, a 16 balloon retention type catheter was advanced into the stomach through the peel-away sheath and the sheath was removed. The balloon was inflated with 10 cc of dilute contrast. The catheter was secured to the skin with the bumper and connected to gravity drainage. ESTIMATED BLOOD LOSS: Minimal. CONDITION: Stable DISCHARGED TO: Patient care division. FINDINGS: Final fluoroscopic images demonstrate the gastrostomy catheter with its tip in the body of the stomach. No complications are identified. Procedure Note Harshal Gomes MD - 12/22/2024 EXAMINATION: PERCUTANEOUS GASTROSTOMY CATHETER PLACEMENT INDICATION: 79-year-old female with history of left maxillary and buccal squamous cell carcinoma presenting with dysphagia and weight loss. ATTENDING PRESENCE: Harshal Gomes MD, the attending radiologist was present from the beginning to the end of the procedure. SEDATION: Procedural sedation was administered under the attending physician's direction and continuous monitoring by a trained nurse specialist who was independent from those actually performing the procedure. Total monitored sedation time was 25 minutes. TECHNIQUE: The risks, benefits and alternatives were discussed and informed consent was obtained. Prior to beginning the procedure, [place] Protocol was performed to confirm the patient's identity and the planned procedure. The fluoroscopy time has been recorded in the electronic medical record. Maximum sterile barriers including cap, mask, hand hygiene, sterile gloves, sterile gown, large sterile drape and 2% chlorhexidine for cutaneous antisepsis were used. The skin over the stomach was sterilely prepped, draped and infiltrated with 1% lidocaine and 1 mg of intravenous glucagon was administered. An NG tube was advanced into the stomach under fluoroscopic control and was then used to inject air to distend the stomach and fluoroscopy was used to determine a safe tract to the stomach. The stomach was then accessed under fluoroscopic guidance and 2 T-tacs were placed, which were anchored to the skin. The stomach was then accessed with an 18 gauge needle. The tract was dilated over a guidewire to 18 Singaporean. Next, an 20 Singaporean peel-away sheath was placed in the stomach and the guidewire and the inner dilator were removed. Subsequently, a 16 balloon retention type catheter was advanced into the stomach through the peel-away sheath and the sheath was removed. The balloon was inflated with 10 cc of dilute contrast. The catheter was secured to the skin with the bumper and connected to gravity drainage. ESTIMATED BLOOD LOSS: Minimal. CONDITION: Stable DISCHARGED TO: Patient care division. FINDINGS: Final fluoroscopic images demonstrate the gastrostomy catheter with its tip in the body of the stomach. No complications are identified. IMPRESSION: Successful placement of a 16 Singaporean gastrostomy catheter with gastropexy. PLAN: The gastrostomy catheter will remain to gravity drainage overnight. It may be used for administration of liquid medications. The tube should be capped after administration of the medication for an hour and then reconnected to gravity drainage. The output should be recorded every shift. The patient will be examined in the morning prior to clearing the catheter for usage for tube feeds. Feedings will likely start in a day and be advanced to goal before discharge The gastropexy sutures are resorbable and do not need to be removed. Dictated by: Harshal Davis M.D. The radiology attending physician has personally reviewed this study, and had reviewed and/or edited this written report and agrees with it. Electronically signed by: Harshal Gomes MD us Victor Hugo Thao MD IMG IR PROCEDURES Final R esult * (ABNORMAL) eGFR (12/18/2024 9:36 PM CDT) eGFR 48(L) >=60 mL/min/1. 73 m2 Comment: Interpretive Data Reference Interval Normal >/= 90 mL/min/1.73m2 Mildly decreased* 60 - 89 mL/min/1.73m2 Mildly to moderately decreased 45 - 59 mL/min/1.73m2 Moderately to severely decreased 30 - 44 mL/min/1.73m2 Severely decreased 15 - 29 mL/min/1.73m2 Kidney Failure < 15 mL/min/1.73m2 *Relative to young adult level Estimated glomerular filtration rate is determined by the 2020 CKD-EPI equation recommended by the National Kidney Foundation (A Unifying Approach to GFR Estimation: Recommendations of the NKF-ASK Task Force on Reassessing the Inclusion of Race in Diagnosing Kidney Disease, JASN 2020). The CKD-EPI equation should not be used for patients with unstable renal function and has not been validated in children and those over 70. Current interpretive data was last reviewed 2021. Blood 12/18/2024 9:36 PM CDT 12/18/2024 10:31 PM CDT Victor Hugo Thao MD LAB BLOOD ORDERABLES Heidi maddi Result [facility] Department [place] [address] * (ABNORMAL) Differential, auto (12/18/2024 9:36 PM CDT) Neutrophil abs 2.31 1.50 - 6.50 K/cumm Imm gran abs 0.02 0.00 - 0.10 K/cumm [facility] Lymphocyte abs 0.46(L) 0.80 - 3.30 K/cumm [facility] Monocyte abs 0.40 0.20 - 0.80 K/cumm [facility] Eosinophil abs 0.10 0.00 - 0.50 K/cumm [facility] Basophil abs 0.02 0.00 - 0.10 K/cumm [facility] Neutrophil pct 69.8 % [facility] Comment: Interpretive Data Percent cell count reference ranges are not reported, since discordance with absolute values may lead to misinterpretation of CBC data. Current Interpretive Data was last revised on 2017. Imm gran pct 0.6 % [facility] Comment: Interpretive Data Percent cell count reference ranges are not reported, since discordance with absolute values may lead to misinterpretation of CBC data. Current Interpretive Data was last revised on 2017. Lymphocyte pct 13.9 % [facility] Comment: Interpretive Data Percent cell count reference ranges are not reported, since discordance with absolute values may lead to misinterpretation of CBC data. Current Interpretive Data was last revised on 2017. Monocyte pct 12.1 % [facility] Comment: Interpretive Data Percent cell count reference ranges are not reported, since discordance with absolute values may lead to misinterpretation of CBC data. Current Interpretive Data was last revised on 2017. Eosinophil pct 3.0 % [facility] Comment: Interpretive Data Percent cell count reference ranges are not reported, since discordance with absolute values may lead to misinterpretation of CBC data. Current Interpretive Data was last revised on 2017. Basophil pct 0.6 % [facility] Comment: Interpretive Data Percent cell count reference ranges are not reported, since discordance with absolute values may lead to misinterpretation of CBC data. Current Interpretive Data was last revised on 2017. Blood 12/18/2024 9:36 PM CDT 12/18/2024 10:31 PM CDT us Victor Hugo Thao MD LAB BLOOD ORDERABLES Heidi linda Result [facility] Department [place] [address] * (ABNORMAL) CBC with auto differential (12/18/2024 9:36 PM CDT) WBC 3.31(L) 3.80 - 9.90 K/cumm Hgb 9.5(L) 11.9 - 15.5 g/dL [facility] Hct 29.1(L) 35.6 - 45.5 % [facility] Plt 253 150 - 400 K/cumm [facility] MPV 10.4 9.1 - 12.3 fL [facility] RBC 3.45(L) 3.90 - 5.20 M/cumm [facility] MCV 84.3 81.3 - 96.4 fL [facility] MCH 27.5 27.1 - 33.3 pg [facility] MCHC 32.6 32.3 - 35.7 g/dL [facility] RDW CV 13.7 11.1 - 14.9 % [facility] RDW SD 42.2 35.7 - 48.1 fL [facility] NRBC abs 0.00 0.00 - 0.01 K/cumm [facility] Blood 12/18/2024 9:36 PM CDT 12/18/2024 10:31 PM CDT Victor Hugo Thao MD LAB BLOOD ORDERABLES Heidi l Result Performing Organization Address [facility] Co de Phone Number [facility] [place] [address] * aPTT (12/18/2024 9:36 PM CDT) aPTT 29 28 - 38 sec Comment: Interpretive Data Heparin therapeutic range: 66.0 - 100.0 seconds. Range based on correlation with therapeutic heparin activity range of 0.3 - 0.7 Units/mL. Current interpretive data was last revised on 2023. Blood 12/18/2024 9:36 PM CDT 12/18/2024 10:29 PM CDT Victor Hugo Thao MD LAB BLOOD ORDERABLES Heidi l Result Performing Organization Address [facility] de Phone Number [facility] [place] [address] * Protime-INR (12/18/2024 9:36 PM CDT) PT 10.7 9.7 - 13.0 sec INR 0.99 0.90 - 1.20 [facility] Comment: Interpretive data Oral anticoagulant therapeutic ranges: Venous thromboembolism prophylaxis or treatment: 2.0-3.0 CARDIOLOGY Standard range: 2.0-3.0 High-intensity range: 2.5-3.5 Refer to indication-specific guidelines for appropriate target ranges for prosthetic heart valve replacement. Current interpretive data was last revised on 2019. Blood 12/18/2024 9:36 PM CDT 12/18/2024 10:29 PM CDT Victor Hugo Thao MD LAB BLOOD ORDERABLES Heidi l Result Performing Organization Address [facility] Co de Phone Number [facility] [place] [address] * Type and screen (12/18/2024 9:36 PM CDT) [facility] ABO Rh O Negative Ramy, indirect Negative [facility] Blood 12/18/2024 9:36 PM CDT 12/18/2024 10:35 PM CDT Narrative [facility] - 12/18/2024 11:23 PM CDT Has the patient had Daratumumab or Isatuximab in the past 6 months?->Unknown Victor Hugo Thao MD LAB BLOOD BANK TEST ORDER MIGUELINA Final Result [facility] [place] [address] * Phosphorus (12/18/2024 9:36 PM CDT) [facility] Phosphorus, pl 3.3 2.3 - 4.5 mg/dL Blood 12/18/2024 9:36 PM CDT 12/18/2024 10:31 PM CDT Victor Hugo Thao MD LAB BLOOD ORDERABLES Heidi l Result Performing Organization Address City/[facility]/ZIP Co de Phone Number [facility] Department [place] [address] * Magnesium (12/18/2024 9:36 PM CDT) [facility] Magnesium 2.0 1.4 - 2.5 mg/dL Blood 12/18/2024 9:36 PM CDT 12/18/2024 10:31 PM CDT Victor Hugo Thao MD LAB BLOOD ORDERABLES Heidi l Result Performing Organization Address City/[facility]/ZIP Co de Phone Number [facility] Department [place] [address] * (ABNORMAL) Hemoglobin A1c (12/18/2024 9:36 PM CDT) [facility] Hgb A1C 5.8(H) 4.0 - 5.6 % Estimated Average Glucose 120 mg/dL [facility] Comment: The ADA recommends reporting an estimated Average Glucose (eAG) with all Hemoglobin A1c results using the equation derived from a study of 507 normal and diabetic adults. Minority populations were underrepresented and children were not included. (Diabetes Care 2020; 43(S1): S66-S76). The eAG is not equivalent to a fasting glucose. Blood 12/18/2024 9:36 PM CDT 12/18/2024 10:35 PM CDT Narrative [facility] - 12/19/2024 6:59 PM CDT 12/19/2024 15:34:24 CDT Reflex. us Ariel Glez MD LAB BLOOD ORDERABLES Fi nal Result Performing Organization Address [facility] Co de Phone Number [facility] Department of [employer] [place], [place] [id number] * Hepatic function panel (12/18/2024 9:36 PM CDT) [facility] Bilirubin, total 0.5 0.1 - 1.2 mg/dL Bilirubin, direct <0.2 0.1 - 0.3 mg/dL [facility] Protein, pl 7.6 6.5 - 8.5 g/dL [facility] Albumin 3.9 3.5 - 5.0 g/dL [facility] Alk phos 76 40 - 130 Units/L [facility] ALT 7 7 - 45 Units/L [facility] AST 23 10 - 45 Units/L [facility] Blood 12/18/2024 9:36 PM CDT 12/18/2024 10:31 PM CDT us Victor Hugo Thao MD LAB BLOOD ORDERABLES Heidi l Result Performing Organization Address [facility]/ZIP Co de Phone Number [facility] [place] [address] * Lipid panel (12/18/2024 9:36 PM CDT) Cholesterol 148 30 - 199 mg/dL Comment: Interpretive Data Ages < or = 19 years Acceptable: <170 mg/dL Borderline high: 170-199 mg/dL High: >or= 200 mg/dL Ages > or = 20 years Desirable: <200 mg/dL Borderline high: 200-239 mg/dL High: >or= 240 mg/dL Literature References: 1. Expert Panel on Integrated Guidelines for Cardiovascular Health and Risk Reduction in Children and Adolescents. Pediatrics 2011;128:S213 2. NCEP Expert Panel. Circulation 2004;110:227 Current Interpretive Data was last revised on 2018. Triglycerides 118 <=149 mg/dL [facility] Comment: Interpretive Data Ages < or = 9 years Acceptable: <75 mg/dL Borderline high: 75-99 mg/dL High: >or= 100 mg/dL Ages 10 to 20 years Acceptable: <90 mg/dL Borderline high: 90-129 mg/dL High: >or= 130 mg/dL Ages > or = 20 years Desirable: <150 mg/dL Borderline high: 150-199 mg/dL High: 200-499 mg/dL Very high: >or= 499 mg/dL Literature References: 1. Expert Panel on Integrated Guidelines for Cardiovascular Health and Risk Reduction in Children and Adolescents. Pediatrics 2011;128:S213 2. NCEP Expert Panel. Circulation 2004;110:227 Current Interpretive Data was last revised on 2018. HDL 47 >=40 mg/dL [facility] Comment: Interpretive Data Ages < or = 19 years Acceptable: >45 mg/dL Borderline low: 40-45 mg/dL Low: <40 mg/dL Ages > or = 20 years Desirable: >or= 60 mg/dL Low: <40 mg/dL Literature References: 1. Expert Panel on Integrated Guidelines for Cardiovascular Health and Risk Reduction in Children and Adolescents. Pediatrics 2011;128:S213 2. NCEP Expert Panel. Circulation 2004;110:227 Current Interpretive Data was last revised on 2018. LDL, calculated 80 <=129 mg/dL [facility] Comment: Interpretive Data Ages < or = 19 years Acceptable: <110 mg/dL Borderline high: 110-129 mg/dL High: >or= 130 mg/dL Ages > or = 20 years Optimal: <100 mg/dL Near optimal: 100-129 mg/dL Borderline high: 130-159 mg/dL High: >160 mg/dL Calculated using the Víctor LDL-C estimating equation. This equation was implemented on 2024. Prior to this date LDL-C was estimated using the Friedewald equation. Literature References: 1. Expert Panel on Integrated Guidelines for Cardiovascular Health and Risk Reduction in Children and Adolescents. Pediatrics 2011;128:S213 2. NCEP Expert Panel. Circulation 2004;110:227 3. Víctor Perez et al. MONA Cardiol. 2019November 03;5(5):540-548. doi: 10.1001/jamacardio.2020.0013 Current Interpretive Data was last revised on 2024. Non-HDL Cholesterol 101 mg/dL [facility] Comment: Interpretive Data Ages < or = 19 years Acceptable: <120 mg/dL Borderline high: 120-144 mg/dL High: >145 mg/dL Ages > or = 20 years When triglycerides are >200 mg/dL, Non-HDL cholesterol is a secondary target of therapy with treatment goals that are 30 mg/dL greater than the LDL cholesterol target. Literature References: 1. Expert Panel on Integrated Guidelines for Cardiovascular Health and Risk Reduction in Children and Adolescents. Pediatrics 2011;128:S213 2. NCEP Expert Panel. Circulation 2004;110:227 Current Interpretive Data was last revised on 2018. Chol/HDL ratio 3 [facility] Blood 12/18/2024 9:36 PM CDT 12/18/2024 10:31 PM CDT us Ariel Glez MD LAB BLOOD ORDERABLES Fi nal Result [facility] Department [place] [address] * (ABNORMAL) Basic metabolic panel (12/18/2024 9:36 PM CDT) Sodium 133(L) 135 - 145 mmol/L Potassium, pl 4.5 3.3 - 4.9 mmol/L [facility] Chloride 96(L) 97 - 110 mmol/L [facility] CO2 28 22 - 32 mmol/L [facility] Anion gap 9 2 - 15 mmol/L [facility] BUN 26(H) 6 - 25 mg/dL [facility] Creatinine 1.16(H) 0.60 - 1.10 mg/dL [facility] Glucose 119 70 - 199 mg/dL [facility] Comment: Interpretive Data Fasting glucose >/= 126 mg/dl is diagnostic for diabetes. Fasting is defined as no caloric intake for at least 8 hours. Fasting glucose between 100 mg/dl to 125 mg/dl is diagnostic of prediabetes. In a patient with classic symptoms of hyperglycemia or hyperglycemic crisis, a random glucose >/= 200 mg/dl is diagnostic for diabetes. In the absence of unequivocal hyperglycemia, results should be confirmed by repeat testing. The classification and Diagnosis of Diabetes Diabetes Care 2021; 46: S19-S40. Current interpretive data was last revised 2022. Calcium 10.0 8.5 - 10.3 mg/dL [facility] Blood 12/18/2024 9:36 PM CDT 12/18/2024 10:31 PM CDT us Victor Hugo Thao MD LAB BLOOD ORDERABLES Heidi linda Result [facility] Department [place] [address] * CT Neck Soft Tissue W Contrast (11/21/2024 9:11 AM CDT) Anatomical Region Laterality Modality Head and Neck N/A Computed Tomogra phy 11/21/2024 10:5 0 AM CDT Impressions 11/21/2024 10:50 AM CDT Postsurgical change of left mastoidectomy, resection of the infratemporal fossa, left buccal space, and the left neck dissection as well as free flap reconstruction. No evidence of local recurrence. No cervical lymphadenopathy. Unchanged opacification of the left mastoid air cells and left middle ear cavity. Electronically signed by: Law Schaefer MD, PHD Narrative 11/21/2024 10:50 AM CDT EXAMINATION: CT of the neck with contrast HISTORY: Head neck cancer TECHNIQUE: CT of the neck was performed according to the standard protocol with intravenous contrast. Contrast information: 64 mL Optiray-350 IV COMPARISON: 10/03/2024 FINDINGS: Postsurgical change of left mastoidectomy, resection of the infratemporal fossa, left buccal space, and the left neck dissection including left retropharyngeal lymph nodes as well as free flap reconstruction. No enlarged cervical lymph nodes. Scattered subcentimeter lymph nodes are seen in the neck. None are pathologically enlarged or abnormally enhancing. The muscles of the neck are normal. Vessels of the neck demonstrate normal course and caliber. Fascial planes are preserved and the deep spaces of the neck are normal. The visualized airway is widely patent. The base of the skull and the temporal bones are normal. Limited views of the brain including the cerebellum and brainstem are normal. The limited view of the [place] is unremarkable. The visualized portions of the orbits are normal. Cervical spondylosis.. Limited examination of the superior thorax shows no pulmonary infiltrate, suspicious nodules, or pleural effusions. Procedure Note Law Schaefer MD PhD - 11/21/2024 EXAMINATION: CT of the neck with contrast HISTORY: Head neck cancer TECHNIQUE: CT of the neck was performed according to the standard protocol with intravenous contrast. Contrast information: 64 mL Optiray-350 IV COMPARISON: 10/03/2024 FINDINGS: Postsurgical change of left mastoidectomy, resection of the infratemporal fossa, left buccal space, and the left neck dissection including left retropharyngeal lymph nodes as well as free flap reconstruction. No enlarged cervical lymph nodes. Scattered subcentimeter lymph nodes are seen in the neck. None are pathologically enlarged or abnormally enhancing. The muscles of the neck are normal. Vessels of the neck demonstrate normal course and caliber. Fascial planes are preserved and the deep spaces of the neck are normal. The visualized airway is widely patent. The base of the skull and the temporal bones are normal. Limited views of the brain including the cerebellum and brainstem are normal. The limited view of the [place] is unremarkable. The visualized portions of the orbits are normal. Cervical spondylosis.. Limited examination of the superior thorax shows no pulmonary infiltrate, suspicious nodules, or pleural effusions. IMPRESSION: Postsurgical change of left mastoidectomy, resection of the infratemporal fossa, left buccal space, and the left neck dissection as well as free flap reconstruction. No evidence of local recurrence. No cervical lymphadenopathy. Unchanged opacification of the left mastoid air cells and left middle ear cavity. Electronically signed by: Law Schaefer MD, PHD Onel Jensen MD IMG CT PROCEDURES Heidi l Result * (ABNORMAL) POCT creatinine (11/21/2024 8:54 AM CDT) Creatinine POC 1.2(H) 0.6 - 1.1 mg/dL Blood 11/21/2024 8:54 AM CDT 11/21/2024 8:54 AM CDT us Self Referral LAB POCT ORDERABLES - DEVICE Fin al Result Performing Organization Address City/State/ZIP Co oh Phone Number [facility] Department [place] [address] * CT Facial Bones W Contrast (10/12/2024 8:27 PM CDT) Anatomical Region Laterality Modality Head and Neck N/A Computed Tomogra phy 10/12/2024 8:49 PM CDT Narrative 10/12/2024 9:03 PM CDT EXAM DESCRIPTION: CT FACIAL BONES W CONTRAST REASON FOR STUDY: infecton Patient presents with discharge from left eye and swelling in left side of face. Patient undergoing chemo for oral cancer. TECHNIQUE: Post contrast computed tomography images through the paranasal sinuses. Images stored on PACS. Automated exposure control was used as a dose optimization technique for this examination. CONTRAST TYPE/DOSE: 75mL of IOVERSOL 350 MG IODINE/ML INTRAVENOUS SYRINGE injected via intravenous COMPARISON: 10/03/2024 FINDINGS: SOFT TISSUES: No inflammation is seen in the left face or orbit. Minimal left preseptal thickening appears similar to the September prior. No fluid collection is seen. Posterior calvarial changes throughout the left face and neck. BONES: Postsurgical changes. Nothing acute is seen. SINUSES/MIDDLE EAR/MASTOIDS: Clear. TMJ: Normal. NASAL CAVITY: Midline nasal septum. ORBITS: No acute finding. BRAIN: Visualized portions unremarkable. C-SPINE: Moderate degenerative change. IMPRESSION: Left facial tissues and orbits appear unchanged from the 10/03/2024 prior, with minimal left preseptal swelling/enhancement but otherwise no evidence of inflammation. THIS IS AN ELECTRONICALLY VERIFIED FINAL REPORT 10/12/2024 9:03 PM - Electronically signed by Jak Garrison M.D. [place]: AIYANA Report ID: [id number] Reading Location: [place] [address] Procedure Note Jak Garrison MD - 10/12/2024 EXAM DESCRIPTION: CT FACIAL BONES W CONTRAST REASON FOR STUDY: infecton Patient presents with discharge from left eye and swelling in left side of face. Patient undergoing chemo for oral cancer. TECHNIQUE: Post contrast computed tomography images through the paranasal sinuses. Images stored on PACS. Automated exposure control was used as adose optimization technique for this examination. CONTRAST TYPE/DOSE: 75mL of IOVERSOL 350 MG IODINE/ML INTRAVENOUSSYRINGE injected via intravenous COMPARISON: 10/03/2024 FINDINGS: SOFT TISSUES: No inflammation is seen in the left face or orbit.Minimal left preseptal thickening appears similar to the September prior. No fluid collection is seen. Posterior calvarial changes throughout the left faceand neck. BONES: Postsurgical changes. Nothing acute is seen. SINUSES/MIDDLE EAR/MASTOIDS: Clear. TMJ: Normal. NASAL CAVITY: Midline nasal septum. ORBITS: No acute finding. BRAIN: Visualized portions unremarkable. C-SPINE: Moderate degenerative change. IMPRESSION: Left facial tissues and orbits appear unchanged from the 10/03/2024 prior, with minimal left preseptal swelling/enhancement but otherwise no evidenceof inflammation. THIS IS AN ELECTRONICALLY VERIFIED FINAL REPORT 10/12/2024 9:03 PM - Electronically signed by Jak Garrison M.D. [place]: AIYANA Report ID: [id number] Reading Location: [place] [address] PROCEDURES Final R esult * (ABNORMAL) eGFR (10/12/2024 4:17 PM CDT) eGFR 54(L) >=60 mL/min/1. 73 m2 Comment: Interpretive Data Reference Interval Normal >/= 90 mL/min/1.73m2 Mildly decreased* 60 - 89 mL/min/1.73m2 Mildly to moderately decreased 45 - 59 mL/min/1.73m2 Moderately to severely decreased 30 - 44 mL/min/1.73m2 Severely decreased 15 - 29 mL/min/1.73m2 Kidney Failure < 15 mL/min/1.73m2 *Relative to young adult level Estimated glomerular filtration rate is determined by the 2020 CKD-EPI equation recommended by the National Kidney Foundation (A Unifying Approach to GFR Estimation: Recommendations of the NKF-ASK Task Force on Reassessing the Inclusion of Race in Diagnosing Kidney Disease, JASN 2020). The CKD-EPI equation should not be used for patients with unstable renal function and has not been validated in children and those over 70. Current interpretive data was last reviewed 2021. Blood 10/12/2024 4:17 PM CDT 10/12/2024 4:29 PM CDT us Sarbjit Geller NP LAB BLOOD ORDERABLES Final Result [facility] Department [place] [address] * (ABNORMAL) Differential, auto (10/12/2024 4:17 PM CDT) Neutrophil abs 3.19 1.50 - 6.50 K/cumm Imm gran abs 0.01 0.00 - 0.10 K/cumm [facility] ([facility]) Lymphocyte abs 0.31(L) 0.80 - 3.30 K/cumm [facility] ([facility]) Monocyte abs 0.32 0.20 - 0.80 K/cumm [facility] ([facility]) Eosinophil abs 0.08 0.00 - 0.50 K/cumm [facility] ([facility]) Basophil abs 0.01 0.00 - 0.10 K/cumm [facility] ([facility]) Neutrophil pct 81.3 % [facility] ([facility]) Comment: Interpretive Data Percent cell count reference ranges are not reported, since discordance with absolute values may lead to misinterpretation of CBC data. Current Interpretive Data was last revised on 2017. Imm gran pct 0.3 % [facility] ([facility]) Comment: Interpretive Data Percent cell count reference ranges are not reported, since discordance with absolute values may lead to misinterpretation of CBC data. Current Interpretive Data was last revised on 2017. Lymphocyte pct 7.9 % [facility] ([facility] Comment: Interpretive Data Percent cell count reference ranges are not reported, since discordance with absolute values may lead to misinterpretation of CBC data. Current Interpretive Data was last revised on 2017. Monocyte pct 8.2 % [facility] ([facility]) Comment: Interpretive Data Percent cell count reference ranges are not reported, since discordance with absolute values may lead to misinterpretation of CBC data. Current Interpretive Data was last revised on 2017. Eosinophil pct 2.0 % [facility] ([facility]) Comment: Interpretive Data Percent cell count reference ranges are not reported, since discordance with absolute values may lead to misinterpretation of CBC data. Current Interpretive Data was last revised on 2017. Basophil pct 0.3 % [facility] ([facility]) Comment: Interpretive Data Percent cell count reference ranges are not reported, since discordance with absolute values may lead to misinterpretation of CBC data. Current Interpretive Data was last revised on 2017. Blood 10/12/2024 4:17 PM CDT 10/12/2024 4:29 PM CDT us Sarbjit Geller NP LAB BLOOD ORDERABLES Final Result [facility] ([facility]) 1 [facility] Department [place] [address] * (ABNORMAL) CBC with auto differential (10/12/2024 4:17 PM CDT) WBC 3.92 3.80 - 9.90 K/cumm Hgb 9.9(L) 11.9 - 15.5 g/dL [facility] ([facility]) Hct 30.9(L) 35.6 - 45.5 % [facility] ([facility]) Plt 293 150 - 400 K/cumm [facility] ([facility]) MPV 9.5 9.1 - 12.3 fL [facility] ([facility]) RBC 3.44(L) 3.90 - 5.20 M/cumm [facility] ([facility]) MCV 89.8 81.3 - 96.4 fL [facility] ([facility]) MCH 28.8 27.1 - 33.3 pg [facility] ([facility]) MCHC 32.0(L) 32.3 - 35.7 g/dL [facility] ([facility]) RDW CV 13.5 11.1 - 14.9 % [facility] ([facility]) RDW SD 44.4 35.7 - 48.1 fL [facility] ([facility]) NRBC abs 0.00 0.00 - 0.01 K/cumm [facility] ([facility]) Blood 10/12/2024 4:17 PM CDT 10/12/2024 4:29 PM CDT Sarbjit Geller ORGANIC EXTRACTIONS TECHNICIAN LAB BLOOD ORDERABLES Final Result [facility] Department of Laboratories [place], [place] [id number] * (ABNORMAL) Comprehensive metabolic panel (10/12/2024 4:17 PM CDT) Sodium 135 135 - 145 mmol/L Potassium, pl 4.5 3.3 - 4.9 mmol/L [facility] ([facility]) Chloride 96(L) 97 - 110 mmol/L [facility] ([facility]) CO2 27 22 - 32 mmol/L [facility] ([facility]) Anion gap 12 2 - 15 mmol/L [facility] ([facility]) BUN 40(H) 6 - 25 mg/dL [facility] ([facility]) Creatinine 1.05 0.60 - 1.10 mg/dL [facility] ([facility]) Glucose 125 70 - 199 mg/dL [facility] ([facility] Comment: Interpretive Data Fasting glucose >/= 126 mg/dl is diagnostic for diabetes. Fasting is defined as no caloric intake for at least 8 hours. Fasting glucose between 100 mg/dl to 125 mg/dl is diagnostic of prediabetes. In a patient with classic symptoms of hyperglycemia or hyperglycemic crisis, a random glucose >/= 200 mg/dl is diagnostic for diabetes. In the absence of unequivocal hyperglycemia, results should be confirmed by repeat testing. The classification and Diagnosis of Diabetes Diabetes Care 2021; 46: S19-S40. Current interpretive data was last revised 2022. Calcium 10.2 8.5 - 10.3 mg/dL [facility] ([facility]) Bilirubin, total 0.2 0.1 - 1.2 mg/dL [facility] ([facility] Protein, pl 7.5 6.5 - 8.5 g/dL [facility] ([facility] Albumin 3.7 3.5 - 5.0 g/dL [facility] ([facility]) Alk phos 90 40 - 130 Units/L [facility] ([facility]) ALT <5(L) 7 - 45 Units/L [facility] ([facility]) AST 22 10 - 45 Units/L [facility] Blood 10/12/2024 4:17 PM CDT 10/12/2024 4:29 PM CDT Sarbjit Geller NP LAB BLOOD ORDERABLES Final Result [facility] ([facility]) 1 [facility] Department [place] [address] * Hepatitis C antibody Blood (06/21/2024 10:25 AM TERRAZZO INSTALLER) Hep C Ab Nonreactive Nonreactive Comment:Antibodies to HCV no t detected. Does NOT exclude the possibility of recent exposure to HCV. Current interpretive data was last revised on 22 Blood 06/21/2024 10:2 5 AM TERRAZZO INSTALLER 06/21/2024 10:32 AM TERRAZZO INSTALLER Narrative [facility] - 06/21/2024 12:02 PM TERRAZZO INSTALLER Bill to C0059 [facility] Damian Foy MD LAB MICROBIOLOGY - NERAL ORDERABLES Final Result [facility] Department [place] [address] from Last 3 Months or Most Recently Relevant to Health Maintenance [place] [address] [place] [address] MEDICARE 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 [employer] * Full Code (Latest Code Status on File) Date Activated Date Inactivated Comments 12/18/2024 8:47 PM 12/22/2024 7:17 PM * Full Code Date Activated Date Inactivated Comments 06/21/2024 7:18 PM 07/16/2024 7:12 PM Care Teams Station Superintendent Relationship Specialty Start Date End Date Rafael Correia MD [address] [facility] [address] [place] [address] PCP - General Family Medicine 10/03/24 Felicia Bishop RN Nurse Navigator 05/20/24 Becki Rahman LCSW Radar Engineering Teacher 05/20/24 Onel Jensen MD [address] [address] Consulting Physician Otolaryngology 05/23/24
--- OUTSIDE RECORDS SUMMARY | 2025-01-05 16:17 | XMS_ITS | Continuity of Care Document ---
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 Social History Type Response Date Comment Sourc e This section is an empty social history section. [facility]
--- OUTSIDE RECORDS SUMMARY | 2025-01-05 16:17 | XMS_ITS | Clinical Summary ---
Author Organization [facility] Richa peterson Address [address], [place] [address] Phone Care Team Providers Care Pumper Helper Name Role Phone Dorothy Gupta MD Primary Care Provider [phone] Allergies Active Allergy Reactions Criticality Noted Date [...] on file Legal Sex Female 7:38 AM RUST Gender Identity Not on file Sexual Orientation [...] 9:17 AM CDT Height 149.9 cm (4' 11) 01/01/2022 9:17 AM CDT Body Mass Index 26.05 01/01/2022 9:17 AM CDT Plan of Treatment Health Maintenance Due Date Last Done Comments Pneumococcal PPSV23/PCV13 65 + Years / Low and Medium Risk (1 of 2 - PCV) 1995 COVID-19 Vaccine ( - season) 2024, 09/10/2020 Influenza Vaccine (Season Ended) 2025 Insurance MEDICARE [facility] Care Teams Pumper Helper Relationship Specialty Start Date End Date Dorothy Gupta MD [address] [facility] [address] [place] [address] PCP - General Internal Medicine 02/16/20
--- OUTSIDE RECORDS SUMMARY | 2025-01-05 16:17 | XMS_ITS | Encounter Summary ---
Author Organization [facility] Healthcare Address [address] [place] [address] Care Team Providers Care Lathe Mechanic Name Role Phone Felicia Bishop RN Unavailable UnavailBecki Meza LCSW Unavailable Unavaila Onel Choudhury MD Unavailable [phone] Rafael Correia MD Primary Care Provider Encounter Details Date Type Department Care Team (Late st Contact Info) Description 01/02/2025 Orders Only [facility] [address] [place] [address] Mary Castorena RN Social History Tobacco Use Types Packs/Day Years Used Date Smoking Tobacco: Former Cigarettes 0.5 41 1 960 - 2000 Passive Smoke Exposure: Never Smokeless Tobacco: Never OASIS D0700: Social Isolation Answer Da te [...] materials from doctor or pharmacy Sometimes 09/12/2024 [facility] Utilities Answer Date Recorded In the past 12 months has [employer] gas, oil, or water [employer] threatened to shut off services in your [...] often do you attend chur ch or moravian services? Never 05/27/2024 Do you belong to any clubs o r organizations such as catholic groups, unions, fraternal or athletic groups, [...] any time in the past 12 m [facility], were you homeless or living in a mcc (including now)? No 05/27/2024 Personal Safety Answer Date Recorded Have you ever been in or are you currently in a harmful physical or emotional relationship or is someone making you feel afraid or unsafe? Denies 12/19/2024 Comments No Sex and Gender Information Value Date Recorded Sex Assigned at Not on file Legal Sex Female 1:42 PM COMMUNICATION CENTER COORDINATOR Gender Identity Not on file Sexual Orientation Not on file documented as of this encounter Plan of Treatment Not on file documented as of this encounter Visit Diagnoses Not on filedocumented in this encounter Care Teams Lathe Mechanic Relationship Specialty Start Date End Date Rafael Correia MD [address] [place] [address] PCP - General Family Medicine 10/03/24 Felicia Bishop RN Nurse Navigator 05/20/24 Becki Rahman LCSW Medical Liaison 05/20/24 Onel Jensen MD [address] [facility] [address] [place] [address] Consulting Physician Otolaryngology 05/23/24 documented as of this encounter
--- OUTSIDE RECORDS SUMMARY | 2025-01-05 16:17 | XMS_ITS | Clinical Summary ---
Author Organization [facility] Address [address] [facility] [place] [address] Care Team Providers Care Quality Assurance Inspector Name Role Phone Unavailable Primary Care Provider Unavailabl e Source Comments [facility],non-owned Affiliates and Associated Physician Practices is amultiple site organization consisting of ambulatory clinics and hospital sitesin [place], [place], [place] and [place]. This disclosure is being madepursuant to the Care Everywhere program and may not contain all information available regarding this patient. Last updated 18.[facility] [employer] Social History Tobacco Use Types Packs/Day Years [...] season) 2024 DEPRESSION SCREENING 07/06/2024 INFLUENZA VACCINE (#1) 2025 HEPATITIS B VACCINE Aged Out No [...] age to complete this topic Insurance MEDICARE [facility]
--- OUTSIDE RECORDS SUMMARY | 2025-01-05 16:18 | XMS_ITS | Referral Summary ---
Author Organization [facility] Address [address] [place] [phone] Care Team Providers Care Private Household Worker Name Role Phone Felicia Bishop RN Unavailable UnavailBecki MezaW Unavailable UnavailOnel Nguyen MD Unavailable [phone] Rafael Correia MD Primary Care Provider Encounters Date Type Department Care Team Description 01/02/2025 Orders Only [facility] Radiology 1 [place] [address] Mary Castorena RN 12/23/2024 SHOP/CHAP Initial Eligibility Review [facility] OP CASE MANAGEMENT 1 [place] [phone] Lucila Curiel LCSW 12/18/2024 7:50 PM CDT - 12/22/2024 3:12 PM CDT Hospital Encounter [facility] 1 [place] [address] Jarett Jones MD Neilson, Nathan Andrew, MD Fong, Jerry, MD PhD Master, Victor Hugo Patel MD 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); Severe protein-calorie malnutrition; Cancer of oral cavity (HCC) Discharge Disposition: Discharge to home, home health skilled care 12/12/2024 Orders Only [facility] Department of Otolaryngology Head-Neck Division [address] [facility] Floor 5 [place] [address] Onle Jensen MD 11/25/2024 Telephone [facility] Head and Neck Tumor Center [address] [phone] Felicia Bishop, structural engineering project manager Follow Up 11/22/2024 2:00 PM CDT Infusion [facility] Infusion Center [address] [facility] [address] [place] [address] Dehydration (Primary Dx) 11/22/2024 Orders Only [facility] Radiation Oncology [address] [place] [phone] Oneil Montero MD 11/21/2024 10:20 AM CDT Office Visit [facility] Department of Otolaryngology Head-Neck Division [address] [place] [address] Floor 5 [place] [phone] Onel Jensen MD Cancer of oral cavity (HCC) (Primary Dx) 11/21/2024 8:42 AM CDT - 11/21/2024 11:59 PM CDT [facility] [place] [facility] [place] [address] [facility] Floor 8 [place] [address] Head and neck cancer (HCC) Discharge Disposition: Discharge to home or self care 11/08/2024 10:00 AM CDT Office Visit [facility] Radiation Oncology [address] [place] [phone] Oneil Montero MD 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) 10/27/2024 Telephone [facility] Head and Neck Tumor Center [address] [phone] Felicia Bishop, structural engineering project manager Treatment End Check In 10/21/2024 2:00 PM CDT Office Visit [facility] Ophthalmology [address] [place] [phone] Nano Mancilla MD 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) 10/17/2024 Telephone [facility] Gastroenterology at [place] [address] [facility] [address] [place] [phone] Fannie Silva LPN 10/12/2024 7:28 PM CDT - 10/13/2024 12:11 AM CDT Emergency [facility] Emergency Department 1 [place] [address] Abrasion of left cornea, initial encounter (Primary Dx) Discharge Disposition: Discharge to home or self care 10/12/2024 Telephone [facility] Ophthalmology [address] [place] [address] 1st [place] [phone] Anthony Toscano MD FYI 10/12/2024 3:15 PM CDT Office Visit [facility] at [address] [phone] Mary Mora PA Left eye pain (Primary Dx); Facial pain 10/12/2024 Telephone [facility] Radiation Oncology 6 [place] [address] Deandre Duarte RN from Last 3 Months Allergies Active Allergy [...] with simethicone-di phenhydramine- lidocaine (MAGIC MOUTHWASH) suspension [id number] ns:Cancer of alveolus of maxilla (HCC) Swish [...] slow eating due to head/neck cancer. Patient's MERCHANDISE HANDLER evaluation did not test solid food per patient's request though patient has known discomfort (almost globus like sensation). Patient's current weight loss is secondary to insufficient caloric intake by PO alone, with patient now requiring tube feeding for goal. S/p PEG by IR 12/19, began advancing TF 12/20 to goal ~12/21 - dispo 12/22 with TF (home health). - RD c/s, MERCHANDISE HANDLER eval - Return to pureed diet, crushed [...] slow eating due to head/neck cancer. Patient's MERCHANDISE HANDLER evaluation did not test solid food per patient's request though patient has known discomfort (almost globus like sensation). Patient's current weight loss is secondary to insufficient caloric intake by PO alone, with patient now requiring tube feeding for goal. S/p PEG by IR 12/19, began advancing TF 12/20 to goal ~12/21 - dispo 12/22 with TF (home health). - RD c/s, MERCHANDISE HANDLER eval - Return to pureed diet, crushed [...] 12/20 to goal ~12/21 - RD c/s, MERCHANDISE HANDLER eval - Return to pureed diet, crushed [...] clearance by IR 12/20 - RD c/s, MERCHANDISE HANDLER eval - Return to pureed diet, crushed [...] TF initiation - IR cs. RD cs. 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 [...] 07/12/2024 Assessment & Plan (07/12/2024 1:50 PM SERVICE CREW LEADER): A1c of 5.7. On SSI. Subq insulin [...] hydralazine Assessment & Plan (07/13/2024 9:18 AM SERVICE CREW LEADER): Blood pressures normal. Cont amlodipine (increase to [...] and PRN hydrocodone-APAP - Continue outpatient follow-up. Social History Tobacco Use Types Packs/Day Years [...] materials from doctor or pharmacy Sometimes 09/12/2024 [facility] Utilities Answer Date Recorded In the past 12 months has [employer], oil, or water [employer] threatened to shut off services in your [...] 05/27/2024 How often do you attend chur or rastafari services? Never 05/27/2024 Do you belong to any clubs o r organizations such as muslim groups, unions, fraternal or athletic groups, or [...] any time in the past 12 [facility], were you homeless or living in a fpc (including now)? No 05/27/2024 Personal Safety Answer Date Recorded Have you ever been in or are you currently in a harmful physical or emotional relationship or is someone making you feel afraid or unsafe? Denies 12/19/2024 Comments No Sex and Gender Information Value Date Recorded Sex Assigned at Not on file Legal Sex Female 1:42 PM SERVICE CREW LEADER Gender Identity Not on file Sexual Orientation [...] 12/19/2024 8:38 AM CDT Plan of Treatment Not on file Medical Devices Implanted Type Area Universal Grinder Operator Device Identifier Shelf Expiration Date Model / Serial / Lot Izabella Spacenet Allian Solid Waste Landfill Technician Anastomotic Microvascular [employer] [place] Solid Waste Landfill Technician 4.0mm [id number] - [id number] - [id number] Implanted:Qty: 1 on 06/21/2024 by Onel Jensen MD at [facility] Other - see comments Left: Neck [employer] Riosian [id number] 10/12/2028 [id number] / 0 / [id number] Procedures Procedure Name Priority Date/Time Associated Diagnosis Comments EGFR Routine 12/21/2024 9:50 PM CDT PHOSPHORUS Routine 12/21/2024 9:50 PM CDT BASIC METABOLIC PANEL Routine 12/21/2024 9:50 PM CDT MAGNESIUM Routine 12/21/2024 9:50 PM CDT EGFR Routine 12/20/2024 11:10 PM CDT PHOSPHORUS Routine 12/20/2024 11:10 PM CDT BASIC METABOLIC PANEL Routine 12/20/2024 11:10 PM CDT MAGNESIUM Routine 12/20/2024 11:10 PM CDT MERCHANDISE HANDLER EVALUATE AND TREAT Routine 12/20/2024 3:54 PM [...] HEPATITIS C ANTIBODY STAT 06/21/2024 10:25 AM SERVICE CREW LEADER General medical exam from Last 3 Months [...] of Race in Diagnosing Kidney Disease, JASN 202). The CKD-EPI equation should not be used for patients with unstable renal function and has not been validated in children and those over 70. Current interpretive data was last reviewed 2021. Blood 12/21/2024 9:50 PM CDT 12/21/2024 11:11 PM CDT us Patrick Govea MD PhD LAB BLOOD ORDERABLES Final Res ult Performing Organization Address City/[facility] Co de Phone Number [facility] [place] [address] * Phosphorus (12/21/2024 9:50 PM CDT) Pathologist [facility] Phosphorus, pl 3.4 2.3 - 4.5 mg/dL Blood 12/21/2024 9:50 PM CDT 12/21/2024 11:11 PM CDT us Patrick Govea MD PhD LAB BLOOD ORDERABLES Final Res ult Performing Organization Address [facility] Co de Phone Number [facility] [place] [address] * Magnesium (12/21/2024 9:50 PM CDT) [facility] Magnesium 2.0 1.4 - 2.5 mg/dL Blood 12/21/2024 9:50 PM CDT 12/21/2024 11:11 PM CDT us Patrick Govea MD PhD LAB BLOOD ORDERABLES Final Res ult Performing Organization Address [facility] Co de Phone Number [facility] [place] [address] * (ABNORMAL) Basic metabolic panel (12/21/2024 9:50 PM CDT) Pathologist [facility] Sodium 131(L) 135 - 145 mmol/L Potassium, pl 4.2 3.3 - 4.9 mmol/L [facility] Chloride 93(L) 97 - 110 mmol/L [facility] CO2 30 22 - 32 mmol/L [facility] Anion gap 8 2 - 15 mmol/L [facility] BUN 15 6 - 25 mg/dL [facility] Creatinine 0.79 0.60 - 1.10 mg/dL [facility] Glucose 141 70 - 199 mg/dL [facility] Comment: Interpretive Data Fasting glucose >/= [...] 2022. Calcium 9.7 8.5 - 10.3 mg/dL [facility] Blood 12/21/2024 9:50 PM CDT 12/21/2024 11:11 PM CDT us Patrick Govea MD PhD LAB BLOOD ORDERABLES Final Res ult [facility] Department [place] [address] * (ABNORMAL) eGFR (12/20/2024 11:10 PM CDT) [...] ORDERABLES Final Res ult Performing Organization Address [facility] Co de Phone Number [facility] [place] [address] * Phosphorus (12/20/2024 11:10 PM CDT) Pathologist [facility] Phosphorus, pl 3.5 2.3 - 4.5 mg/dL Blood 12/20/2024 11:1 0 PM CDT 12/21/2024 12:18 AM CDT us Patrick Govea MD PhD LAB BLOOD ORDERABLES Final Res ult Performing Organization Address [facility] de Phone Number [facility] [place] [address] * Magnesium (12/20/2024 11:10 PM CDT) [facility] Magnesium 2.0 1.4 - 2.5 mg/dL Blood 12/20/2024 11:1 0 PM CDT 12/21/2024 12:18 AM CDT us Patrick Govea MD PhD LAB BLOOD ORDERABLES Final Res ult Performing Organization Address [facility] de Phone Number [facility] [place] [address] * (ABNORMAL) Basic metabolic panel (12/20/2024 11:10 PM CDT) [facility] Sodium 134(L) 135 - 145 mmol/L Potassium, pl 4.1 3.3 - 4.9 mmol/L [facility] Chloride 96(L) 97 - 110 mmol/L [facility] CO2 27 22 - 32 mmol/L [facility] Anion gap 11 2 - 15 mmol/L [facility] BUN 14 6 - 25 mg/dL [facility] Creatinine 1.03 0.60 - 1.10 mg/dL [facility] Glucose 96 70 - 199 mg/dL [facility] Comment: Interpretive Data Fasting glucose >/= [...] 2022. Calcium 9.5 8.5 - 10.3 mg/dL [facility] Blood 12/20/2024 11:1 0 PM CDT 12/21/2024 12:18 AM CDT us Patrick Govea MD PhD LAB BLOOD ORDERABLES Final Res ult [facility] [place] [address] * MERCHANDISE HANDLER Evaluation and Treatment (12/20/2024 3:54 PM CDT) Narrative Manuel Torres SLP - 12/20/2024 3:54 PM CDT Manuel Torres [...] and completed radiation 09/2024. Pt follows with Uady Jensen and Kylah. Pt family reports ongoing [...] Swallow function appears at baseline, no further MERCHANDISE HANDLER indicated. Assessment Details & Results Consistencies Administered: [...] Aspiration Risk: No aspiration risk (170-200) Plan MERCHANDISE HANDLER Frequency of Services during current admission: Discharge from this Service MERCHANDISE HANDLER Recommendation (Add'l Services): No further MERCHANDISE HANDLER indicated Next Visit Plan:No further ST warranted Additional Referrals: n/a Please reference care plan for treatment goals, if indicated. Discharge Summary Statement If this is the last swallow therapy visit, this serves as the discharge summary. us Victor Hugo Thao MD MERCHANDISE HANDLER ORDERABLES Final Res ult * (ABNORMAL) eGFR [...] MD LAB BLOOD ORDERABLES Fi nal Result SAMIRA [facility] Department [place] [address] * (ABNORMAL) Differential, auto (12/19/2024 10:47 PM CDT) Neutrophil abs 3.37 1.50 - 6.50 K/cumm Imm gran abs 0.02 0.00 - 0.10 K/cumm [facility] Lymphocyte abs 0.40(L) 0.80 - 3.30 K/cumm [facility] Monocyte abs 0.46 0.20 - 0.80 K/cumm [facility] Eosinophil abs 0.07 0.00 - 0.50 K/cumm [facility] Basophil abs 0.02 0.00 - 0.10 K/cumm [facility] Neutrophil pct 77.6 % [facility] Comment: Interpretive Data Percent cell count reference ranges are not reported, since discordance with absolute values may lead to misinterpretation of CBC data. Current Interpretive Data was last revised on 2017. Imm gran pct 0.5 % [facility] Comment: Interpretive Data Percent cell count reference ranges are not reported, since discordance with absolute values may lead to misinterpretation of CBC data. Current Interpretive Data was last revised on 2017. Lymphocyte pct 9.2 % [facility] Comment: Interpretive Data Percent cell count reference ranges are not reported, since discordance with absolute values may lead to misinterpretation of CBC data. Current Interpretive Data was last revised on 2017. Monocyte pct 10.6 % [facility] Comment: Interpretive Data Percent cell count reference ranges are not reported, since discordance with absolute values may lead to misinterpretation of CBC data. Current Interpretive Data was last revised on 2017. Eosinophil pct 1.6 % [facility] Comment: Interpretive Data Percent cell count reference ranges are not reported, since discordance with absolute values may lead to misinterpretation of CBC data. Current Interpretive Data was last revised on 2017. Basophil pct 0.5 % [facility] Comment: Interpretive Data Percent cell count reference ranges are not reported, since discordance with absolute values may lead to misinterpretation of CBC data. Current Interpretive Data was last revised on 2017. Blood 12/19/2024 10:4 7 PM CDT 12/19/2024 11:11 PM CDT Ariel Glez MD LAB BLOOD ORDERABLES Fi nal Result Performing Organization Address [facility] de Phone Number [facility] Department [place] [address] * (ABNORMAL) CBC with auto differential (12/19/2024 10:47 PM CDT) [facility] WBC 4.34 3.80 - 9.90 K/cumm Hgb 9.5(L) 11.9 - 15.5 g/dL [facility] Hct 29.0(L) 35.6 - 45.5 % [facility] Plt 245 150 - 400 K/cumm [facility] MPV 10.0 9.1 - 12.3 fL [facility] RBC 3.45(L) 3.90 - 5.20 M/cumm [facility] MCV 84.1 81.3 - 96.4 fL [facility] MCH 27.5 27.1 - 33.3 pg [facility] MCHC 32.8 32.3 - 35.7 g/dL [facility] RDW CV 13.6 11.1 - 14.9 % [facility] RDW SD 42.1 35.7 - 48.1 fL [facility] NRBC abs 0.00 0.00 - 0.01 K/cumm [facility] Blood 12/19/2024 10:4 7 PM CDT 12/19/2024 11:11 PM CDT us Ariel Glez MD LAB BLOOD ORDERABLES Fi nal Result Performing Organization Address [facility] Co de Phone Number [facility] Department [place] [address] * Phosphorus (12/19/2024 10:47 PM CDT) Pathologist [facility] Phosphorus, pl 3.7 2.3 - 4.5 mg/dL Blood 12/19/2024 10:4 7 PM CDT 12/19/2024 11:11 PM CDT us Ariel Glez MD LAB BLOOD ORDERABLES Fi nal Result Performing Organization Address City/[facility]/ZIP Co de Phone Number [facility] [place] [address] * Magnesium (12/19/2024 10:47 PM CDT) [facility] Magnesium 2.0 1.4 - 2.5 mg/dL Blood 12/19/2024 10:4 7 PM CDT 12/19/2024 11:11 PM CDT Ariel Glez MD LAB BLOOD ORDERABLES Fi nal Result Performing Organization Address [facility] Co de Phone Number [facility] [place] [address] * Basic metabolic panel (12/19/2024 10:47 PM CDT) [facility] Sodium 136 135 - 145 mmol/L Potassium, pl 4.2 3.3 - 4.9 mmol/L [facility] Chloride 100 97 - 110 mmol/L [facility] CO2 27 22 - 32 mmol/L [facility] Anion gap 9 2 - 15 mmol/L [facility] BUN 19 6 - 25 mg/dL [facility] Creatinine 1.02 0.60 - 1.10 mg/dL [facility] Glucose 87 70 - 199 mg/dL [facility] Comment: Interpretive Data Fasting glucose >/= [...] 2022. Calcium 9.6 8.5 - 10.3 mg/dL [facility] Blood 12/19/2024 10:4 7 PM CDT 12/19/2024 11:11 PM CDT us Ariel Glez MD LAB BLOOD ORDERABLES Fi nal Result [facility] Department [place] [address] * IR G Tube Placement Percutaneous (12/19/2024 2:59 PM CDT) Anatomical Region Laterality Modality Body N/A X-Ray Angiograph y 12/19/2024 3:46 PM CDT Impressions 12/22/2024 7:10 AM CDT Successful placement of a 16 Guyanese gastrostomy catheter with gastropexy. PLAN: The gastrostomy [...] and agrees with it. Electronically signed by: MD Jayne Garcia 12/22/2024 7:10 AM CDT EXAMINATION: PERCUTANEOUS GASTROSTOMY [...] was obtained. Prior to beginning the procedure, [place] Protocol was performed to confirm the patient's [...] was dilated over a guidewire to 18 Guyanese. Next, an 20 Guyanese peel-away sheath was placed in the stomach [...] was obtained. Prior to beginning the procedure, [place] Protocol was performed to confirm the patient's [...] was dilated over a guidewire to 18 Guyanese. Next, an 20 Guyanese peel-away sheath was placed in the stomach [...] identified. IMPRESSION: Successful placement of a 16 Guyanese gastrostomy catheter with gastropexy. PLAN: The gastrostomy [...] it. Electronically signed by: Harshal Gomes MD Victor Hugo Thao MD IMG IR PROCEDURES [...] MD LAB BLOOD ORDERABLES Heidi linda Result [facility] [place] [address] * (ABNORMAL) Differential, auto (12/18/2024 9:36 PM CDT) Neutrophil abs 2.31 1.50 - 6.50 K/cumm Imm gran abs 0.02 0.00 - 0.10 K/cumm [facility] Lymphocyte abs 0.46(L) 0.80 - 3.30 K/cumm [facility] Monocyte abs 0.40 0.20 - 0.80 K/cumm [facility] Eosinophil abs 0.10 0.00 - 0.50 K/cumm [facility] Basophil abs 0.02 0.00 - 0.10 K/cumm [facility] Neutrophil pct 69.8 % [facility] Comment: Interpretive Data Percent cell count reference ranges are not reported, since discordance with absolute values may lead to misinterpretation of CBC data. Current Interpretive Data was last revised on 2017. Imm gran pct 0.6 % [facility] Comment: Interpretive Data Percent cell count reference ranges are not reported, since discordance with absolute values may lead to misinterpretation of CBC data. Current Interpretive Data was last revised on 2017. Lymphocyte pct 13.9 % [facility] Comment: Interpretive Data Percent cell count reference ranges are not reported, since discordance with absolute values may lead to misinterpretation of CBC data. Current Interpretive Data was last revised on 2017. Monocyte pct 12.1 % [facility] Comment: Interpretive Data Percent cell count reference ranges are not reported, since discordance with absolute values may lead to misinterpretation of CBC data. Current Interpretive Data was last revised on 2017. Eosinophil pct 3.0 % [facility] Comment: Interpretive Data Percent cell count reference ranges are not reported, since discordance with absolute values may lead to misinterpretation of CBC data. Current Interpretive Data was last revised on 2017. Basophil pct 0.6 % [facility] Comment: Interpretive Data Percent cell count reference ranges are not reported, since discordance with absolute values may lead to misinterpretation of CBC data. Current Interpretive Data was last revised on 2017. Blood 12/18/2024 9:36 PM CDT 12/18/2024 10:31 PM CDT us Victor Hugo Thao MD LAB BLOOD ORDERABLES Heidi linda Result [facility] [place] [address] * (ABNORMAL) CBC with auto differential (12/18/2024 9:36 PM CDT) WBC 3.31(L) 3.80 - 9.90 K/cumm Hgb 9.5(L) 11.9 - 15.5 g/dL [facility] Hct 29.1(L) 35.6 - 45.5 % [facility] Plt 253 150 - 400 K/cumm [facility] MPV 10.4 9.1 - 12.3 fL [facility] RBC 3.45(L) 3.90 - 5.20 M/cumm [facility] MCV 84.3 81.3 - 96.4 fL [facility] MCH 27.5 27.1 - 33.3 pg [facility] MCHC 32.6 32.3 - 35.7 g/dL [facility] RDW CV 13.7 11.1 - 14.9 % [facility] RDW SD 42.2 35.7 - 48.1 fL [facility] NRBC abs 0.00 0.00 - 0.01 K/cumm [facility] Blood 12/18/2024 9:36 PM CDT 12/18/2024 10:31 PM CDT Victor Hugo Thao MD LAB BLOOD ORDERABLES Heidi l Result Performing Organization Address [facility] de Phone Number [facility] [place] [address] * aPTT (12/18/2024 9:36 PM CDT) aPTT [...] ORDERABLES Heidi l Result Performing Organization Address [facility] Co de Phone Number [facility] [place] [address] * Protime-INR (12/18/2024 9:36 PM CDT) PT 10.7 9.7 - 13.0 sec INR 0.99 0.90 - 1.20 [facility] Comment: Interpretive data Oral anticoagulant therapeutic [...] ORDERABLES Heidi l Result Performing Organization Address [facility] Co de Phone Number [facility] [place] [address] * Type and screen (12/18/2024 9:36 PM CDT) Pathologist [facility] ABO Rh O Negative Ramy, indirect Negative [facility] Blood 12/18/2024 9:36 PM CDT 12/18/2024 10:35 PM CDT Narrative [facility] - 12/18/2024 11:23 PM CDT Has the patient had Daratumumab or Isatuximab in the past 6 months?->Unknown Victor Hugo Thao MD LAB BLOOD BANK TEST ORDER MIGUELINA Final Result Performing Organization Address [facility] [place] [address] * Phosphorus (12/18/2024 9:36 PM CDT) Pathologist [facility] Phosphorus, pl 3.3 2.3 - 4.5 mg/dL Blood 12/18/2024 9:36 PM CDT 12/18/2024 10:31 PM CDT Victor Hugo Thao MD LAB BLOOD ORDERABLES Heidi l Result Performing Organization Address [facility] Co de Phone Number [facility] [place] [address] * Magnesium (12/18/2024 9:36 PM CDT) [facility] Magnesium 2.0 1.4 - 2.5 mg/dL Blood 12/18/2024 9:36 PM CDT 12/18/2024 10:31 PM CDT Victor Hugo Thao MD LAB BLOOD ORDERABLES Heidi l Result Performing Organization Address City/[facility]/ZIP Co de Phone Number [facility] Department [place] [address] * (ABNORMAL) Hemoglobin A1c (12/18/2024 9:36 PM CDT) [facility] Hgb A1C 5.8(H) 4.0 - 5.6 % Estimated Average Glucose 120 mg/dL [facility] Comment: The ADA recommends reporting an estimated Average Glucose (eAG) with all Hemoglobin A1c results using the equation derived from a study of 507 normal and diabetic adults. Minority populations were underrepresented and children were not included. (Diabetes Care 2020; 43(S1): S66-S76). The eAG is not equivalent to a fasting glucose. Blood 12/18/2024 9:36 PM CDT 12/18/2024 10:35 PM CDT Narrative [facility] - 12/19/2024 6:59 PM CDT 12/19/2024 15:34:24 CDT Reflex. Ariel Glez MD LAB BLOOD ORDERABLES Fi nal Result [facility] Department [place] [address] * Hepatic function panel (12/18/2024 9:36 PM CDT) [facility] Bilirubin, total 0.5 0.1 - 1.2 mg/dL Bilirubin, direct <0.2 0.1 - 0.3 mg/dL [facility] Protein, pl 7.6 6.5 - 8.5 g/dL [facility] Albumin 3.9 3.5 - 5.0 g/dL [facility] Alk phos 76 40 - 130 Units/L [facility] ALT 7 7 - 45 Units/L [facility] AST 23 10 - 45 Units/L [facility] Blood 12/18/2024 9:36 PM CDT 12/18/2024 10:31 PM CDT Victor Hugo Thao MD LAB BLOOD ORDERABLES Heidi l Result [facility] [place] [address] * Lipid panel (12/18/2024 9:36 PM CDT) [...] revised on 2018. Triglycerides 118 <=149 mg/dL [facility] Comment: Interpretive Data Ages < or [...] revised on 2018. HDL 47 >=40 mg/dL [facility] Comment: Interpretive Data Ages < or [...] on 2018. LDL, calculated 80 <=129 mg/dL [facility] Comment: Interpretive Data Ages < or = [...] revised on 2024. Non-HDL Cholesterol 101 mg/dL [facility] Comment: Interpretive Data Ages < or = [...] last revised on 2018. Chol/HDL ratio 3 [facility] Blood 12/18/2024 9:36 PM CDT 12/18/2024 10:31 PM CDT us Ariel Glez MD LAB BLOOD ORDERABLES Fi nal Result [facility] Department [place] [address] * (ABNORMAL) Basic metabolic panel (12/18/2024 9:36 PM CDT) Pathologist [facility] Sodium 133(L) 135 - 145 mmol/L Potassium, pl 4.5 3.3 - 4.9 mmol/L [facility] Chloride 96(L) 97 - 110 mmol/L [facility] CO2 28 22 - 32 mmol/L [facility] Anion gap 9 2 - 15 mmol/L [facility] BUN 26(H) 6 - 25 mg/dL [facility] Creatinine 1.16(H) 0.60 - 1.10 mg/dL [facility] Glucose 119 70 - 199 mg/dL [facility] Comment: Interpretive Data Fasting glucose >/= [...] 2022. Calcium 10.0 8.5 - 10.3 mg/dL [facility] Blood 12/18/2024 9:36 PM CDT 12/18/2024 10:31 PM CDT us Victor Hugo Thao MD LAB BLOOD ORDERABLES Heidi l Result Performing Organization Address City/[facility]/ZIP Co de Phone Number [facility] Department [place] [address] * CT Neck Soft Tissue W Contrast [...] are normal. The limited view of the [place] is unremarkable. The visualized portions [...] are normal. The limited view of the [place] is unremarkable. The visualized portions [...] 8:54 AM CDT 11/21/2024 8:54 AM CDT Self Referral LAB POCT ORDERABLES - DEVICE Fin al Result [facility] Department of Laboratories [place], [place] [id number] * CT Facial Bones W Contrast (10/12/2024 8:27 PM CDT) Anatomical Region Laterality Modality Head and Neck N/A Computed Tomogra phy 10/12/2024 8:49 PM CDT Narrative 10/12/2024 9:03 PM CDT EXAM DESCRIPTION: CT FACIAL BONES W CONTRAST REASON FOR STUDY: carol ann Patient presents with discharge from left eye [...] Jak Garrison M.D. AR: AIYANA Report ID: [id number] Reading Location: [id number] Procedure Note Jak Garrison MD - 10/12/2024 EXAM DESCRIPTION: CT FACIAL BONES W CONTRAST REASON FOR STUDY: carol ann Patient presents with discharge from left eye [...] Jak Garrison M.D. AR: AIYANA Report ID: [id number] Reading Location: [place] [address] [address] IMG CT PROCEDURES Final R [...] Geller NP LAB BLOOD ORDERABLES Final Result [facility]) [facility] Department [place] [address] * (ABNORMAL) Differential, auto (10/12/2024 4:17 PM CDT) Neutrophil abs 3.19 1.50 - 6.50 K/cumm Imm gran abs 0.01 0.00 - 0.10 K/cumm [facility] ([facility]) Lymphocyte abs 0.31(L) 0.80 - 3.30 K/cumm [facility] ([facility]) Monocyte abs 0.32 0.20 - 0.80 K/cumm [facility] ([facility]) Eosinophil abs 0.08 0.00 - 0.50 K/cumm [facility] ([place]) Basophil abs 0.01 0.00 - 0.10 K/cumm [facility] ([place]) Neutrophil pct 81.3 % [facility] ([facility]) Comment: Interpretive Data Percent cell count reference ranges are not reported, since discordance with absolute values may lead to misinterpretation of CBC data. Current Interpretive Data was last revised on 2017. Imm gran pct 0.3 % [facility] ([facility]) Comment: Interpretive Data Percent cell count reference ranges are not reported, since discordance with absolute values may lead to misinterpretation of CBC data. Current Interpretive Data was last revised on 2017. Lymphocyte pct 7.9 % [facility] ([facility]) Comment: Interpretive Data Percent cell count reference ranges are not reported, since discordance with absolute values may lead to misinterpretation of CBC data. Current Interpretive Data was last revised on 2017. Monocyte pct 8.2 % [facility] ([place]) Comment: Interpretive Data Percent cell count reference ranges are not reported, since discordance with absolute values may lead to misinterpretation of CBC data. Current Interpretive Data was last revised on 2017. Eosinophil pct 2.0 % [facility] ([facility]) Comment: Interpretive Data Percent cell count reference ranges are not reported, since discordance with absolute values may lead to misinterpretation of CBC data. Current Interpretive Data was last revised on 2017. Basophil pct 0.3 % [facility] ([place]) Comment: Interpretive Data Percent cell count reference ranges are not reported, since discordance with absolute values may lead to misinterpretation of CBC data. Current Interpretive Data was last revised on 2017. Blood 10/12/2024 4:17 PM CDT 10/12/2024 4:29 PM CDT us Sarbjit Geller NP LAB BLOOD ORDERABLES Final Result [facility]) [address] [facility] [place] [address] * (ABNORMAL) CBC with auto differential (10/12/2024 [...] Geller NP LAB BLOOD ORDERABLES Final Result Performing Organization Address City/[facility]/ZIP Co de Phone Number [facility] ([facility]) [address] Department [place] [address] * (ABNORMAL) Comprehensive metabolic panel (10/12/2024 4:17 [...] 1.05 0.60 - 1.10 mg/dL [facility]) Glucose 125 70 - 199 mg/dL [facility] Comment: Interpretive Data Fasting glucose [...] 2022. Calcium 10.2 8.5 - 10.3 mg/dL [facility]) Bilirubin, total 0.2 0.1 - 1.2 mg/dL [facility]) Protein, pl 7.5 6.5 - 8.5 g/dL [facility] Albumin 3.7 3.5 - 5.0 g/dL [facility] Alk phos 90 40 - 130 Units/L [facility] ALT <5(L) 7 - 45 Units/L [facility] AST 22 10 - 45 Units/L [facility] Blood 10/12/2024 4:17 PM CDT 10/12/2024 4:29 PM CDT Sarbjit Geller [employer] LAB BLOOD ORDERABLES Final Result [facility] ([facility]) [facility] Department [place] [address] * Hepatitis C antibody Blood (06/21/2024 10:25 AM SERVICE CREW LEADER) Hep C Ab Nonreactive Nonreactive Comment:Antibodies to HCV no t detected. Does NOT exclude the possibility of recent exposure to HCV. Current interpretive data was last revised on 22 Blood 06/21/2024 10:2 5 AM SERVICE CREW LEADER 06/21/2024 10:32 AM SERVICE CREW LEADER Narrative [facility] - 06/21/2024 12:02 PM SERVICE CREW LEADER Bill to [address] Occupational Health us Damian Foy MD LAB MICROBIOLOGY - GE NERAL ORDERABLES Final Result [facility]A G[facility] Department [place] [address] from Last 3 Months or Most Recently Relevant to Health Maintenance Insurance MEDICARE [facility] MEDICARE [facility] Advance Directives For more information, please contact: [phone] Documents on File Type Date Recorded Patient Hemstitcher Expl anation ADVANCE DIRECTIVE 07/18/2024 5:13 PM ADVAN CE DIRECTIVE ADVANCE DIRECTIVE 06/22/2024 7:57 AM DEMETRI R OF IMPORT COORDINATOR-MEDICAL * Full Code (Latest Code Status on File) Date Activated Date Inactivated Comments 12/18/2024 8:47 PM 12/22/2024 7:17 PM * Full Code Date Activated Date Inactivated Comments 06/21/2024 7:18 PM 07/16/2024 7:12 PM Care Teams Private Household Worker Relationship Specialty Start Date End Date Rafael Correia MD [address] [place] [address] PCP - General Family Medicine 10/03/24 Felicia Bishop, RN Nurse Navigator 05/20/24 Becki Rahman LCSW Quarantine Inspector 05/20/24 Onel Jensen MD [address] [address] Consulting Physician Otolaryngology 05/23/24
--- OUTSIDE RECORDS SUMMARY | 2025-01-05 16:18 | XMS_ITS | Clinical Summary ---
Author Organization [facility] Address [address], [facility] [address] [place] [address] Phone Care Team Providers Care Corporate Intern Name Role Phone Victor Hugo Dudley DO Unavailable Dorothy Gupta MD Primary Care Provider [phone] Simon William MD Unavailable [phone] Allergies Active Allergy Reactions Criticality Noted Date [...] MG Tablet 0.1 mg by Enteral route. Active donepezil (ARICEPT) 10 MG Tablet 10 mg by Enteral route. Active fentaNYL (DURAGESIC) 12 MCG/HR PATCH 72 HR 1 Patch by Transdermal route. Active Active Problems Problem Noted Date Diagnosed Date History of iron deficiency 07/08/2021 Screening breast examination 11/25/2020 Leukopenia 06/08/2018 Meningioma 10/06/2017 Iron deficiency 05/19/2016 Liver cirrhosis 03/14/2016 Anemia due to stage 4 chronic kidney disease Immunizations Immunization Administration Dates Next Due Covid-19, Mrna, Lnp-s, Pf, 30 Mcg/0.3 Ml Dose (P fizer) 10/01/2020,09/10/2020 Influenza, high-dose, trivalent, PF 05/04/2016 Family History Medical History Relation Name Comments Hypertension Brother Relation Name Status Comments Brother Father Mother Social History Tobacco Use Types Packs/Day Years Used Date Smoking Tobacco: Former Cigarettes 1 50 1 955 - 2004 Smokeless Tobacco: Never Tobacco Cessation:Counseling Given: Not [...] Info) Description 03/30/2025 11:00 AM CDT Lab [facility] [address] [place] [id number] 04/06/2025 10:40 AM CDT [facility] [address] [place] [address] Conchita Huizar Claribel, PAC [address] [place] [address] Health Maintenance Due Date Last Done Comments DEXA Bone Density 1945 Hepatitis C Virus (HCV) Screening 1945 TdaP Immunization 1945 Pneumococcal Immunization (5 0+ years) (1 of 2 - PCV) 02/08/1964 Cologuard 1990 Immunochemical Fecal Occult Blood 1990 Zoster Immunization (1 of 2) 1995 Hepatitis B Immunization (1 of 3 - Risk 3-dose series) 2005 Respiratory Syncytial Virus (RSV) Immunization (Adult) (1 - 1-dose 75+ series) 02/08/2020 SARS-COV-2 Immunization ( - season) 2024 06/18/2021, 10/01/2020, 09/10/2020 Influenza Immunization (Seas on Ended) 2025 05/04/2016 Colonoscopy 09/03/2032 09/03/2022, 04/21/2016 Colorectal Cancer Screening 09/03/2032 Human Papillomavirus (HPV) Immunization Aged Out No longer eligible b ased on patient's age to complete this topic Meningococcal Immunization (ACWY) Aged Out No longer eligible b ased on patient's age to complete this topic Rotavirus Immunization Aged Out No lo nger eligible based on patient's age to complete this topic Procedures Procedure Name Priority Date/Time Associated Diagnosis Comments COLONOSCOPY Routine 04/21/2016 from Last 3 Months or Most Recently Relevant to Health Maintenance Results * COLONOSCOPY (04/21/2016) us Isidro E Radha MD PROCEDURE/MINOR SURGICAL OR DERABLES Final Result from Last 3 Months or Most Recently Relevant to Health Maintenance Insurance MEDICARE [facility] Care Teams Corporate Intern Relationship Specialty Start Date End Date Dorothy Gupta MD [address] [place] [address] PCP - General Family Medicine 09/02/19 Victor Hugo Dudley DO Gastroenterology 04/23/16 Simon William MD [address] [place] [address] Consulting Physician Gastroenterology 10/17/21
--- OUTSIDE RECORDS SUMMARY | 2025-01-05 16:18 | XMS_ITS | Clinical Summary ---
Author Organization [facility] Address [address] [place] [address] Care Team Providers Care Psychiatric Technician Name Role Phone Dorothy Gupta MD Primary Care Provider [phone] Social History Tobacco Use Types Packs/Day Years [...] season) 2024 06/18/2021, 10/01/2020, 09/10/2020 PHQ-2 (Physician [place]) 07/06/2024 Meningococcal B Vaccine Aged Out No l onger eligible based on patient's age to complete this topic Meningococcal Vaccine Aged Out No mary barrera eligible based on patient's age to complete this topic RSV Immunizations Under 20 Months Aged Out No longer eligible b ased on patient's age to complete this topic Insurance [place] [address] [place] [id number] Care Teams Psychiatric Technician Relationship Specialty Start Date End Date Dorothy Gupta MD [address] [facility] [address] [place] [address] PCP - General FAMILY PRACTICE 05/11/24
--- OUTSIDE RECORDS SUMMARY | 2025-01-05 16:18 | XMS_ITS | Data Portability ---
Author Organization [facility] [place] Address [address] [place] [address] [place] [address] Assessment Encounter Date Assessment Date Assessment LastModified by Organization Details LastModified Time 10/26/2019 10/26/2019 Annual gynecological exam performed. Patient will come back in a year unless there are new symptoms. [email or web address] Not available 10/26/2019 10:33:40 Plan of Treatment Reminders Order Date Submit Date Provider Last Modified By Organization Details Last Modified Time Details Appointments None recorded. Lab ca 125, serum 2019 020 [place] [facility] ([facility]), [address], [place], [address], 0 05:30:56 urinalysis, dipstick 2019 020 [facility], [address], [address], [place], [address], 0 17:25:59 Referral None recorded. Procedures None recorded. Surgeries None recorded. Imaging US, pelvis 2019 020 [email or web address] [place], [address], [address], [place], [address], 0 16:58:57 US, transvagina l 2019 020 [place], [address], [address], [place], [address], 0 05:00:43 Medication Orders None recorded. Patient TargetsNo targets recorded. Patient InstructionsNo instructions recorded. Reason for Referral None Reported. Results Created Date Observation Date Name Description Value Unit Range Abnormal Flag Note LastModifiedBy Organization Detail LastModifiedTime 11/03/19 20 11/04/2019 ca 125, serum CA-125 6.0 U/mL <2-38. 1 Not Available [facility] ([facility]) [address], [place], [address], 11/04/2019 05:30:56 07/31/19 21 07/31/2020 , fidel molina md interpretati on Not Available [facility] [address], [place], [address], 11/03/2019 11:58:15 11/03/19 fidel DAVIES observ ation record ed. [facility] [address] [facility], [place], [address], 11/04/2019 18:14:00 Result Notes None recorded. Procedures Surgical History Date Name Laterality Status Provider Name and Address Organization Details Recorded Time 12/07/19 LAPAROSCOPY, SURGICAL WITH FULGURATION/EXCI TERRY OF LESIONS OF THE OVARY/PELVIC VISCERA/PERITONE AL SURFACE (SURG) completed Chris Aguilar MD [address], [place], [address], [facility] 12/11/2019 11:25:23 Total hysterectomy completed Callie Jung [facility] 10/26/2019 10:49:36 Imaging Results None recorded. Procedure Notes None recorded. Medical Equipment None Reported. Allergies No known drug allergies Medications Name Sig Start Date Stop Date Status Note LastModified by Organization Details LastModified Time iron active Not Available Not Availa ble Not Available Vitamin D active Not Available Not Nancy ilable Not Available losartan active Not Available Not Avai lable Not Available Allergy active Not Available Not Avail able Not Available Vitals Date Recorded Body height Body mass index (BMI) Body weight Systolic And Diastolic Provider Name and Address Organization Details Last Updated DateTime 10/26/2019 154.94 cm 28 kg/m2 55861.67 g 170/78 mm[Hg] [facility] 10/26/2019 10:40:58 Date Recorded Body height Body mass index (BMI) Body weight Systolic And Diastolic Provider Name and Address Organization Details Last Updated DateTime 11/03/2019 154.94 cm 28 kg/m2 61921.67 g 194/78 mm[Hg] [facility] 11/03/2019 11:59:31 Date Recorded Body height Body mass index (BMI) Body weight Systolic And Diastolic Provider Name and Address Organization Details Last Updated DateTime 12/06/2019 154.94 cm 27.8 kg/m2 74748.08 g 159/77 mm[Hg] [facility] 12/06/2019 14:51:03 Date Recorded Body height Body mass index (BMI) Body weight Systolic And Diastolic Provider Name and Address Organization Details Last Updated DateTime 12/15/2019 154.94 cm 27.2 kg/m2 34082.3 g 178/82 mm[Hg] [facility] 12/15/2019 10:52:33 Social History None recorded. Functional Status None recorded. Mental Status None recorded. Family History Nothing Reported. Medical History Condition Response Hypertension Y Gynecological HistoryNo gynecological history recorded. Obstetrics History GPAL:G 0 P 0 0 0 0 Past Encounters Encounter ID Performer Location Encounter Start Date Encounter Closed Date Diagnosis/Indication Diagnosis SNOMED-CT Code Diagnosis ICD10 Code Diagnosis Note [id number] Chris Aguilar MD [place] [address] [address] 10/26/2019 10:30:13 10/26/2019 11:19:47 Routine gynecologic examination done [id number] 9101 Z01.419 This patient is here for her annual exam. A thorough history was taken. A physical exam was performed. Age appropriat e routine health screening was ordered, performed, and discussed. Recommende d testing was ordered. She was asked to follow up in one year. She will be informed of any test results. Mammogram - ordered Colonoscop y - done Bone Density - ordered Cholestero l - Pap - today [id number] Chris Aguilar MD [place] [address] [address] 11/03/2019 10:49:52 11/03/2019 12:53:05 Cyst of left ovary [id number] N83.202 This patient is a 74-year-ol d female with a suspicious left ovarian cyst. We agreed to perform CA 125 today. We talked about the cyst. We reviewed some images together. We talked about gynecologi c Oncology involvemen t. We talked about 6 laparoscop ic removal of the cyst. . We agreed to remove the cyst here locally if the CA 125 was normal. I described some of the details of the surgery. We spent more than 15 minutes face-to-fa ce. [id number] MD Sonia Hutchinson [address],[place] [address] 11/03/2019 11:29:57 11/03/2019 16:10:21 Abnormal radiologic density [id number] R93.89 [id number] Chris Aguilar MD [place] [address] [address] 12/06/2019 14:42:27 12/06/2019 16:16:47 Cyst of left ovary [id number] N83.202 This patient is a 74-year-ol d female with a worrisome left ovarian cyst. We have agreed to perform laparoscop ic left ovarian oophorecto my. She understand s the risks, benefits, and alternativ es. She has completed the informed some process and is ready to proceed. [id number] MD Sonia Hutchinson [address] [address] 12/15/2019 10:42:55 12/15/2019 18:03:45 Eczema [id number] L30.9 Postoperative visit 4189 [id number] Z09 This patient is a 74-year-ol d female who is for postop follow-up. She had a laparoscop ic ovarian cystectomy /oophorect adi. Thecyst was benign. Sheis recovering normally. Her incisions are clean dry and intact. She has problems with eczema. She luciana coleaking skin throughout her scalp and under her breastsand on her arms. She is interested in an eczema/rogelio matology consult. eber will follow-up with us as neededand for annual exams. Health Concerns Section Related Observation LastModified by Organization Detai ls LastModified Time None Recorded Concern Status LastModified by Organization Details LastModified Time None Recorded Advance Directives Directive None Recorded Payers Insurance Date Sequence Insurance Name Policy Number Policy Cardenas Covered Member ID Cardenas Member ID Guarantor Name 10/05/2020 1 [place] Tea Turner [id number] Tea Turner 12/12/2019 2 () Tea Turner [id number] Tea Turner Notes Date Note Type Note Provider Name and Address Organization Details Recorded Time 10/26/2019 text/html Annual GYNReport ed bypatient.History: no gynecologic complaints; no change in interval history Menstrual cycle:Menopausal, Post Hyst Urinary symptoms:No hematuria; No incontinence Vulva:No genital lesion Vagina:Normal vaginal discharge Breast:No breast pain; No breast lump; No nipple discharge Sexual complaints:No sexual complaints; No pain during intercourse; Normal libido Psychological symptoms:No depression; No anxiety; No PMDDNotes: Chris Aguilar MD [address], [place], [address], [facility] 10/26/2019 11:29:50 11/03/2019 text/html this patient is a 74-year-old female who was known to have ovarian cyst. She reported that had her well-woman exam. We agreed to perform a pelvic ultrasound. The ultrasound findings show a large cyst that is complex. She has no symptoms. She denies any pelvic pain, pressure, abdominal distention, early satiety. Chris Aguilar MD [address], [place], [address], [facility] 11/03/2019 12:32:01 12/06/2019 text/html This patient is a 74-year-old female who presents for preoperative care. She has a ovarian cyst that is worrisome. We have agreed to perform laparoscopic left oophorectomy. The patient understands the procedure. The procedure was described to the patient in great detail. the patient also understands the risks. The risks were also explained in detail. She understands that injuries May occur during surgery. She understands these injuries can result in hospitalization, more surgery, and severe illness. She understands there is risk of hemorrhage and infection. Chris Aguilar MD [address], [place], [address], [facility] 12/07/2019 11:32:21 12/15/2019 text/html This patient is a 74-year-old female who is for postop follow-up. She had a laparoscopic ovarian cystectomy/oophore ctomy. The cyst was benign. She is recovering normally. Her incisions are clean dry and intact. She has problems with eczema. She has shedding flaking skin throughout her scalp and under her breasts and on her arms. She is interested in an eczema/dermatology consult. She will follow-up with us as needed and for annual exams. Chris Aguilar MD [address], [place], [address], [facility] 12/15/2019 11:31:33 OBGyn Episode Ob Episode Information Episode Created Date Number of Fetuses Patient Bloodtype Patient rh Status Prepregnancy Weight lbs Domestic Partner Domestic Partner Phone Father Name Builder'S Labourer Status 10/26/19 20 1 CLOSED Fetus Data First Name Last Name Admitted to NICU Weight (g) Sex Living Outcome Pediatric Complications Fetus ID Race Codes Race Delivery Type Full Term 747 Vaginal Delivery Anjel Calculation Initial Anjel Date Initial Exam Date Initial Exam Provider Initial Ultrasound Date Last Menstrual Period Date Ultra Sound Weeks Gestation 0 Eighteen To Twenty Week Anjel Update Ultra Sound Date Fundal Height At Umbil Quickening Date Ultra Sound Latest Weeks Gestation Final Anjel Confirmed By Final Anjel Confirmed Date Final Anjel Date Ultra Sound Latest Days Gestation 0 0 Menstrual History Last Menstrual Date Menses Monthly On Bcp Conception Prior Menses Frequency Hcg Plus Date Menarche Onset Age Delivery Information Delivery Date Delivery Type Labor Anesthesia Weeks Gestation Incision Type Labor Labor Length Hrs Delivered By Post Complications Tubal Sterilization Discharge Date Comments 5 Discharge Information Feeding Method Contraceptive Method Maternal HG B and HCT Levels Ob Episode Information Episode Created Date Number of Fetuses Patient Bloodtype Patient rh Status Prepregnancy Weight lbs Domestic Partner Domestic Partner Phone Father Name Builder'S Labourer Status 10/26/19 20 1 CLOSED Fetus Data First Name Last Name Admitted to NICU Weight (g) Sex Living Outcome Pediatric Complications Fetus ID Race Codes Race Delivery Type Full Term 745 Vaginal Delivery Anjel Calculation Initial Anjel Date Initial Exam Date Initial Exam Provider Initial Ultrasound Date Last Menstrual Period Date Ultra Sound Weeks Gestation 0 Eighteen To Twenty Week Anjel Update Ultra Sound Date Fundal Height At Umbil Quickening Date Ultra Sound Latest Weeks Gestation Final Anjel Confirmed By Final Anjel Confirmed Date Final Anjel Date Ultra Sound Latest Days Gestation 0 0 Menstrual History Last Menstrual Date Menses Monthly On Bcp Conception Prior Menses Frequency Hcg Plus Date Menarche Onset Age Delivery Information Delivery Date Delivery Type Labor Anesthesia Weeks Gestation Incision Type Labor Labor Length Hrs Delivered By Post Complications Tubal Sterilization Discharge Date Comments 2 Discharge Information Feeding Method Contraceptive Method Maternal HG B and HCT Levels Ob Episode Information Episode Created Date Number of Fetuses Patient Bloodtype Patient rh Status Prepregnancy Weight lbs Domestic Partner Domestic Partner Phone Father Name Builder'S Labourer Status 10/26/19 20 1 CLOSED Fetus Data First Name Last Name Admitted to NICU Weight (g) Sex Living Outcome Pediatric Complications Fetus ID Race Codes Race Delivery Type Full Term 746 Vaginal Delivery Anjel Calculation Initial Anjel Date Initial Exam Date Initial Exam Provider Initial Ultrasound Date Last Menstrual Period Date Ultra Sound Weeks Gestation 0 Eighteen To Twenty Week Anjel Update Ultra Sound Date Fundal Height At Umbil Quickening Date Ultra Sound Latest Weeks Gestation Final Anjel Confirmed By Final Anjel Confirmed Date Final Anjel Date Ultra Sound Latest Days Gestation 0 0 Menstrual History Last Menstrual Date Menses Monthly On Bcp Conception Prior Menses Frequency Hcg Plus Date Menarche Onset Age Delivery Information Delivery Date Delivery Type Labor Anesthesia Weeks Gestation Incision Type Labor Labor Length Hrs Delivered By Post Complications Tubal Sterilization Discharge Date Comments 4 Discharge Information Feeding Method Contraceptive Method Maternal HG B and HCT Levels Ob Episode Information Episode Created Date Number of Fetuses Patient Bloodtype Patient rh Status Prepregnancy Weight lbs Domestic Partner Domestic Partner Phone Father Name Builder'S Labourer Status 10/26/19 20 1 CLOSED Fetus Data First Name Last Name Admitted to NICU Weight (g) Sex Living Outcome Pediatric Complications Fetus ID Race Codes Race Delivery Type Full Term 743 Vaginal Delivery Anjel Calculation Initial Anjel Date Initial Exam Date Initial Exam Provider Initial Ultrasound Date Last Menstrual Period Date Ultra Sound Weeks Gestation 0 Eighteen To Twenty Week Anjel Update Ultra Sound Date Fundal Height At Umbil Quickening Date Ultra Sound Latest Weeks Gestation Final Anjel Confirmed By Final Anjel Confirmed Date Final Anjel Date Ultra Sound Latest Days Gestation 0 0 Menstrual History Last Menstrual Date Menses Monthly On Bcp Conception Prior Menses Frequency Hcg Plus Date Menarche Onset Age Delivery Information Delivery Date Delivery Type Labor Anesthesia Weeks Gestation Incision Type Labor Labor Length Hrs Delivered By Post Complications Tubal Sterilization Discharge Date Comments 9 Discharge Information Feeding Method Contraceptive Method Maternal HG B and HCT Levels Ob Episode Information Episode Created Date Number of Fetuses Patient Bloodtype Patient rh Status Prepregnancy Weight lbs Domestic Partner Domestic Partner Phone Father Name Builder'S Labourer Status 10/26/19 1 CLOSED Fetus Data First Name Last Name Admitted to NICU Weight (g) Sex Living Outcome Pediatric Complications Fetus ID Race Codes Race Delivery Type Full Term 749 Vaginal Delivery Anjel Calculation Initial Anjel Date Initial Exam Date Initial Exam Provider Initial Ultrasound Date Last Menstrual Period Date Ultra Sound Weeks Gestation 0 Eighteen To Twenty Week Anjel Update Ultra Sound Date Fundal Height At Umbil Quickening Date Ultra Sound Latest Weeks Gestation Final Anjel Confirmed By Final Anjel Confirmed Date Final Anjel Date Ultra Sound Latest Days Gestation 0 0 Menstrual History Last Menstrual Date Menses Monthly On Bcp Conception Prior Menses Frequency Hcg Plus Date Menarche Onset Age Delivery Information Delivery Date Delivery Type Labor Anesthesia Weeks Gestation Incision Type Labor Labor Length Hrs Delivered By Post Complications Tubal Sterilization Discharge Date Comments 1 Discharge Information Feeding Method Contraceptive Method Maternal HG B and HCT Levels Ob Episode Information Episode Created Date Number of Fetuses Patient Bloodtype Patient rh Status Prepregnancy Weight lbs Domestic Partner Domestic Partner Phone Father Name Builder'S Labourer Status 10/26/19 20 1 CLOSED Fetus Data First Name Last Name Admitted to NICU Weight (g) Sex Living Outcome Pediatric Complications Fetus ID Race Codes Race Delivery Type Full Term 744 Vaginal Delivery Anjel Calculation Initial Anjel Date Initial Exam Date Initial Exam Provider Initial Ultrasound Date Last Menstrual Period Date Ultra Sound Weeks Gestation 0 Eighteen To Twenty Week Anjel Update Ultra Sound Date Fundal Height At Umbil Quickening Date Ultra Sound Latest Weeks Gestation Final Anjel Confirmed By Final Anjel Confirmed Date Final Anjel Date Ultra Sound Latest Days Gestation 0 0 Menstrual History Last Menstrual Date Menses Monthly On Bcp Conception Prior Menses Frequency Hcg Plus Date Menarche Onset Age Delivery Information Delivery Date Delivery Type Labor Anesthesia Weeks Gestation Incision Type Labor Labor Length Hrs Delivered By Post Complications Tubal Sterilization Discharge Date Comments 1 Discharge Information Feeding Method Contraceptive Method Maternal HG B and HCT Levels Ob Episode Information Episode Created Date Number of Fetuses Patient Bloodtype Patient rh Status Prepregnancy Weight lbs Domestic Partner Domestic Partner Phone Father Name Builder'S Labourer Status 10/26/19 20 1 CLOSED Fetus Data First Name Last Name Admitted to NICU Weight (g) Sex Living Outcome Pediatric Complications Fetus ID Race Codes Race Delivery Type Full Term 748 Vaginal Delivery Anjel Calculation Initial Anjel Date Initial Exam Date Initial Exam Provider Initial Ultrasound Date Last Menstrual Period Date Ultra Sound Weeks Gestation 0 Eighteen To Twenty Week Anjel Update Ultra Sound Date Fundal Height At Umbil Quickening Date Ultra Sound Latest Weeks Gestation Final Anjel Confirmed By Final Anjel Confirmed Date Final Anjel Date Ultra Sound Latest Days Gestation 0 0 Menstrual History Last Menstrual Date Menses Monthly On Bcp Conception Prior Menses Frequency Hcg Plus Date Menarche Onset Age Delivery Information Delivery Date Delivery Type Labor Anesthesia Weeks Gestation Incision Type Labor Labor Length Hrs Delivered By Post Complications Tubal Sterilization Discharge Date Comments 9 Discharge Information Feeding Method Contraceptive Method Maternal HG B and HCT Levels
--- OUTSIDE RECORDS SUMMARY | 2025-01-05 16:18 | XMS_ITS ---
Author Organization [facility] Address [facility] [place] [address] Care Team Providers Care Mogul Operator Name Role Phone Felicia Bishop RN Unavailable UnavailBecki Meza LCSW Unavailable UnavailOnel Nguyen MD Unavailable [phone] Rafael Correia MD Primary Care Provider Active Problems * This document contains information received from the source organization and may not represent a complete record from that organization. 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 Patient's CAPSULE FILLER evaluation did not test solid food per patient's request though patient has known discomfort (almost globus like sensation). Patient's current weight loss is secondary to insufficient caloric intake by PO alone, with patient now requiring tube feeding for goal. S/p PEG by IR 12/19, began advancing TF 12/20 to goal ~12/21 - dispo 12/22 with TF (home health). 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 Patient's CAPSULE FILLER evaluation did not test solid food per patient's request though patient has known discomfort (almost globus like sensation). Patient's current weight loss is secondary to insufficient caloric intake by PO alone, with patient now requiring tube feeding for goal. S/p PEG by IR 12/19, began advancing TF 12/20 to goal ~12/21 - dispo 12/22 with TF (home health). - RD c/s, CAPSULE FILLER eval - Return to pureed diet, crushed [...] 12/20 to goal ~12/21 - RD c/s, CAPSULE FILLER eval - Return to pureed diet, crushed [...] clearance by IR 12/20 - RD c/s, CAPSULE FILLER eval - Return to pureed diet, crushed [...] TF initiation - IR cs. RD cs. 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 [...] 07/12/2024 Assessment & Plan (07/12/2024 1:50 PM BEATER ENGINEER HELPER): A1c of 5.7. On SSI. Subq insulin [...] hydralazine Assessment & Plan (07/13/2024 9:18 AM BEATER ENGINEER HELPER): Blood pressures normal. Cont amlodipine (increase to [...] and PRN hydrocodone-APAP - Continue outpatient follow-up. Current Treatment and Therapy Plans No current plan information found. Other Current Plans Hydration Therapy Plan* Plan Start Date:11/22/2024 Plan Provider:Oneil Montero MD Linked Problems Dehydration Treatment Medications No medications scheduled. Past Treatment and Therapy Plans Radiation Treatments * Course [id number] 08/16/2024 - 09/29/2024 Treatment Period Energy Fraction Dose Fractions Total Dose Plans Planned H&N 08/16/2024 - 09/29/2024 200 33 / 6,600 Reference Points Delivered [id number] 08/16/2024 - 09/29/2024 6,600 Lifetime Dose Tracking * Chemical Lifetime Dose Automatic Entry Manual Entr y Fluoro Time 4.2 minutes 4.2 minutes 0 minutes Air kerma at the reference point (Ka,r) 27.2 mGy 2 7.2 mGy 0 mGy DLP 829 mGycm 829 mGycm 0 mGycm
[2025-01-05 16:56] LABS: Albumin Level 3.9 g/dL (3.5-5.1); Anion Gap 10 mmol/L (4-12); Blood Urea Nitrogen 46 mg/dL (7-17); Calcium 9.5 mg/dL (8.4-10.2); Carbon Dioxide 26 mmol/L (22-30); Chloride 95 mmol/L (98-107); Estimated Glomerular Filt Rate 43; Glucose 144 mg/dL (65-110); Potassium 5.0 mmol/L (3.4-5.0); Sodium 131 mmol/L (137-145)
[2025-01-05 17:07] LABS: Parathyroid Intact 44.3 pg/mL (14.5-75.2)
== END 2025-01-05 16:15 | disposition home or self-care (01) ==
PROVIDERS: PCP Family Medicine; Visit Provider Internal Medicine Nephrology
DX: E87.1 Hypo-osmolality and hyponatremia (principal); N25.81 Secondary hyperparathyroidism of renal origin; E55.9 Vitamin D deficiency, unspecified; I12.9 Hypertensive chronic kidney disease with stage 1 through stage 4 chronic kidney disease, or unspecified chronic kidney disease; N18.32 Chronic kidney disease, stage 3b
CPT/HCPCS: 36415; 80069; 82306; 83970

== ENCOUNTER 2025-01-07 07:59 | Outpatient (CLI) | payer MEDICARE, OTHER, SELFPAY ==
--- OUTSIDE RECORDS SUMMARY | 2025-01-07 08:06 | XMS_ITS ---
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 Patient's AUTOMATION TECH evaluation did not test solid food per patient's request though patient has known discomfort (almost globus like sensation). Patient's current weight loss is secondary to insufficient caloric intake by PO alone, with patient now requiring tube feeding for goal. S/p PEG by IR 12/19, began advancing TF 12/20 to goal ~12/21 - dispo 12/22 with TF (home health). 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 Patient's AUTOMATION TECH evaluation did not test solid food per patient's request though patient has known discomfort (almost globus like sensation). Patient's current weight loss is secondary to insufficient caloric intake by PO alone, with patient now requiring tube feeding for goal. S/p PEG by IR 12/19, began advancing TF 12/20 to goal ~12/21 - dispo 12/22 with TF (home health). - RD c/s, AUTOMATION TECH eval - Return to pureed diet, crushed [...] 12/20 to goal ~12/21 - RD c/s, AUTOMATION TECH eval - Return to pureed diet, crushed [...] clearance by IR 12/20 - RD c/s, AUTOMATION TECH eval - Return to pureed diet, crushed [...] TF initiation - IR cs. RD cs. 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 [...] 07/12/2024 Assessment & Plan (07/12/2024 1:50 PM RESIDENT SERVICES DIRECTOR): A1c of 5.7. On SSI. Subq insulin [...] hydralazine Assessment & Plan (07/13/2024 9:18 AM RESIDENT SERVICES DIRECTOR): Blood pressures normal. Cont amlodipine (increase to [...]
--- OUTSIDE RECORDS SUMMARY | 2025-01-07 08:06 | XMS_ITS | Encounter Summary ---
Author Organization [facility] Address [address] [place] [address] Care Team Providers Care Cryolite Recovery Operator Name Role Phone Felicia Bishop RN Unavailable UnavailBecki Meza LCSW Unavailable Unavaila Onel Choudhury MD Unavailable [phone] Rafael Correia MD Primary Care Provider Encounter Details Date Type Department Care Team (Late st Contact Info) Description 01/02/[address] [facility] Radiology [address] [place] [address] Mary Castorena RN Social History Tobacco Use [...] No 09/12/2024 OASIS [id number]: Health Literacy Answer Juilan e Recorded Frequency of needing help to read materials from doctor or pharmacy Sometimes 09/12/2024 [facility] Utilities Answer Date Recorded In the past 12 months has [employer] gas, oil, or water [place] threatened to shut off services in your [...] often do you attend chur ch or quaker services? Never 05/27/2024 Do you belong to any clubs o r organizations such as uatsdin groups, unions, fraternal or athletic groups, or [...] any time in the past 12 m [facility], were you homeless or living in a custodial (including now)? No 05/27/2024 Personal Safety Answer Date Recorded Have you ever been in or are you currently in a harmful physical or emotional relationship or is someone making you feel afraid or unsafe? Denies 12/19/2024 Comments No Sex and Gender Information Value Date Recorded Sex Assigned at Not on file Legal Sex Female 1:42 PM [employer] Gender Identity Not on file Sexual Orientation Not on file documented as of this encounter Plan of Treatment Not on file documented as of this encounter Visit Diagnoses Not on filedocumented in this encounter Care Teams Cryolite Recovery Operator Relationship Specialty Start Date End Date Rafael Correia MD [address] [place] [address] PCP - General Family Medicine 10/03/24 Felicia Bishop RN Nurse Navigator 05/20/24 Becki Rahman LCSW Housekeeping And Laundry Team Leader 05/20/24 Onel Jensen MD [address] [facility] [address] [place] [address] Consulting Physician Otolaryngology 05/23/24 documented as of this encounter
--- OUTSIDE RECORDS SUMMARY | 2025-01-07 08:06 | XMS_ITS | Clinical Summary ---
Author Organization Unknown Care Team Providers Care Trolley Wire Installer Name Role Phone ROBERT BARBER Unavailable Art HENSLEY RN, SAMIA Unavailable Unavailabl e RYLIE PT, MANJIT Unavailable Unavailable SANTA PATIENT SUPPORT ASSISTANT, VERONICA Unavailable Unavailabl e Payers Payer Name Policy Type Policy Number Effective Date Expira tion Date MEDICARE.[facility] [id number] Problems Condition Name Condition Details Condition Category Status Onset Date Resolution Date Last Treatment Date Treating Clinician Comments UNSPECIFIED SEVERE PROTEIN-JUICE JAMIL MALNUTRITION Active 12-23 00:00: 00 MALIGNANT NEOPLASM OF CHEEK MUCOSA Active 12-23 00:00: 00 NEOPLASM RELATED PAIN (ACUTE) (CHRONIC) Active 12-23 00:00: 00 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 12-23 00:00: 00 OTH COMPLICATION S OF PROCEDURES, NEC, SUBS Active 12-23 00:00: 00 DYSPHAGIA, PHARYNGEAL PHASE Active 12-19 00:00: 00 HYPERTENSIVE CHRONIC KIDNEY DISEASE W STG 1-4/UNSP CHR KDNY Active 12-23 00:00: 00 CHRONIC KIDNEY DISEASE, STAGE 3B Active 12-23 00:00: 00 ANEMIA IN CHRONIC KIDNEY DISEASE Active 12-23 00:00: 00 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 12-23 00:00: 00 PARKINSON'S DIS W/O DYSKINESIA, W/O MENTION OF FLUCTUATIONS Active 12-23 00:00: 00 MILD COGNITIVE IMPAIRMENT OF UNCERTAIN OR UNKNOWN ETIOLOGY Active 12-23 00:00: 00 GASTRO-ESOPH AGEAL REFLUX DISEASE WITHOUT ESOPHAGITIS Active 12-23 00:00: 00 UNSPECIFIED CONVULSIONS Active 12-23 00:00: 00 ABNORMAL WEIGHT LOSS Active 12-23 00:00: 00 ENCOUNTER FOR ATTENTION TO GASTROSTOMY Active 12-19 00:00: 00 PRSNL HX OF TIA (TIA), AND CEREB INFRC W/O RESID DEFICITS Active 12-23 00:00: 00 PERSONAL HISTORY OF OTHER MALIGNANT NEOPLASM OF SKIN Active 12-23 00:00: 00 BODY MASS INDEX [BMI] 22.0-22.9, ADULT Active 12-23 00:00: 00 PERSONAL HISTORY OF NICOTINE DEPENDENCE Active 12-23 00:00: 00 Allergies, Adverse Reactions, Alerts Allergy Name Allergy Type Status Severity Reaction(s) Onset Date Inactive Date Treating Clinician Comments PETROLEUM JELLY Propensity to adverse reactions Active 12-23 10:35: 28 NSAIDS Propensity to adverse reactions Active 12-23 10:42: 40 Vital Signs Vital Name Observation Time Observation Value Commen ts Temperature 2025-01-05 12:40:00.000 99.2 [degF] Temperature 2025-01-05 08:17:00.000 99.2 [degF] Temperature 2025-01-03 08:13:00.000 98.6 [degF] Temperature 2024-12-29 10:41:00.000 98.7 [degF] Temperature 2024-12-28 12:06:00.000 97.1 [degF] Temperature 2024-12-28 11:18:00.000 97.1 [degF] Temperature 2024-12-23 10:42:00.000 97.7 [degF] BMI (%) 2024-12-23 10:03:40.000 22 kg/m2 Height 2024-12-23 10:03:33.000 60 [in_us] Pulse 2025-01-05 12:40:00.000 88 /min Pulse 2025-01-05 08:17:00.000 88 /min Pulse 2025-01-03 08:13:00.000 88 /min Pulse 2024-12-29 10:41:00.000 76 /min Pulse 2024-12-28 12:06:00.000 76 /min Pulse 2024-12-28 11:18:00.000 76 /min Pulse 2024-12-23 10:42:00.000 79 /min O2 Saturation (%) 2025-01-05 12:40:00.000 97 % O2 Saturation (%) 2025-01-05 08:17:00.000 97 % O2 Saturation (%) 2025-01-03 08:13:00.000 95 % O2 Saturation (%) 2024-12-29 10:41:00.000 98 % O2 Saturation (%) 2024-12-28 12:06:00.000 98 % O2 Saturation (%) 2024-12-28 11:18:00.000 98 % O2 Saturation (%) 2024-12-23 10:42:00.000 96 % Respirations 2025-01-05 12:40:00.000 18 /min Respirations 2025-01-05 08:17:00.000 18 /min Respirations 2025-01-03 08:13:00.000 18 /min Respirations 2024-12-29 10:41:00.000 16 /min Respirations 2024-12-28 12:06:00.000 18 /min Respirations 2024-12-28 11:18:00.000 18 /min Respirations 2024-12-23 10:42:00.000 18 /min Weight (lbs) 2024-12-23 10:03:40.000 115 [lb_av] Systolic Blood Pressure 2025-01-05 12:40:00.000 122 mm [Hg] Systolic Blood Pressure 2025-01-05 08:17:00.000 122 mm [Hg] Systolic Blood Pressure 2025-01-03 08:13:00.000 118 mm [Hg] Systolic Blood Pressure 2024-12-29 10:41:00.000 132 mm [Hg] Systolic Blood Pressure 2024-12-28 12:06:00.000 126 mm [Hg] Systolic Blood Pressure 2024-12-28 11:18:00.000 126 mm [Hg] Systolic Blood Pressure 2024-12-23 10:42:00.000 124 mm [Hg] Diastolic Blood Pressure 2025-01-05 12:40:00.000 56 mm [Hg] Diastolic Blood Pressure 2025-01-05 08:17:00.000 56 mm [Hg] Diastolic Blood Pressure 2025-01-03 08:13:00.000 54 mm [Hg] Diastolic Blood Pressure 2024-12-29 10:41:00.000 58 mm [Hg] Diastolic Blood Pressure 2024-12-28 12:06:00.000 64 mm [Hg] Diastolic Blood Pressure 2024-12-28 11:18:00.000 64 mm [Hg] Diastolic Blood Pressure 2024-12-23 10:42:00.000 60 mm [Hg] Plan of Treatment Planned Activity Planned Date Details Comments Future Scheduled Test RN TO OBSE RVE, ASSESS, EVALUATE, AND DEVELOP AN INDIVIDUALIZED PLAN OF CARE. AGENCY MAY ACCEPT ORDERS FROM CONSULTING PHYSICIANS RN TO OBSERVE AND ASSESS, SPECIAL WEAPONS AND TACTICS OFFICER/GREY PERCHER TO OBSERVE FOR RISK FOR FALLS AND INSTRUCT IN FALL PREVENTION, HOME SAFETY, MEDICATION MANAGEMENT, INFECTION PREVENTION, AND NUTRITION MANAGEMENT. RN/SPECIAL WEAPONS AND TACTICS OFFICER/GREY PERCHER NURSE MAY PERFORM O2 SATURATION LEVEL ON ADMISSION AND PRN FOR RN TO ASSESS/SPECIAL WEAPONS AND TACTICS OFFICER TO OBSERVE PATIENT, WITH NOTIFICATION TO THE PHYSICIAN IF SATURATION IS 90% IN THE ABSENCE OF MORE SPECIFIC PARAMETERS FROM THE PHYSICIAN. AGENCY MAY PERFORM A RESUMPTION OF CARE VISIT FOLLOWING ANY HOSPITAL ADMISSION. RN/SPECIAL WEAPONS AND TACTICS OFFICER/GREY PERCHER TO MONITOR CO-MORBID CONDITIONS LISTED ON THE PLAN OF CARE AND ANY NEW CONDITIONS THAT PRESENT THEMSELVES DURING THIS EPISODE TO IDENTIFY CHANGES AND INTERVENE TO MINIMIZE COMPLICATIONS. [code = RN TO OBSERVE, ASSESS, EVALUATE, AND DEVELOP AN INDIVIDUALIZED PLAN OF CARE. AGENCY MAY ACCEPT ORDERS FROM CONSULTING PHYSICIANS RN TO OBSERVE AND ASSESS, SPECIAL WEAPONS AND TACTICS OFFICER/GREY PERCHER TO OBSERVE FOR RISK FOR FALLS AND INSTRUCT IN FALL PREVENTION, HOME SAFETY, MEDICATION MANAGEMENT, INFECTION PREVENTION, AND NUTRITION MANAGEMENT. RN/SPECIAL WEAPONS AND TACTICS OFFICER/GREY PERCHER NURSE MAY PERFORM O2 SATURATION LEVEL ON ADMISSION AND PRN FOR RN TO ASSESS/SPECIAL WEAPONS AND TACTICS OFFICER TO OBSERVE PATIENT, WITH NOTIFICATION TO THE PHYSICIAN IF SATURATION IS 90% IN THE ABSENCE OF MORE SPECIFIC PARAMETERS FROM THE PHYSICIAN. AGENCY MAY PERFORM A RESUMPTION OF CARE VISIT FOLLOWING ANY HOSPITAL ADMISSION. RN/SPECIAL WEAPONS AND TACTICS OFFICER/GREY PERCHER TO MONITOR CO-MORBID CONDITIONS LISTED ON THE PLAN OF CARE AND ANY NEW CONDITIONS THAT PRESENT THEMSELVES DURING THIS EPISODE TO IDENTIFY CHANGES AND INTERVENE TO MINIMIZE COMPLICATIONS.] Future Scheduled Test MEDICATION MANAGEMENT; RN/SPECIAL WEAPONS AND TACTICS OFFICER/GREY PERCHER TO REVIEW MEDICATIONS FOR INTERACTIONS, EFFECTIVENESS OF DRUG THERAPY, AND SIGNS/SYMPTOMS OF ADVERSE REACTIONS. MAY INSTRUCT AND REINFORCE MEDICATION TEACHING RELATED TO THE USE OF MEDICATIONS, DOSAGE, FREQUENCY, PURPOSE, SIDE EFFECTS, AND TO REPORT COMPLICATIONS. [code = MEDICATION MANAGEMENT; RN/SPECIAL WEAPONS AND TACTICS OFFICER/GREY PERCHER TO REVIEW MEDICATIONS FOR INTERACTIONS, EFFECTIVENESS OF DRUG THERAPY, AND SIGNS/SYMPTOMS OF ADVERSE REACTIONS. MAY INSTRUCT AND REINFORCE MEDICATION TEACHING RELATED TO THE USE OF MEDICATIONS, DOSAGE, FREQUENCY, PURPOSE, SIDE EFFECTS, AND TO REPORT COMPLICATIONS.] Future Scheduled Test RISK FOR H OSPITALIZATION; RN TO ASSESS/TEACH, GREY PERCHER/SPECIAL WEAPONS AND TACTICS OFFICER TO OBSERVE/TEACH PATIENT/CAREGIVER ON RISK FOR HOSPITALIZATION/EMERGENCY ROOM VISITS, TEACH SIGNS AND SYMPTOMS THAT PUT PATIENT AT RISK, WHEN TO NOTIFY NURSE/PHYSICIAN OF COMPLICATIONS/DECLINE, AND WHEN TO CALL 911. [code = RISK FOR HOSPITALIZATION; RN TO ASSESS/TEACH, GREY PERCHER/SPECIAL WEAPONS AND TACTICS OFFICER TO OBSERVE/TEACH PATIENT/CAREGIVER ON RISK FOR HOSPITALIZATION/EMERGENCY ROOM VISITS, TEACH SIGNS AND SYMPTOMS THAT PUT PATIENT AT RISK, WHEN TO NOTIFY NURSE/PHYSICIAN OF COMPLICATIONS/DECLINE, AND WHEN TO CALL 911.] Future Scheduled Test CARDIOVASC ULAR SYSTEM; RN TO ASSESS/TEACH, SPECIAL WEAPONS AND TACTICS OFFICER/GREY PERCHER TO OBSERVE/TEACH RELATED TO ALTERED CARDIOVASCULAR STATUS TO MINIMIZE COMPLICATIONS AND REDUCE HOSPITALIZATION. [code = CARDIOVASCULAR SYSTEM; RN TO ASSESS/TEACH, SPECIAL WEAPONS AND TACTICS OFFICER/GREY PERCHER TO OBSERVE/TEACH RELATED TO ALTERED CARDIOVASCULAR STATUS TO MINIMIZE COMPLICATIONS AND REDUCE HOSPITALIZATION.] Future Scheduled Test HYPERTENSI ON MANAGEMENT; RN TO ASSESS AND TEACH, SPECIAL WEAPONS AND TACTICS OFFICER/GREY PERCHER TO OBSERVE AND TEACH WARNING SIGNS AND SYMPTOMS TO AVOID HOSPITALIZATION. [code = HYPERTENSION MANAGEMENT; RN TO ASSESS AND TEACH, SPECIAL WEAPONS AND TACTICS OFFICER/GREY PERCHER TO OBSERVE AND TEACH WARNING SIGNS AND SYMPTOMS TO AVOID HOSPITALIZATION.] Future Scheduled Test RN/SPECIAL WEAPONS AND TACTICS OFFICER/GREY PERCHER TO PERFORM/TEACH WOUND CARE TO LEFT THIGH AREA: IRRIGATE/CLEANSE WITH WOUND CLEANSER OR NORMAL SALINE APPLY MALVIN AG MAY APPLY SKIN BARRIER TO PERIWOUND PRN TO PREVENT MACERATION AND PROTECT PERIWOUND COVER WITH NON ADHERANT GAUZE AND ABD SECURE WITH TAPE CHANGE DRESSING EVERY DAY AND PRN FOR SOILAGE AND OR DISLODGEMENT PATIENT CAREGIVER TO PERFORM IN ABSENCE OF RN GOAL WOUND TO HEAL [code = RN/SPECIAL WEAPONS AND TACTICS OFFICER/GREY PERCHER TO PERFORM/TEACH WOUND CARE TO LEFT THIGH AREA: IRRIGATE/CLEANSE WITH WOUND CLEANSER OR NORMAL SALINE APPLY MALVIN AG MAY APPLY SKIN BARRIER TO PERIWOUND PRN TO PREVENT MACERATION AND PROTECT PERIWOUND COVER WITH NON ADHERANT GAUZE AND ABD SECURE WITH TAPE CHANGE DRESSING EVERY DAY AND PRN FOR SOILAGE AND OR DISLODGEMENT PATIENT CAREGIVER TO PERFORM IN ABSENCE OF RN GOAL WOUND TO HEAL ] Future Scheduled Test PAIN MANAG EMENT; RN TO ASSESS AND TEACH, GREY PERCHER/SPECIAL WEAPONS AND TACTICS OFFICER TO OBSERVE AND TEACH AND PROVIDE EDUCATION ON PAIN MANAGEMENT TECHNIQUES. [code = PAIN MANAGEMENT; RN TO ASSESS AND TEACH, GREY PERCHER/SPECIAL WEAPONS AND TACTICS OFFICER TO OBSERVE AND TEACH AND PROVIDE EDUCATION ON PAIN MANAGEMENT TECHNIQUES.] Future Scheduled Test MALNUTRITI ON MANAGEMENT; RN TO ASSESS AND TEACH, GREY PERCHER/SPECIAL WEAPONS AND TACTICS OFFICER TO OBSERVE AND TEACH AND INSTRUCT PATIENT / CAREGIVER ON INTERVENTIONS TO IMPROVE NUTRITIONAL INTAKE AND PATIENT WELLBEING. [code = MALNUTRITION MANAGEMENT; RN TO ASSESS AND TEACH, GREY PERCHER/SPECIAL WEAPONS AND TACTICS OFFICER TO OBSERVE AND TEACH AND INSTRUCT PATIENT / CAREGIVER ON INTERVENTIONS TO IMPROVE NUTRITIONAL INTAKE AND PATIENT WELLBEING.] Future Scheduled Test CANCER MAN AGEMENT; RN TO ASSESS AND TEACH, GREY PERCHER/SPECIAL WEAPONS AND TACTICS OFFICER TO OBSERVE AND TEACH AND PROVIDE EDUCATION ON CANCER. [code = CANCER MANAGEMENT; RN TO ASSESS AND TEACH, GREY PERCHER/SPECIAL WEAPONS AND TACTICS OFFICER TO OBSERVE AND TEACH AND PROVIDE EDUCATION ON CANCER.] Future Scheduled Test FALL REDUC TION MANAGEMENT; RN TO ASSESS AND OBSERVE, SPECIAL WEAPONS AND TACTICS OFFICER/GREY PERCHER TO OBSERVE FALL RISK FACTORS AND EDUCATE PATIENT/CAREGIVER ON STRATEGIES TO MINIMIZE THE RISK OF FALLING. [code = FALL REDUCTION MANAGEMENT; RN TO ASSESS AND OBSERVE, SPECIAL WEAPONS AND TACTICS OFFICER/GREY PERCHER TO OBSERVE FALL RISK FACTORS AND EDUCATE PATIENT/CAREGIVER ON STRATEGIES TO MINIMIZE THE RISK OF FALLING.] Future Scheduled Test OCCUPATION AL THERAPIST TO EVALUATE FOR ADL'S, IADL'S, UPPER BODY STRENGTHENING [code = OCCUPATIONAL THERAPIST TO EVALUATE FOR ADL'S, IADL'S, UPPER BODY STRENGTHENING ] Future Scheduled Test SPEECH THE RAPIST TO EVALUATE FOR SPEECH AND SWALLOWING [code = SPEECH THERAPIST TO EVALUATE FOR SPEECH AND SWALLOWING] Future Scheduled Test AGENCY MAY PERFORM A RESUMPTION OF CARE VISIT FOLLOWING ANY HOSPITAL ADMISSION. PT TO EVALUATE, OBSERVE / ASSESS, AND MONITOR, PATIENT SUPPORT ASSISTANT TO OBSERVE AND MONITOR, PROVIDE SKILLED THERAPEUTIC INTERVENTION, ACTIVITY, EDUCATION, AND TRAINING TO ADDRESS; BED MOBILITY (PT/PATIENT SUPPORT ASSISTANT) PT/PATIENT SUPPORT ASSISTANT TO PROVIDE GAIT TRAINING FOR IMPROVED MOBILITY AND /OR TO NORMALIZE GAIT PATTERN NEUROMUSCULAR RE-EDUCATION / BALANCE / POSTURAL CONTROL (PT) THERAPEUTIC EXERCISES AND ESTABLISHING A HOME EXERCISE PROGRAM (PT/PATIENT SUPPORT ASSISTANT) PT/PATIENT SUPPORT ASSISTANT TO PROVIDE STAIR TRAINING SIT TO/FROM STAND TRANSFERS (PT/PATIENT SUPPORT ASSISTANT) PT/PATIENT SUPPORT ASSISTANT TO IDENTIFY FALL RISK FACTORS; EDUCATE THE PATIENT/CAREGIVER ON WAYS TO REDUCE FALL RISK FACTORS AND ESTABLISH HOME EXERCISE PROGRAM TO MINIMIZE FALL RISK. MAY TEACH THE PATIENT FLOOR RECOVERY WHEN CLINICALLY APPROPRIATE [code = AGENCY MAY PERFORM A RESUMPTION OF CARE VISIT FOLLOWING ANY HOSPITAL ADMISSION. PT TO EVALUATE, OBSERVE / ASSESS, AND MONITOR, PATIENT SUPPORT ASSISTANT TO OBSERVE AND MONITOR, PROVIDE SKILLED THERAPEUTIC INTERVENTION, ACTIVITY, EDUCATION, AND TRAINING TO ADDRESS; BED MOBILITY (PT/PATIENT SUPPORT ASSISTANT) PT/PATIENT SUPPORT ASSISTANT TO PROVIDE GAIT TRAINING FOR IMPROVED MOBILITY AND /OR TO NORMALIZE GAIT PATTERN NEUROMUSCULAR RE-EDUCATION / BALANCE / POSTURAL CONTROL (PT) THERAPEUTIC EXERCISES AND ESTABLISHING A HOME EXERCISE PROGRAM (PT/PATIENT SUPPORT ASSISTANT) PT/PATIENT SUPPORT ASSISTANT TO PROVIDE STAIR TRAINING SIT TO/FROM STAND TRANSFERS (PT/PATIENT SUPPORT ASSISTANT) PT/PATIENT SUPPORT ASSISTANT TO IDENTIFY FALL RISK FACTORS; EDUCATE THE PATIENT/CAREGIVER ON WAYS TO REDUCE FALL RISK FACTORS AND ESTABLISH HOME EXERCISE PROGRAM TO MINIMIZE FALL RISK. MAY TEACH THE PATIENT FLOOR RECOVERY WHEN CLINICALLY APPROPRIATE] Goal Patient Goal - GET STRONGER Goal Provider Goal - A PLAN OF CARE WILL BE ESTABLISHED THAT MEETS THE PATIENTS NEEDS. PATIENT WILL DEMONSTRATE OXYGEN SATURATION WITHIN NORMAL LIMITS OR PATIENTS OPTIMAL LEVEL ESTABLISHED BY THE PHYSICIAN THROUGHOUT CARE. CHANGES TO CO-MORBID CONDITIONS AND ANY NEW CONDITIONS WILL BE IDENTIFIED AND REPORTED TO THE PHYSICIAN. Goal Provider Goal - PATIENT/CAREGIVER TO VERBALIZE, AND CONSISTENTLY DEMONSTRATE EFFECTIVE, SAFE MANAGEMENT OF MEDICATION INCLUDING KNOWLEDGE OF EFFECTIVENESS, POTENTIAL SIDE EFFECTS AND DRUG REACTIONS AND WHEN TO CONTACT THE APPROPRIATE CARE PROVIDER. PATIENT/CAREGIVER WILL BE ABLE TO VERBALIZE UNDERSTANDING OF MEDICATION REGIMEN AND ACCURATELY TAKE MEDICATIONS PRESCRIBED WITHOUT ADVERSE EFFECTS BY END OF EPISODE Goal Provider Goal - PATIENT/CAREGIVER WILL VERBALIZE UNDERSTANDING OF SIGNS AND SYMPTOMS THAT PUT THE PATIENT AT RISK FOR HOSPITALIZATION /EMERGENCY ROOM VISITS, WHEN TO NOTIFY NURSE/PHYSICIAN OF COMPLICATIONS/DECLINE AND WHEN TO CALL 911. Goal Provider Goal - PATIENT / CAREGIVER WILL VERBALIZE/DEMONSTRATE UNDERSTANDING OF MEASURES TO MANAGE ALTERED CARDIOVASCULAR STATUS BY END OF EPISODE Goal Provider Goal - PATIENT / CAREGIVER WILL VERBALIZE/DEMONSTRATE AN ABILITY TO ADHERE TO SELF-MANAGEMENT OF HTN TO MINIMIZE COMPLICATIONS AND AVOID HOSPITALIZATION BY END OF EPISODE. Goal Provider Goal - PATIENT / CAREGIVER WILL VERBALIZE / DEMONSTRATE ABILITY TO PERFORM WOUND CARE. WOUND STATUS WILL IMPROVE EVIDENCED BY A DECREASE IN SIZE, DRAINAGE, ABSENCE OF INFECTION, AND DECREASED PAIN BY END OF EPISODE. Goal Provider Goal - PATIENT / CAREGIVER WILL VERBALIZE / DEMONSTRATE UNDERSTANDING OF PAIN CONTROL MEASURES BY END OF EPISODE Goal Provider Goal - PATIENT / CAREGIVER WILL VERBALIZE/DEMONSTRATE APPROPRIATE METHODS TO IMPROVE NUTRITIONAL STATUS BY END OF EPISODE. Goal Provider Goal - PATIENT / CAREGIVER WILL VERBALIZE/DEMONSTRATE UNDERSTANDING OF MEASURES TO MINIMIZE COMPLICATIONS AND REDUCE HOSPITALIZATION RELATED TO CANCER BY END OF EPISODE. Goal Provider Goal - PATIENT/CAREGIVER WILL VERBALIZE/DEMONSTRATE UNDERSTANDING OF FALL RISK FACTORS AND IMPLEMENT STRATEGIES TO MINIMIZE FALL RISK. PATIENT/CAREGIVER WILL VERBALIZE/DEMONSTRATE AN ABILITY TO ADHERE TO FALL REDUCTION SELF-MANAGEMENT AND LIFE-STYLE CHANGES BY END OF EPISODE Goal Provider Goal - Goal Provider Goal - Goal Provider Goal - PT STG: PATIENT WILL DEMONSTRATE IMPROVED BED MOBILITY TO REDUCE THE RISK OF SKIN INTEGRITY ISSUES AND/OR PAIN FROM MOD A TO INDEP INV4 WEEKS PT LTG: PATIENT WILL DEMONSTRATE IMPROVED SAFE FUNCTIONAL MOBILITY IMPROVING AMBULATION FROM MODERATE ASSISTANCE WITH HAND HELD ASSIST TO AMBULATING WITH A WHEELED WALKER AND CONTACT GUARD ASSIST 150 FEET IN ORDER TO ACCESS ALL AREAS OF THE HOME IN 8 WEEKS ... PT LTG: PATIENT WILL DEMONSTRATE REDUCED FALL RISK EVIDENCED BY IMPROVING TINETTI SCORE FROM UNABLE TO COMPLETE 2 SCORING 15 OR GREATER IN 8 WEEKS IN ORDER TO IMPROVE FUNCTIONAL MOBILITY ... PT LTG: PATIENT WILL DEMONSTRATE INCREASED STRENGTH OF BILATERAL LOWER EXTREMITIES FROM GROSSLY 3/5 TO 4/5 IN ORDER TO IMPROVE FUNCTIONAL MOBILITY IN 8 WEEKS ... PT LTG: PATIENT WILL DEMONSTRATE IMPROVED ABILITY TO SAFELY NEGOTIATE STAIRS FROM MODERATE ASSISTANCE TO CONTACT GUARD ASSIST WITH A HANDRAIL IN ORDER TO SAFELY EXIT THE HOME IN 8 WEEKS ... .PT STG: PATIENT WILL DEMONSTRATE IMPROVED ABILITY TO PERFORM SIT TO/FROM STAND TRANSFERS TO REDUCE THE RISK OF SKIN BREAKDOWN AND REDUCE FALL RISK FROM MODERATE ASSISTANCE TO CONTACT GUARD ASSISTANCE IN 4 WEEKS ... PT LTG: PATIENT/CAREGIVER WILL DEMONSTRATE ADHERENCE TO FALL REDUCTION SELF-MANAGEMENT AND REDUCING FALL RISK FACTORS TO MINIMIZE FALL RISK BY END OF EPISODE PT LTG: PATIENT WILL BE INDEPENDENT WITH IMPLEMENTATION OF HEP WITHIN 3 WEEKS PT LTG: CAREGIVER WILL BE INDEPENDENT ASSISTING PATIENT TO COMPLETE HEP WITHIN 3 WEEKS Encounters Start Date/Time End Date/Time Encounter Type Admission Type Attending [facility] Facility Care Department Encounter ID Discharge Date Discharge Status Discharge Condition Discharge Reason Percent Goals Met 2024-12-23 00:00:00 2025-02-20 00:00:00 Outpatient NEW ADMISSION SAMIA HENSLEY [facility] [id number]
--- OUTSIDE RECORDS SUMMARY | 2025-01-07 08:06 | XMS_ITS | Clinical Summary ---
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 Patient's AVIONICS MANAGER evaluation did not test solid food per patient's request though patient has known discomfort (almost globus like sensation). Patient's current weight loss is secondary to insufficient caloric intake by PO alone, with patient now requiring tube feeding for goal. S/p PEG by IR 12/19, began advancing TF 12/20 to goal ~12/21 - dispo 12/22 with TF (home health). 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 Patient's AVIONICS MANAGER evaluation did not test solid food per patient's request though patient has known discomfort (almost globus like sensation). Patient's current weight loss is secondary to insufficient caloric intake by PO alone, with patient now requiring tube feeding for goal. S/p PEG by IR 12/19, began advancing TF 12/20 to goal ~12/21 - dispo 12/22 with TF (home health). - RD c/s, AVIONICS MANAGER eval - Return to pureed diet, crushed [...] 12/20 to goal ~12/21 - RD c/s, AVIONICS MANAGER eval - Return to pureed diet, crushed [...] clearance by IR 12/20 - RD c/s, AVIONICS MANAGER eval - Return to pureed diet, crushed [...] TF initiation - IR cs. RD cs. 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 [...] 07/12/2024 Assessment & Plan (07/12/2024 1:50 PM CAMERA PERSON): A1c of 5.7. On SSI. Subq insulin [...] hydralazine Assessment & Plan (07/13/2024 9:18 AM CAMERA PERSON): Blood pressures normal. 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); Severe protein-calorie malnutrition; Cancer of oral cavity (HCC) Discharge Disposition: Discharge to home, home health skilled care 12/12/2024 Orders Only [facility] Department of Otolaryngology Head-Neck Division [address] Floor [address] [place] [phone] Onel Jensen MD 11/25/2024 Telephone [facility] Head and Neck Tumor Center [address] 4th [place] [address] Felicia Bishop RN Navigator Follow Up 11/22/2024 2:00 PM CDT Infusion [facility] Cancer [facility]fusion [facility] [address] [place] [address] Dehydration (Primary Dx) 11/22/2024 Orders Only [facility] Radiation Oncology 6 [place] [address] Oneil Montero MD 11/21/2024 10:20 AM CDT Office Visit [facility] Department of Otolaryngology Head-Neck Division [address] Floor 5 [place] [address] Onel Jensen MD Cancer of oral cavity (HCC) (Primary Dx) 11/21/2024 8:42 AM CDT - 11/21/2024 11:59 PM CDT Hospital Encounter [facility] [place] [address] [facility] 8 [place] [address] Head and neck cancer (HCC) Discharge Disposition: Discharge to home or self care 11/08/2024 10:00 AM CDT Office Visit [facility] Radiation Oncology 6 [place] [address] Oneil Montero MD 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) 10/27/2024 Telephone [facility] Head and Neck Tumor Center [address] [place] [address] 4th [place] [address] Felicia Bishop, aircraft restorer Treatment End Check In 10/21/2024 2:00 PM CDT Office Visit [facility] Ophthalmology [address] [place] [phone] Nano Mancilla MD 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) 10/17/2024 Telephone [facility] [place] [address] [place] [phone] Fannie Silva LPN 10/12/2024 7:28 PM CDT - 10/13/2024 12:11 AM CDT Emergency [facility] Emergency Department 1 [place] [address] Abrasion of left cornea, initial encounter (Primary Dx) Discharge Disposition: Discharge to home or self care 10/12/2024 3:15 PM CDT Office Visit [facility] Convenient Care at [address] [phone] Mary Mora PA Left eye pain (Primary Dx); Facial pain 10/12/2024 Telephone [facility] Ophthalmology [address] [place] [phone] Anthony Toscano MD FYI 10/12/2024 Telephone [facility] Radiation Oncology [address] [place] [address] Deandre Duarte RN from Last 3 Months [...] materials from doctor or pharmacy Sometimes 09/12/2024 [facility] Utilities Answer Date Recorded In the past 12 months has e [employer], oil, or water [employer] threatened to shut off services in your [...] week 05/27/2024 How often do you attend [facility] or taoist services? Never 05/27/2024 Do you belong to any clubs o r organizations such as caodaism groups, unions, fraternal or athletic groups, or [...] any time in the past 12 m [facility], were you homeless or living in a nursing home (including now)? No 05/27/2024 Personal Safety Answer Date Recorded Have you ever been in or are you currently in a harmful physical or emotional relationship or is someone making you feel afraid or unsafe? Denies 12/19/2024 Comments No Sex and Gender Information Value Date Recorded Sex Assigned at Not on file Legal Sex Female 1:42 PM CAMERA PERSON Gender Identity Not on file Sexual Orientation [...] Completed 06/21/2024 Medical Devices Implanted Type Area Nurse Receptionist Device Identifier Shelf Expiration Date Model / Serial / Lot [employer]ian Propagation Worker Anastomotic Microvascular [place] [employer] [place] Propagation Worker 4.0mm [id number] - S0 - [id number] Implanted:Qty: 1 on 06/21/2024 by Onel Jensen MD at [facility] Other - see comments Left: Neck [employer] Ashleigh [id number] 10/12/2028 [id number] / 0 / [id number] Procedures Procedure Name Priority Date/Time Associated Diagnosis Comments EGFR Routine 12/21/2024 9:50 PM CDT PHOSPHORUS Routine 12/21/2024 9:50 PM CDT BASIC METABOLIC PANEL Routine 12/21/2024 9:50 PM CDT MAGNESIUM Routine 12/21/2024 9:50 PM CDT EGFR Routine 12/20/2024 11:10 PM CDT PHOSPHORUS Routine 12/20/2024 11:10 PM CDT BASIC METABOLIC PANEL Routine 12/20/2024 11:10 PM CDT MAGNESIUM Routine 12/20/2024 11:10 PM CDT AVIONICS MANAGER EVALUATE AND TREAT Routine 12/20/2024 3:54 PM [...] HEPATITIS C ANTIBODY STAT 06/21/2024 10:25 AM CAMERA PERSON General medical exam from Last 3 Months [...] LAB BLOOD ORDERABLES Final Res ult [facility] [address] [facility] Department [place] [address] * Phosphorus (12/21/2024 9:50 PM CDT) Phosphorus, pl 3.4 2.3 - 4.5 mg/dL Blood 12/21/2024 9:50 PM CDT 12/21/2024 11:11 PM CDT us Patrick Govea MD PhD LAB BLOOD ORDERABLES Final Res ult [facility] One [facility] [place] [address] * Magnesium (12/21/2024 9:50 PM CDT) [facility] Magnesium 2.0 1.4 - 2.5 mg/dL Blood 12/21/2024 9:50 PM CDT 12/21/2024 11:11 PM CDT Patrick Govea MD PhD LAB BLOOD ORDERABLES Final Res t Performing Organization Address [facility] Co de Phone Number [facility] [place] [address] * (ABNORMAL) Basic metabolic panel (12/21/2024 9:50 PM CDT) [facility] Sodium 131(L) 135 - 145 mmol/L Potassium, pl 4.2 3.3 - 4.9 mmol/L [facility] Chloride 93(L) 97 - 110 mmol/L [facility] CO2 30 22 - 32 mmol/L [facility] Anion gap 8 2 - 15 mmol/L [facility] BUN 15 6 - 25 mg/dL [facility] Creatinine 0.79 0.60 - 1.10 mg/dL [facility] Glucose 141 70 - 199 mg/dL [facility] Comment: Interpretive Data Fasting glucose >/= 126 [...] 2022. Calcium 9.7 8.5 - 10.3 mg/dL [facility] Blood 12/21/2024 9:50 PM CDT 12/21/2024 11:11 PM CDT Patrick Govea MD PhD LAB BLOOD ORDERABLES Final Res ult Performing Organization Address [facility] Co de Phone Number [facility]IR[facility] [place] [address] * (ABNORMAL) eGFR (12/20/2024 11:10 PM CDT) [...] ORDERABLES Final Res ult Performing Organization Address [facility]/ZIP Co de Phone Number [facility] Department [place] [address] * Phosphorus (12/20/2024 11:10 PM CDT) Phosphorus, pl 3.5 2.3 - 4.5 mg/dL Blood 12/20/2024 11:1 0 PM CDT 12/21/2024 12:18 AM CDT us Patrick Govea MD PhD LAB BLOOD ORDERABLES Final Res ult [facility] Department [place] [address] * Magnesium (12/20/2024 11:10 PM CDT) Pathologist [facility] Magnesium 2.0 1.4 - 2.5 mg/dL Blood 12/20/2024 11:1 0 PM CDT 12/21/2024 12:18 AM CDT us Patrick Govea MD PhD LAB BLOOD ORDERABLES Final Res ult Performing Organization Address [facility] de Phone Number [facility] Department [place] [address] * (ABNORMAL) Basic metabolic panel (12/20/2024 11:10 PM CDT) Pathologist [facility] Sodium 134(L) 135 - 145 mmol/L Potassium, pl 4.1 3.3 - 4.9 mmol/L [facility] Chloride 96(L) 97 - 110 mmol/L [facility] CO2 27 22 - 32 mmol/L [facility] Anion gap 11 2 - 15 mmol/L [facility] BUN 14 6 - 25 mg/dL [facility] Creatinine 1.03 0.60 - 1.10 mg/dL [facility] Glucose 96 70 - 199 mg/dL [facility] Comment: Interpretive Data Fasting glucose >/= 126 [...] Calcium 9.5 8.5 - 10.3 mg/dL [facility] Blood 12/20/2024 11:1 0 PM CDT 12/21/2024 12:18 AM CDT us Patrick Govea MD PhD LAB BLOOD ORDERABLES Final Res ult [facility] [address] [facility] Department [place] [address] * AVIONICS MANAGER Evaluation and Treatment (12/20/2024 3:54 PM CDT) Narrative Manuel Torres, AVIONICS MANAGER - 12/20/2024 3:54 PM CDT Manuel Torres [...] Swallow function appears at baseline, no further AVIONICS MANAGER indicated. Assessment Details & Results Consistencies Administered: [...] Aspiration Risk: No aspiration risk (170-200) Plan AVIONICS MANAGER Frequency of Services during current admission: Discharge from this Service AVIONICS MANAGER Recommendation (Add'l Services): No further AVIONICS MANAGER indicated Next Visit Plan:No further ST warranted Additional Referrals: n/a Please reference care plan for treatment goals, if indicated. Discharge Summary Statement If this is the last swallow therapy visit, this serves as the discharge summary. us Victor Hugo Thao MD AVIONICS MANAGER ORDERABLES Final Res ult * (ABNORMAL) eGFR [...] MD LAB BLOOD ORDERABLES Fi nal Result [facility] [address] [facility] Department [place] [address] * (ABNORMAL) Differential, auto (12/19/2024 10:47 PM CDT) Neutrophil abs 3.37 1.50 - 6.50 K/cumm Imm gran abs 0.02 0.00 - 0.10 K/cumm [facility] Lymphocyte abs 0.40(L) 0.80 - 3.30 K/cumm [facility] Monocyte abs 0.46 0.20 - 0.80 K/cumm [facility] Eosinophil abs 0.07 0.00 - 0.50 K/cumm [facility] Basophil abs 0.02 0.00 - 0.10 K/cumm [facility] Neutrophil pct 77.6 % [facility] Comment: Interpretive Data Percent cell count reference ranges are not reported, since discordance with absolute values may lead to misinterpretation of CBC data. Current Interpretive Data was last revised on 2017. Imm gran pct 0.5 % [facility] Comment: Interpretive Data Percent cell count reference ranges are not reported, since discordance with absolute values may lead to misinterpretation of CBC data. Current Interpretive Data was last revised on 2017. Lymphocyte pct 9.2 % [facility] Comment: Interpretive Data Percent cell count reference ranges are not reported, since discordance with absolute values may lead to misinterpretation of CBC data. Current Interpretive Data was last revised on 2017. Monocyte pct 10.6 % [facility] Comment: Interpretive Data Percent cell count reference ranges are not reported, since discordance with absolute values may lead to misinterpretation of CBC data. Current Interpretive Data was last revised on 2017. Eosinophil pct 1.6 % [facility] Comment: Interpretive Data Percent cell count reference ranges are not reported, since discordance with absolute values may lead to misinterpretation of CBC data. Current Interpretive Data was last revised on 2017. Basophil pct 0.5 % [facility] Comment: Interpretive Data Percent cell count reference ranges are not reported, since discordance with absolute values may lead to misinterpretation of CBC data. Current Interpretive Data was last revised on 2017. Blood 12/19/2024 10:4 7 PM CDT 12/19/2024 11:11 PM CDT us Ariel Glez MD LAB BLOOD ORDERABLES Fi nal Result [facility] [address] [facility] Department [place] [address] * (ABNORMAL) CBC with auto differential (12/19/2024 10:47 PM CDT) WBC 4.34 3.80 - 9.90 K/cumm Hgb 9.5(L) 11.9 - 15.5 g/dL [facility] Hct 29.0(L) 35.6 - 45.5 % [facility] Plt 245 150 - 400 K/cumm [facility] MPV 10.0 9.1 - 12.3 fL [facility] RBC 3.45(L) 3.90 - 5.20 M/cumm [facility] MCV 84.1 81.3 - 96.4 fL [facility] MCH 27.5 27.1 - 33.3 pg [facility] MCHC 32.8 32.3 - 35.7 g/dL [facility] RDW CV 13.6 11.1 - 14.9 % [facility] RDW SD 42.1 35.7 - 48.1 fL [facility] NRBC abs 0.00 0.00 - 0.01 K/cumm [facility] Blood 12/19/2024 10:4 7 PM CDT 12/19/2024 11:11 PM CDT Ariel Glez MD LAB BLOOD ORDERABLES Fi nal Result Performing Organization Address [facility] de Phone Number [facility] Department [place] [address] * Phosphorus (12/19/2024 10:47 PM CDT) Phosphorus, pl 3.7 2.3 - 4.5 mg/dL Blood 12/19/2024 10:4 7 PM CDT 12/19/2024 11:11 PM CDT Ariel Glez MD LAB BLOOD ORDERABLES Fi nal Result Performing Organization Address [facility] de Phone Number [facility] Department [place] [address] * Magnesium (12/19/2024 10:47 PM CDT) Magnesium 2.0 1.4 - 2.5 mg/dL Blood 12/19/2024 10:4 7 PM CDT 12/19/2024 11:11 PM CDT Ariel Glez MD LAB BLOOD ORDERABLES Fi nal Result Performing Organization Address City/[facility] Co de Phone Number [facility] Department [place] [address] * Basic metabolic panel (12/19/2024 10:47 PM CDT) Sodium 136 135 - 145 mmol/L Potassium, pl 4.2 3.3 - 4.9 mmol/L [facility] Chloride 100 97 - 110 mmol/L [facility] CO2 27 22 - 32 mmol/L [facility] Anion gap 9 2 - 15 mmol/L [facility] BUN 19 6 - 25 mg/dL [facility] Creatinine 1.02 0.60 - 1.10 mg/dL [facility] Glucose 87 70 - 199 mg/dL [facility] Comment: Interpretive Data Fasting glucose >/= 126 [...] 2022. Calcium 9.6 8.5 - 10.3 mg/dL [facility] Blood 12/19/2024 10:4 7 PM CDT 12/19/2024 11:11 PM CDT us Ariel Glez MD LAB BLOOD ORDERABLES Fi nal Result [facility] Department [place] [address] * IR G Tube Placement Percutaneous (12/19/2024 2:59 PM CDT) Anatomical Region Laterality Modality Body N/A X-Ray Angiograph y 12/19/2024 3:46 PM CDT Impressions 12/22/2024 7:10 AM CDT Successful placement of a 16 Azerbaijani gastrostomy catheter with gastropexy. PLAN: The gastrostomy [...] was obtained. Prior to beginning the procedure, [place] Protocol was performed to confirm the patient's [...] was dilated over a guidewire to 18 Azerbaijani. Next, an 20 Azerbaijani peel-away sheath was placed in the stomach [...] was obtained. Prior to beginning the procedure, [place] Protocol was performed to confirm the patient's [...] was dilated over a guidewire to 18 Azerbaijani. Next, an 20 Azerbaijani peel-away sheath was placed in the stomach [...] identified. IMPRESSION: Successful placement of a 16 Azerbaijani gastrostomy catheter with gastropexy. PLAN: The gastrostomy [...] MD LAB BLOOD ORDERABLES Heidi maddi Result [facility] One [facility] Department [place] [address] * (ABNORMAL) Differential, auto (12/18/2024 9:36 PM CDT) Neutrophil abs 2.31 1.50 - 6.50 K/cumm Imm gran abs 0.02 0.00 - 0.10 K/cumm [facility] Lymphocyte abs 0.46(L) 0.80 - 3.30 K/cumm [facility] Monocyte abs 0.40 0.20 - 0.80 K/cumm [facility] Eosinophil abs 0.10 0.00 - 0.50 K/cumm [facility] Basophil abs 0.02 0.00 - 0.10 K/cumm [facility] Neutrophil pct 69.8 % [facility] Comment: Interpretive Data Percent cell count reference ranges are not reported, since discordance with absolute values may lead to misinterpretation of CBC data. Current Interpretive Data was last revised on 2017. Imm gran pct 0.6 % [facility] Comment: Interpretive Data Percent cell count reference ranges are not reported, since discordance with absolute values may lead to misinterpretation of CBC data. Current Interpretive Data was last revised on 2017. Lymphocyte pct 13.9 % [facility] Comment: Interpretive Data Percent cell count reference ranges are not reported, since discordance with absolute values may lead to misinterpretation of CBC data. Current Interpretive Data was last revised on 2017. Monocyte pct 12.1 % [facility] Comment: Interpretive Data Percent cell count reference ranges are not reported, since discordance with absolute values may lead to misinterpretation of CBC data. Current Interpretive Data was last revised on 2017. Eosinophil pct 3.0 % [facility] Comment: Interpretive Data Percent cell count reference ranges are not reported, since discordance with absolute values may lead to misinterpretation of CBC data. Current Interpretive Data was last revised on 2017. Basophil pct 0.6 % [facility] Comment: Interpretive Data Percent cell count reference ranges are not reported, since discordance with absolute values may lead to misinterpretation of CBC data. Current Interpretive Data was last revised on 2017. Blood 12/18/2024 9:36 PM CDT 12/18/2024 10:31 PM CDT us Victor Hugo Thao MD LAB BLOOD ORDERABLES Heidi linda Result [facility] One [facility] Department [place] [address] * (ABNORMAL) CBC with auto differential (12/18/2024 9:36 PM CDT) WBC 3.31(L) 3.80 - 9.90 K/cumm Hgb 9.5(L) 11.9 - 15.5 g/dL [facility] Hct 29.1(L) 35.6 - 45.5 % [facility] Plt 253 150 - 400 K/cumm [facility] MPV 10.4 9.1 - 12.3 fL [facility] RBC 3.45(L) 3.90 - 5.20 M/cumm [facility] MCV 84.3 81.3 - 96.4 fL [facility] MCH 27.5 27.1 - 33.3 pg [facility] MCHC 32.6 32.3 - 35.7 g/dL [facility] RDW CV 13.7 11.1 - 14.9 % [facility] RDW SD 42.2 35.7 - 48.1 fL [facility] NRBC abs 0.00 0.00 - 0.01 K/cumm [facility] Blood 12/18/2024 9:36 PM CDT 12/18/2024 10:31 PM CDT Victor Hugo Thao MD LAB BLOOD ORDERABLES Heidi l Result Performing Organization Address [facility] Co de Phone Number [facility] [employer] [place] [address] * aPTT (12/18/2024 9:36 PM CDT) aPTT [...] ORDERABLES Heidi l Result Performing Organization Address [facility] de Phone Number [facility] [employer] [place] [address] * Protime-INR (12/18/2024 9:36 PM CDT) PT 10.7 9.7 - 13.0 sec INR 0.99 0.90 - 1.20 [facility] Comment: Interpretive data Oral anticoagulant therapeutic ranges: Venous thromboembolism prophylaxis or treatment: 2.0-3.0 CARDIOLOGY Standard range: 2.0-3.0 High-intensity range: 2.5-3.5 Refer to indication-specific guidelines for appropriate target ranges for prosthetic heart valve replacement. Current interpretive data was last revised on 2019. Blood 12/18/2024 9:36 PM CDT 12/18/2024 10:29 PM CDT Victor Hugo Thao MD LAB BLOOD ORDERABLES Heidi l Result Performing Organization Address [facility] Co de Phone Number [facility] [employer] [place] [address] * Type and screen (12/18/2024 9:36 PM CDT) [facility] ABO Rh O Negative Ramy, indirect Negative [facility] Blood 12/18/2024 9:36 PM CDT 12/18/2024 10:35 PM CDT Narrative [facility] - 12/18/2024 11:23 PM CDT Has the patient had Daratumumab or Isatuximab in the past 6 months?->Unknown Victor Hugo Thao MD LAB BLOOD BANK TEST ORDER MIGUELINA Final Result [facility] [address] * Phosphorus (12/18/2024 9:36 PM CDT) [facility] Phosphorus, pl 3.3 2.3 - 4.5 mg/dL Blood 12/18/2024 9:36 PM CDT 12/18/2024 10:31 PM CDT Victor Hugo Thao MD LAB BLOOD ORDERABLES Heidi l Result Performing Organization Address City/[facility]/ZIP Co de Phone Number [facility] [place] [address] * Magnesium (12/18/2024 9:36 PM CDT) [facility] Magnesium 2.0 1.4 - 2.5 mg/dL Blood 12/18/2024 9:36 PM CDT 12/18/2024 10:31 PM CDT Victor Hugo Thao MD LAB BLOOD ORDERABLES Heidi l Result Performing Organization Address City/[facility]/ZIP Co de Phone Number [facility] [place] [address] * (ABNORMAL) Hemoglobin A1c (12/18/2024 9:36 PM CDT) [facility] Hgb A1C 5.8(H) 4.0 - 5.6 % Estimated Average Glucose 120 mg/dL [facility] Comment: The ADA recommends reporting an estimated Average Glucose (eAG) with all Hemoglobin A1c results using the equation derived from a study of 507 normal and diabetic adults. Minority populations were underrepresented and children were not included. (Diabetes Care 2020; 43(S1): S66-S76). The eAG is not equivalent to a fasting glucose. Blood 12/18/2024 9:36 PM CDT 12/18/2024 10:35 PM CDT Narrative [facility] - 12/19/2024 6:59 PM CDT 12/19/2024 15:34:24 CDT Reflex. us Ariel Glez MD LAB BLOOD ORDERABLES Fi nal Result Performing Organization Address [facility] Co de Phone Number [facility] Department of [employer] [place], [place] [id number] * Hepatic function panel (12/18/2024 9:36 PM CDT) [facility] Bilirubin, total 0.5 0.1 - 1.2 mg/dL Bilirubin, direct <0.2 0.1 - 0.3 mg/dL [facility] Protein, pl 7.6 6.5 - 8.5 g/dL [facility] Albumin 3.9 3.5 - 5.0 g/dL [facility] Alk phos 76 40 - 130 Units/L [facility] ALT 7 7 - 45 Units/L [facility] AST 23 10 - 45 Units/L [facility] Blood 12/18/2024 9:36 PM CDT 12/18/2024 10:31 PM CDT us Victor Hugo Thao MD LAB BLOOD ORDERABLES Heidi l Result Performing Organization Address [facility]/ZIP Co de Phone Number [facility] of [employer] [place] [address] * Lipid panel (12/18/2024 9:36 PM CDT) [...] revised on 2018. Triglycerides 118 <=149 mg/dL [facility] Comment: Interpretive Data Ages < or [...] revised on 2018. HDL 47 >=40 mg/dL [facility] Comment: Interpretive Data Ages < or = [...] on 2018. LDL, calculated 80 <=129 mg/dL [facility] Comment: Interpretive Data Ages < or [...] revised on 2024. Non-HDL Cholesterol 101 mg/dL [facility] Comment: Interpretive Data Ages < or = [...] last revised on 2018. Chol/HDL ratio 3 [facility] Blood 12/18/2024 9:36 PM CDT 12/18/2024 10:31 PM CDT us Ariel Glez MD LAB BLOOD ORDERABLES Fi nal Result [facility] Department [place] [address] * (ABNORMAL) Basic metabolic panel (12/18/2024 9:36 PM CDT) Sodium 133(L) 135 - 145 mmol/L Potassium, pl 4.5 3.3 - 4.9 mmol/L [facility] Chloride 96(L) 97 - 110 mmol/L [facility] CO2 28 22 - 32 mmol/L [facility] Anion gap 9 2 - 15 mmol/L [facility] BUN 26(H) 6 - 25 mg/dL [facility] Creatinine 1.16(H) 0.60 - 1.10 mg/dL [facility] Glucose 119 70 - 199 mg/dL [facility] Comment: Interpretive Data Fasting glucose >/= 126 [...] 2022. Calcium 10.0 8.5 - 10.3 mg/dL [facility] Blood 12/18/2024 9:36 PM CDT 12/18/2024 10:31 PM CDT us Victor Hugo Thao MD LAB BLOOD ORDERABLES Heidi linda Result [facility] [place] [address] * CT Neck Soft Tissue W Contrast [...] are normal. The limited view of the [place] is unremarkable. The visualized portions [...] are normal. The limited view of the [place] is unremarkable. The visualized portions [...] Electronically signed by: Law Schaefer MD, PHD nOel Jensen MD IMG CT PROCEDURES Heidi l Result * (ABNORMAL) POCT creatinine (11/21/2024 8:54 AM CDT) Creatinine POC 1.2(H) 0.6 - 1.1 mg/dL Blood 11/21/2024 8:54 AM CDT 11/21/2024 8:54 AM CDT us Self Referral LAB POCT ORDERABLES - DEVICE Fin al Result Performing Organization Address City/State/ZIP Co al Phone Number [facility] [place] [address] * CT Facial Bones W Contrast (10/12/2024 [...] Jak Garrison M.D. AR: AIYANA Report ID: [id number] Reading Location: [place] [address] Procedure Note Jak Garrison MD - 10/12/2024 [...] Jak Garrison M.D. AR: AIYANA Report ID: [id number] Reading Location: [place] [address] PROCEDURES Final R [...] Geller NP LAB BLOOD ORDERABLES Final Result [facility] Department [place] [address] * (ABNORMAL) Differential, auto (10/12/2024 [...] ORDERABLES Final Result [facility] ([place]) [facility] Department [place] [address] * (ABNORMAL) CBC with auto differential (10/12/2024 [...] CDT 10/12/2024 4:29 PM CDT Sarbjit Geller [employer] SALESPERSON LAB BLOOD ORDERABLES Final Result [facility] Department of Laboratories [place], [place] [id number] * (ABNORMAL) Comprehensive metabolic panel (10/12/2024 4:17 [...] ([place]) Glucose 125 70 - 199 mg/dL [facility] Comment: Interpretive Data [...] 2022. Calcium 10.2 8.5 - 10.3 mg/dL [facility] ([place]) Bilirubin, total 0.2 0.1 - 1.2 mg/dL [facility] ([place]) Protein, pl 7.5 6.5 - 8.5 g/dL [facility] Albumin 3.7 3.5 - 5.0 g/dL [facility] ([place]) Alk phos 90 40 - 130 Units/L [facility] ([place]) ALT <5(L) 7 - 45 Units/L [facility] ([place]) AST 22 10 - 45 Units/L [facility] ([place] Blood 10/12/2024 4:17 PM CDT 10/12/2024 4:29 PM CDT Sarbjit Geller NP LAB BLOOD ORDERABLES Final Result [facility] ([place]) [facility] Department [place] [address] * Hepatitis C antibody Blood (06/21/2024 10:25 AM CAMERA PERSON) Hep C Ab Nonreactive Nonreactive Comment:Antibodies to HCV no t detected. Does NOT exclude the possibility of recent exposure to HCV. Current interpretive data was last revised on 22 Blood 06/21/2024 10:2 5 AM CAMERA PERSON 06/21/2024 10:32 AM CAMERA PERSON Narrative [facility] - 06/21/2024 12:02 PM CAMERA PERSON Bill to C[facility] Damian Foy MD LAB MICROBIOLOGY - NERAL ORDERABLES Final Result [facility] [place] [address] from Last 3 Months or Most Recently Relevant to Health Maintenance Insurance [place] [address] [place] [address] MEDICARE [facility] Advance Directives For more information, please contact: [phone] Documents on File Type Date Recorded Patient Vaccine Specialist Expl anation ADVANCE DIRECTIVE 07/18/2024 5:13 PM ADVAN CE DIRECTIVE ADVANCE DIRECTIVE 06/22/2024 7:57 AM [facility] FAMILY PRACTICE NURSE PRACTITIONER-MEDICAL * Full Code (Latest Code Status on File) Date Activated Date Inactivated Comments 12/18/2024 8:47 PM 12/22/2024 7:17 PM * Full Code Date Activated Date Inactivated Comments 06/21/2024 7:18 PM 07/16/2024 7:12 PM Care Teams Shot Man Relationship Specialty Start Date End Date Rafael Correia MD [address] [facility] [address] [place] [address] PCP - General Family Medicine 10/03/24 Felicia Bishop RN Nurse Navigator 05/20/24 Becki Rahman LCSW Powerhouse Electrician Apprentice 05/20/24 Onel Jensen MD [address] [address] Consulting Physician Otolaryngology 05/23/24
--- OUTSIDE RECORDS SUMMARY | 2025-01-07 08:06 | XMS_ITS | Clinical Summary ---
Author Organization [facility] Richa peterson Address [address] [address] Phone Care Team Providers Care Analyst Sales Name Role Phone Dorothy Gupta MD Primary Care Provider [phone]- [phone] Allergies Active Allergy Reactions Criticality Noted Date [...] on file Legal Sex Female 7:38 AM [facility] Gender Identity Not on file Sexual [...] ( - season) 2024, 09/10/2020 Influenza Vaccine (#1) 2025 Insurance MEDICARE [facility] Care Teams Analyst Sales Relationship Specialty Start Date End Date Dorothy Gupta MD [address] [facility] [address] [place] [address] PCP - General Internal Medicine 02/16/20
--- OUTSIDE RECORDS SUMMARY | 2025-01-07 08:06 | XMS_ITS | Clinical Summary ---
Author Organization [facility] Address [address] [place] [address] Care Team Providers Care Airline Pilot/First Officer Name Role Phone Unavailable Primary Care Provider Unavailabl e Source Comments [facility],non-owned Affiliates and Associated Physician Practices is amultiple site organization consisting of ambulatory clinics and hospital sitesin [place], [place], [place] and [place]. This disclosure is being madepursuant to the Care Everywhere program and may not contain all information available regarding this patient. Last updated 18.[facility] [employer] Social History Tobacco Use Types Packs/Day Years [...] age to complete this topic Insurance MEDICARE [facility]
--- OUTSIDE RECORDS SUMMARY | 2025-01-07 08:06 | XMS_ITS | Clinical Summary ---
Author Organization Unknown Care Team Providers Care Clay Hoister Name Role Phone ROBERT BARBER Unavailable Art HENSLEY RN, SAMIA Unavailable Unavailabl e RYLIE PT, MANJIT Unavailable Unavailable [place] TOBACCO BULKER, VERONICA Unavailable Unavailabl e Payers Payer Name Policy Type Policy Number Effective Date Expira tion Date MEDICARE.[facility] [id number] Problems Condition Name Condition Details Condition Category [...] CONSULTING PHYSICIANS RN TO OBSERVE AND ASSESS, RUNSTITCHING MACHINE OPERATOR/PRODUCTION GEAR CUTTER TO OBSERVE FOR RISK FOR FALLS AND INSTRUCT IN FALL PREVENTION, HOME SAFETY, MEDICATION MANAGEMENT, INFECTION PREVENTION, AND NUTRITION MANAGEMENT. RN/RUNSTITCHING MACHINE OPERATOR/PRODUCTION GEAR CUTTER NURSE MAY PERFORM O2 SATURATION LEVEL ON ADMISSION AND PRN FOR RN TO ASSESS/RUNSTITCHING MACHINE OPERATOR TO OBSERVE PATIENT, WITH NOTIFICATION TO THE PHYSICIAN IF SATURATION IS 90% IN THE ABSENCE OF MORE SPECIFIC PARAMETERS FROM THE PHYSICIAN. AGENCY MAY PERFORM A RESUMPTION OF CARE VISIT FOLLOWING ANY HOSPITAL ADMISSION. RN/RUNSTITCHING MACHINE OPERATOR/PRODUCTION GEAR CUTTER TO MONITOR CO-MORBID CONDITIONS LISTED ON THE PLAN OF CARE AND ANY NEW CONDITIONS THAT PRESENT THEMSELVES DURING THIS EPISODE TO IDENTIFY CHANGES AND INTERVENE TO MINIMIZE COMPLICATIONS. [code = RN TO OBSERVE, ASSESS, EVALUATE, AND DEVELOP AN INDIVIDUALIZED PLAN OF CARE. AGENCY MAY ACCEPT ORDERS FROM CONSULTING PHYSICIANS RN TO OBSERVE AND ASSESS, RUNSTITCHING MACHINE OPERATOR/PRODUCTION GEAR CUTTER TO OBSERVE FOR RISK FOR FALLS AND INSTRUCT IN FALL PREVENTION, HOME SAFETY, MEDICATION MANAGEMENT, INFECTION PREVENTION, AND NUTRITION MANAGEMENT. RN/RUNSTITCHING MACHINE OPERATOR/PRODUCTION GEAR CUTTER NURSE MAY PERFORM O2 SATURATION LEVEL ON ADMISSION AND PRN FOR RN TO ASSESS/RUNSTITCHING MACHINE OPERATOR TO OBSERVE PATIENT, WITH NOTIFICATION TO THE PHYSICIAN IF SATURATION IS 90% IN THE ABSENCE OF MORE SPECIFIC PARAMETERS FROM THE PHYSICIAN. AGENCY MAY PERFORM A RESUMPTION OF CARE VISIT FOLLOWING ANY HOSPITAL ADMISSION. RN/RUNSTITCHING MACHINE OPERATOR/PRODUCTION GEAR CUTTER TO MONITOR CO-MORBID CONDITIONS LISTED ON THE PLAN OF CARE AND ANY NEW CONDITIONS THAT PRESENT THEMSELVES DURING THIS EPISODE TO IDENTIFY CHANGES AND INTERVENE TO MINIMIZE COMPLICATIONS.] Future Scheduled Test MEDICATION MANAGEMENT; RN/RUNSTITCHING MACHINE OPERATOR/PRODUCTION GEAR CUTTER TO REVIEW MEDICATIONS FOR INTERACTIONS, EFFECTIVENESS OF DRUG THERAPY, AND SIGNS/SYMPTOMS OF ADVERSE REACTIONS. MAY INSTRUCT AND REINFORCE MEDICATION TEACHING RELATED TO THE USE OF MEDICATIONS, DOSAGE, FREQUENCY, PURPOSE, SIDE EFFECTS, AND TO REPORT COMPLICATIONS. [code = MEDICATION MANAGEMENT; RN/RUNSTITCHING MACHINE OPERATOR/PRODUCTION GEAR CUTTER TO REVIEW MEDICATIONS FOR INTERACTIONS, EFFECTIVENESS OF DRUG THERAPY, AND SIGNS/SYMPTOMS OF ADVERSE REACTIONS. MAY INSTRUCT AND REINFORCE MEDICATION TEACHING RELATED TO THE USE OF MEDICATIONS, DOSAGE, FREQUENCY, PURPOSE, SIDE EFFECTS, AND TO REPORT COMPLICATIONS.] Future Scheduled Test RISK FOR H OSPITALIZATION; RN TO ASSESS/TEACH, PRODUCTION GEAR CUTTER/RUNSTITCHING MACHINE OPERATOR TO OBSERVE/TEACH PATIENT/CAREGIVER ON RISK FOR HOSPITALIZATION/EMERGENCY ROOM VISITS, TEACH SIGNS AND SYMPTOMS THAT PUT PATIENT AT RISK, WHEN TO NOTIFY NURSE/PHYSICIAN OF COMPLICATIONS/DECLINE, AND WHEN TO CALL 911. [code = RISK FOR HOSPITALIZATION; RN TO ASSESS/TEACH, PRODUCTION GEAR CUTTER/RUNSTITCHING MACHINE OPERATOR TO OBSERVE/TEACH PATIENT/CAREGIVER ON RISK FOR HOSPITALIZATION/EMERGENCY ROOM VISITS, TEACH SIGNS AND SYMPTOMS THAT PUT PATIENT AT RISK, WHEN TO NOTIFY NURSE/PHYSICIAN OF COMPLICATIONS/DECLINE, AND WHEN TO CALL 911.] Future Scheduled Test CARDIOVASC ULAR SYSTEM; RN TO ASSESS/TEACH, RUNSTITCHING MACHINE OPERATOR/PRODUCTION GEAR CUTTER TO OBSERVE/TEACH RELATED TO ALTERED CARDIOVASCULAR STATUS TO MINIMIZE COMPLICATIONS AND REDUCE HOSPITALIZATION. [code = CARDIOVASCULAR SYSTEM; RN TO ASSESS/TEACH, RUNSTITCHING MACHINE OPERATOR/PRODUCTION GEAR CUTTER TO OBSERVE/TEACH RELATED TO ALTERED CARDIOVASCULAR STATUS TO MINIMIZE COMPLICATIONS AND REDUCE HOSPITALIZATION.] Future Scheduled Test HYPERTENSI ON MANAGEMENT; RN TO ASSESS AND TEACH, RUNSTITCHING MACHINE OPERATOR/PRODUCTION GEAR CUTTER TO OBSERVE AND TEACH WARNING SIGNS AND SYMPTOMS TO AVOID HOSPITALIZATION. [code = HYPERTENSION MANAGEMENT; RN TO ASSESS AND TEACH, RUNSTITCHING MACHINE OPERATOR/PRODUCTION GEAR CUTTER TO OBSERVE AND TEACH WARNING SIGNS AND SYMPTOMS TO AVOID HOSPITALIZATION.] Future Scheduled Test RN/RUNSTITCHING MACHINE OPERATOR/PRODUCTION GEAR CUTTER TO PERFORM/TEACH WOUND CARE TO LEFT THIGH [...] RN GOAL WOUND TO HEAL [code = RN/RUNSTITCHING MACHINE OPERATOR/PRODUCTION GEAR CUTTER TO PERFORM/TEACH WOUND CARE TO LEFT THIGH [...] MANAG EMENT; RN TO ASSESS AND TEACH, PRODUCTION GEAR CUTTER/RUNSTITCHING MACHINE OPERATOR TO OBSERVE AND TEACH AND PROVIDE EDUCATION ON PAIN MANAGEMENT TECHNIQUES. [code = PAIN MANAGEMENT; RN TO ASSESS AND TEACH, PRODUCTION GEAR CUTTER/RUNSTITCHING MACHINE OPERATOR TO OBSERVE AND TEACH AND PROVIDE EDUCATION ON PAIN MANAGEMENT TECHNIQUES.] Future Scheduled Test MALNUTRITI ON MANAGEMENT; RN TO ASSESS AND TEACH, PRODUCTION GEAR CUTTER/RUNSTITCHING MACHINE OPERATOR TO OBSERVE AND TEACH AND INSTRUCT PATIENT / CAREGIVER ON INTERVENTIONS TO IMPROVE NUTRITIONAL INTAKE AND PATIENT WELLBEING. [code = MALNUTRITION MANAGEMENT; RN TO ASSESS AND TEACH, PRODUCTION GEAR CUTTER/RUNSTITCHING MACHINE OPERATOR TO OBSERVE AND TEACH AND INSTRUCT PATIENT / CAREGIVER ON INTERVENTIONS TO IMPROVE NUTRITIONAL INTAKE AND PATIENT WELLBEING.] Future Scheduled Test CANCER MAN AGEMENT; RN TO ASSESS AND TEACH, PRODUCTION GEAR CUTTER/RUNSTITCHING MACHINE OPERATOR TO OBSERVE AND TEACH AND PROVIDE EDUCATION ON CANCER. [code = CANCER MANAGEMENT; RN TO ASSESS AND TEACH, PRODUCTION GEAR CUTTER/RUNSTITCHING MACHINE OPERATOR TO OBSERVE AND TEACH AND PROVIDE EDUCATION ON CANCER.] Future Scheduled Test FALL REDUC TION MANAGEMENT; RN TO ASSESS AND OBSERVE, RUNSTITCHING MACHINE OPERATOR/PRODUCTION GEAR CUTTER TO OBSERVE FALL RISK FACTORS AND EDUCATE PATIENT/CAREGIVER ON STRATEGIES TO MINIMIZE THE RISK OF FALLING. [code = FALL REDUCTION MANAGEMENT; RN TO ASSESS AND OBSERVE, RUNSTITCHING MACHINE OPERATOR/PRODUCTION GEAR CUTTER TO OBSERVE FALL RISK FACTORS AND EDUCATE [...] TO EVALUATE, OBSERVE / ASSESS, AND MONITOR, CUT TOBACCO BULKER TO OBSERVE AND MONITOR, PROVIDE SKILLED THERAPEUTIC INTERVENTION, ACTIVITY, EDUCATION, AND TRAINING TO ADDRESS; BED MOBILITY (PT/CUT TOBACCO BULKER) PT/CUT TOBACCO BULKER TO PROVIDE GAIT TRAINING FOR IMPROVED MOBILITY AND /OR TO NORMALIZE GAIT PATTERN NEUROMUSCULAR RE-EDUCATION / BALANCE / POSTURAL CONTROL (PT) THERAPEUTIC EXERCISES AND ESTABLISHING A HOME EXERCISE PROGRAM (PT/CUT TOBACCO BULKER) PT/CUT TOBACCO BULKER TO PROVIDE STAIR TRAINING SIT TO/FROM STAND TRANSFERS (PT/CUT TOBACCO BULKER) PT/CUT TOBACCO BULKER TO IDENTIFY FALL RISK FACTORS; EDUCATE THE PATIENT/CAREGIVER ON WAYS TO REDUCE FALL RISK FACTORS AND ESTABLISH HOME EXERCISE PROGRAM TO MINIMIZE FALL RISK. MAY TEACH THE PATIENT FLOOR RECOVERY WHEN CLINICALLY APPROPRIATE [code = AGENCY MAY PERFORM A RESUMPTION OF CARE VISIT FOLLOWING ANY HOSPITAL ADMISSION. PT TO EVALUATE, OBSERVE / ASSESS, AND MONITOR, CUT TOBACCO BULKER TO OBSERVE AND MONITOR, PROVIDE SKILLED THERAPEUTIC INTERVENTION, ACTIVITY, EDUCATION, AND TRAINING TO ADDRESS; BED MOBILITY (PT/CUT TOBACCO BULKER) PT/CUT TOBACCO BULKER TO PROVIDE GAIT TRAINING FOR IMPROVED MOBILITY AND /OR TO NORMALIZE GAIT PATTERN NEUROMUSCULAR RE-EDUCATION / BALANCE / POSTURAL CONTROL (PT) THERAPEUTIC EXERCISES AND ESTABLISHING A HOME EXERCISE PROGRAM (PT/CUT TOBACCO BULKER) PT/CUT TOBACCO BULKER TO PROVIDE STAIR TRAINING SIT TO/FROM STAND TRANSFERS (PT/CUT TOBACCO BULKER) PT/CUT TOBACCO BULKER TO IDENTIFY FALL RISK FACTORS; EDUCATE THE [...] End Date/Time Encounter Type Admission Type Attending [facility] Facility Care Department Encounter ID Discharge Date Discharge Status Discharge Condition Discharge Reason Percent Goals Met 2024-12-23 00:00:00 2025-02-20 00:00:00 Outpatient NEW ADMISSION SAMIA HENSLEY [facility] [id number] 11.76
--- OUTSIDE RECORDS SUMMARY | 2025-01-07 08:06 | XMS_ITS | Continuity of Care Document ---
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 Social History Type Response Date Comment Sourc e This section is an empty social history section. [facility]
--- OUTSIDE RECORDS SUMMARY | 2025-01-07 08:07 | XMS_ITS | Clinical Summary ---
Author Organization [facility] Address [address] [place] [address] Care Team Providers Care Horticulturalist Name Role Phone Dorothy Gupta MD Primary Care Provider +1- [phone] Social History Tobacco Use Types Packs/Day Years [...] season) 2024 06/18/2021, 10/01/2020, 09/10/2020 PHQ-2 (Physician [place]) 07/06/2024 Meningococcal B Vaccine Aged Out No l onger eligible based on patient's age to complete this topic Meningococcal Vaccine Aged Out No mary barrera eligible based on patient's age to complete this topic RSV Immunizations Under 20 Months Aged Out No longer eligible b ased on patient's age to complete this topic Insurance MEDICARE Care Teams Horticulturalist Relationship Specialty Start Date End Date Dorothy Gupta MD [address] [place] [address] PCP - General FAMILY PRACTICE 05/11/24
--- OUTSIDE RECORDS SUMMARY | 2025-01-07 08:07 | XMS_ITS | Clinical Summary ---
Author Organization [facility] Address [address] [facility] [address] [place] [address] Phone Care Team Providers Care Membership Assistant Name Role Phone Victor Hugo Dudley DO Unavailable [phone] Dorothy Gupta MD Primary Care Provider [phone]- [phone] Simon William MD Unavailable Allergies Active Allergy Reactions Criticality Noted Date [...] Info) Description 03/30/2025 11:00 AM CDT [facility] [address] [place] [id number] 04/06/2025 10:40 AM CDT [facility] [address] [place] [address] Conchita Huizar Claribel, PAC [address] [place] [address] Health Maintenance Due Date Last Done Comments [...] Recently Relevant to Health Maintenance Insurance MEDICARE [facility] Care Teams Membership Assistant Relationship Specialty Start Date End Date Dorothy Gupta MD [address] [place] [address] PCP - General Family Medicine 09/02/19 Victor Hugo Dudley DO Gastroenterology 04/23/16 Simon William MD [address] [place] [address] Consulting Physician Gastroenterology 10/17/21
--- OUTSIDE RECORDS SUMMARY | 2025-01-07 08:07 | XMS_ITS | Referral Summary ---
Author Organization [facility] Address [address] [place] [phone] Care Team Providers Care Construction Laborer Name Role Phone Felicia Bishop RN Unavailable UnavailBecki MezaW Unavailable UnavailOnel Nguyen MD Unavailable [phone] Rafael Correia MD Primary Care Provider Encounters Date Type Department Care Team Description 01/02/2025 Orders Only [facility] Radiology 1 [place] [address] Mary Castorena RN 12/23/2024 SHOP/CHAP Initial Eligibility Review [facility] OP CASE MANAGEMENT 1 [place] [phone] Lucila Curiel LCSW 12/18/2024 7:50 PM CDT - 12/22/2024 3:12 PM CDT Hospital Encounter [facility] 1 [place] [address] Jarett Jones MD Neilson, Nathan Andrew, MD Fong, Jerry, MD PhD Master, Victor Hugo Patel MD 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 Infusion Center [address] [place] [address] Dehydration (Primary Dx) 11/22/2024 Orders Only [facility] Radiation Oncology [address] [place] [phone] Oneil Montero MD 11/21/2024 10:20 AM CDT Office Visit [facility] Department of Otolaryngology Head-Neck Division [address] [place] [address] Floor 5 [place] [phone] Onel Jensen MD Cancer of oral cavity (HCC) (Primary Dx) 11/21/2024 8:42 AM CDT - 11/21/2024 11:59 PM CDT [facility] [place] [facility] [place] [address] [facility] Floor 8 [place] [address] Head and neck cancer (HCC) Discharge Disposition: Discharge to home or self care 11/08/2024 10:00 AM CDT Office Visit [facility] Radiation Oncology [address] [place] [address] Oneil Montero MD 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 at [place] [address] [place] [phone] Fannie Silva LPN 10/12/2024 7:28 PM CDT - 10/13/2024 12:11 AM CDT Emergency [facility] Emergency Department 1 [place] [address] Abrasion of left cornea, initial encounter (Primary Dx) Discharge Disposition: Discharge to home or self care 10/12/2024 Telephone [facility] Ophthalmology [address] [place] [address] 1st [place] [phone] Anthony Toscano MD FYI 10/12/2024 3:15 PM CDT Office Visit [facility] at [address] [phone] Mary Mora PA Left eye pain (Primary Dx); Facial pain 10/12/2024 Telephone [facility] Radiation Oncology 6 [place] [address] Deandre Duarte RN from Last 3 Months [...] with simethicone-di phenhydramine- lidocaine (MAGIC MOUTHWASH) suspension [id number] ns:Cancer of alveolus of maxilla (HCC) Swish [...] slow eating due to head/neck cancer. Patient's WELDING MACHINE OPERATOR ELECTROSLAG evaluation did not test solid food per patient's request though patient has known discomfort (almost globus like sensation). Patient's current weight loss is secondary to insufficient caloric intake by PO alone, with patient now requiring tube feeding for goal. S/p PEG by IR 12/19, began advancing TF 12/20 to goal ~12/21 - dispo 12/22 with TF (home health). - RD c/s, WELDING MACHINE OPERATOR ELECTROSLAG eval - Return to pureed diet, crushed [...] slow eating due to head/neck cancer. Patient's WELDING MACHINE OPERATOR ELECTROSLAG evaluation did not test solid food per patient's request though patient has known discomfort (almost globus like sensation). Patient's current weight loss is secondary to insufficient caloric intake by PO alone, with patient now requiring tube feeding for goal. S/p PEG by IR 12/19, began advancing TF 12/20 to goal ~12/21 - dispo 12/22 with TF (home health). - RD c/s, WELDING MACHINE OPERATOR ELECTROSLAG eval - Return to pureed diet, crushed [...] 12/20 to goal ~12/21 - RD c/s, WELDING MACHINE OPERATOR ELECTROSLAG eval - Return to pureed diet, crushed [...] clearance by IR 12/20 - RD c/s, WELDING MACHINE OPERATOR ELECTROSLAG eval - Return to pureed diet, crushed [...] TF initiation - IR cs. RD cs. 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 [...] 07/12/2024 Assessment & Plan (07/12/2024 1:50 PM URBAN FORESTER): A1c of 5.7. On SSI. Subq insulin [...] hydralazine Assessment & Plan (07/13/2024 9:18 AM URBAN FORESTER): Blood pressures normal. Cont amlodipine (increase to [...] materials from doctor or pharmacy Sometimes 09/12/2024 [facility] Utilities Answer Date Recorded In the past 12 months has [employer], oil, or water [employer] threatened to shut off services in your [...] How often do you attend chur or judaism services? Never 05/27/2024 Do you belong to any clubs o r organizations such as advent groups, unions, fraternal or athletic groups, or [...] any time in the past 12 [facility], were you homeless or living in a longterm (including now)? No 05/27/2024 Personal Safety Answer Date Recorded Have you ever been in or are you currently in a harmful physical or emotional relationship or is someone making you feel afraid or unsafe? Denies 12/19/2024 Comments No Sex and Gender Information Value Date Recorded Sex Assigned at Not on file Legal Sex Female 1:42 PM URBAN FORESTER Gender Identity Not on file Sexual Orientation [...] on file Medical Devices Implanted Type Area Financial Services Sales Representative Device Identifier Shelf Expiration Date Model / Serial / Lot Izabella [employer] Realtime Court Reporter Anastomotic Microvascular [place] [employer] Realtime Court Reporter 4.0mm [id number] - S0 - [id number] Implanted:Qty: 1 on 06/21/2024 by Onel Jensen MD at [facility] Other - see comments Left: Neck [employer]ian [id number] 10/12/2028 [id number] / 0 / [id number] Procedures Procedure Name Priority Date/Time Associated Diagnosis Comments EGFR Routine 12/21/2024 9:50 PM CDT PHOSPHORUS Routine 12/21/2024 9:50 PM CDT BASIC METABOLIC PANEL Routine 12/21/2024 9:50 PM CDT MAGNESIUM Routine 12/21/2024 9:50 PM CDT EGFR Routine 12/20/2024 11:10 PM CDT PHOSPHORUS Routine 12/20/2024 11:10 PM CDT BASIC METABOLIC PANEL Routine 12/20/2024 11:10 PM CDT MAGNESIUM Routine 12/20/2024 11:10 PM CDT WELDING MACHINE OPERATOR ELECTROSLAG EVALUATE AND TREAT Routine 12/20/2024 3:54 PM [...] HEPATITIS C ANTIBODY STAT 06/21/2024 10:25 AM URBAN FORESTER General medical exam from Last 3 Months [...] ult Performing Organization Address City/[facility] Co de Phone Number [facility] Department [place] [address] * Phosphorus (12/21/2024 9:50 PM CDT) Pathologist [facility] Phosphorus, pl 3.4 2.3 - 4.5 mg/dL Blood 12/21/2024 9:50 PM CDT 12/21/2024 11:11 PM CDT us Patrick Govea MD PhD LAB BLOOD ORDERABLES Final Res ult Performing Organization Address [facility] Co de Phone Number [facility] [place] [address] * Magnesium (12/21/2024 9:50 PM CDT) [facility] Magnesium 2.0 1.4 - 2.5 mg/dL Blood 12/21/2024 9:50 PM CDT 12/21/2024 11:11 PM CDT us Patrick Govea MD PhD LAB BLOOD ORDERABLES Final Res ult Performing Organization Address [facility] Co de Phone Number [facility] [place] [address] * (ABNORMAL) Basic metabolic panel (12/21/2024 9:50 PM CDT) Pathologist [facility] Sodium 131(L) 135 - 145 mmol/L Potassium, pl 4.2 3.3 - 4.9 mmol/L [facility] Chloride 93(L) 97 - 110 mmol/L [facility] CO2 30 22 - 32 mmol/L [facility] Anion gap 8 2 - 15 mmol/L [facility] BUN 15 6 - 25 mg/dL [facility] Creatinine 0.79 0.60 - 1.10 mg/dL [facility] Glucose 141 70 - 199 mg/dL [facility] Comment: Interpretive Data Fasting glucose >/= [...] 2022. Calcium 9.7 8.5 - 10.3 mg/dL [facility] Blood 12/21/2024 9:50 PM CDT 12/21/2024 11:11 PM CDT us Patrick Govea MD PhD LAB BLOOD ORDERABLES Final Res ult [facility] Department [place] [address] * (ABNORMAL) eGFR (12/20/2024 11:10 PM CDT) [...] ORDERABLES Final Res ult Performing Organization Address [facility] Co de Phone Number [facility] [place] [address] * Phosphorus (12/20/2024 11:10 PM CDT) Pathologist [facility] Phosphorus, pl 3.5 2.3 - 4.5 mg/dL Blood 12/20/2024 11:1 0 PM CDT 12/21/2024 12:18 AM CDT us Patrick Govea MD PhD LAB BLOOD ORDERABLES Final Res ult Performing Organization Address [facility] de Phone Number [facility] [place] [address] * Magnesium (12/20/2024 11:10 PM CDT) [facility] Magnesium 2.0 1.4 - 2.5 mg/dL Blood 12/20/2024 11:1 0 PM CDT 12/21/2024 12:18 AM CDT us Patrick Govea MD PhD LAB BLOOD ORDERABLES Final Res ult Performing Organization Address [facility] de Phone Number [facility] [place] [address] * (ABNORMAL) Basic metabolic panel (12/20/2024 11:10 PM CDT) [facility] Sodium 134(L) 135 - 145 mmol/L Potassium, pl 4.1 3.3 - 4.9 mmol/L [facility] Chloride 96(L) 97 - 110 mmol/L [facility] CO2 27 22 - 32 mmol/L [facility] Anion gap 11 2 - 15 mmol/L [facility] BUN 14 6 - 25 mg/dL [facility] Creatinine 1.03 0.60 - 1.10 mg/dL [facility] Glucose 96 70 - 199 mg/dL [facility] Comment: Interpretive Data Fasting glucose >/= [...] 2022. Calcium 9.5 8.5 - 10.3 mg/dL [facility] Blood 12/20/2024 11:1 0 PM CDT 12/21/2024 12:18 AM CDT us Patrick Govea MD PhD LAB BLOOD ORDERABLES Final Res ult [facility] Department [place] [address] * WELDING MACHINE OPERATOR ELECTROSLAG Evaluation and Treatment (12/20/2024 3:54 PM CDT) [...] Swallow function appears at baseline, no further WELDING MACHINE OPERATOR ELECTROSLAG indicated. Assessment Details & Results Consistencies Administered: [...] Aspiration Risk: No aspiration risk (170-200) Plan WELDING MACHINE OPERATOR ELECTROSLAG Frequency of Services during current admission: Discharge from this Service WELDING MACHINE OPERATOR ELECTROSLAG Recommendation (Add'l Services): No further WELDING MACHINE OPERATOR ELECTROSLAG indicated Next Visit Plan:No further ST warranted Additional Referrals: n/a Please reference care plan for treatment goals, if indicated. Discharge Summary Statement If this is the last swallow therapy visit, this serves as the discharge summary. us Victor Hugo Thao MD WELDING MACHINE OPERATOR ELECTROSLAG ORDERABLES Final Res ult * (ABNORMAL) eGFR [...] LAB BLOOD ORDERABLES Fi nal Result SAMIRA [facility] Department [place] [address] * (ABNORMAL) Differential, auto (12/19/2024 10:47 PM CDT) Neutrophil abs 3.37 1.50 - 6.50 K/cumm Imm gran abs 0.02 0.00 - 0.10 K/cumm [facility] Lymphocyte abs 0.40(L) 0.80 - 3.30 K/cumm [facility] Monocyte abs 0.46 0.20 - 0.80 K/cumm [facility] Eosinophil abs 0.07 0.00 - 0.50 K/cumm [facility] Basophil abs 0.02 0.00 - 0.10 K/cumm [facility] Neutrophil pct 77.6 % [facility] Comment: Interpretive Data Percent cell count reference ranges are not reported, since discordance with absolute values may lead to misinterpretation of CBC data. Current Interpretive Data was last revised on 2017. Imm gran pct 0.5 % [facility] Comment: Interpretive Data Percent cell count reference ranges are not reported, since discordance with absolute values may lead to misinterpretation of CBC data. Current Interpretive Data was last revised on 2017. Lymphocyte pct 9.2 % [facility] Comment: Interpretive Data Percent cell count reference ranges are not reported, since discordance with absolute values may lead to misinterpretation of CBC data. Current Interpretive Data was last revised on 2017. Monocyte pct 10.6 % [facility] Comment: Interpretive Data Percent cell count reference ranges are not reported, since discordance with absolute values may lead to misinterpretation of CBC data. Current Interpretive Data was last revised on 2017. Eosinophil pct 1.6 % [facility] Comment: Interpretive Data Percent cell count reference ranges are not reported, since discordance with absolute values may lead to misinterpretation of CBC data. Current Interpretive Data was last revised on 2017. Basophil pct 0.5 % [facility] Comment: Interpretive Data Percent cell count reference ranges are not reported, since discordance with absolute values may lead to misinterpretation of CBC data. Current Interpretive Data was last revised on 2017. Blood 12/19/2024 10:4 7 PM CDT 12/19/2024 11:11 PM CDT Ariel Glez MD LAB BLOOD ORDERABLES Fi nal Result Performing Organization Address [facility] de Phone Number [facility] Department [place] [address] * (ABNORMAL) CBC with auto differential (12/19/2024 10:47 PM CDT) [facility] WBC 4.34 3.80 - 9.90 K/cumm Hgb 9.5(L) 11.9 - 15.5 g/dL [facility] Hct 29.0(L) 35.6 - 45.5 % [facility] Plt 245 150 - 400 K/cumm [facility] MPV 10.0 9.1 - 12.3 fL [facility] RBC 3.45(L) 3.90 - 5.20 M/cumm [facility] MCV 84.1 81.3 - 96.4 fL [facility] MCH 27.5 27.1 - 33.3 pg [facility] MCHC 32.8 32.3 - 35.7 g/dL [facility] RDW CV 13.6 11.1 - 14.9 % [facility] RDW SD 42.1 35.7 - 48.1 fL [facility] NRBC abs 0.00 0.00 - 0.01 K/cumm [facility] Blood 12/19/2024 10:4 7 PM CDT 12/19/2024 11:11 PM CDT us Ariel Glez MD LAB BLOOD ORDERABLES Fi nal Result Performing Organization Address [facility] Co de Phone Number [facility] Department [place] [address] * Phosphorus (12/19/2024 10:47 PM CDT) Pathologist [facility] Phosphorus, pl 3.7 2.3 - 4.5 mg/dL Blood 12/19/2024 10:4 7 PM CDT 12/19/2024 11:11 PM CDT us Ariel Glez MD LAB BLOOD ORDERABLES Fi nal Result Performing Organization Address City/[facility]/ZIP Co de Phone Number [facility] [place] [address] * Magnesium (12/19/2024 10:47 PM CDT) [facility] Magnesium 2.0 1.4 - 2.5 mg/dL Blood 12/19/2024 10:4 7 PM CDT 12/19/2024 11:11 PM CDT Ariel Glez MD LAB BLOOD ORDERABLES Fi nal Result Performing Organization Address [facility] Co de Phone Number [facility] [place] [address] * Basic metabolic panel (12/19/2024 10:47 PM CDT) [facility] Sodium 136 135 - 145 mmol/L Potassium, pl 4.2 3.3 - 4.9 mmol/L [facility] Chloride 100 97 - 110 mmol/L [facility] CO2 27 22 - 32 mmol/L [facility] Anion gap 9 2 - 15 mmol/L [facility] BUN 19 6 - 25 mg/dL [facility] Creatinine 1.02 0.60 - 1.10 mg/dL [facility] Glucose 87 70 - 199 mg/dL [facility] Comment: Interpretive Data Fasting glucose >/= [...] 2022. Calcium 9.6 8.5 - 10.3 mg/dL [facility] Blood 12/19/2024 10:4 7 PM CDT 12/19/2024 11:11 PM CDT us Ariel Glez MD LAB BLOOD ORDERABLES Fi nal Result SAMIRA [facility] Department [place] [address] * IR G Tube Placement Percutaneous (12/19/2024 2:59 PM CDT) Anatomical Region Laterality Modality Body N/A X-Ray Angiograph y 12/19/2024 3:46 PM CDT Impressions 12/22/2024 7:10 AM CDT Successful placement of a 16 Ivorian gastrostomy catheter with gastropexy. PLAN: The gastrostomy [...] was obtained. Prior to beginning the procedure, [place] Protocol was performed to confirm the patient's [...] was dilated over a guidewire to 18 Ivorian. Next, an 20 Ivorian peel-away sheath was placed in the stomach [...] was obtained. Prior to beginning the procedure, [place] Protocol was performed to confirm the patient's [...] was dilated over a guidewire to 18 Ivorian. Next, an 20 Ivorian peel-away sheath was placed in the stomach [...] identified. IMPRESSION: Successful placement of a 16 Ivorian gastrostomy catheter with gastropexy. PLAN: The gastrostomy [...] MD LAB BLOOD ORDERABLES Heidi linda Result [facility] Department [place] [address] * (ABNORMAL) Differential, auto (12/18/2024 9:36 PM CDT) Neutrophil abs 2.31 1.50 - 6.50 K/cumm Imm gran abs 0.02 0.00 - 0.10 K/cumm [facility] Lymphocyte abs 0.46(L) 0.80 - 3.30 K/cumm [facility] Monocyte abs 0.40 0.20 - 0.80 K/cumm [facility] Eosinophil abs 0.10 0.00 - 0.50 K/cumm [facility] Basophil abs 0.02 0.00 - 0.10 K/cumm [facility] Neutrophil pct 69.8 % [facility] Comment: Interpretive Data Percent cell count reference ranges are not reported, since discordance with absolute values may lead to misinterpretation of CBC data. Current Interpretive Data was last revised on 2017. Imm gran pct 0.6 % [facility] Comment: Interpretive Data Percent cell count reference ranges are not reported, since discordance with absolute values may lead to misinterpretation of CBC data. Current Interpretive Data was last revised on 2017. Lymphocyte pct 13.9 % [facility] Comment: Interpretive Data Percent cell count reference ranges are not reported, since discordance with absolute values may lead to misinterpretation of CBC data. Current Interpretive Data was last revised on 2017. Monocyte pct 12.1 % [facility] Comment: Interpretive Data Percent cell count reference ranges are not reported, since discordance with absolute values may lead to misinterpretation of CBC data. Current Interpretive Data was last revised on 2017. Eosinophil pct 3.0 % [facility] Comment: Interpretive Data Percent cell count reference ranges are not reported, since discordance with absolute values may lead to misinterpretation of CBC data. Current Interpretive Data was last revised on 2017. Basophil pct 0.6 % [facility] Comment: Interpretive Data Percent cell count reference ranges are not reported, since discordance with absolute values may lead to misinterpretation of CBC data. Current Interpretive Data was last revised on 2017. Blood 12/18/2024 9:36 PM CDT 12/18/2024 10:31 PM CDT us Victor Hugo Thao MD LAB BLOOD ORDERABLES Heidi linda Result [facility] Department [place] [address] * (ABNORMAL) CBC with auto differential (12/18/2024 9:36 PM CDT) WBC 3.31(L) 3.80 - 9.90 K/cumm Hgb 9.5(L) 11.9 - 15.5 g/dL [facility] Hct 29.1(L) 35.6 - 45.5 % [facility] Plt 253 150 - 400 K/cumm [facility] MPV 10.4 9.1 - 12.3 fL [facility] RBC 3.45(L) 3.90 - 5.20 M/cumm [facility] MCV 84.3 81.3 - 96.4 fL [facility] MCH 27.5 27.1 - 33.3 pg [facility] MCHC 32.6 32.3 - 35.7 g/dL [facility] RDW CV 13.7 11.1 - 14.9 % [facility] RDW SD 42.2 35.7 - 48.1 fL [facility] NRBC abs 0.00 0.00 - 0.01 K/cumm [facility] Blood 12/18/2024 9:36 PM CDT 12/18/2024 10:31 PM CDT Victor Hugo Thao MD LAB BLOOD ORDERABLES Heidi l Result Performing Organization Address [facility] de Phone Number [facility] [place] [place] [address] * aPTT (12/18/2024 9:36 PM CDT) aPTT [...] ORDERABLES Heidi l Result Performing Organization Address [facility] Co de Phone Number [facility] [place] [address] * Protime-INR (12/18/2024 9:36 PM CDT) PT 10.7 9.7 - 13.0 sec INR 0.99 0.90 - 1.20 [facility] Comment: Interpretive data Oral anticoagulant therapeutic [...] ORDERABLES Heidi l Result Performing Organization Address [facility] Co de Phone Number [facility] [place] [address] * Type and screen (12/18/2024 9:36 PM CDT) Pathologist [facility] ABO Rh O Negative Ramy, indirect Negative [facility] Blood 12/18/2024 9:36 PM CDT 12/18/2024 10:35 PM CDT Narrative [facility] - 12/18/2024 11:23 PM CDT Has the patient had Daratumumab or Isatuximab in the past 6 months?->Unknown Victor Hugo Thao MD LAB BLOOD BANK TEST ORDER MIGUELINA Final Result Performing Organization Address [facility] [place] [address] * Phosphorus (12/18/2024 9:36 PM CDT) Pathologist [facility] Phosphorus, pl 3.3 2.3 - 4.5 mg/dL Blood 12/18/2024 9:36 PM CDT 12/18/2024 10:31 PM CDT Victor Hugo Thao MD LAB BLOOD ORDERABLES Heidi l Result Performing Organization Address [facility] Co de Phone Number [facility] [place] [address] * Magnesium (12/18/2024 9:36 PM CDT) [facility] Magnesium 2.0 1.4 - 2.5 mg/dL Blood 12/18/2024 9:36 PM CDT 12/18/2024 10:31 PM CDT Victor Hugo Thao MD LAB BLOOD ORDERABLES Heidi l Result Performing Organization Address City/[facility]/ZIP Co de Phone Number [facility] Department [place] [address] * (ABNORMAL) Hemoglobin A1c (12/18/2024 9:36 PM CDT) [facility] Hgb A1C 5.8(H) 4.0 - 5.6 % Estimated Average Glucose 120 mg/dL [facility] Comment: The ADA recommends reporting an estimated Average Glucose (eAG) with all Hemoglobin A1c results using the equation derived from a study of 507 normal and diabetic adults. Minority populations were underrepresented and children were not included. (Diabetes Care 2020; 43(S1): S66-S76). The eAG is not equivalent to a fasting glucose. Blood 12/18/2024 9:36 PM CDT 12/18/2024 10:35 PM CDT Narrative [facility] - 12/19/2024 6:59 PM CDT 12/19/2024 15:34:24 CDT Reflex. Ariel Glez MD LAB BLOOD ORDERABLES Fi nal Result [facility] Department [place] [address] * Hepatic function panel (12/18/2024 9:36 PM CDT) [facility] Bilirubin, total 0.5 0.1 - 1.2 mg/dL Bilirubin, direct <0.2 0.1 - 0.3 mg/dL [facility] Protein, pl 7.6 6.5 - 8.5 g/dL [facility] Albumin 3.9 3.5 - 5.0 g/dL [facility] Alk phos 76 40 - 130 Units/L [facility] ALT 7 7 - 45 Units/L [facility] AST 23 10 - 45 Units/L [facility] Blood 12/18/2024 9:36 PM CDT 12/18/2024 10:31 PM CDT Victor Hugo Thao MD LAB BLOOD ORDERABLES Heidi l Result [facility] Department [place] [address] * Lipid panel (12/18/2024 9:36 PM CDT) [...] revised on 2018. Triglycerides 118 <=149 mg/dL [facility] Comment: Interpretive Data Ages < or [...] revised on 2018. HDL 47 >=40 mg/dL [facility] Comment: Interpretive Data Ages < or [...] 2018. LDL, calculated 80 <=129 mg/dL [facility] Comment: Interpretive Data Ages < or [...] revised on 2024. Non-HDL Cholesterol 101 mg/dL [facility] Comment: Interpretive Data Ages < or [...] last revised on 2018. Chol/HDL ratio 3 [facility] Blood 12/18/2024 9:36 PM CDT 12/18/2024 10:31 PM CDT us Ariel Glez MD LAB BLOOD ORDERABLES Fi nal Result [facility] Department [place] [address] * (ABNORMAL) Basic metabolic panel (12/18/2024 9:36 PM CDT) Pathologist [facility] Sodium 133(L) 135 - 145 mmol/L Potassium, pl 4.5 3.3 - 4.9 mmol/L [facility] Chloride 96(L) 97 - 110 mmol/L [facility] CO2 28 22 - 32 mmol/L [facility] Anion gap 9 2 - 15 mmol/L [facility] BUN 26(H) 6 - 25 mg/dL [facility] Creatinine 1.16(H) 0.60 - 1.10 mg/dL [facility] Glucose 119 70 - 199 mg/dL [facility] Comment: Interpretive Data Fasting glucose >/= [...] 2022. Calcium 10.0 8.5 - 10.3 mg/dL [facility] Blood 12/18/2024 9:36 PM CDT 12/18/2024 10:31 PM CDT us Victor Hugo Thao MD LAB BLOOD ORDERABLES Heidi l Result Performing Organization Address City/[facility]/ZIP Co de Phone Number [facility] Department [place] [address] * CT Neck Soft Tissue W Contrast [...] are normal. The limited view of the [place] is unremarkable. The visualized portions [...] are normal. The limited view of the [place] is unremarkable. The visualized portions [...] ORDERABLES - DEVICE Fin al Result [facility] Department of Laboratories [place], [place] [id number] * CT Facial Bones W Contrast (10/12/2024 [...] Jak Garrison M.D. AR: AIYANA Report ID: [id number] Reading Location: [id number] Procedure Note Jak Garrison MD - 10/12/2024 [...] Jak Garrison M.D. AR: AIYANA Report ID: [id number] Reading Location: [place] [address] [address] K[address] IMG CT PROCEDURES Final [...] LAB BLOOD ORDERABLES Final Result [facility] [place] [place]) [facility] [place] [address] * (ABNORMAL) Differential, auto (10/12/2024 4:17 PM CDT) Neutrophil abs 3.19 1.50 - 6.50 K/cumm Imm gran abs 0.01 0.00 - 0.10 K/cumm [facility] ([place]) Lymphocyte abs 0.31(L) 0.80 - 3.30 K/cumm [facility]) Monocyte abs 0.32 0.20 - 0.80 K/cumm [facility] ([place]) Eosinophil abs 0.08 0.00 - 0.50 K/cumm [facility] ([place]) Basophil abs 0.01 0.00 - 0.10 K/cumm [facility] ([place]) Neutrophil pct 81.3 % [facility] ([place]) Comment: Interpretive Data Percent cell count reference ranges are not reported, since discordance with absolute values may lead to misinterpretation of CBC data. Current Interpretive Data was last revised on 2017. Imm gran pct 0.3 % [facility] Comment: Interpretive Data Percent cell count reference ranges are not reported, since discordance with absolute values may lead to misinterpretation of CBC data. Current Interpretive Data was last revised on 2017. Lymphocyte pct 7.9 % [facility] Comment: Interpretive Data Percent cell count reference ranges are not reported, since discordance with absolute values may lead to misinterpretation of CBC data. Current Interpretive Data was last revised on 2017. Monocyte pct 8.2 % [facility] Comment: Interpretive Data Percent cell count reference ranges are not reported, since discordance with absolute values may lead to misinterpretation of CBC data. Current Interpretive Data was last revised on 2017. Eosinophil pct 2.0 % [facility] Comment: Interpretive Data Percent cell count reference ranges are not reported, since discordance with absolute values may lead to misinterpretation of CBC data. Current Interpretive Data was last revised on 2017. Basophil pct 0.3 % [facility] Comment: Interpretive Data Percent cell count reference ranges are not reported, since discordance with absolute values may lead to misinterpretation of CBC data. Current Interpretive Data was last revised on 2017. Blood 10/12/2024 4:17 PM CDT 10/12/2024 4:29 PM CDT us Sarbjit Geller NP LAB BLOOD ORDERABLES Final Result [facility] ([facility]) 1 [facility] [place] [address] * (ABNORMAL) CBC with auto differential (10/12/2024 [...] ([place]) [address] [place] [address] * (ABNORMAL) Comprehensive metabolic panel (10/12/2024 4:17 [...] CDT 10/12/2024 4:29 PM CDT Sarbjit Geller SCREEN STRETCHER LAB BLOOD ORDERABLES Final Result [facility] ([place]) [facility] Department [place] [address] * Hepatitis C antibody Blood (06/21/2024 10:25 AM URBAN FORESTER) Hep C Ab Nonreactive Nonreactive Comment:Antibodies to HCV no t detected. Does NOT exclude the possibility of recent exposure to HCV. Current interpretive data was last revised on 22 Blood 06/21/2024 10:2 5 AM URBAN FORESTER 06/21/2024 10:32 AM URBAN FORESTER Narrative [facility] - 06/21/2024 12:02 PM URBAN FORESTER Bill to [address] Occupational Health us Damina Foy MD LAB MICROBIOLOGY - GE NERAL ORDERABLES Final Result [facility] G[facility] Department [place] [address] from Last 3 Months or Most Recently Relevant to Health Maintenance Insurance MEDICARE [facility] MEDICARE [facility] Advance Directives For more information, please contact: [phone] Documents on File Type Date Recorded Patient 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 Resource 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 Expl anation ADVANCE DIRECTIVE 07/18/2024 5:13 PM ADVAN CE DIRECTIVE ADVANCE DIRECTIVE 06/22/2024 7:57 AM DMEETRI R OF [employer] * Full Code (Latest Code Status on File) Date Activated Date Inactivated Comments 12/18/2024 8:47 PM 12/22/2024 7:17 PM * Full Code Date Activated Date Inactivated Comments 06/21/2024 7:18 PM 07/16/2024 7:12 PM Care Teams Construction Laborer Relationship Specialty Start Date End Date Rafael Correia MD [address] [place] [address] PCP - General Family Medicine 10/03/24 Felicia Bishop, RN Nurse Navigator 05/20/24 Becki Rahman LCSW Validation Consultant 05/20/24 Onel Jensen MD [address] [address] Consulting Physician Otolaryngology 05/23/24
--- OUTSIDE RECORDS SUMMARY | 2025-01-07 08:07 | XMS_ITS | Data Portability ---
Author Organization [facility] [place] Address [address] [address] [place] [address] Assessment Encounter Date Assessment Date Assessment LastModified by Organization Details LastModified Time 10/26/2019 10/26/2019 Annual gynecological exam performed. Patient will come back in a year unless there are new symptoms. [email or web address] Not available 10/26/2019 10:33:40 Plan of Treatment Reminders Order Date Submit Date Provider Last Modified By Organization Details Last Modified Time Details Appointments None recorded. Lab ca 125, serum 2019 020 [facility]), [address], [place], [address], 0 05:30:56 urinalysis, dipstick 2019 020 [facility], [address], [address], [place], [address], 0 17:25:59 Referral None recorded. Procedures None recorded. Surgeries None recorded. Imaging US, pelvis 2019 020 [email or web address] [place], [address], [address], [place], [address], 0 16:58:57 US, transvagina l 2019 020 MEGHANA [place], [address], [address], [place], [address], 0 05:00:43 Medication Orders None recorded. Patient TargetsNo targets recorded. Patient InstructionsNo instructions recorded. Reason for Referral None Reported. Results Created Date Observation Date Name Description Value Unit Range Abnormal Flag Note LastModifiedBy Organization Detail LastModifiedTime 11/03/19 20 11/04/2019 ca 125, serum CA-125 6.0 U/mL <2-38. 1 Not Available [facility] ([facility]) [address], [place], [address], 11/04/2019 05:30:56 07/31/19 21 07/31/2020 , fidel molina md interpretati on Not Available [facility] [address], [place], [address], 11/03/2019 11:58:15 11/03/19 fidel DAVIES observ ation record ed. [facility] [address], [facility], [place], [address], 11/04/2019 18:14:00 Result Notes None recorded. Procedures Surgical History Date Name Laterality Status Provider Name and Address Organization Details Recorded Time 12/07/19 LAPAROSCOPY, SURGICAL WITH FULGURATION/EXCI TERRY OF LESIONS OF THE OVARY/PELVIC VISCERA/PERITONE AL SURFACE (SURG) completed Chris Aguilar MD [address], [place], [address], [facility] 12/11/2019 11:25:23 Total hysterectomy completed Callie Jung [facility] 10/26/2019 10:49:36 Imaging Results None recorded. [...] Updated DateTime 10/26/2019 154.94 cm 28 kg/m2 36381.67 g 170/78 mm[Hg] [facility] 10/26/2019 10:40:58 Date Recorded Body height Body mass index (BMI) Body weight Systolic And Diastolic Provider Name and Address Organization Details Last Updated DateTime 11/03/2019 154.94 cm 28 kg/m2 41575.67 g 194/78 mm[Hg] [facility] 11/03/2019 11:59:31 Date Recorded Body height Body mass index (BMI) Body weight Systolic And Diastolic Provider Name and Address Organization Details Last Updated DateTime 12/06/2019 154.94 cm 27.8 kg/m2 05425.08 g 159/77 mm[Hg] [facility] 12/06/2019 14:51:03 Date Recorded Body height Body mass index (BMI) Body weight Systolic And Diastolic Provider Name and Address Organization Details Last Updated DateTime 12/15/2019 154.94 cm 27.2 kg/m2 06291.3 g 178/82 mm[Hg] [facility] 12/15/2019 10:52:33 Social History None recorded. [...] Code Diagnosis Note 1590 Chris Aguilar MD [place] [address] [address] 10/26/2019 10:30:13 10/26/2019 11:19:47 Routine gynecologic examination done [id number] Z01.419 This patient is here for [...] Pap - today 2595 Chris Aguilar MD [place] [address] [address] 11/03/2019 10:49:52 11/03/2019 12:53:05 Cyst of left ovary [id number] N83.202 This patient is a 74-year-ol d [...] 2618 MD Sonia Hutchinson [address],[place] [address] 11/03/2019 11:29:57 11/03/2019 16:10:21 Abnormal radiologic density [id number] R93.89 6266 Chris Aguilar MD [place] [address] [address] 12/06/2019 14:42:27 12/06/2019 16:16:47 Cyst of left ovary [id number] N83.202 This patient is a 74-year-ol d female with a worrisome left ovarian cyst. We have agreed to perform laparoscop ic left ovarian oophorecto my. She understand s the risks, benefits, and alternativ es. She has completed the informed some process and is ready to proceed. 7521 MD Sonia Hutchinson [address] [address] 12/15/2019 10:42:55 12/15/2019 18:03:45 Eczema [id number] L30.9 Postoperative visit 2548 85054 Z09 This patient is a 74-year-ol d female who is for postop follow-up. She had a laparoscop ic ovarian cystectomy /oophorect adi. Thecyst was benign. Sheis recovering normally. Her incisions are clean dry and intact. She has problems with eczema. She luciaan coleaking skin throughout her scalp and under [...] Name 10/05/2020 1 [place] Tea Turner [id number] Tea Turner 12/12/2019 2 () Tea Turner [id number] Tea Turner Notes Date Note Type Note [...] PMDDNotes: Chris Aguilar MD [address], [place], [address], [facility] 10/26/2019 11:29:50 11/03/2019 text/html this patient is a 74-year-old female who was known to have ovarian cyst. She reported that had her well-woman exam. We agreed to perform a pelvic ultrasound. The ultrasound findings show a large cyst that is complex. She has no symptoms. She denies any pelvic pain, pressure, abdominal distention, early satiety. Chris Aguilar MD [address], [place], [address], [facility] 11/03/2019 12:32:01 12/06/2019 text/html This patient [...] infection. Chris Aguilar MD [address], [place], [address], [facility] 12/07/2019 11:32:21 12/15/2019 text/html This patient [...] exams. Chris Aguilar MD [address], [place], [address], [facility] 12/15/2019 11:31:33 OBGyn Episode Ob Episode Information Episode Created Date Number of Fetuses Patient Bloodtype Patient rh Status Prepregnancy Weight lbs Domestic Partner Domestic Partner Phone Father Name Electric Clock Mechanic Status 10/26/19 20 1 CLOSED Fetus Data [...] Domestic Partner Domestic Partner Phone Father Name Electric Clock Mechanic Status 10/26/19 20 1 CLOSED Fetus Data [...] Domestic Partner Domestic Partner Phone Father Name Electric Clock Mechanic Status 10/26/19 20 1 CLOSED Fetus Data [...] Domestic Partner Domestic Partner Phone Father Name Electric Clock Mechanic Status 10/26/19 20 1 CLOSED Fetus Data [...] Domestic Partner Domestic Partner Phone Father Name Electric Clock Mechanic Status 10/26/19 1 CLOSED Fetus Data First [...] Domestic Partner Domestic Partner Phone Father Name Electric Clock Mechanic Status 10/26/19 20 1 CLOSED Fetus Data [...] Domestic Partner Domestic Partner Phone Father Name Electric Clock Mechanic Status 10/26/19 20 1 CLOSED Fetus Data [...]
[2025-01-07 09:18] LABS: Total Protein Urine Random 9 mg/dL; Ur Ttl Prot Creatinine Ratio 0.24 mg/mg (0-0.20)
== END 2025-01-07 08:00 | disposition home or self-care (01) ==
LOC: ANHLAB 08:04
PROVIDERS: PCP Family Medicine; Visit Provider Internal Medicine Nephrology
DX: I12.9 Hypertensive chronic kidney disease with stage 1 through stage 4 chronic kidney disease, or unspecified chronic kidney disease (principal); N18.32 Chronic kidney disease, stage 3b; E87.1 Hypo-osmolality and hyponatremia; N25.81 Secondary hyperparathyroidism of renal origin; E55.9 Vitamin D deficiency, unspecified
CPT/HCPCS: 82570; 84156

== ENCOUNTER 2025-03-30 11:37 | Outpatient (CLI) | payer MEDICARE, OTHER, SELFPAY ==
[2025-03-30 12:34] LABS: Total Protein Urine Random 11 mg/dL; Ur Ttl Prot Creatinine Ratio 0.10 mg/mg (0-0.20)
[2025-03-30 12:47] LABS: Albumin Level 4.0 g/dL (3.5-5.1); Anion Gap 9 mmol/L (4-12); Blood Urea Nitrogen 35 mg/dL (7-17); Calcium 9.3 mg/dL (8.4-10.2); Carbon Dioxide 27 mmol/L (22-30); Chloride 95 mmol/L (98-107); Estimated Glomerular Filt Rate 46; Glucose 145 mg/dL (65-110); Potassium 4.9 mmol/L (3.4-5.0); Sodium 131 mmol/L (137-145)
== END 2025-03-30 11:38 | disposition home or self-care (01) ==
PROVIDERS: PCP Family Medicine; Visit Provider Internal Medicine Nephrology
DX: E87.1 Hypo-osmolality and hyponatremia (principal); I12.9 Hypertensive chronic kidney disease with stage 1 through stage 4 chronic kidney disease, or unspecified chronic kidney disease; N18.32 Chronic kidney disease, stage 3b
CPT/HCPCS: 36415; 80069; 82570; 84156